=== PATIENT | female | born 1970 | race Caucasian/White ===

== ENCOUNTER 2016-10-15 14:48 | Inpatient (IN) | payer OTHER ==
--- NOTE | 2016-10-15 17:33 | GHP ---
[f rep st] HISTORY AND PHYSICAL HISTORY AND PHYSICAL AND POSTADMISSION PHYSICIAN EVALUATION AND REHABILITATION TREATMENT PLAN: DATE OF ADMISSION: 10/15/2016 DATE OF EVALUATION: 10/15/2016 TIME OF EVALUATION: 1505 REFERRING FACILITY: [facility]. Referring Physician: Madeleine Lala MD CONSULTING PHYSICIANS: There were consultations with neurology, Dr. Whitman and Dr. Paul; and nephrology, Dr. Sanderson and Dr. Ramos. IMPAIRMENT GROUP: 1.9. ETIOLOGIC DIAGNOSIS: Other stroke. REHABILITATION DIAGNOSIS: Debility status post cerebrovascular accident. DATE OF ONSET: 10/06/2016 HISTORY OF PRESENT ILLNESS: The patient was admitted to [facility] on 10/06/2016 with vomiting and fever. She also was having a lot of diarrhea. She was noted to be lethargic. Evaluation was positive for influenza A, as well as Clostridium difficile colitis. An MRI of the brain was obtained due to persistent altered mental status, and it showed a small lacunar infarct. There was concern that this did not account for her encephalopathy and was it thought that oseltamivir which had been started for the influenza might be contributing, so it was discontinued after 3 days. A repeat brain MRI was obtained 2 days later after consultation with Neurology, and it showed an acute infarct of the left cerebral hemisphere and of the left middle cerebellar peduncle. The prior right frontal lobe acute lacunar infarct was also seen. She had further evaluation seeking the etiology of the infarct. There was no source of thrombus located with a transthoracic echo, as well as a transesophageal echocardiogram. She also had head and neck MRI. She had gradual improvement in her level of function, her diarrhea resolved, and she had improved alertness, so she was ready for transfer to inpatient rehabilitation. OTHER STUDIES AND LABS IN THE HOSPITAL: On the day of discharge, she has anemia with a hemoglobin of 9.2, a hematocrit of 30.7. Her MCV is low at 78.9. She had received IV iron supplementation during her hospitalization. Coagulation studies revealed a normal PT and PTT. She is not hypercoagulable regarding protein C, protein S, and antithrombin III testing. Factor V Leiden is still pending. Serum chemistry showed renal function at baseline with a creatinine of 2.0 and an estimated GFR of 27 on the day of discharge. She has a slightly low CO2 of 20. Her AST and ALT are slightly elevated at 50 and 73. A lipid panel was drawn. She had a high triglyceride at 327, total cholesterol was 186, LDL was 84, HDL was 37, and she was started on a statin for stroke prophylaxis. Urinalysis showed protein, ketones, and blood, but was negative for infection. Anticardiolipin antibodies were normal, ruling out lupus anticoagulant. Imaging studies were as above. Echocardiogram revealed normal cardiac function with left ventricular ejection fraction of 63, mild concentric LVH, mild to moderate aortic insufficiency without stenosis, and trivial tricuspid regurgitation. PRECAUTIONS: She is a fall risk. She has isolation for droplets due to influenza and for contact with Clostridium difficile. ACTIVE COMORBIDITIES: She has Clostridium difficile which is a tier 2 comorbidity. Otherwise, there are no tier 1, tier 2, or tier 3 comorbidities. PAST MEDICAL HISTORY: 1. Non-Hodgkin lymphoma. 2. Renal failure due to neurogenic bladder and vesicoureteral reflux. 3. Hypertension. 4. Recurrent pyelonephritis of [place] kidneys. 5. DVT of the right upper extremity in 2010. 6. Chronic abdominal pain. 7. Degenerative joint disease. 8. Anxiety and depression. 9. Hypothyroidism. 10. Preexcitation syndrome. 11. Gastroesophageal reflux disorder. 12. History of urinary retention with self catheterization in the past. PAST SURGICAL HISTORY: She has had a renal transplant in 2007 with [place] nephrectomies. She has had a T11-S1 spinal fusion in April 2013. She has had a cardiac ablation for the preexcitation syndrome. She has also had a right upper extremity dialysis fistula placed. MEDICATIONS BEFORE ADMISSION: 1. Imipramine 20 mg p.o. b.i.d. 2. Calcitriol 0.25 mg p.o. every Monday, Monday, and Monday. 3. Prednisone 10 mg p.o. daily. 4. Verapamil ER 240 mg p.o. daily. 5. Promethazine 25 mg p.o. q.6 p.r.n. 6. Potassium chloride 10 mg p.o. t.i.d. 7. Oxycodone 20 mg p.o. q.6 hours p.r.n. 8. Pantoprazole 40 mg p.o. daily. 9. Morphine SR 30 mg p.o. t.i.d. 10. Mirtazapine 15 mg p.o. q.h.s. 11. Levothyroxine 75 mcg p.o. daily. 12. Furosemide 10 mg p.o. daily. 13. Docusate 100 mg p.o. daily. 14. Cyproheptadine 4 mg p.o. p.r.n. headache. 15. Cyclobenzaprine 10 mg p.o. b.i.d. 16. Tacrolimus 4 mg p.o. daily. 17. Mycophenolate 180 mg p.o. t.i.d. ADMISSION MEDICATIONS: 1. Acetaminophen 650 mg p.o. q.4 hours p.r.n. 2. Aspirin 325 mg p.o. daily. 3. Calcitriol 0.25 mcg p.o. every Monday, Monday, and Monday. 4. Cyclobenzaprine 10 mg p.o. b.i.d. p.r.n. spasms. 5. Cyproheptadine 4 mg p.o. b.i.d. p.r.n. headache. 6. Heparin 5000 units subcutaneous q.8. 7. Levothyroxine 75 mcg p.o. daily. 8. Mirtazapine 15 mg p.o. q.h.s. 9. Tacrolimus 4 mg p.o. daily. 10. Imipramine 20 mg p.o. b.i.d. 11. Mycophenolate 180 mg p.o. t.i.d. 12. Oxycodone 5-10 mg p.o. q.4 hours p.r.n. 13. Pantoprazole 40 mg p.o. daily. 14. Pravastatin 20 mg p.o. daily. 15. Prednisone 10 mg p.o. daily. 16. Vancomycin 125 mg p.o. q.i.d. 17. Verapamil extended-release 240 mg p.o. daily. ALLERGIES: Amoxicillin, erythromycin, metoclopramide, nonsteroidal anti- inflammatory drugs, meperidine, meropenem, sulfa, ceftazidime, ciprofloxacin, levofloxacin, doxycycline, and gabapentin. FAMILY HISTORY: Noncontributory. PSYCHOSOCIAL HISTORY: She is . She lives with her . She is on disability. She has a 9-year-old daughter. She is a nonsmoker and nondrinker, and denies use of any other substances of abuse. 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 REVIEW OF SYSTEMS: She reports constipation x3 days. She is aware of a blurriness in the left visual field. She thinks her left arm is somewhat weaker than her right. She has a good appetite. She does not have significant back pain. She denies cough or dyspnea, but she was coughing when she first presented to the hospital. She denies nausea or vomiting, though she had vomiting when she first came to the hospital. She denies joint swelling or joint pain. She denies skin rash or skin breakdown. Otherwise, a 10-point review of systems is negative. PHYSICAL EXAM: VITAL SIGNS: Blood pressure is 110/74, heart rate is 105, respiratory rate is 14, oxygen saturation is 97% on room air, temperature is 36.5 degrees centigrade. Her weight is 71.2 kg for a body mass index of 25.2. GENERAL: This is a well-nourished, well-developed woman sitting in a chair. Cooperative and in no acute distress. HEENT: Extraocular movements are intact. Pupils are equal, round, and reactive to light and accommodation. Mucous membranes are moist. Dentition is in good condition. There are no oropharyngeal erythema or exudates, and no mucosal lesions noted. NECK: Supple. HEART: There is regular rate and rhythm with no murmurs, rubs, or gallops. LUNGS: Clear to auscultation bilaterally. ABDOMEN: Soft, nontender , nondistended, with normoactive bowel sounds, and no hepatosplenomegaly. EXTREMITIES: There is no cyanosis, clubbing, or edema. NEUROLOGIC: She is alert. Orientation was not tested. Cranial nerves 2-12 are grossly intact. She has weakness 4+/5 in the left upper extremity triceps, and her hand controller repairer and tester and biceps are slightly weaker on the left than on the right. She has reduced sensation on the left upper and lower extremities compared to the right. There is a left visual field cut. There is no tremor. There is no rigidity. CURRENT LEVEL OF FUNCTION PER THE PRE-ADMISSION SCREEN: Regarding diet, feeding , and swallowing, she was on a regular diet with thin liquids. For grooming, she required setup and contact guard with voice cuing. Dressing lower body required minimal assistance. Toileting required contact guard for clothing management and contact guard for transfer. She was continent of bladder and bowel. Bed mobility required minimal assistance with voice cuing. Transfers were accomplished with minimal assistance and voice cuing. She used a front- wheeled walker. For balance, she required contact guard. Endurance was fair. She was able to ambulate 80 feet with a front-wheeled walker and minimal assistance with voice cuing. She was noted to be slow to respond and to have a moderate to severe cognitive deficit. IMPRESSION: Divya Alex is a 46-year-old woman who presented to [facility] on 10/06/2016 with nausea, vomiting, and altered mental status. Evaluation in the hospital was positive for influenza A , as well as Clostridium difficile diarrhea. She was treated with oral vancomycin and oseltamivir. She had altered mental status. An MRI showed a right frontal lacunar infarct, which was thought to be an incidental finding. Oseltamivir was discontinued after 3 days out of concern that it was causing altered mental status. However, she did not recover normal mentation. A repeat MRI showed an extensive left cerebral infarction as well as a left cerebellar infarction. She was begun on aspirin as well as pravastatin. She has had improvement in function, and is now ready for inpatient rehabilitation. Her medical status is complicated by chronic pain, both abdominal and back. Scheduled opiates were discontinued during her stay and she is taking Tylenol as well as needed oxycodone. Back pain does not appear to be limiting her function. She is not complaining of abdominal pain at present, and she was able to sleep well. She additionally has a history of renal failure and renal transplantation. Renal function is at baseline per the consulting job hand. She is appropriate for inpatient rehabilitation where she will benefit from physical and occupational therapy to optimize her mobility and function regarding activities of daily living. Additionally, she will have therapy with Speech and Language Pathology regarding her cognition. She will need close nursing care regarding fall risk, isolation precautions, nutrition, and skin issues, and she will require close medical management by the physician for risk for changes in neurologic function, blood pressure management, renal function, and anemia. Her goal is to return home to her family with supportive services. For a safe discharge, she will need to accomplish independence with eating, bed mobility, and grooming. It is expected she will have modified independence for transfers and ambulation. She may continue to require assistance for dressing, bathing, shopping, meal preparation, and household management. She will receive therapy with Physical Therapy, Occupational Therapy, and Speech and Language Pathology for 60 minutes per day for each discipline, on 5- 7 days per week. Her expected duration of stay is 14-21 days. It is anticipated that upon discharge, she will continue to benefit from home health services, including speech and language pathology, occupational therapy, and physical therapy. ASSESSMENT AND PLAN: 1. Debility status post cerebrovascular accident. Physical and Occupational Therapy to optimize mobility and activities of daily living. 2. Possible cognitive impairment as well as expressive aphasia. She will be assessed and treated per Speech and Language Pathology. 3. Cerebrovascular accident of unclear etiology. There are hypercoagulable tests still pending, specifically factor V Leiden. Otherwise, she was found not to be hypercoagulable. She has been begun on aspirin as well as pravastatin and these will be continued. She will be monitored for any change in her neurologic condition, and she will have continued blood pressure control. 4. Clostridium difficile colitis. She will continue treatment with oral vancomycin, and she will be isolated with Clostridium difficile precautions. 5. Acute influenza A with 3 days of treatment with oseltamivir. She is on isolation for droplet precautions, and it is to be ascertained how long she needs to remain on droplet precautions. 6. Status post renal transplant. She will continue immunosuppressive medications. Creatinine is at baseline at 2.1. 7. Hypertension. Continue verapamil and monitor her blood pressure, with medications to be titrated or added depending on her blood pressure. 8. Chronic pain syndrome with history of extensive spinal fusion. She seems to be sleeping well and adequately functioning on p.r.n. oxycodone, as well as p.r.n. acetaminophen. She will not be restarted on the higher dose opiates that she was on previously. 9. Iron deficiency anemia. She has received IV iron in the hospital. She will have monitoring of her blood counts and iron level. /[id number]/MODL MTDD
[2016-10-15] MEDS ORDERED: BISACODYL 10 MG SUPP PR PRN (20:20)
[2016-10-15] MEDS: IMIPRAMINE HCL 20 MG PO SCH (21:27)
[2016-10-15] MEDS: POTASSIUM CL 10 MEQ TAB PO SCH (21:30)
[2016-10-15] MEDS: VANCOMYCIN 125 MG/2.5 ML UDL PO SCH (21:30)
[2016-10-15] MEDS: CYCLOBENZAPRINE 10 MG TAB PO SCH (21:30)
[2016-10-15] MEDS: HEPARIN 5,000 UNIT/0.5 ML SYR SC SCH (21:30)
[2016-10-15] MEDS ORDERED: TACROLIMUS 1 MG CAP PO ONE (21:30)
[2016-10-15] MEDS: MIRTAZAPINE 15 MG TAB PO SCH (21:30)
[2016-10-15] MEDS: oxyCODONE IR 5 MG TAB PO PRN (21:57)
[2016-10-15] MEDS: MYCOPHENOLATE SODIUM 180 MG TAB PO SCH (22:04)
[2016-10-16] MEDS: VANCOMYCIN 125 MG/2.5 ML UDL PO SCH ×4 (05:41→20:34)
[2016-10-16] MEDS: LEVOTHYROXINE 75 MCG TAB PO SCH (05:41)
[2016-10-16] MEDS: HEPARIN 5,000 UNIT/0.5 ML SYR SC SCH ×3 (05:41→20:31)
[2016-10-16] MEDS: oxyCODONE IR 5 MG TAB PO PRN (05:41)
[2016-10-16] MEDS: ASPIRIN EC 325 MG TAB PO SCH (08:20)
[2016-10-16] MEDS: CYCLOBENZAPRINE 10 MG TAB PO SCH ×2 (08:21→20:32)
[2016-10-16] MEDS: DOCUSATE SODIUM 100 MG CAP PO SCH (08:22)
[2016-10-16] MEDS: PANTOPRAZOLE SODIUM 40 MG TAB PO SCH (08:24)
[2016-10-16] MEDS: POTASSIUM CL 10 MEQ TAB PO SCH ×3 (08:24→20:32)
[2016-10-16] MEDS: FUROSEMIDE 20 MG TAB PO SCH (08:25)
[2016-10-16] MEDS: PRAVASTATIN SODIUM 20 MG TAB PO SCH (08:27)
[2016-10-16] MEDS: predniSONE 10 MG TAB PO SCH (08:27)
[2016-10-16] MEDS: VERAPAMIL ER 240 MG TAB PO SCH (08:28)
[2016-10-16] MEDS: MYCOPHENOLATE SODIUM 180 MG TAB PO SCH ×3 (08:31→20:33)
[2016-10-16] MEDS: IMIPRAMINE HCL 20 MG PO SCH ×2 (08:34→20:33)
[2016-10-16] MEDS: ASTAGRAF PO SCH (08:35)
--- NOTE | 2016-10-16 11:34 | SOAPPROG ---
SOAP Progress Note Assessment/Plan: Assessment: 46 yo female with multiple medical problems, admitted for debility, sepsis, CVA * Debility: Cont multi disp rehab eval and treat * CVA: uncertatin etiology. Cont multi disp therapy, cont ASA, Statins * Aphasia: Cont Speech/Language eval and treatment * Cognitive status: Cont evaluation and treatment * C. diff: Cont PO vanco * Influenza A: S/P treatment. Now with mild, non-productive cough. Cont supportive care * Renal Transplant, CKD with baseline Cre 1.2.: Stable, cont meds, f/u with renal medicine * HTN: On meds. 133/93 this am. Overall improving since acute care. * Chronic pain: Well managed on current regime. Plan: Cont Dr Gomez rehab treatment plan. 10/16/16 11:34 Subjective: Slept well resting comfortably No F/C/CP/SOB/N/V/D/C Objective: Vital Signs Temp Pulse Resp BP Pulse Ox 37.0 C 72 16 133/93 H 95 10/16/16 06:27 10/16/16 06:27 10/16/16 06:27 10/16/16 08:28 10/16/16 06:27 10/15/16 10/16/16 10/17/16 05:59 05:59 05:59 Intake Total 640 500 Output Total 300 Balance 340 500 Physical Exam - Physical Exam General Appearance: alert, no apparent distress Neck: supple Respiratory: lungs clear Cardiac/Chest: regular rate, rhythm Abdomen: soft Skin: normal color, warm/dry Extremities: No pedal edema, No calf tenderness Neuro/Psych: alert, oriented x 3, aphasia, cognition abnormalities, speech abnormalities, other (no acute changes), No normal mood/affect (flat) ICD10 Worksheet Patient Problems: Problems Problem Status Diagnosed C. difficile diarrhea Acute 10/08/16 Nausea Acute Renal failure (ARF), acute on chronic Acute Syncope due to orthostatic hypotension Acute Tachycardia Acute History of kidney transplant Chronic Anticoagulant therapy Active Chronic pain syndrome Active Hypokalemia Active Hypothyroidism Active Renal impairment Active biliary gastric reflux Active Dehydration Acute Diarrhea Acute Nausea & vomiting Acute
[2016-10-16] MEDS: MIRTAZAPINE 15 MG TAB PO SCH (20:32)
[2016-10-17] MEDS: oxyCODONE IR 5 MG TAB PO PRN ×4 (00:27→20:10)
[2016-10-17] MEDS: HEPARIN 5,000 UNIT/0.5 ML SYR SC SCH ×3 (05:54→20:10)
[2016-10-17] MEDS: VANCOMYCIN 125 MG/2.5 ML UDL PO SCH ×4 (05:54→20:09)
[2016-10-17] MEDS: LEVOTHYROXINE 75 MCG TAB PO SCH (05:58)
[2016-10-17] MEDS: ASTAGRAF PO SCH (08:18)
[2016-10-17] MEDS: ASPIRIN EC 325 MG TAB PO SCH (08:18)
[2016-10-17] MEDS: CYCLOBENZAPRINE 10 MG TAB PO SCH ×2 (08:19→20:10)
[2016-10-17] MEDS: DOCUSATE SODIUM 100 MG CAP PO SCH (08:20)
[2016-10-17] MEDS: FUROSEMIDE 20 MG TAB PO SCH (08:21)
[2016-10-17] MEDS: IMIPRAMINE HCL 20 MG PO SCH ×2 (08:22→20:14)
[2016-10-17] MEDS: PANTOPRAZOLE SODIUM 40 MG TAB PO SCH (08:23)
[2016-10-17] MEDS: MYCOPHENOLATE SODIUM 180 MG TAB PO SCH ×3 (08:23→20:29)
[2016-10-17] MEDS: PRAVASTATIN SODIUM 20 MG TAB PO SCH (08:24)
[2016-10-17] MEDS: POTASSIUM CL 10 MEQ TAB PO SCH ×3 (08:24→20:17)
[2016-10-17] MEDS: predniSONE 10 MG TAB PO SCH (08:25)
[2016-10-17] MEDS: VERAPAMIL ER 240 MG TAB PO SCH (08:25)
--- NOTE | 2016-10-17 10:56 | SOAPPROG ---
SOAP Progress Note Assessment/Plan: Assessment: 46 yo female with multiple medical problems, admitted for debility, sepsis, CVA * Debility: Cont multi disp rehab eval and treat * CVA: uncertain etiology. Cont multi disp therapy, cont ASA, Statins * Aphasia: Cont Speech/Language eval and treatment * Cognitive status: Cont evaluation and treatment * C. diff: Cont PO vanco * Influenza A: S/P treatment. Now with mild, non-productive cough. Cont supportive care * Renal Transplant, CKD with baseline Cre 1.2.: Stable, cont meds, f/u with renal medicine * HTN: On meds. 118/68 this am. Overall improving since acute care. * Chronic pain: Well managed on current regime. Plan: Cont Dr Gomez rehab treatment plan. 10/17/16 10:54 Subjective: sleep variable Mood flat/depressed Denies CP/SOB/N/V/D/C Objective: Vital Signs Temp Pulse Resp BP Pulse Ox 37.1 C 79 16 118/68 96 10/17/16 06:16 10/17/16 06:16 10/17/16 06:16 10/17/16 08:25 10/17/16 06:16 10/16/16 10/17/16 10/18/16 05:59 05:59 05:59 Intake Total 640 1850 354 Output Total 300 1900 Balance 340 -50 354 Physical Exam - Physical Exam General Appearance: alert, no apparent distress Neck: supple Respiratory: lungs clear Cardiac/Chest: regular rate, rhythm Skin: normal color, warm/dry Extremities: No pedal edema, No calf tenderness Neuro/Psych: alert, oriented x 3, other (no acute changes) ICD10 Worksheet Patient Problems: Problems Problem Status Diagnosed C. difficile diarrhea Acute 10/08/16 Nausea Acute Renal failure (ARF), acute on chronic Acute Syncope due to orthostatic hypotension Acute Tachycardia Acute History of kidney transplant Chronic Anticoagulant therapy Active Chronic pain syndrome Active Hypokalemia Active Hypothyroidism Active Renal impairment Active biliary gastric reflux Active Dehydration Acute Diarrhea Acute Nausea & vomiting Acute
[2016-10-17] MEDS: CALCITRIOL 0.25 MCG CAP PO SCH (20:10)
[2016-10-17] MEDS: SENNOSIDES 1 TAB PO PRN (20:10)
[2016-10-17] MEDS: MIRTAZAPINE 15 MG TAB PO SCH (20:10)
[2016-10-18] MEDS: HEPARIN 5,000 UNIT/0.5 ML SYR SC SCH ×3 (05:26→20:06)
[2016-10-18] MEDS: LEVOTHYROXINE 75 MCG TAB PO SCH (05:26)
[2016-10-18] MEDS: VANCOMYCIN 125 MG/2.5 ML UDL PO SCH ×4 (05:26→20:07)
[2016-10-18] MEDS: oxyCODONE IR 5 MG TAB PO PRN ×4 (05:33→23:28)
[2016-10-18] MEDS: ASPIRIN EC 325 MG TAB PO SCH (07:57)
[2016-10-18] MEDS: ASTAGRAF PO SCH (07:58)
[2016-10-18] MEDS: VERAPAMIL ER 240 MG TAB PO SCH (08:00)
[2016-10-18] MEDS: DOCUSATE SODIUM 100 MG CAP PO SCH (08:00)
[2016-10-18] MEDS: predniSONE 10 MG TAB PO SCH ×2 (08:00→08:01)
[2016-10-18] MEDS: CYCLOBENZAPRINE 10 MG TAB PO SCH ×2 (08:00→20:07)
[2016-10-18] MEDS: PANTOPRAZOLE SODIUM 40 MG TAB PO SCH (08:02)
[2016-10-18] MEDS: MYCOPHENOLATE SODIUM 180 MG TAB PO SCH ×3 (08:02→20:07)
[2016-10-18] MEDS: SENNOSIDES 1 TAB PO PRN ×2 (08:02→20:07)
[2016-10-18] MEDS: PRAVASTATIN SODIUM 20 MG TAB PO SCH (08:02)
[2016-10-18] MEDS: POTASSIUM CL 10 MEQ TAB PO SCH ×3 (08:02→20:07)
[2016-10-18] MEDS: FUROSEMIDE 20 MG TAB PO SCH (08:03)
[2016-10-18] MEDS: IMIPRAMINE HCL 20 MG PO SCH ×2 (08:04→20:09)
--- NOTE | 2016-10-18 12:16 | SOAPPROG ---
SOAP Progress Note Assessment/Plan: Assessment: 46 yo female with multiple medical problems, admitted for debility, sepsis, L cerebellar CVA * Debility status post cerebrovascular accident. Initial FIM 73. 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 Climbed 6 stairs. Reduced initiation but supervision to SBA for ADLs. Continue Physical and Occupational Therapy to optimize mobility and activities of daily living. * Possible cognitive impairment as well as expressive aphasia. She will be assessed and treated per Speech and Language Pathology. * Cerebrovascular accident of unclear etiology. Await result of factor V Leiden testing. Otherwise, not hypercoagulable. Continue ASA, pravastatin. * ROBLES: cyproheptadine as ordered form the acute hospital; monitor for resolution. * Foul smelling urine per nursing and OT: check UA. * Clostridium difficile colitis. Continue oral vancomycin, and she will be isolated with Clostridium difficile precautions. * Acute influenza A with 3 days of treatment with oseltamivir. She is on isolation for droplet precautions, and it is to be ascertained how long she needs to remain on droplet precautions. * Status post renal transplant. Continue immunosuppressive medications. Creatinine is at baseline at 2.1. * Hypertension. Continue verapamil and monitor her blood pressure. * Chronic pain syndrome with history of extensive spinal fusion. She seems to be sleeping well and adequately functioning on p.r.n. oxycodone, as well as p.r.n. acetaminophen. She will not be restarted on the higher dose opiates that she was on previously. * Iron deficiency anemia. She has received IV iron in the hospital. She will have monitoring of her blood counts and iron level. Attended staffing, 15 min. D/W case mgmt, nursing, PT, OT, JOB PRINTER. Difficult home situation with providing little information; unclear level of assistance available and level of function needed for safe discharge. Discharge goal of 11/01/16. 10/18/16 15:41 Subjective: C/O migraine ROBLES since yesterday morning, R periorbital radiating to jaw, pounding. No nausea. Also with back pain but not severe. Otherwise doing well. Appetite reduced but no n/v/c/d, no f/c, no cough/ dyspnea. Objective: Vital Signs Temp Pulse Resp BP Pulse Ox 36.3 C 75 14 121/86 H 94 10/18/16 05:52 10/18/16 08:00 10/18/16 08:00 10/18/16 08:00 10/18/16 08:00 10/17/16 10/18/16 10/19/16 05:59 05:59 05:59 Intake Total 1850 1344 360 Output Total 1900 1300 525 Balance -50 44 -165 - Time Spent With Patient Time Spent With Patient: Greater than 35 minutes floor time today, including more than 50% of time in coordination of care during staffing meeting, and counseling patient. Physical Exam - Physical Exam General Appearance: WD/WN, alert, no apparent distress Respiratory: normal breath sounds, No crackles, No rhonchi, No wheezing Cardiac/Chest: regular rate, rhythm, No edema Skin: normal color, warm/dry Neuro/Psych: alert, normal mood/affect, motor weakness (LUE ataxia) ICD10 Worksheet Patient Problems: Problems Problem Status Diagnosed C. difficile diarrhea Acute 10/08/16 Nausea Acute Renal failure (ARF), acute on chronic Acute Syncope due to orthostatic hypotension Acute Tachycardia Acute History of kidney transplant Chronic Anticoagulant therapy Active Chronic pain syndrome Active Hypokalemia Active Hypothyroidism Active Renal impairment Active biliary gastric reflux Active Dehydration Acute Diarrhea Acute Nausea & vomiting Acute
[2016-10-18] MEDS: CYPROHEPTADINE HCL 4 MG TAB PO PRN ×3 (12:56→23:28)
[2016-10-18 16:14] LABS: COLOR YELLOW; LEUKOCYTE ESTERASE,URINE NEGATIVE (NEGATIVE); NITRITE,URINE NEGATIVE (NEGATIVE)
[2016-10-18 16:17] LABS: MUCUS TRACE /lpf (NONE-1+)
[2016-10-18] MEDS: MIRTAZAPINE 15 MG TAB PO SCH (20:07)
[2016-10-19] MEDS: VANCOMYCIN 125 MG/2.5 ML UDL PO SCH ×4 (04:55→21:46)
[2016-10-19] MEDS: HEPARIN 5,000 UNIT/0.5 ML SYR SC SCH ×3 (04:55→21:45)
[2016-10-19] MEDS: LEVOTHYROXINE 75 MCG TAB PO SCH (04:55)
[2016-10-19] MEDS: CYCLOBENZAPRINE 10 MG TAB PO SCH ×2 (08:42→21:46)
[2016-10-19] MEDS: ASTAGRAF PO SCH (08:42)
[2016-10-19] MEDS: ASPIRIN EC 325 MG TAB PO SCH (08:42)
[2016-10-19] MEDS: IMIPRAMINE HCL 20 MG PO SCH ×2 (08:43→21:47)
[2016-10-19] MEDS: DOCUSATE SODIUM 100 MG CAP PO SCH (08:43)
[2016-10-19] MEDS: FUROSEMIDE 20 MG TAB PO SCH (08:43)
[2016-10-19] MEDS: MYCOPHENOLATE SODIUM 180 MG TAB PO SCH ×3 (08:43→21:46)
[2016-10-19] MEDS: PANTOPRAZOLE SODIUM 40 MG TAB PO SCH (08:43)
[2016-10-19] MEDS: SENNOSIDES 1 TAB PO PRN (08:44)
[2016-10-19] MEDS: VERAPAMIL ER 240 MG TAB PO SCH (08:44)
[2016-10-19] MEDS: POTASSIUM CL 10 MEQ TAB PO SCH ×3 (08:44→21:47)
[2016-10-19] MEDS: PRAVASTATIN SODIUM 20 MG TAB PO SCH (08:44)
--- NOTE | 2016-10-19 11:35 | SOAPPROG ---
SOAP Progress Note Assessment/Plan: Assessment: 46 yo female with multiple medical problems, admitted for debility, sepsis, L cerebellar CVA * Debility status post cerebrovascular accident. Initial FIM 73. 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 Climbed 6 stairs. Reduced initiation but supervision to SBA for ADLs. Continue Physical and Occupational Therapy to optimize mobility and activities of daily living. * Possible cognitive impairment as well as expressive aphasia. She will be assessed and treated per Speech and Language Pathology. * Cerebrovascular accident of unclear etiology. Await result of factor V Leiden testing. Otherwise, not hypercoagulable. Continue ASA, pravastatin. D/W Dr. Cuadra, Neurology: advises any further evaluation should be referred to [facility]. Reports heparin is for DVT prophylaxis; will continue until Factor V Leiden results are available (D/W lab on 10/19/16: expect result by endo of week, 10/21/16). * Depression? Poor sleep despite mirtazapine. D/W who asked about benzodiazepines, and about bupropion. He agreed to psychiatry consult. * ROBLES: cyproheptadine as ordered form the acute hospital; monitor for resolution. * Foul smelling urine per nursing and OT: UA 10/18/16 with 1+ protein, 2+ epithelial cells, o/w wnl. * Clostridium difficile colitis. Continue oral vancomycin, and isolation with Clostridium difficile precautions. * Acute influenza A with 3 days of treatment with oseltamivir. She is on isolation for droplet precautions, and it is to be ascertained how long she needs to remain on droplet precautions. * Status post renal transplant. Continue immunosuppressive medications. Creatinine is at baseline at 2.1. * Hypertension. Continue verapamil and monitor her blood pressure. * Chronic pain syndrome with history of extensive spinal fusion. She seems to be sleeping well and adequately functioning on p.r.n. oxycodone, as well as p.r.n. acetaminophen. She will not be restarted on the higher dose opiates that she was on previously. * Iron deficiency anemia. She has received IV iron in the hospital. She will have monitoring of her blood counts and iron level. Phone conversation with Jovany Hughes 10/19/16, regarding sleep and depression as above. He reports he will be able to provide considerable help, and that his mother will be available as well. Patient may need to be able to ambulate on uneven surfaces to get into house. Conversation with Neurologist Dr. Cuadra. Advises any further evaluation should be done at [facility]. Discharge goal of 11/01/16. 10/19/16 12:41 Subjective: Reports poor sleep and feels tired. Appetite OK, variable. Last BM 2 days ago. Back pain not severe, not interfering with sleep or therapies. Left arm/ hand still weaker; reports that L leg has recovered completely. Objective: Vital Signs Temp Pulse Resp BP Pulse Ox 36.4 C 70 16 129/85 H 96 10/19/16 05:25 10/19/16 05:25 10/19/16 05:25 10/19/16 08:44 10/19/16 05:25 10/18/16 10/19/16 10/20/16 05:59 05:59 05:59 Intake Total 1344 1590 Output Total 1300 1975 Balance 44 -385 - Time Spent With Patient Time Spent With Patient: Greater than 35 minutes floor time today, including more than 50% of time in coordination of care in conversation with , ed case manager, neurologist Dr. Cuadra, and psychiatrist Dr. Batista. Physical Exam - Physical Exam General Appearance: WD/WN, alert, no apparent distress Respiratory: No respiratory distress, No accessory muscle use Cardiac/Chest: No edema Abdomen: normal bowel sounds, non-tender, soft, No distended Neuro/Psych: alert, oriented x 3, motor weakness (L handgrip, biceps, triceps 4/ 5.), No normal mood/affect (Flat affect) ICD10 Worksheet Patient Problems: Problems Problem Status Diagnosed C. difficile diarrhea Acute 10/08/16 Nausea Acute Renal failure (ARF), acute on chronic Acute Syncope due to orthostatic hypotension Acute Tachycardia Acute History of kidney transplant Chronic Anticoagulant therapy Active Chronic pain syndrome Active Hypokalemia Active Hypothyroidism Active Renal impairment Active biliary gastric reflux Active Dehydration Acute Diarrhea Acute Nausea & vomiting Acute
[2016-10-19] MEDS: oxyCODONE IR 5 MG TAB PO PRN ×2 (12:23→21:46)
--- NOTE | 2016-10-19 18:11 | SOAPPROG ---
SOAP Progress Note Assessment/Plan: Assessment: Stopped by to check in on Barbara. Her speech is improving, but she has ongoing expressive aphasia. Her eye contact initially was poor, but improved during the course of our conversation. Her cognition appeared ok during our visit. She is on her appropriate IS meds. BP and volume status look ok. Her Cr was at her baseline during her hospitalization at [facility] (low 2's) She is continuing therapy. Hope we see ongoing improvement. Given her unusual neuro presentation, I am not sure of the indications for ongoing anticoagulation. Per the charts, additional eval is to occur at [place]? Will check labs. Offered Barbara encouragement. Plan: 10/19/16 18:06 Subjective: Affect brightened during course of visit. Objective: Vital Signs Temp Pulse Resp BP Pulse Ox 36.4 C 70 16 129/85 H 96 10/19/16 05:25 10/19/16 05:25 10/19/16 05:25 10/19/16 08:44 10/19/16 05:25 10/18/16 10/19/16 10/20/16 05:59 05:59 05:59 Intake Total 1344 1590 480 Output Total 1300 1975 Balance 44 -385 480 Physical Exam - Physical Exam General Appearance: no apparent distress Respiratory: lungs clear Cardiac/Chest: regular rate, rhythm Extremities: normal inspection ICD10 Worksheet Patient Problems: Problems Problem Status Diagnosed C. difficile diarrhea Acute 10/08/16 Nausea Acute Renal failure (ARF), acute on chronic Acute Syncope due to orthostatic hypotension Acute Tachycardia Acute History of kidney transplant Chronic Anticoagulant therapy Active Chronic pain syndrome Active Hypokalemia Active Hypothyroidism Active Renal impairment Active biliary gastric reflux Active Dehydration Acute Diarrhea Acute Nausea & vomiting Acute
[2016-10-19] MEDS: MIRTAZAPINE 15 MG TAB PO SCH (21:46)
[2016-10-19] MEDS: CALCITRIOL 0.25 MCG CAP PO SCH (21:48)
[2016-10-20] MEDS: LEVOTHYROXINE 75 MCG TAB PO SCH (06:02)
[2016-10-20] MEDS: HEPARIN 5,000 UNIT/0.5 ML SYR SC SCH (06:02)
[2016-10-20] MEDS: VANCOMYCIN 125 MG/2.5 ML UDL PO SCH ×4 (06:02→21:03)
[2016-10-20] MEDS: oxyCODONE IR 5 MG TAB PO PRN ×4 (06:02→23:48)
[2016-10-20] MEDS: CYCLOBENZAPRINE 10 MG TAB PO SCH ×2 (08:32→19:55)
[2016-10-20] MEDS: PRAVASTATIN SODIUM 20 MG TAB PO SCH (08:32)
[2016-10-20] MEDS: MYCOPHENOLATE SODIUM 180 MG TAB PO SCH ×3 (08:32→21:05)
[2016-10-20] MEDS: ASPIRIN EC 325 MG TAB PO SCH (08:32)
[2016-10-20] MEDS: DOCUSATE SODIUM 100 MG CAP PO SCH (08:32)
[2016-10-20] MEDS: POTASSIUM CL 10 MEQ TAB PO SCH ×2 (08:32→21:05)
[2016-10-20] MEDS: VERAPAMIL ER 240 MG TAB PO SCH (08:32)
[2016-10-20] MEDS: predniSONE 10 MG TAB PO SCH (08:33)
[2016-10-20] MEDS: ASTAGRAF PO SCH (08:33)
[2016-10-20] MEDS: FUROSEMIDE 20 MG TAB PO SCH (08:33)
[2016-10-20] MEDS: PANTOPRAZOLE SODIUM 40 MG TAB PO SCH (08:33)
[2016-10-20] MEDS: IMIPRAMINE HCL 20 MG PO SCH ×2 (08:33→21:06)
[2016-10-20 09:17] LABS: ABSOLUTE IMMATURE GRANULOCYTES 0.09 10^3/uL (0.00-0.10); ADD DIFF? NO; ADD MORPH? NO; ADD SCAN? NO; ATYPICAL LYMPHOCYTE FLAG 20 (0-99); FRAGMENT RBC FLAG 20 (0-99); HEMATOCRIT 31.8 % (38.0-47.0); HEMOGLOBIN 9.6 g/dL (12.6-16.3); LEFT SHIFT FLG 10 (0-99); LIPEMIA HEMOLYSIS FLAG 80 (0-99); MEAN CELL HEMOGLOBIN 24.2 pg (27.9-34.1); MEAN CELL HEMOGLOBIN CONCENTR. 30.2 g/dL (32.4-36.7); MEAN CELL VOLUME 80.3 fL (81.5-99.8); MEAN PLATELET VOLUME 11.3 fL (8.7-11.7); PLATELET CLUMPS FLAG 10 (0-99); PLATELET COUNT 366 10^3/uL (150-400); RED BLOOD CELL COUNT 3.96 10^6/uL (4.18-5.33)
[2016-10-20 09:49] LABS: ALBUMIN 3.9 g/dL (3.5-5.0); ANION GAP 15 mEq/L (8-16); CALCIUM 9.4 mg/dL (8.5-10.4); CARBON DIOXIDE 25 mEq/l (22-31); CHLORIDE 103 mEq/L (97-110); CREATININE 2.5 mg/dL (0.6-1.0); GLOMERULAR FILTRATION RATE 21; GLUCOSE 80 mg/dL (70-100); SODIUM 143 mEq/L (134-144)
[2016-10-20 13:50] LABS: % SATURATION 16 % (20-55); TOTAL IRON BINDING CAPACITY 301 ug/dL (260-490)
--- NOTE | 2016-10-20 14:51 | SOAPPROG ---
SOAP Progress Note Assessment/Plan: Assessment: 46 yo female with multiple medical problems, admitted for debility, sepsis, L cerebellar CVA * Debility status post cerebrovascular accident. Initial FIM 73. 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 Climbed 6 stairs. Reduced initiation but supervision to SBA for ADLs. Continue Physical and Occupational Therapy to optimize mobility and activities of daily living. * Possible cognitive impairment as well as expressive aphasia. Continue Speech and Language Pathology. * Cerebrovascular accident of unclear etiology. Not hypercoagulable. Continue ASA, pravastatin. D/W Dr. Cuadra, Neurology: advises any further evaluation should be referred to [facility]. Reports heparin is for DVT prophylaxis; d/c 10/20/16 as Factor V Leiden results are negative. * Status post renal transplant & CKD. Continue immunosuppressive medications. Creatinine increased from baseline of 2.1 to 2.5 on 10/20/16. D/W nephrology Dr. Sanderson: likely dehydration. Advises NS 500 cc, and d/c furosemide. Will also reduce KCl from 10 mg TID to BID. Recheck BMP in AM. Encourage PO hydration. * Depression? Poor sleep despite mirtazapine. D/W who asked about benzodiazepines, and about bupropion. He agreed to psychiatry consult. Start melatonin 10/20/16. Await recommendations of psychiatry. * ROBLES: cyproheptadine as ordered form the acute hospital; monitor for resolution. * Foul smelling urine per nursing and OT: UA 10/18/16 with 1+ protein, 2+ epithelial cells, o/w wnl. * Clostridium difficile colitis. Continue oral vancomycin, and isolation with Clostridium difficile precautions. * Acute influenza A with 3 days of treatment with oseltamivir. She is on isolation for droplet precautions, and it is to be ascertained how long she needs to remain on droplet precautions. * Hypertension. Continue verapamil and monitor her blood pressure. * Chronic pain syndrome with history of extensive spinal fusion. She seems to be sleeping well and adequately functioning on p.r.n. oxycodone, as well as p.r.n. acetaminophen. She will not be restarted on the higher dose opiates that she was on previously. * Iron deficiency anemia. She has received IV iron in the hospital. Continues fe-deficient on labs 10/20/16. Add PO iron X 1 mo. Phone conversation with Jovany Hughes 10/19/16, regarding sleep and depression as above. He reports he will be able to provide considerable help, and that his mother will be available as well. Patient may need to be able to ambulate on uneven surfaces to get into house. Conversation with Neurologist Dr. Cuadra 10/19/16. Advises any further evaluation should be done at [facility]. Discharge goal of 11/01/16. 10/20/16 14:55 Subjective: c/o continued poor sleep and HAs. Thinks she may have reduced fluid intake, Back pain at baseline. No f/c, cough, dyspnea, n/v/c/d. Objective: Vital Signs Temp Pulse Resp BP Pulse Ox 36.3 C 94 18 121/83 H 96 10/20/16 07:45 10/20/16 07:45 10/20/16 07:45 10/20/16 08:32 10/20/16 07:45 Laboratory Results 10/20/16 08:15 10/20/16 08:15 10/19/16 10/20/16 10/21/16 05:59 05:59 05:59 Intake Total 1590 1600 810 Output Total 1975 1150 250 Balance -385 450 560 Physical Exam - Physical Exam General Appearance: WD/WN, alert, no apparent distress Respiratory: normal breath sounds, No crackles, No rhonchi, No wheezing Cardiac/Chest: regular rate, rhythm, No edema Skin: normal color, warm/dry Neuro/Psych: alert, normal mood/affect, oriented x 3, other (Amulating with cane R hand; assist on L arm per PT. Ambulates with FWW, SBA per PT, short steps, slow, step-to and step-through pattern.) ICD10 Worksheet Patient Problems: Problems Problem Status Diagnosed C. difficile diarrhea Acute 10/08/16 Nausea Acute Renal failure (ARF), acute on chronic Acute Syncope due to orthostatic hypotension Acute Tachycardia Acute History of kidney transplant Chronic Anticoagulant therapy Active Chronic pain syndrome Active Hypokalemia Active Hypothyroidism Active Renal impairment Active biliary gastric reflux Active Dehydration Acute Diarrhea Acute Nausea & vomiting Acute
[2016-10-20] MEDS ORDERED: NS 500 ML IV SCH (15:00)
[2016-10-20] MEDS: PROMETHAZINE HCL 25 MG TAB PO PRN ×2 (17:14→23:48)
[2016-10-20] MEDS: MELATONIN 3 MG TAB PO SCH (21:05)
[2016-10-20] MEDS: MIRTAZAPINE 15 MG TAB PO SCH (21:05)
[2016-10-21] MEDS: LEVOTHYROXINE 75 MCG TAB PO SCH (06:16)
[2016-10-21] MEDS: VANCOMYCIN 125 MG/2.5 ML UDL PO SCH ×4 (06:16→20:22)
[2016-10-21] MEDS: oxyCODONE IR 5 MG TAB PO PRN ×3 (06:23→20:21)
[2016-10-21 08:34] LABS: ANION GAP 20 mEq/L (8-16); CALCIUM 9.4 mg/dL (8.5-10.4); CARBON DIOXIDE 23 mEq/l (22-31); CHLORIDE 104 mEq/L (97-110); CREATININE 2.7 mg/dL (0.6-1.0); GLOMERULAR FILTRATION RATE 19; GLUCOSE 84 mg/dL (70-100); SODIUM 147 mEq/L (134-144)
[2016-10-21] MEDS: CYCLOBENZAPRINE 10 MG TAB PO SCH (08:52)
[2016-10-21] MEDS: ASPIRIN EC 325 MG TAB PO SCH (08:52)
[2016-10-21] MEDS: PANTOPRAZOLE SODIUM 40 MG TAB PO SCH (08:52)
[2016-10-21] MEDS: predniSONE 10 MG TAB PO SCH (08:52)
[2016-10-21] MEDS: POTASSIUM CL 10 MEQ TAB PO SCH ×2 (08:52→20:21)
[2016-10-21] MEDS: PRAVASTATIN SODIUM 20 MG TAB PO SCH (08:52)
[2016-10-21] MEDS: DOCUSATE SODIUM 100 MG CAP PO SCH (08:52)
[2016-10-21] MEDS: PROMETHAZINE HCL 25 MG TAB PO PRN (08:52)
[2016-10-21] MEDS: VERAPAMIL ER 240 MG TAB PO SCH (08:52)
[2016-10-21] MEDS: MYCOPHENOLATE SODIUM 180 MG TAB PO SCH ×3 (08:52→20:26)
[2016-10-21] MEDS: IMIPRAMINE HCL 20 MG PO SCH (08:54)
[2016-10-21] MEDS: ASTAGRAF PO SCH (08:54)
--- NOTE | 2016-10-21 09:42 | SOAPPROG ---
SOAP Progress Note Assessment/Plan: Assessment: 46 yo female with multiple medical problems, admitted for debility, sepsis, L cerebellar CVA * Debility status post cerebrovascular accident. Initial FIM 73. 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 Climbed 6 stairs. Use of L hand seems improved today 10/21/16. Reduced initiation but supervision to SBA for ADLs. Continue Physical and Occupational Therapy to optimize mobility and activities of daily living. * Possible cognitive impairment as well as expressive aphasia. Continue Speech and Language Pathology. * Cerebrovascular accident of unclear etiology. Not hypercoagulable. Continue ASA, pravastatin. D/W Dr. Cuadra, Neurology: advises any further evaluation should be referred to [facility]. Reports heparin is for DVT prophylaxis; d/c 10/20/16 as Factor V Leiden results are negative. * Status post renal transplant & CKD. Continue immunosuppressive medications. Creatinine increased from baseline of 2.1 to 2.5 on 10/20/16; to 2.7 on 10/21/16. Unable to establish IV yesterday. D/W nephrology Dr. Sanderson 10/20/16: likely dehydration. However, appears to be hydrating PO. NS 500 cc not given due to difficult IV access. D/c'd furosemide. Also reduced KCl from 10 mg TID to BID. 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 * Urinary retention: blader scan > 800cc; voided 300; voided again later but residual 250cc. May contribute to declining renal function. Meds that impair bladder emptying: imipramine, cyclobenzaprine, cyproheptadine, promethazine, oxycodone. Will stop imipramine, cyclobenzaprine, promethazine. Bladderscan Q 6 hr and cath for residuall > 300 cc. * Depression? Poor sleep despite mirtazapine. D/W who asked about benzodiazepines, and about bupropion. He agreed to psychiatry consult. Started melatonin 10/20/16. Await recommendations of psychiatry. * ROBLES: cyproheptadine as ordered form the acute hospital; monitor for resolution. * Foul smelling urine per nursing and OT: UA 10/18/16 with 1+ protein, 2+ epithelial cells, o/w wnl. * Clostridium difficile colitis. Continue oral vancomycin, and isolation with Clostridium difficile precautions. * Acute influenza A with 3 days of treatment with oseltamivir. She is on isolation for droplet precautions, and it is to be ascertained how long she needs to remain on droplet precautions. * Hypertension. Continue verapamil and monitor her blood pressure. * Chronic pain syndrome with history of extensive spinal fusion. She seems to be sleeping well and adequately functioning on p.r.n. oxycodone, as well as p.r.n. acetaminophen. She will not be restarted on the higher dose opiates that she was on previously. * Iron deficiency anemia. She has received IV iron in the hospital. Continues fe-deficient on labs 10/20/16. Add PO iron X 1 mo. Phone conversation with Jovany Hughes 10/19/16, regarding sleep and depression as above. He reports he will be able to provide considerable help, and that his mother will be available as well. Patient may need to be able to ambulate on uneven surfaces to get into house. Conversation with Neurologist Dr. Cuadra 10/19/16. Advises any further evaluation should be done at [facility]. Discharge goal of 11/01/16. 10/21/16 12:37 Subjective: C/O ROBLES. Slept better last night but still not a full night. Not aware of urinary retention or dysuria; thinks she's voiding well. Good appetite, no n/v/ c/d. No f/c. Objective: Vital Signs Temp Pulse Resp BP Pulse Ox 36.2 C 101 H 16 122/88 H 97 10/21/16 08:00 10/21/16 08:00 10/21/16 08:00 10/21/16 08:52 10/21/16 08:00 Laboratory Results 10/20/16 08:15 10/21/16 07:15 10/20/16 10/21/16 10/22/16 05:59 05:59 05:59 Intake Total 1600 1550 Output Total 1150 850 Balance 450 700 - Time Spent With Patient Time Spent With Patient: Greater than 35 minutes floor time today, including more than 50% of time incoordination of care including discussion with nephrology Dr. Sandersno and his clinical product manager, and discussion of plan with nursing. Physical Exam - Physical Exam General Appearance: WD/WN, alert, no apparent distress Respiratory: normal breath sounds, No crackles, No rhonchi, No wheezing Cardiac/Chest: regular rate, rhythm, No edema Skin: normal color, warm/dry Neuro/Psych: alert, normal mood/affect, oriented x 3, other (Using L hand for eating and operating TV remote; some ataxia noted.) ICD10 Worksheet Patient Problems: Problems Problem Status Diagnosed C. difficile diarrhea Acute 10/08/16 Nausea Acute Renal failure (ARF), acute on chronic Acute Syncope due to orthostatic hypotension Acute Tachycardia Acute History of kidney transplant Chronic Anticoagulant therapy Active Chronic pain syndrome Active Hypokalemia Active Hypothyroidism Active Renal impairment Active biliary gastric reflux Active Dehydration Acute Diarrhea Acute Nausea & vomiting Acute
[2016-10-21] MEDS: MIRTAZAPINE 15 MG TAB PO SCH (20:21)
[2016-10-21] MEDS: ONDANSETRON DISINTEGRATING 4 MG TAB PO PRN (20:21)
[2016-10-21] MEDS: MELATONIN 3 MG TAB PO SCH (20:22)
[2016-10-21] MEDS: CALCITRIOL 0.25 MCG CAP PO SCH (20:30)
[2016-10-22] MEDS: oxyCODONE IR 5 MG TAB PO PRN ×6 (00:15→23:13)
[2016-10-22] MEDS: LEVOTHYROXINE 75 MCG TAB PO SCH (05:11)
[2016-10-22] MEDS: VANCOMYCIN 125 MG/2.5 ML UDL PO SCH ×4 (05:11→20:27)
[2016-10-22] MEDS: ONDANSETRON DISINTEGRATING 4 MG TAB PO PRN ×2 (05:52→23:13)
[2016-10-22] MEDS: ASPIRIN EC 325 MG TAB PO SCH (08:52)
[2016-10-22] MEDS: ASTAGRAF PO SCH (08:53)
[2016-10-22] MEDS: PANTOPRAZOLE SODIUM 40 MG TAB PO SCH (08:55)
[2016-10-22] MEDS: MYCOPHENOLATE SODIUM 180 MG TAB PO SCH ×3 (08:55→20:27)
[2016-10-22] MEDS: POTASSIUM CL 10 MEQ TAB PO SCH ×2 (08:55→20:28)
[2016-10-22] MEDS: predniSONE 10 MG TAB PO SCH (08:55)
[2016-10-22] MEDS: PRAVASTATIN SODIUM 20 MG TAB PO SCH (08:55)
[2016-10-22] MEDS: VERAPAMIL ER 240 MG TAB PO SCH (08:56)
[2016-10-22] MEDS: DOCUSATE SODIUM 100 MG CAP PO SCH (08:58)
[2016-10-22 09:15] LABS: ANION GAP 13 mEq/L (8-16); CALCIUM 9.3 mg/dL (8.5-10.4); CARBON DIOXIDE 25 mEq/l (22-31); CHLORIDE 104 mEq/L (97-110); CREATININE 2.8 mg/dL (0.6-1.0); GLOMERULAR FILTRATION RATE 18; GLUCOSE 79 mg/dL (70-100); POTASSIUM 4.9 mEq/L (3.5-5.2); SODIUM 142 mEq/L (134-144)
--- NOTE | 2016-10-22 15:16 | SOAPPROG ---
SOAP Progress Note Assessment/Plan: 46 yo female with multiple medical problems, admitted for debility, sepsis, L cerebellar CVA * Debility status post cerebrovascular accident. Initial FIM 73. 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 Climbed 6 stairs. Use of L hand seems improved today 10/21/16. Reduced initiation but supervision to SBA for ADLs. Continue Physical and Occupational Therapy to optimize mobility and activities of daily living. * Possible cognitive impairment as well as expressive aphasia. Continue Speech and Language Pathology. * Cerebrovascular accident of unclear etiology. Not hypercoagulable. Continue ASA, pravastatin. D/W Dr. Cuadra, Neurology: advises any further evaluation should be referred to [facility]. Reports heparin is for DVT prophylaxis; d/c 10/20/16 as Factor V Leiden results are negative. * Status post renal transplant & CKD. Continue immunosuppressive medications. Creatinine increased from baseline of 2.1 to 2.5 on 10/20/16; to 2.7 on 10/21/16. Unable to establish IV yesterday. D/W nephrology Dr. Sanderson 10/20/16: likely dehydration. However, appears to be hydrating PO. NS 500 cc not given due to difficult IV access. D/c'd furosemide. Also reduced KCl from 10 mg TID to BID. 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 Cr settling at 2.8 today, will CTM, encouraging oral hydration * Urinary retention: blader scan > 800cc; voided 300; voided again later but residual 250cc. May contribute to declining renal function. Meds that impair bladder emptying: imipramine, cyclobenzaprine, cyproheptadine, promethazine, oxycodone. Will stop imipramine, cyclobenzaprine, promethazine. Bladderscan Q 6 hr and cath for residuall > 300 cc. Still only voiding down to 200's but has not required IC * Depression? Poor sleep despite mirtazapine. D/W who asked about benzodiazepines, and about bupropion. He agreed to psychiatry consult. Started melatonin 10/20/16. Await recommendations of psychiatry. * ROBLES: cyproheptadine as ordered form the acute hospital; monitor for resolution. * Foul smelling urine per nursing and OT: UA 10/18/16 with 1+ protein, 2+ epithelial cells, o/w wnl. * Clostridium difficile colitis. Continue oral vancomycin, and isolation with Clostridium difficile precautions. * Acute influenza A with 3 days of treatment with oseltamivir. She is on isolation for droplet precautions, and it is to be ascertained how long she needs to remain on droplet precautions. * Hypertension. Continue verapamil and monitor her blood pressure. * Chronic pain syndrome with history of extensive spinal fusion. She seems to be sleeping well and adequately functioning on p.r.n. oxycodone, as well as p.r.n. acetaminophen. She will not be restarted on the higher dose opiates that she was on previously. * Iron deficiency anemia. She has received IV iron in the hospital. Continues fe-deficient on labs 10/20/16. Add PO iron X 1 mo. Phone conversation with Jovany Hughes 10/19/16, regarding sleep and depression as above. He reports he will be able to provide considerable help, and that his mother will be available as well. Patient may need to be able to ambulate on uneven surfaces to get into house. Conversation with Neurologist Dr. Cuadra 10/19/16. Advises any further evaluation should be done at [facility]. Discharge goal of 11/01/16. Subjective: No acute events. No complaints today. Denies ROBLES, vision changes, dysuria. Objective: Vital Signs Temp Pulse Resp BP Pulse Ox 36.8 C 79 18 126/87 H 94 10/22/16 05:14 10/22/16 05:14 10/22/16 05:14 10/22/16 08:56 10/22/16 05:14 Laboratory Results 10/20/16 08:15 10/22/16 05:45 10/21/16 10/22/16 10/23/16 05:59 05:59 05:59 Intake Total 1550 1640 1500 Output Total 850 3000 400 Balance 700 -1360 1100 - Pending Discharge Pending Discharge Within 24 Hours: No Pending Discharge Within 48 Hours: No Physical Exam - Physical Exam General Appearance: alert, no apparent distress Neck: supple Respiratory: lungs clear, normal breath sounds Cardiac/Chest: regular rate, rhythm Abdomen: non-tender, soft Skin: normal color Extremities: No pedal edema Neuro/Psych: alert, normal mood/affect ICD10 Worksheet Patient Problems: Problems Problem Status Diagnosed C. difficile diarrhea Acute 10/08/16 Nausea Acute Renal failure (ARF), acute on chronic Acute Syncope due to orthostatic hypotension Acute Tachycardia Acute History of kidney transplant Chronic Anticoagulant therapy Active Chronic pain syndrome Active Hypokalemia Active Hypothyroidism Active Renal impairment Active biliary gastric reflux Active Dehydration Acute Diarrhea Acute Nausea & vomiting Acute
[2016-10-22] MEDS: MIRTAZAPINE 15 MG TAB PO SCH (20:27)
[2016-10-22] MEDS: MELATONIN 3 MG TAB PO SCH (20:27)
[2016-10-23] MEDS: oxyCODONE IR 5 MG TAB PO PRN ×4 (05:24→21:25)
[2016-10-23] MEDS: LEVOTHYROXINE 75 MCG TAB PO SCH (05:24)
[2016-10-23] MEDS: VANCOMYCIN 125 MG/2.5 ML UDL PO SCH ×4 (05:24→21:17)
[2016-10-23] MEDS: ASTAGRAF PO SCH (08:12)
[2016-10-23] MEDS: ASPIRIN EC 325 MG TAB PO SCH (08:12)
[2016-10-23] MEDS: POTASSIUM CL 10 MEQ TAB PO SCH (08:14)
[2016-10-23] MEDS: PANTOPRAZOLE SODIUM 40 MG TAB PO SCH (08:14)
[2016-10-23] MEDS: MYCOPHENOLATE SODIUM 180 MG TAB PO SCH ×3 (08:14→21:17)
[2016-10-23] MEDS: VERAPAMIL ER 240 MG TAB PO SCH (08:15)
[2016-10-23] MEDS: predniSONE 10 MG TAB PO SCH (08:15)
[2016-10-23] MEDS: PRAVASTATIN SODIUM 20 MG TAB PO SCH (08:15)
[2016-10-23] MEDS: DOCUSATE SODIUM 100 MG CAP PO SCH (08:25)
[2016-10-23 11:01] LABS: ANION GAP 16 mEq/L (8-16); CARBON DIOXIDE 21 mEq/l (22-31); CHLORIDE 105 mEq/L (97-110); CREATININE 2.7 mg/dL (0.6-1.0); GLOMERULAR FILTRATION RATE 19; GLUCOSE 56 mg/dL (70-100); POTASSIUM 5.2 mEq/L (3.5-5.2); SODIUM 142 mEq/L (134-144)
--- NOTE | 2016-10-23 12:14 | SOAPPROG ---
SOAP Progress Note Assessment/Plan: 46 yo female with multiple medical problems, admitted for debility, sepsis, L cerebellar CVA * Debility status post cerebrovascular accident. Initial FIM 73. Ambulated 300 ' SHROUDM[place] with a stiff gait. Climbed 6 stairs. Use of L hand seems improved today 10/21/16. Reduced initiation but supervision to SBA for ADLs. Continue Physical and Occupational Therapy to optimize mobility and activities of daily living. * Possible cognitive impairment as well as expressive aphasia. Continue Speech and Language Pathology. * Cerebrovascular accident of unclear etiology. Not hypercoagulable. Continue ASA, pravastatin. D/W Dr. Cuadra, Neurology: advises any further evaluation should be referred to [facility]. Reports heparin is for DVT prophylaxis; d/c 10/20/16 as Factor V Leiden results are negative. * Status post renal transplant & CKD. Continue immunosuppressive medications. Creatinine increased from baseline of 2.1 to 2.5 on 10/20/16; to 2.7 on 10/21/16. Unable to establish IV yesterday. D/W nephrology Dr. Sanderson 10/20/16: likely dehydration. However, appears to be hydrating PO. NS 500 cc not given due to difficult IV access. D/c'd furosemide. Also reduced KCl from 10 mg TID to BID to Daily (10/23). 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 Cr peaked now stable with 2.7 today, will CTM, encouraging oral hydration * Urinary retention: blader scan > 800cc; voided 300; voided again later but residual 250cc. May contribute to declining renal function. Meds that impair bladder emptying: imipramine, cyclobenzaprine, cyproheptadine, promethazine, oxycodone. Will stop imipramine, cyclobenzaprine, promethazine. Bladderscan Q 6 hr and cath for residuall > 300 cc. Still only voiding down to 200's but has not required IC past 48hrs * Depression? Poor sleep despite mirtazapine. D/W who asked about benzodiazepines, and about bupropion. He agreed to psychiatry consult. Started melatonin 10/20/16. Await recommendations of psychiatry. * ROBLES: cyproheptadine as ordered form the acute hospital; monitor for resolution. * Foul smelling urine per nursing and OT: UA 10/18/16 with 1+ protein, 2+ epithelial cells, o/w wnl. * Clostridium difficile colitis. Continue oral vancomycin, and isolation with Clostridium difficile precautions. * Acute influenza A with 3 days of treatment with oseltamivir. She is on isolation for droplet precautions, and it is to be ascertained how long she needs to remain on droplet precautions. * Hypertension. Continue verapamil and monitor her blood pressure. * Chronic pain syndrome with history of extensive spinal fusion. She seems to be sleeping well and adequately functioning on p.r.n. oxycodone, as well as p.r.n. acetaminophen. She will not be restarted on the higher dose opiates that she was on previously. * Iron deficiency anemia. She has received IV iron in the hospital. Continues fe-deficient on labs 10/20/16. Add PO iron X 1 mo. Phone conversation with Jovany Hughes 10/19/16, regarding sleep and depression as above. He reports he will be able to provide considerable help, and that his mother will be available as well. Patient may need to be able to ambulate on uneven surfaces to get into house. Conversation with Neurologist Dr. Cuadra 10/19/16. Advises any further evaluation should be done at [facility]. Discharge goal of 11/01/16. Subjective: seen in therapy. No acute events. No IC past day. No complaints, denies pain or lightheadedness. Objective: Vital Signs Temp Pulse Resp BP Pulse Ox 36.6 C 75 16 149/94 H 94 10/23/16 05:22 10/23/16 05:22 10/23/16 05:22 10/23/16 08:15 10/23/16 05:22 Laboratory Results 10/20/16 08:15 10/23/16 06:30 10/22/16 10/23/16 10/24/16 05:59 05:59 05:59 Intake Total 1640 2450 Output Total 3000 2200 300 Balance -1360 250 -300 - Pending Discharge Pending Discharge Within 24 Hours: No Pending Discharge Within 48 Hours: No Physical Exam - Physical Exam General Appearance: alert Neck: supple Respiratory: lungs clear, normal breath sounds Cardiac/Chest: regular rate, rhythm Abdomen: normal bowel sounds Skin: warm/dry Neuro/Psych: alert, depressed affect, other (Flat affect) ICD10 Worksheet Patient Problems: Problems Problem Status Diagnosed C. difficile diarrhea Acute 10/08/16 Nausea Acute Renal failure (ARF), acute on chronic Acute Syncope due to orthostatic hypotension Acute Tachycardia Acute History of kidney transplant Chronic Anticoagulant therapy Active Chronic pain syndrome Active Hypokalemia Active Hypothyroidism Active Renal impairment Active biliary gastric reflux Active Dehydration Acute Diarrhea Acute Nausea & vomiting Acute
[2016-10-23] MEDS: MIRTAZAPINE 15 MG TAB PO SCH (21:17)
[2016-10-23] MEDS: MELATONIN 3 MG TAB PO SCH (21:17)
[2016-10-24] MEDS: oxyCODONE IR 5 MG TAB PO PRN ×5 (00:51→19:39)
[2016-10-24] MEDS: LEVOTHYROXINE 75 MCG TAB PO SCH (06:22)
[2016-10-24] MEDS: VANCOMYCIN 125 MG/2.5 ML UDL PO SCH ×4 (06:22→22:28)
[2016-10-24] MEDS: ASTAGRAF PO SCH (09:09)
[2016-10-24] MEDS: ASPIRIN EC 325 MG TAB PO SCH (09:09)
[2016-10-24] MEDS: MYCOPHENOLATE SODIUM 180 MG TAB PO SCH ×3 (09:10→22:28)
[2016-10-24] MEDS: PANTOPRAZOLE SODIUM 40 MG TAB PO SCH (09:10)
[2016-10-24] MEDS: DOCUSATE SODIUM 100 MG CAP PO SCH (09:10)
[2016-10-24] MEDS: predniSONE 10 MG TAB PO SCH (09:11)
[2016-10-24] MEDS: VERAPAMIL ER 240 MG TAB PO SCH (09:11)
[2016-10-24] MEDS: POTASSIUM CL 10 MEQ TAB PO SCH (09:11)
[2016-10-24] MEDS: PRAVASTATIN SODIUM 20 MG TAB PO SCH (09:11)
--- NOTE | 2016-10-24 09:56 | SOAPPROG ---
SOAP Progress Note Assessment/Plan: Assessment: 46 yo female with multiple medical problems, admitted for debility, sepsis, L cerebellar CVA * Debility status post cerebrovascular accident. Initial FIM 73 on 10/19/16; gain to 83 as of 10/24/16. Ambulated 300' CGA, no device, cueing for awareness of L side. Climbed 9 stairs, one rail, SBA. Set-up/SBA for ADLs. Reduced initiation. Trial of I in room during the day soon. Continue Physical and Occupational Therapy to optimize mobility and activities of daily living. * Possible cognitive impairment as well as expressive aphasia. Improving. No longer dropping pronouns. Continues flat affect. Continue Speech and Language Pathology. * Cerebrovascular accident of unclear etiology. Not hypercoagulable. Continue ASA, pravastatin. D/W Dr. Cuadra, Neurology: advises any further evaluation should be referred to [facility]. Reports heparin is for DVT prophylaxis; d/c 10/20/16 as Factor V Leiden results are negative. Related to migraine? * Status post renal transplant & CKD. Continue immunosuppressive medications. Creatinine increased from baseline of 2.1 to 2.5 on 10/20/16; to 2.7 on 10/21/16. D/W nephrology Dr. Sanderson 10/20/16: likely dehydration. Unable to establish IV for hydration 10/20/16. However, subsequently appears to be hydrating PO. D/c' d furosemide. Also reduced KCl from 10 mg TID to QD. 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 * Urinary retention, likely contributing to decreased renal funciton: blader scan > 800cc; voided 300; voided again later but residual 250cc. Meds that impair bladder emptying: imipramine, cyclobenzaprine, cyproheptadine, promethazine, oxycodone. Stopped imipramine, cyclobenzaprine, promethazine on . Bladder scan Q 6 hr and cath for residual > 300 cc. Nurse has been using double voiding strategy: if PVR > 300, she voids again; has avoided catheterization. * Depression? Poor sleep despite mirtazapine. D/W who asked about benzodiazepines, and about bupropion. He agreed to psychiatry consult. Started melatonin 10/20/16. Await recommendations of psychiatry. * ROBLES: cyproheptadine as ordered form the acute hospital; monitor for resolution. Encourage minimal use due to urinary retention, Unclear optimal treatment or prevention. Consider riboflavin. * Foul smelling urine per nursing and OT: UA 10/18/16 with 1+ protein, 2+ epithelial cells, o/w wnl. * Clostridium difficile colitis. Continue oral vancomycin, and isolation with Clostridium difficile precautions. * Acute influenza A with 3 days of treatment with oseltamivir. She is on isolation for droplet precautions, and it is to be ascertained how long she needs to remain on droplet precautions. * Hypertension. Continue verapamil and monitor her blood pressure. * Chronic pain syndrome with history of extensive spinal fusion. She seems to be sleeping well and adequately functioning on p.r.n. oxycodone, as well as p.r.n. acetaminophen. She will not be restarted on the higher dose opiates that she was on previously. * Iron deficiency anemia. She has received IV iron in the hospital. Continues fe-deficient on labs 10/20/16. Add PO iron X 1 mo. Phone conversation with Jovany Hughes 10/19/16, regarding sleep and depression as above. He reports he will be able to provide considerable help, and that his mother will be available as well. Patient may need to be able to ambulate on uneven surfaces to get into house. Conversation with Neurologist Dr. Cuadra 10/19/16. Advises any further evaluation should be done at [facility]. Attended staffing, 15 min. D/W case mgmt, nursing, PT, OT, [employer]IST, turn supervisor. Trial of independence in room soon. Some concern re psychosocial situation and whether there will be sufficient supervision at home relative to her low initiation to e.g. prevent urinary retention. Continue discharge goal of . 10/24/16 10:44 Subjective: Feeling better. Slept well. No ROBLES for a few days. Ambulating better but still reports LOB. No f/c, cough/dyspnea, n/v/c/d. Objective: Vital Signs Temp Pulse Resp BP Pulse Ox 36.8 C 73 16 124/89 H 94 10/24/16 06:38 10/24/16 06:38 10/24/16 06:38 10/24/16 09:11 10/24/16 06:38 Laboratory Results 10/20/16 08:15 10/23/16 10/24/16 10/25/16 05:59 05:59 05:59 Intake Total 2450 1590 500 Output Total 2200 2750 700 Balance 250 -1160 -200 - Time Spent With Patient Time Spent With Patient: Greater than 35 minutes floor time today, including more than 50% of time in coordination of care during staffing, and counseling patient. Physical Exam - Physical Exam General Appearance: WD/WN, alert, no apparent distress Respiratory: normal breath sounds, No crackles, No rhonchi, No wheezing Cardiac/Chest: regular rate, rhythm, No edema Skin: normal color, warm/dry Neuro/Psych: alert, oriented x 3, other (Flat affect) ICD10 Worksheet Patient Problems: Problems Problem Status Diagnosed C. difficile diarrhea Acute 10/08/16 Nausea Acute Renal failure (ARF), acute on chronic Acute Syncope due to orthostatic hypotension Acute Tachycardia Acute History of kidney transplant Chronic Anticoagulant therapy Active Chronic pain syndrome Active Hypokalemia Active Hypothyroidism Active Renal impairment Active biliary gastric reflux Active Dehydration Acute Diarrhea Acute Nausea & vomiting Acute
[2016-10-24 10:01] LABS: ANION GAP 13 mEq/L (8-16); CALCIUM 8.9 mg/dL (8.5-10.4); CARBON DIOXIDE 25 mEq/l (22-31); CHLORIDE 105 mEq/L (97-110); CREATININE 2.6 mg/dL (0.6-1.0); GLOMERULAR FILTRATION RATE 20; GLUCOSE 75 mg/dL (70-100); POTASSIUM 4.2 mEq/L (3.5-5.2); SODIUM 143 mEq/L (134-144)
--- NOTE | 2016-10-24 15:17 | PDOREHIP ---
Admission [facility] - Admission - 3 Day Assessment Period Admission Date/Day 1: 10/15/16 Day 2: 10/16/16 Day 3: 10/17/16 - Active Diagnoses Comorbidities and Co-existing Conditions at Admission: 53369. None of the Above - Skin Conditions Unhealed Pressure Ulcer (1 or more/Stage 1 or >)-Admission: 0. No (Late entry)
[2016-10-24] MEDS: MIRTAZAPINE 15 MG TAB PO SCH (22:28)
[2016-10-24] MEDS: MELATONIN 3 MG TAB PO SCH (22:28)
[2016-10-24] MEDS: CALCITRIOL 0.25 MCG CAP PO SCH (22:33)
[2016-10-25] MEDS: LEVOTHYROXINE 75 MCG TAB PO SCH (05:27)
[2016-10-25] MEDS: VANCOMYCIN 125 MG/2.5 ML UDL PO SCH ×4 (05:27→20:08)
[2016-10-25] MEDS: oxyCODONE IR 5 MG TAB PO PRN ×4 (05:35→20:08)
[2016-10-25] MEDS: ASPIRIN EC 325 MG TAB PO SCH (08:41)
[2016-10-25] MEDS: PRAVASTATIN SODIUM 20 MG TAB PO SCH (08:41)
[2016-10-25] MEDS: predniSONE 10 MG TAB PO SCH (08:42)
[2016-10-25] MEDS: VERAPAMIL ER 240 MG TAB PO SCH (08:42)
[2016-10-25] MEDS: PANTOPRAZOLE SODIUM 40 MG TAB PO SCH (08:42)
[2016-10-25] MEDS: MYCOPHENOLATE SODIUM 180 MG TAB PO SCH ×3 (08:42→21:01)
[2016-10-25] MEDS: DOCUSATE SODIUM 100 MG CAP PO SCH (08:42)
[2016-10-25] MEDS: ASTAGRAF PO SCH (08:45)
[2016-10-25 08:51] LABS: ANION GAP 17 mEq/L (8-16); CALCIUM 9.5 mg/dL (8.5-10.4); CARBON DIOXIDE 25 mEq/l (22-31); CHLORIDE 103 mEq/L (97-110); CREATININE 2.6 mg/dL (0.6-1.0); GLOMERULAR FILTRATION RATE 20; GLUCOSE 62 mg/dL (70-100); POTASSIUM 4.3 mEq/L (3.5-5.2); SODIUM 145 mEq/L (134-144)
[2016-10-25] MEDS: POTASSIUM CL 10 MEQ TAB PO SCH (10:08)
--- NOTE | 2016-10-25 15:19 | SOAPPROG ---
SOAP Progress Note Assessment/Plan: Assessment: 46 yo female with multiple medical problems, admitted for debility, sepsis, L cerebellar CVA * Debility status post cerebrovascular accident. Initial FIM 73 on 10/19/16; gain to 83 as of 10/24/16. Ambulated 300' CGA, no device, cueing for awareness of L side. Climbed 9 stairs, one rail, SBA. Set-up/SBA for ADLs. Reduced initiation. Trial of I in room during the day soon. Continue Physical and Occupational Therapy to optimize mobility and activities of daily living. * Possible cognitive impairment as well as expressive aphasia. Improving. No longer dropping pronouns. Continues flat affect. Continue Speech and Language Pathology. * Cerebrovascular accident of unclear etiology. Not hypercoagulable. Continue ASA, pravastatin. D/W Dr. Cuadra, Neurology: advises any further evaluation should be referred to [facility]. Reports heparin is for DVT prophylaxis; d/c'd 10/20/16 as Factor V Leiden results are negative. Related to migraine? * Status post renal transplant & CKD. Continue immunosuppressive medications. Creatinine increased from baseline of 2.1 to 2.5 on 10/20/16; to 2.7 on 10/21/16; now stable X 2 days at 2.6 on 11/25/16. D/W nephrology Dr. Sanderson 10/20/16: likely dehydration. Unable to establish IV for hydration 10/20/16. However, subsequently appears to be hydrating PO. D/c'd furosemide. Also reduced KCl from 10 mg TID to QD. 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 Further studies underway per Nephrology. * Urinary retention, likely contributing to decreased renal function: blader scan > 800cc; voided 300; voided again later but residual 250cc. Meds that impair bladder emptying: imipramine, cyclobenzaprine, cyproheptadine, promethazine, oxycodone. Stopped imipramine, cyclobenzaprine, promethazine on . Bladder scan Q 6 hr and cath for residual > 300 cc. Nurse has been using double voiding strategy: if PVR > 300, she voids again; has avoided catheterization. * No depression per Psychiatry; await full consult note. Poor sleep despite mirtazapine. D/W who asked about benzodiazepines, and about bupropion. He agreed to psychiatry consult. Started melatonin 10/20/16. * ROBLES: cyproheptadine as ordered form the acute hospital; monitor for resolution. Encourage minimal use due to urinary retention, Unclear optimal treatment or prevention. Consider riboflavin. * Foul smelling urine per nursing and OT: UA 10/18/16 with 1+ protein, 2+ epithelial cells, o/w wnl. * Clostridium difficile colitis. Continue oral vancomycin, and isolation with Clostridium difficile precautions. * Acute influenza A with 3 days of treatment with oseltamivir. She is on isolation for droplet precautions, and it is to be ascertained how long she needs to remain on droplet precautions. * Hypertension. Continue verapamil and monitor her blood pressure. * Chronic pain syndrome with history of extensive spinal fusion. She seems to be sleeping well and adequately functioning on p.r.n. oxycodone, as well as p.r.n. acetaminophen. She will not be restarted on the higher dose opiates that she was on previously. Nursing to offer oxycodone 30 min before PT or OT. * Iron deficiency anemia. She has received IV iron in the hospital. Continues fe-deficient on labs 10/20/16. Add PO iron X 1 mo. Phone conversation with Jovany Hughes 10/19/16, regarding sleep and depression as above. He reports he will be able to provide considerable help, and that his mother will be available as well. Patient may need to be able to ambulate on uneven surfaces to get into house. Conversation with Neurologist Dr. Cuadra 10/19/16. Advises any further evaluation should be done at [facility]. Trial of independence in room soon. Some concern re psychosocial situation and whether there will be sufficient supervision at home relative to her low initiation to e.g. prevent urinary retention. Continue discharge goal of . 10/24/16 10:44 10/25/16 15:16 Subjective: C/O back and leg pain since near fall in PT yesterday while negotiating curb step. Thinks L hand is back to normal. O/w no complaints. Denies f/c, cough/ dyspnea, n/v/c/d. Objective: Vital Signs Temp Pulse Resp BP Pulse Ox 36.8 C 74 6 L 132/86 H 96 10/25/16 05:36 10/25/16 05:36 10/25/16 05:36 10/25/16 08:42 10/25/16 05:36 Laboratory Results 10/20/16 08:15 10/25/16 06:40 10/24/16 10/25/16 10/26/16 05:59 05:59 05:59 Intake Total 1590 1600 Output Total 2750 2650 Balance -1160 -1050 Physical Exam - Physical Exam General Appearance: WD/WN, alert, no apparent distress Respiratory: No respiratory distress, No accessory muscle use Skin: normal color, warm/dry Neuro/Psych: alert, normal mood/affect, oriented x 3 ICD10 Worksheet Patient Problems: Problems Problem Status Diagnosed C. difficile diarrhea Acute 10/08/16 Nausea Acute Renal failure (ARF), acute on chronic Acute Syncope due to orthostatic hypotension Acute Tachycardia Acute History of kidney transplant Chronic Anticoagulant therapy Active Chronic pain syndrome Active Hypokalemia Active Hypothyroidism Active Renal impairment Active biliary gastric reflux Active Dehydration Acute Diarrhea Acute Nausea & vomiting Acute
[2016-10-25] MEDS: MIRTAZAPINE 15 MG TAB PO SCH (20:08)
[2016-10-25] MEDS: MELATONIN 3 MG TAB PO SCH (20:08)
[2016-10-26] MEDS: LEVOTHYROXINE 75 MCG TAB PO SCH (06:25)
[2016-10-26] MEDS: VANCOMYCIN 125 MG/2.5 ML UDL PO SCH ×4 (06:25→19:39)
[2016-10-26] MEDS: oxyCODONE IR 5 MG TAB PO PRN ×6 (06:49→23:08)
[2016-10-26] MEDS: ASPIRIN EC 325 MG TAB PO SCH (09:15)
[2016-10-26] MEDS: ASTAGRAF PO SCH (09:16)
[2016-10-26] MEDS: DOCUSATE SODIUM 100 MG CAP PO SCH (09:17)
[2016-10-26] MEDS: predniSONE 10 MG TAB PO SCH (09:18)
[2016-10-26] MEDS: PANTOPRAZOLE SODIUM 40 MG TAB PO SCH (09:18)
[2016-10-26] MEDS: PRAVASTATIN SODIUM 20 MG TAB PO SCH (09:18)
[2016-10-26] MEDS: POTASSIUM CL 10 MEQ TAB PO SCH (09:18)
[2016-10-26] MEDS: MYCOPHENOLATE SODIUM 180 MG TAB PO SCH ×3 (09:18→20:44)
[2016-10-26] MEDS: VERAPAMIL ER 240 MG TAB PO SCH (09:19)
--- NOTE | 2016-10-26 11:26 | SOAPPROG ---
SOAP Progress Note Assessment/Plan: Assessment: 46 yo female with multiple medical problems, admitted for debility, sepsis, L cerebellar CVA * Debility status post cerebrovascular accident. Initial FIM 73 on 10/19/16; gain to 83 as of 10/24/16. Ambulated 300' CGA, no device, cueing for awareness of L side. Climbed 9 stairs, one rail, SBA. Set-up/SBA for ADLs. Reduced initiation. I in room during the day. Continue Physical and Occupational Therapy to optimize mobility and activities of daily living. * Possible cognitive impairment as well as expressive aphasia. Improving. No longer dropping pronouns. Continues flat affect but improving. Continue Speech and Language Pathology. * Cerebrovascular accident of unclear etiology. Not hypercoagulable. Continue ASA, pravastatin. D/W Dr. Cuadra, Neurology: advises any further evaluation should be referred to [facility]. Reports heparin is for DVT prophylaxis; d/c'd 10/20/16 as Factor V Leiden results are negative. Related to migraine? * Status post renal transplant & CKD. Continue immunosuppressive medications. Creatinine increased from baseline of 2.1 to 2.5 on 10/20/16; to 2.7 on 10/21/16; now stable X 2 days at 2.6 on 11/25/16. D/W nephrology Dr. Sanderson 10/20/16: likely dehydration. Unable to establish IV for hydration 10/20/16. However, subsequently appears to be hydrating PO. D/c'd furosemide. Also reduced KCl from 10 mg TID to QD. 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 Further studies underway per Nephrology. * Urinary retention, likely contributing to decreased renal function: blader scan > 800cc; voided 300; voided again later but residual 250cc. Meds that impair bladder emptying: imipramine, cyclobenzaprine, cyproheptadine, promethazine, oxycodone. Stopped imipramine, cyclobenzaprine, promethazine on . Bladder scan Q 6 hr and cath for residual > 300 cc. Nurse has been using double voiding strategy: if PVR > 300, she voids again; has avoided catheterization. * No depression per Psychiatry; await full consult note. Poor sleep despite mirtazapine. D/W who asked about benzodiazepines, and about bupropion. He agreed to psychiatry consult. Started melatonin 10/20/16. * ROBLES: cyproheptadine as ordered form the acute hospital; monitor for resolution. Encourage minimal use due to urinary retention, Unclear optimal treatment or prevention. Consider riboflavin. * Foul smelling urine per nursing and OT: UA 10/18/16 with 1+ protein, 2+ epithelial cells, o/w wnl. * Clostridium difficile colitis. Continue oral vancomycin, and isolation with Clostridium difficile precautions. * Acute influenza A with 3 days of treatment with oseltamivir. She is on isolation for droplet precautions, and it is to be ascertained how long she needs to remain on droplet precautions. * Hypertension. Continue verapamil and monitor her blood pressure. * Chronic pain syndrome with history of extensive spinal fusion. She seems to be sleeping well and adequately functioning on p.r.n. oxycodone, as well as p.r.n. acetaminophen. She will not be restarted on the higher dose opiates that she was on previously. Nursing to offer oxycodone 30 min before PT or OT. * Iron deficiency anemia. She has received IV iron in the hospital. Continues fe-deficient on labs 10/20/16. Add PO iron X 1 mo. Phone conversation with Jovany Hughes 10/19/16, regarding sleep and depression as above. He reports he will be able to provide considerable help, and that his mother will be available as well. Patient may need to be able to ambulate on uneven surfaces to get into house. Conversation with Neurologist Dr. Cuadra 10/19/16. Advises any further evaluation should be done at [facility]. Some concern re psychosocial situation and whether there will be sufficient supervision at home relative to her low initiation to e.g. prevent urinary retention. Continue discharge goal of 11/01/16. 10/26/16 11:29 Subjective: No complaints. Slept well. Adequate pain control for PT at present. No f/c, cough, dyspnea, n/v/c/d. Notes LOB if eyes are closed. Objective: Vital Signs Temp Pulse Resp BP Pulse Ox 36.8 C 74 14 132/81 H 94 10/26/16 07:46 10/26/16 07:46 10/26/16 07:46 10/26/16 09:19 10/26/16 07:46 Laboratory Results 10/20/16 08:15 10/25/16 06:40 10/25/16 10/26/16 10/27/16 05:59 05:59 05:59 Intake Total 1600 1500 250 Output Total 2650 2725 250 Balance -1050 -1225 0 Physical Exam - Physical Exam General Appearance: WD/WN, alert, no apparent distress Respiratory: normal breath sounds, No crackles, No rhonchi, No wheezing Cardiac/Chest: regular rate, rhythm, No edema Skin: normal color, warm/dry Neuro/Psych: alert, normal mood/affect, oriented x 3, abnormal gait (Mildly wide base, no assistive device) ICD10 Worksheet Patient Problems: Problems Problem Status Diagnosed C. difficile diarrhea Acute 10/08/16 Nausea Acute Renal failure (ARF), acute on chronic Acute Syncope due to orthostatic hypotension Acute Tachycardia Acute History of kidney transplant Chronic Anticoagulant therapy Active Chronic pain syndrome Active Hypokalemia Active Hypothyroidism Active Renal impairment Active biliary gastric reflux Active Dehydration Acute Diarrhea Acute Nausea & vomiting Acute
[2016-10-26] MEDS: CALCITRIOL 0.25 MCG CAP PO SCH (20:44)
[2016-10-26] MEDS: MIRTAZAPINE 15 MG TAB PO SCH (20:44)
[2016-10-26] MEDS: MELATONIN 3 MG TAB PO SCH (20:44)
[2016-10-27] MEDS: VANCOMYCIN 125 MG/2.5 ML UDL PO SCH ×4 (05:43→21:55)
[2016-10-27] MEDS: LEVOTHYROXINE 75 MCG TAB PO SCH (05:43)
[2016-10-27] MEDS: oxyCODONE IR 5 MG TAB PO PRN ×5 (05:43→21:56)
[2016-10-27] MEDS: PRAVASTATIN SODIUM 20 MG TAB PO SCH (08:19)
[2016-10-27] MEDS: DOCUSATE SODIUM 100 MG CAP PO SCH (08:19)
[2016-10-27] MEDS: POTASSIUM CL 10 MEQ TAB PO SCH (08:19)
[2016-10-27] MEDS: PANTOPRAZOLE SODIUM 40 MG TAB PO SCH (08:19)
[2016-10-27] MEDS: ASPIRIN EC 325 MG TAB PO SCH (08:19)
[2016-10-27] MEDS: MYCOPHENOLATE SODIUM 180 MG TAB PO SCH ×3 (08:19→21:55)
[2016-10-27] MEDS: predniSONE 10 MG TAB PO SCH (08:19)
[2016-10-27] MEDS: VERAPAMIL ER 240 MG TAB PO SCH (08:20)
[2016-10-27] MEDS: ASTAGRAF PO SCH (08:22)
--- NOTE | 2016-10-27 15:26 | SOAPPROG ---
SOAP Progress Note Assessment/Plan: Assessment: 46 yo female with multiple medical problems, admitted for debility, sepsis, L cerebellar CVA * Debility status post cerebrovascular accident. Initial FIM 73 on 10/19/16; gain to 83 as of 10/24/16. Ambulated 300' CGA, no device, cueing for awareness of L side. Climbed 9 stairs, one rail, SBA. Set-up/SBA for ADLs. Reduced initiation. I in room during the day. Continue Physical and Occupational Therapy to optimize mobility and activities of daily living. * Possible cognitive impairment as well as expressive aphasia. Improving. No longer dropping pronouns. Continues flat affect but improving. Continue Speech and Language Pathology. * Cerebrovascular accident of unclear etiology. Not hypercoagulable. Continue ASA, pravastatin. D/W Dr. Cuadra, Neurology: advises any further evaluation should be referred to [facility]. Reports heparin is for DVT prophylaxis; d/c'd 10/20/16 as Factor V Leiden results are negative. Related to migraine? * Status post renal transplant & CKD. Continue immunosuppressive medications. Creatinine increased from baseline of 2.1 to 2.5 on 10/20/16; to 2.7 on 10/21/16; now stable X 2 days at 2.6 on 11/25/16. D/W nephrology Dr. Sanderson 10/20/16: likely dehydration. Unable to establish IV for hydration 10/20/16. However, subsequently appears to be hydrating PO. D/c'd furosemide. Also reduced KCl from 10 mg TID to QD. 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 Further studies underway per Nephrology. * Urinary retention, likely contributing to decreased renal function: blader scan > 800cc; voided 300; voided again later but residual 250cc. Meds that impair bladder emptying: imipramine, cyclobenzaprine, cyproheptadine, promethazine, oxycodone. Stopped imipramine, cyclobenzaprine, promethazine on . Bladder scan Q 6 hr and cath for residual > 300 cc. Nurse has been using double voiding strategy: if PVR > 300, she voids again; has avoided catheterization. * No depression per Psychiatry; await full consult note. Poor sleep despite mirtazapine. D/W who asked about benzodiazepines, and about bupropion. He agreed to psychiatry consult. Started melatonin 10/20/16. * ROBLES: cyproheptadine as ordered form the acute hospital; monitor for resolution. Encourage minimal use due to urinary retention, Unclear optimal treatment or prevention. Consider riboflavin. * Foul smelling urine per nursing and OT: UA 10/18/16 with 1+ protein, 2+ epithelial cells, o/w wnl. * Clostridium difficile colitis. Continue oral vancomycin, and isolation with Clostridium difficile precautions. * Acute influenza A with 3 days of treatment with oseltamivir. She is on isolation for droplet precautions, and it is to be ascertained how long she needs to remain on droplet precautions. * Hypertension. Continue verapamil and monitor her blood pressure. * Chronic pain syndrome with history of extensive spinal fusion. She seems to be sleeping well and adequately functioning on p.r.n. oxycodone, as well as p.r.n. acetaminophen. She will not be restarted on the higher dose opiates that she was on previously. Nursing to offer oxycodone 30 min before PT or OT. * Iron deficiency anemia. She has received IV iron in the hospital. Continues fe-deficient on labs 10/20/16. Add PO iron X 1 mo. Phone conversation with Jovany Hughes 10/19/16, regarding sleep and depression as above. He reports he will be able to provide considerable help, and that his mother will be available as well. Patient may need to be able to ambulate on uneven surfaces to get into house. Conversation with Neurologist Dr. Cuadra 10/19/16. Advises any further evaluation should be done at [facility]. Some concern re psychosocial situation and whether there will be sufficient supervision at home relative to her low initiation to e.g. prevent urinary retention. Continue discharge goal of 11/01/16. 10/27/16 15:24 Subjective: No complaints. Slept well. No f/c, cough/dyspnea, n/v/c/d, dysuria. Back pain better controlled with increased oxycodone and she feels she's sleeping better. Objective: Vital Signs Temp Pulse Resp BP Pulse Ox 36.9 C 75 19 136/90 H 95 10/27/16 05:40 10/27/16 05:40 10/27/16 05:40 10/27/16 05:40 10/27/16 05:40 Laboratory Results 10/20/16 08:15 10/25/16 06:40 10/26/16 10/27/16 10/28/16 05:59 05:59 05:59 Intake Total 1500 2130 400 Output Total 2725 4175 1000 [facility] [place] -1225 -2045 -600 Physical Exam - Physical Exam General Appearance: WD/WN, alert, no apparent distress Respiratory: No respiratory distress, No accessory muscle use Skin: normal color, warm/dry Neuro/Psych: alert, normal mood/affect, oriented x 3, abnormal gait (mildly wide stance. Ambulating with PT SBA.) ICD10 Worksheet Patient Problems: Problems Problem Status Diagnosed C. difficile diarrhea Acute 10/08/16 Nausea Acute Renal failure (ARF), acute on chronic Acute Syncope due to orthostatic hypotension Acute Tachycardia Acute History of kidney transplant Chronic Anticoagulant therapy Active Chronic pain syndrome Active Hypokalemia Active Hypothyroidism Active Renal impairment Active biliary gastric reflux Active Dehydration Acute Diarrhea Acute Nausea & vomiting Acute
[2016-10-27] MEDS: SENNOSIDES 1 TAB PO PRN (21:55)
[2016-10-27] MEDS: MIRTAZAPINE 15 MG TAB PO SCH (21:57)
[2016-10-27] MEDS: MELATONIN 3 MG TAB PO SCH (21:57)
[2016-10-28] MEDS: VANCOMYCIN 125 MG/2.5 ML UDL PO SCH ×4 (06:18→21:02)
[2016-10-28] MEDS: LEVOTHYROXINE 75 MCG TAB PO SCH (06:18)
[2016-10-28] MEDS: oxyCODONE IR 5 MG TAB PO PRN ×3 (06:18→15:40)
[2016-10-28] MEDS: ASTAGRAF PO SCH (09:03)
[2016-10-28] MEDS: ASPIRIN EC 325 MG TAB PO SCH (09:03)
[2016-10-28] MEDS: DOCUSATE SODIUM 100 MG CAP PO SCH (09:05)
[2016-10-28] MEDS: POTASSIUM CL 10 MEQ TAB PO SCH (09:06)
[2016-10-28] MEDS: PANTOPRAZOLE SODIUM 40 MG TAB PO SCH (09:06)
[2016-10-28] MEDS: PRAVASTATIN SODIUM 20 MG TAB PO SCH (09:06)
[2016-10-28] MEDS: predniSONE 10 MG TAB PO SCH (09:06)
[2016-10-28] MEDS: MYCOPHENOLATE SODIUM 180 MG TAB PO SCH ×3 (09:07→21:07)
[2016-10-28] MEDS: VERAPAMIL ER 240 MG TAB PO SCH (09:07)
--- NOTE | 2016-10-28 11:49 | SOAPPROG ---
SOAP Progress Note Assessment/Plan: Assessment: 46 yo female with multiple medical problems, admitted for debility, sepsis, L cerebellar CVA * Debility status post cerebrovascular accident. Initial FIM 73 on 10/19/16; gain to 83 as of 10/24/16; to 102 on 10/28/16. I in room for mobility and ADLs Did laundry task with good attention to detail. Kitchen task, ambulation on uneven surfaces, planned. Climbed 9 stairs, one rail, SBA. Continue Physical and Occupational Therapy to optimize mobility and activities of daily living. * Possible cognitive impairment as well as expressive aphasia. Improving. Continue Speech and Language Pathology. * Cerebrovascular accident of unclear etiology. Not hypercoagulable. Continue ASA, pravastatin. D/W Dr. Cuadra, Neurology: advises any further evaluation should be referred to [facility]. Reports heparin is for DVT prophylaxis; d/c'd 10/20/16 as Factor V Leiden results are negative. Related to migraine plus dehydration from influenza and C. difficile? * Status post renal transplant & CKD. Continue immunosuppressive medications. Creatinine increased from baseline of 2.1 to 2.5 on 10/20/16; to 2.7 on 10/21/16; now stable X 2 days at 2.6 on 11/25/16. D/W nephrology Dr. Sanderson 10/20/16: likely dehydration. Unable to establish IV for hydration 10/20/16. However, subsequently appears to be hydrating PO. D/c'd furosemide. Also reduced KCl from 10 mg TID to QD. 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 Further studies underway per Nephrology. * Urinary retention, likely contributing to decreased renal function: blader scan > 800cc; voided 300; voided again later but residual 250cc. Meds that impair bladder emptying: imipramine, cyclobenzaprine, cyproheptadine, promethazine, oxycodone. Stopped imipramine, cyclobenzaprine, promethazine on . Bladder scan Q 6 hr and cath for residual > 300 cc. Nurse has been using double voiding strategy: if PVR > 300, she voids again; has avoided catheterization. * Chronic pain syndrome with history of extensive spinal fusion. Improved with increased oxycodone; using 40 - 50 mg QD. Will initiate morphine SR 15 mg BID ; if she needs less PRN oxycodone dosing, will simplify medication timing. * No depression per Psychiatry; await full consult note. Poor sleep despite mirtazapine. D/W who asked about benzodiazepines, and about bupropion. He agreed to psychiatry consult. Started melatonin 10/20/16. * ROBLES: cyproheptadine as ordered form the acute hospital; monitor for resolution. Encourage minimal use due to urinary retention, Unclear optimal treatment or prevention. Consider riboflavin. Consider prednisone burst if chronic daily ROBLES/analgesic rebound cycle returns. Can be addressed by [facility] as well. * Foul smelling urine per nursing and OT: UA 10/18/16 with 1+ protein, 2+ epithelial cells, o/w wnl. * Clostridium difficile colitis. Continue oral vancomycin, and isolation with Clostridium difficile precautions. * Acute influenza A with 3 days of treatment with oseltamivir. She is on isolation for droplet precautions, and it is to be ascertained how long she needs to remain on droplet precautions. * Hypertension. Continue verapamil and monitor her blood pressure. * Iron deficiency anemia. She has received IV iron in the hospital. Continues fe-deficient on labs 10/20/16. Add PO iron X 1 mo. Phone conversation with Jovany Hughes 10/19/16, regarding sleep and depression as above. He reports he will be able to provide considerable help, and that his mother will be available as well. Patient may need to be able to ambulate on uneven surfaces to get into house. Conversation with Neurologist Dr. Cuadra 10/19/16. Advises any further evaluation should be done at [facility]. Attended staffing, 15 min. D/W case mgmt, nursing, PT, OT, LOT WORKER, negative turner. Attended family conference, 30 min. was scheduled but cancelled. Detailed discussion with patient re functional status and needs at home. Plan for discharge 11/01/16. Outpatient PT, OT, and counseling re emotional challenges s/p CVA and with child at home. 10/28/16 11:40 Subjective: No complaints. Sleeping well. Pain adequately controlled. No f/c, cough/ dyspnea. Objective: Vital Signs Temp Pulse Resp BP Pulse Ox 36.5 C 79 16 141/90 H 97 10/28/16 07:17 10/28/16 07:17 10/28/16 07:17 10/28/16 09:07 10/28/16 07:17 Laboratory Results 10/20/16 08:15 10/28/16 06:30 10/27/16 10/28/16 10/29/16 05:59 05:59 05:59 Intake Total 2130 400 350 Output Total 4175 2800 1450 Balance -4516 -3538 -1100 - Time Spent With Patient Time Spent With Patient: Greater than 35 minutes floor tiime today, including more than 50% of time in coordination of care and counseling during staffing and family meetings. Physical Exam - Physical Exam General Appearance: WD/WN, alert, no apparent distress Respiratory: No respiratory distress, No accessory muscle use Skin: normal color, warm/dry Neuro/Psych: alert, normal mood/affect, oriented x 3, abnormal gait (mildly wide 'based), No motor weakness ICD10 Worksheet Patient Problems: Problems Problem Status Diagnosed C. difficile diarrhea Acute 10/08/16 Nausea Acute Renal failure (ARF), acute on chronic Acute Syncope due to orthostatic hypotension Acute Tachycardia Acute History of kidney transplant Chronic Anticoagulant therapy Active Chronic pain syndrome Active Hypokalemia Active Hypothyroidism Active Renal impairment Active biliary gastric reflux Active Dehydration Acute Diarrhea Acute Nausea & vomiting Acute
[2016-10-28] MEDS ORDERED: FLU VACC QS 2016-17(3-64YR)/PF 0.5 ML SYR (FLUARIX QUAD) IM ONE (11:50)
[2016-10-28 12:57] LABS: ANION GAP 14 mEq/L (8-16); CALCIUM 9.1 mg/dL (8.5-10.4); CARBON DIOXIDE 25 mEq/l (22-31); CHLORIDE 104 mEq/L (97-110); CREATININE 2.3 mg/dL (0.6-1.0); GLOMERULAR FILTRATION RATE 23; GLUCOSE 113 mg/dL (70-100); SODIUM 143 mEq/L (134-144)
--- NOTE | 2016-10-28 16:19 | BCON ---
[[facility]] BEHAVIORAL HEALTH CONSULTATION PSYCHIATRIC CONSULTATION DATE OF CONSULTATION: 10/23/2016 REQUESTING PHYSICIAN: Dr. Black Ruffin CONSULTATION QUESTION: Evaluate for possible depression, and medication recommendations for insomnia. CHIEF COMPLAINT: Patient's understanding of consult request was "my told Dr. Ruffin to call Psychiatry because I'm not sleeping...I have had trouble sleeping since in the hospital." HISTORY OF PRESENT ILLNESS: The patient is a 46-year-old female, x17 years with multiple medical problems who was admitted to acute inpatient rehabilitation on 10/14/2017 after hospitalized medically on 2016 at [facility] with influenza A, sepsis, and C difficile, also with acute encephalopathy and noted with acute right frontal periventricular white matter lacunar infarct and left cerebellar infarct. Patient volunteered that this was her 41st hospitalization since her move to [place] five years ago. She reports a history of being diagnosed with depression in 2000 during her radiation treatment for non-Hodgkins lymphoma, when she felt she needed additional support and someone to talk to. She was fairly newly and her was gone a lot for work during this time. However, she denied having any regular psychiatric treatment until after her kidney transplant in 2007 when she was started on Prozac which she took for 2.5 years to help "even me out." She did not see a therapist, but states her psychiatrist effectively served as a therapist to her during this time. Otherwise, she reports several medication trials including Cymbalta for pain with no benefit, and Zoloft which flattened her out too much. The Prozac had been discontinued because of drug interactions. More recently, she reports being on imipramine for anxiety, started approximately 1 year ago. She denies this was for depression. Also, mirtazapine was started perhaps 6 months ago for insomnia. She was not aware that this was also an antidepressant. She was aware of recent decrease and discontinuation of imipramine due to urinary retention, however, did not feel that she had had any adverse effects from this, and no anxiety. She consistently reported not feeling depressed most every day, more days than not, except perhaps rating self a 2 out of 10 presently and occasionally having a "pity constitution party" for herself, with brief tearfulness, when she thinks about having missed Oumar at home, or recognizing some physical limitations following her stroke. She consistently reports not feeling depressed nor feeling she needed a medication for depression. Regarding her sleep, she reports her sleep has been more problematic since on the inpatient rehabilitation unit, But also chronically an issue. After starting Mirtazapine this helped on most nights, sleeping perhaps 40% better since she started this medication several months ago. In the past, amitriptyline 25 mg was prescribed but discontinued due to drug interactions. She had never taken Trazodone for sleep. She recalls an Ambien dosage of 40-50 mg p.o. q.h.s. for insomnia during her garza with cancer, which she recognizes was an "outrageous dose," but at the time necessary because she was "afraid to sleep." Thinks she sleeps approximately 4-6 hours per night, and denies any daytime naps at home but does occasionally take naps while in the hospital. Regarding other factors that could affect sleep, she denied any symptoms suggestive of obstructive sleep apnea. She also denied any drug or alcohol use. She does report being a "light sleeper" and did have more difficulty sleeping when her daughter was young, as her daughter also often crawled into parents' bed in the middle of the night, which affected her sleep quality, however, she rarely does so now. Patient admits she "used to drink caffeine as much as possible," Including soda or taking caffeine pills approximately 2 pills per day (stating 1 pill was equivalent to 2 cups of coffee). Now she avoids caffeine at home. She has resumed drinking caffeinated soda with her lunch in the hospital, however. She reports most of the time feeling with rested with her 4-6 hours per night, "I've learned to live with it." She has taken daytime naps after sedating medications, but does not feel she is on any sedating medications at this time. Again, she consistently expressed feeling certain that she would sleep better once she returns home in her own environment and bed. Conversation about her history of antidepressants and sleep medication led patient to volunteer her history of lorazepam use as well as narcotics for chronic pain, adding that "thanks to a new [place] statute" she is unable to get as many pain pills per month as she used to, being limited to 120 instead of close to 200 as she was taking in the past. Wonders how she will deal with this. However, she does report her pain is currently well-controlled approximately 99% with her current regimen. PAST PSYCHIATRIC HISTORY: Patient denied any previous psychiatric hospitalizations. Per her report, she only consistently engaged in outpatient therapy with her psychiatrist who managed her medications, this was for at least 2.5 years following her renal transplant in 2007. Since in [place] she has not seen anyone in mental health, and does not feel interested in doing so or that this is necessary. She felt content with her primary care physician prescribing psychotropics if and when it was felt necessary. PRIOR PSYCHIATRIC MEDICATIONS: Include "many different medications." Apparently brief trials, several either ineffective or with intolerable side effects or drug interactions. She recalls Zoloft being ineffective and especially flattening her out too much at higher dose. She took Prozac for 2-1/ 2 years in 2007. Primary care physician gave trial of Cymbalta for pain and mood, but patient felt this was ineffective. As noted in HPI, imipramine was initiated approximately 1 year ago for "anxiety" and Remeron was prescribed at low dose for sleep. Patient denied that either of these were for depression. She denied any history of therapy or psychiatric treatment when young, but eluded to problems within her family growing up, and wanting to get "as far as possible" from her family when she went to college. Patient also took Elavil 25 mg in the past for sleep, but this also was discontinued due to side effects/ drug interactions. SAFETY HISTORY: Patient denied any history of previous suicides attempts or suicidal ideation, and denied any history of harm to others or thoughts of harm to others. FAMILY PSYCHIATRIC HISTORY: Patient reports mother may have an undiagnosed mood disorder, but is addicted to pain medication. Cousins use drugs. SUBSTANCE USE HISTORY: Patient denies any current or recent substance use issues. Drinks alcohol perhaps 1-2 times a year. She admits "I partied in college," drinking too much alcohol and ended up on academic suspension. She denied any illicit drug use, however. Denies any marijuana use. Denied any legal history such as DUI related to alcohol use in the past. As noted above, admits to use of caffeine pills but no more than 2 daily in the past. PAST MEDICAL HISTORY: Notable for non-Hodgkin lymphoma status post CHOP and radiation in 2000, end-stage renal disease secondary to neurogenic bladder and vesicoureteral reflux status post living related donor transplant (sister) in 2007, hypertension, DVT right upper extremity 2010, DJD and chronic back pain, recent CVA (acute lacunar infarct right frontal periventricular white matter, left cerebellar) noted on MRI, status post recent influenza A infection, sepsis , C difficile. Is currently on contact precautions. SOCIAL HISTORY: Patient reports growing up in [place], with her parents and siblings; she has 2 older siblings and 1 younger sister, the latter with whom she more close. All of her family lives in [place] except 1 brother in [place]. Parents are still living in their 70s, both on SSDI, mother with chronic back pain, father status post CO at age 53. She does not feel close to her parents, intentionally "moving as far away as possible" from them while maintaining in- state tuition when she went to college. Admits she has not told her parents of her recent CVA, nor has she informed other family members- "they don't know about it in [place]." When asked why this was so, she stated that her father would worry too much about her and probably worsen his medical problems. Her mother, however, "would probably say she had a bigger stroke" (becoming briefly tearful in stating this). "I think they forget about me." Adding that, "they don't like my ," but claimed not knowing why. 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 She is currently on disability. At age 30 she her current , whom she knew for 5 years prior to marriage. He was "always gone for work" during their early years. Alluded to 's family situation growing up being "pretty bad ", and so he isolates from them. She has 1 daughter, age 9. Patient and family moved from [place] to [place] approximately 5 years ago in July 2011 to help care for her 's grandmother who had dementia and 2 years ago. [place] "we prefer it that way." She does report overall generally being isolative, admitting she has no other social contacts outside of her immediate family, "we keep our distance." LEGAL HISTORY: Patient denies any current or past legal history. PSYCHIATRIC REVIEW OF SYSTEMS: Patient rated mood as a "2" on scale of 1 to 10 (10 being very depressed), but denied feeling depressed most of the day, more days than not. She admits to occasional brief tearful episodes when she feels frustrated with her physical limitations. She denied anhedonia, states concentration was decreased some since her stroke but otherwise described it being "fine," energy was normal, being a "quiet" person at baseline. Appetite was overall increased she felt. Sleep was decreased as noted. She denied any suicidal ideations. She denied hopelessness or helplessness or worthlessness. She does report some low self-esteem. Sometimes feels guilty that she missed Oumar and New Year's with her family, stating soon her daughter will not believe in Sumaya anymore. Describes her thoughts as "slowed down a little" but she does not feel she has problems with memory. She denied any feelings of anxiety presently, but feels the "stress" she put on herself prior to hospitalization may have contributed to her having a stroke because her blood pressure was trending up "a lot," adding "it was bound to happen." She feels now she was "worrying for no reason," and frustrated with herself because "I felt like my mother." Her worries were around her daughter's school grades which were quite good but not perfect. She found herself wanting her daughter to strive for perfection, which caused her stress, but now feels she should not have been thinking this way. She denied any history of theresa or hypomania symptoms except perhaps being able to go without sleep for 48 hours when working or in school. She denied any history of psychotic symptoms. She denied any posttraumatic disorder symptoms. MENTAL STATUS EXAM: Patient was casually dressed in her hospital bed. She was calm, with normal psychomotor activity. She was neat in her appearance, hair kempt. Eye contact was decreased throughout most of interview. She generally looked down or away, but eye contact improved as interview progressed and patient seemed more comfortable. Her speech was low normal volume and rate, with decreased prosody. Mood was "a little depressed", "2"/10 at time of interview, attributing this to a "self-pity" moment. Affect was blunted, restricted in range. She was very briefly tearful when talking about her mother and feeling that her family sometimes forgets about her. Thought process was generally linear, reality based, goal directed in responses, and information she provided was consistent. Her speech was notable for being fluent and spontaneous, with no evidence of dropping pronouns as had been reported earlier in her hospital course. She did require some re-direction when she began speaking in much more detail about her history of pain medications and current [place] state limitations, as well as when talking about her [place] traditions with her daughter, which she was sorry to have missed this year. She denied any auditory or visual hallucinations. She denied suicidal or homicidal ideation. There was no loosening of associations, flight of ideas, thought blocking or any evidence of psychosis or delusions. Insight was good. Judgement appeared intact. Cognition was conversationally intact, she was alert and oriented x4. IMPRESSION: Patient is a 46-year-old, , college educated, former nurse, mother of 1 currently on disability with multiple medical problems, status post cerebrovascular accident and encephalopathy who seems to be very gradually improving in all regards during her inpatient acute rehabilitation stay ( physically and cognitively). Consult was requested for insomnia recommendations and evaluation of possible depression, given her flattened affect. Despite apparent numerous stressors, patient denied symptoms suggesting a Major Depressive disorder or need for antidepressant medication. Regarding insomnia, she indicates this has been a chronic problem she has just learned to live with, but was willing to accept "non-narcotic" suggestions to improve sleep. DIAGNOSES: 1. Adjustment disorder with depressed mood. 2. Depressive disorder unspecified, by history. 3. Anxiety disorder unspecified, by history, 4. Rule out unspecified neurocognitive disorder. Rule out unspecified personality disorder. RECOMMENDATIONS: 1. For insomnia, patient did feel mirtazapine 15 mg was helpful by approximately 40% prior to her hospitalization. She does consistently report feeling she would sleep better when she returns home. However, she was open to other alternatives. Melatonin seems reasonable as started. Would avoid anticholinergics due to side effects complicating kidney and cognitive function. Patient does not recall ever having tried trazodone, so if this is without negative effects with her current medication regimen, could start trial of low-dose trazodone even at 12.5 mg q.h.s. p.r.n. However, other alternative is to try lower dose of mirtazapine at 7.5 mg, as lower dosages tend to be more sleep promoting than increased dose. Admits she has resumed caffeine use while in hospital, which may contribute also to insomnia (could clearance altered with her kidney function?) Otherwise, would also avoid any daytime naps and nighttime interruptions. 2. Presently there is no indication for an antidepressant medication, as she is not clearly endorsing symptoms and also does not wish to be on an antidepressant. Affect is blunted, but this does not necessarily correlate with depression and could be related to effects of recent encephalopathy and location of stroke. 3. Additionally, patient is at risk for opiate use disorder given her family history. A couple of times during interview she digressed into a discussion about her pain medications and concerns about limitations, even when the conversation was not about this. 4. If patient is willing, she would likely benefit from consistent outpatient therapy for support, and also for non-medication strategies to deal with anxiety , insomnia, and periods of low mood, and her reported occasional low self- esteem issues.There seem also to be some unresolved issues with family, notably her mother, which seem to still affect her. However, it is possible that she may be reluctant to engage with outpatient mental health treatment, given her self-report of preferring to remain generally isolative, and possibly having difficulty forming close and trusting relationships. Therapy could still help. Or some type of socialization, or support group, if interested. Thank you for this consult. If you have any further questions, please do not hesitate to contact me. I will also be happy to follow up with this patient another time during her hospital stay if needed. /[id number]/MODL MTDD
--- NOTE | 2016-10-28 18:09 | SOAPPROG ---
SOAP Progress Note Assessment/Plan: Assessment/Plan: MEETA on CKD III: baseline Cr is 2.0, Cr was up to 2.8 and now is down to 2.3, likely just due to fluid losses with diarrhea. Pt now with improved fluid intake and less diarrhea. We will continue to monitor. h/o renal transplant: continue IS regimen. Subjective: Saw pt today at inpatient rehab. She is feeling ok, notes that her bladder scan read >300 today and she had to urinate quite a bit. Otherwise, she is drinking lots of fluids, not feeling as dry as before, diarrhea improved. Objective: Vital Signs Temp Pulse Resp BP Pulse Ox 36.5 C 79 16 141/90 H 97 10/28/16 07:17 10/28/16 07:17 10/28/16 07:17 10/28/16 09:07 10/28/16 07:17 Laboratory Results 10/20/16 08:15 10/28/16 11:40 10/27/16 10/28/16 10/29/16 05:59 05:59 05:59 Intake Total 2130 400 1070 Output Total 4175 2800 1999 Balance -2046 -2400 -930 General: alert and oriented, no acute distress OP: clear, MMM CV: RRR Resp: nonlabored respirations Abd: Soft, NT Ext: no edema Neuro: no asterixis Psych: cooperative, blunted affect ICD10 Worksheet Patient Problems: Problems Problem Status Diagnosed C. difficile diarrhea Acute 10/08/16 Nausea Acute Renal failure (ARF), acute on chronic Acute Syncope due to orthostatic hypotension Acute Tachycardia Acute History of kidney transplant Chronic Anticoagulant therapy Active Chronic pain syndrome Active Hypokalemia Active Hypothyroidism Active Renal impairment Active biliary gastric reflux Active Dehydration Acute Diarrhea Acute Nausea & vomiting Acute
[2016-10-28] MEDS: MELATONIN 3 MG TAB PO SCH (21:03)
[2016-10-28] MEDS: CALCITRIOL 0.25 MCG CAP PO SCH (21:04)
[2016-10-28] MEDS: MIRTAZAPINE 15 MG TAB PO SCH (21:05)
[2016-10-28] MEDS: morphINE SR 15 MG TAB PO SCH (21:06)
[2016-10-29] MEDS: VANCOMYCIN 125 MG/2.5 ML UDL PO SCH ×4 (06:20→21:18)
[2016-10-29] MEDS: LEVOTHYROXINE 75 MCG TAB PO SCH (06:21)
[2016-10-29] MEDS: oxyCODONE IR 5 MG TAB PO PRN ×3 (06:28→19:13)
[2016-10-29] MEDS: predniSONE 10 MG TAB PO SCH (08:20)
[2016-10-29] MEDS: PRAVASTATIN SODIUM 20 MG TAB PO SCH (08:20)
[2016-10-29] MEDS: VERAPAMIL ER 240 MG TAB PO SCH (08:20)
[2016-10-29] MEDS: ASPIRIN EC 325 MG TAB PO SCH (08:20)
[2016-10-29] MEDS: DOCUSATE SODIUM 100 MG CAP PO SCH (08:20)
[2016-10-29] MEDS: POTASSIUM CL 10 MEQ TAB PO SCH (08:20)
[2016-10-29] MEDS: PANTOPRAZOLE SODIUM 40 MG TAB PO SCH (08:20)
[2016-10-29] MEDS: morphINE SR 15 MG TAB PO SCH ×2 (08:20→21:19)
[2016-10-29] MEDS: MYCOPHENOLATE SODIUM 180 MG TAB PO SCH ×3 (08:20→21:18)
[2016-10-29] MEDS: ASTAGRAF PO SCH (08:24)
--- NOTE | 2016-10-29 11:27 | SOAPPROG ---
SOAP Progress Note Assessment/Plan: Assessment: 46 yo female with multiple medical problems, admitted for debility, sepsis, CVA * Debility: Cont multi disp rehab eval and treat. Making progress, FIM 102 on 10/28/16. Anticipated for D/C home 11/01. * Cerebellar CVA: uncertain etiology. Cont multi disp therapy, cont ASA, Statins * Cognitive impairment: Improving. Continue Speech and Language Pathology. * Aphasia: Cont Speech/Language eval and treatment * C. diff: Cont PO vanco * Influenza A: S/P treatment. Now with mild, non-productive cough. Cont supportive care * HTN: On meds. 118/68 this am. Overall improving since acute care. * Status post renal transplant & CKD. Continue immunosuppressive medications. Creatinine increased from baseline of 2.1 to 2.5 on 10/20/16; to 2.7 on 10/21/16; now stable X 2 days at 2.6 on 11/25/16. D/W nephrology Dr. Sanderson 10/20/16: likely dehydration. Unable to establish IV for hydration 10/20/16. However, subsequently appears to be hydrating PO. D/c'd furosemide. Also reduced KCl from 10 mg TID to QD. 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 Further studies underway per Nephrology. * Urinary retention, likely contributing to decreased renal function: blader scan > 800cc; voided 300; voided again later but residual 250cc. Meds that impair bladder emptying: imipramine, cyclobenzaprine, cyproheptadine, promethazine, oxycodone. Stopped imipramine, cyclobenzaprine, promethazine on . Bladder scan Q 6 hr and cath for residual > 300 cc. Nurse has been using double voiding strategy: if PVR > 300, she voids again; has avoided catheterization. * Chronic pain syndrome with history of extensive spinal fusion. Improved with increased oxycodone; using 40 - 50 mg QD. Will initiate morphine SR 15 mg BID ; if she needs less PRN oxycodone dosing, will simplify medication timing. * Depression/Insomnia: See Psych consult. Poor sleep despite mirtazapine. Started melatonin 10/20/16. To Consider lower dose mirtazipine, or low dose trazadone as options. * ROBLES: cyproheptadine as ordered form the acute hospital; monitor for resolution. Encourage minimal use due to urinary retention, Unclear optimal treatment or prevention. Consider riboflavin. Consider prednisone burst if chronic daily ROBLES/analgesic rebound cycle returns. Can be addressed by [facility] as well. * Clostridium difficile colitis. Continue oral vancomycin, and isolation with Clostridium difficile precautions. * Acute influenza A with 3 days of treatment with oseltamivir. Cont isolation for droplet precautions. * Hypertension. Continue verapamil and monitor her blood pressure. * Iron deficiency anemia. She has received IV iron in the hospital. Continues fe-deficient on labs 10/20/16. Add PO iron X 1 mo. Plan: Cont Dr Gomez rehab treatment plan. 10/29/16 11:21 Subjective: Slowed processing, psychomotor slowing, extremely flat affect which is pt's baseline in the hospital No new problems or C/O's No F/C/CP/SOB/N/V/D/C Objective: Vital Signs Temp Pulse Resp BP Pulse Ox 37.1 C 69 16 141/88 H 93 10/29/16 07:07 10/29/16 07:07 10/29/16 07:07 10/29/16 07:07 10/29/16 07:07 Laboratory Results 10/20/16 08:15 10/28/16 11:40 10/28/16 10/29/16 10/30/16 05:59 05:59 05:59 Intake Total 400 2050 880 Output Total 2800 3800 900 Balance -2400 -1750 -20 Physical Exam - Physical Exam General Appearance: alert, no apparent distress Neck: supple Respiratory: lungs clear Cardiac/Chest: regular rate, rhythm Skin: normal color, warm/dry Extremities: No pedal edema, No calf tenderness Neuro/Psych: alert, oriented x 3, other (no acute changes), No normal mood/ affect (flat) ICD10 Worksheet Patient Problems: Problems Problem Status Diagnosed C. difficile diarrhea Acute 10/08/16 Nausea Acute Renal failure (ARF), acute on chronic Acute Syncope due to orthostatic hypotension Acute Tachycardia Acute History of kidney transplant Chronic Anticoagulant therapy Active Chronic pain syndrome Active Hypokalemia Active Hypothyroidism Active Renal impairment Active biliary gastric reflux Active Dehydration Acute Diarrhea Acute Nausea & vomiting Acute
[2016-10-29] MEDS: MIRTAZAPINE 15 MG TAB PO SCH (21:19)
[2016-10-29] MEDS: MELATONIN 3 MG TAB PO SCH (21:19)
[2016-10-30] MEDS: oxyCODONE IR 5 MG TAB PO PRN ×4 (00:39→19:00)
[2016-10-30] MEDS: VANCOMYCIN 125 MG/2.5 ML UDL PO SCH ×4 (05:57→20:40)
[2016-10-30] MEDS: LEVOTHYROXINE 75 MCG TAB PO SCH (05:57)
[2016-10-30] MEDS: ASPIRIN EC 325 MG TAB PO SCH (08:45)
[2016-10-30] MEDS: predniSONE 10 MG TAB PO SCH (08:45)
[2016-10-30] MEDS: VERAPAMIL ER 240 MG TAB PO SCH (08:45)
[2016-10-30] MEDS: PANTOPRAZOLE SODIUM 40 MG TAB PO SCH (08:45)
[2016-10-30] MEDS: POTASSIUM CL 10 MEQ TAB PO SCH (08:46)
[2016-10-30] MEDS: PRAVASTATIN SODIUM 20 MG TAB PO SCH (08:46)
[2016-10-30] MEDS: morphINE SR 15 MG TAB PO SCH ×2 (08:47→20:40)
[2016-10-30] MEDS: DOCUSATE SODIUM 100 MG CAP PO SCH (08:47)
[2016-10-30] MEDS: MYCOPHENOLATE SODIUM 180 MG TAB PO SCH ×3 (08:47→20:40)
[2016-10-30] MEDS: ASTAGRAF PO SCH (08:49)
--- NOTE | 2016-10-30 16:47 | SOAPPROG ---
SOAP Progress Note Assessment/Plan: Assessment: 46 yo female with multiple medical problems, admitted for debility, sepsis, CVA * Debility: Improving. FIM 102 on 10/28/16. Cont multi disp rehab eval and treat. Anticipated for D/C home 11/01. * Cerebellar CVA: uncertain etiology. Cont multi disp therapy, cont ASA, Statins * Cognitive impairment: Improving. Continue Speech and Language Pathology. * Aphasia: Cont Speech/Language eval and treatment * C. diff: Cont PO vanco * Influenza A: S/P treatment. Now with mild, non-productive cough. Cont supportive care * HTN: On meds. 118/68 this am. Overall improving since acute care. * Status post renal transplant & CKD. Continue immunosuppressive medications. Creatinine increased from baseline of 2.1 to 2.5 on 10/20/16; to 2.7 on 10/21/16; now stable X 2 days at 2.6 on 11/25/16. D/W nephrology Dr. Sanderson 10/20/16: likely dehydration. Unable to establish IV for hydration 10/20/16. However, subsequently appears to be hydrating PO. D/c'd furosemide. Also reduced KCl from 10 mg TID to QD. 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 Further studies underway per Nephrology. * Urinary retention, likely contributing to decreased renal function: PVR's < 300cc. No SX/SX of UTI. Cont Bladder scan Q 6 hr and cath for residual > 300 cc. Nurse has been using double voiding strategy: if PVR > 300, she voids again ; has avoided catheterization. * Chronic pain syndrome with history of extensive spinal fusion. Improved with increased oxycodone; using 40 - 50 mg QD. Will initiate morphine SR 15 mg BID ; if she needs less PRN oxycodone dosing, will simplify medication timing. * Depression/Insomnia: See Psych consult. Poor sleep despite mirtazapine. Started melatonin 10/20/16. To Consider lower dose mirtazipine, or low dose trazadone as options. * ROBLES: cyproheptadine as ordered form the acute hospital; monitor for resolution. Encourage minimal use due to urinary retention, Unclear optimal treatment or prevention. Consider riboflavin. Consider prednisone burst if chronic daily ROBLES/analgesic rebound cycle returns. Can be addressed by [facility] as well. * Clostridium difficile colitis. Continue oral vancomycin, and isolation with Clostridium difficile precautions. * Acute influenza A with 3 days of treatment with oseltamivir. Cont isolation for droplet precautions. * Hypertension. Continue verapamil and monitor her blood pressure. * Iron deficiency anemia. She has received IV iron in the hospital. Continues fe-deficient on labs 10/20/16. Add PO iron X 1 mo. Plan: Cont Dr Ruffin's rehab treatment plan. 10/30/16 16:44 Subjective: comfortable No F/C/CP/SOB/N/V/D/C Objective: Vital Signs Temp Pulse Resp BP Pulse Ox 36.8 C 84 18 131/83 H 92 10/30/16 08:00 10/30/16 08:00 10/30/16 08:00 10/30/16 08:00 10/30/16 08:00 Laboratory Results 10/20/16 08:15 10/28/16 11:40 10/29/16 10/30/16 10/31/16 05:59 05:59 05:59 Intake Total 2050 3060 Output Total 3800 3325 1000 Balance -1750 -265 -1000 Physical Exam - Physical Exam General Appearance: alert, no apparent distress Neck: supple Respiratory: lungs clear Cardiac/Chest: regular rate, rhythm Skin: normal color, warm/dry Extremities: pedal edema (1+), No calf tenderness Neuro/Psych: alert, oriented x 3, No normal mood/affect (flat, aprosodic) ICD10 Worksheet Patient Problems: Problems Problem Status Diagnosed C. difficile diarrhea Acute 10/08/16 Nausea Acute Renal failure (ARF), acute on chronic Acute Syncope due to orthostatic hypotension Acute Tachycardia Acute History of kidney transplant Chronic Anticoagulant therapy Active Chronic pain syndrome Active Hypokalemia Active Hypothyroidism Active Renal impairment Active biliary gastric reflux Active Dehydration Acute Diarrhea Acute Nausea & vomiting Acute
[2016-10-30 19:29] VITALS: O2SAT 96
[2016-10-30] MEDS: MELATONIN 3 MG TAB PO SCH (20:40)
[2016-10-30] MEDS: MIRTAZAPINE 15 MG TAB PO SCH (20:40)
[2016-10-31] MEDS: oxyCODONE IR 5 MG TAB PO PRN ×5 (00:23→22:06)
[2016-10-31] MEDS: VANCOMYCIN 125 MG/2.5 ML UDL PO SCH ×4 (06:10→20:00)
[2016-10-31] MEDS: LEVOTHYROXINE 75 MCG TAB PO SCH (06:10)
[2016-10-31] MEDS: ASPIRIN EC 325 MG TAB PO SCH (08:33)
[2016-10-31] MEDS: ASTAGRAF PO SCH (08:34)
[2016-10-31] MEDS: DOCUSATE SODIUM 100 MG CAP PO SCH (08:35)
[2016-10-31] MEDS: MYCOPHENOLATE SODIUM 180 MG TAB PO SCH ×3 (08:35→20:59)
[2016-10-31] MEDS: morphINE SR 15 MG TAB PO SCH ×2 (08:35→20:00)
[2016-10-31] MEDS: POTASSIUM CL 10 MEQ TAB PO SCH (08:37)
[2016-10-31] MEDS: VERAPAMIL ER 240 MG TAB PO SCH (08:37)
[2016-10-31] MEDS: predniSONE 10 MG TAB PO SCH (08:37)
[2016-10-31] MEDS: PRAVASTATIN SODIUM 20 MG TAB PO SCH (08:37)
[2016-10-31] MEDS: PANTOPRAZOLE SODIUM 40 MG TAB PO SCH (08:37)
[2016-10-31 09:26] LABS: ANION GAP 12 mEq/L (8-16); CALCIUM 8.8 mg/dL (8.5-10.4); CARBON DIOXIDE 28 mEq/l (22-31); CHLORIDE 102 mEq/L (97-110); CREATININE 2.4 mg/dL (0.6-1.0); GLOMERULAR FILTRATION RATE 22; GLUCOSE 86 mg/dL (70-100); POTASSIUM 4.3 mEq/L (3.5-5.2); SODIUM 142 mEq/L (134-144)
--- NOTE | 2016-10-31 11:36 | SOAPPROG ---
SOAP Progress Note Assessment/Plan: Assessment/ Plan: 46 yo female with multiple medical problems, admitted for debility, sepsis, CVA. Notably, hx of renal transplant, chronic back pain. * Debility: Improving overall. FIM 102 on 10/28/16. Cont multi disp rehab eval and treat. Anticipated for D/C home 11/01. * Cerebellar CVA: Cryptogenic. Cont multi disp therapy, cont ASA, Statins. * Cognitive impairment: Improving. Continue Speech and Language Pathology. * Aphasia: Cont Speech/Language eval and treatment * C. diff: Cont PO vanco, no change * Influenza A: S/P treatment. Now with mild, non-productive cough. Cont supportive care * HTN: On meds. 118/68 this am. Overall improving since acute care. * Status post renal transplant & CKD. Continue immunosuppressive medications. Creatinine increased from baseline of 2.1 to 2.5 on 10/20/16; to 2.7 on 10/21/16; most recent is 10/31/[address] Sandersno 10/20/16: likely dehydration. Unable to establish IV for hydration 10/20/16. However, subsequently appears to be hydrating PO. D/c'd furosemide. Also reduced KCl from 10 mg TID to QD. 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 Further studies underway per Nephrology. Plan reviewed with no changes on 10/31/2016. * Urinary retention, likely contributing to decreased renal function: PVR's < 300cc. No SX/SX of UTI. Cont Bladder scan Q 6 hr and cath for residual > 300 cc. Nurse has been using double voiding strategy: if PVR > 300, she voids again ; has avoided catheterization. Discussed with nursing on 11/01 and will dc PVR bladder scans and encourage behavior modification. * Chronic pain syndrome with history of extensive spinal fusion. Improved with increased oxycodone; using 40 - 50 mg QD. Morphine SR 15 mg BID initiated ; if she needs less PRN oxycodone dosing, will simplify medication timing. She notes that chronic pain is still a limiting factor 10/31. * Depression/Insomnia: See Psych consult. Poor sleep despite mirtazapine. Started melatonin 10/20/16. To Consider lower dose mirtazipine, or low dose trazadone as options. Sleep ok on 10/31, no changes. * ROBLES: cyproheptadine as ordered form the acute hospital; monitor for resolution. Encourage minimal use due to urinary retention, Unclear optimal treatment or prevention. Consider riboflavin. Consider prednisone burst if chronic daily ROBLES/analgesic rebound cycle returns. Can be addressed by [facility] as well. * Clostridium difficile colitis. Continue oral vancomycin, and isolation with Clostridium difficile precautions. * Acute influenza A with 3 days of treatment with oseltamivir. Cont isolation for droplet precautions. * Hypertension. Continue verapamil and monitor her blood pressure. * Iron deficiency anemia. She has received IV iron in the hospital. Continues fe-deficient on labs 10/20/16. Add PO iron X 1 mo. Note: Complex patient, all medical issues are new to this provider. 10/31/16 11:26 Subjective: ID/CC: 46 yo F in [facility] with debility following stroke, complicated by history of renal transplant and chronic pain. Today concerned with discharge plan and chronic pain. Subjective: No acute events overnight. Pt reports that she sleeps fair and that therapies are going well. She denies any questions but states her will be in later today (pending ) and he will have more questions. [place] outside of [place]. She endorses ongoing chronic pain, unchanged in character or severity, but notes that her current pain regimen is not as strong as her home doses. No new neurological symptoms, no new weakness, numbness, or cog changes. Nursing notes that she always needs to double void to empty fully, but that resolves any issues. Requesting DC of blader scans. Objective: Vital Signs Temp Pulse Resp BP Pulse Ox 36.7 C 81 18 147/96 H 96 10/31/16 08:00 10/31/16 08:00 10/31/16 08:00 10/31/16 08:37 10/31/16 08:00 Laboratory Results 10/20/16 08:15 10/31/16 06:00 10/30/16 10/31/16 11/01/16 05:59 05:59 05:59 Intake Total 3060 500 Output Total 0607 2550 Balance -265 -2550 500 - Time Spent With Patient Time Spent With Patient: 10 min - Pending Discharge Pending Discharge Within 24 Hours: Yes Pending Discharge Within 48 Hours: Yes Pending Discharge Date: 11/01/16 Pending Discharge Time: 11:00 Physical Exam - Physical Exam General Appearance: alert, no apparent distress, other (poor eye contact) EENT: No scleral icterus (R), No scleral icterus (L), No photophobia Respiratory: lungs clear, normal breath sounds, No respiratory distress, No accessory muscle use, No rales, No rhonchi, No wheezing Cardiac/Chest: normal peripheral pulses, regular rate, rhythm, No bradycardia, No tachycardia Abdomen: normal bowel sounds, non-tender, No distended, No guarding Skin: other (pale) Extremities: No swelling Neuro/Psych: alert, other (Poor eye contact, apathetic), No motor weakness ( upper limbs) ICD10 Worksheet Patient Problems: Problems Problem Status Diagnosed C. difficile diarrhea Acute 10/08/16 Nausea Acute Renal failure (ARF), acute on chronic Acute Syncope due to orthostatic hypotension Acute Tachycardia Acute History of kidney transplant Chronic Anticoagulant therapy Active Chronic pain syndrome Active Hypokalemia Active Hypothyroidism Active Renal impairment Active biliary gastric reflux Active Dehydration Acute Diarrhea Acute Nausea & vomiting Acute
[2016-10-31] MEDS: CALCITRIOL 0.25 MCG CAP PO SCH (20:00)
[2016-10-31] MEDS: MELATONIN 3 MG TAB PO SCH (20:00)
[2016-10-31] MEDS: MIRTAZAPINE 15 MG TAB PO SCH (20:00)
[2016-11-01] MEDS: LEVOTHYROXINE 75 MCG TAB PO SCH (05:50)
[2016-11-01] MEDS: oxyCODONE IR 5 MG TAB PO PRN ×3 (05:51→15:15)
[2016-11-01] MEDS: VANCOMYCIN 125 MG/2.5 ML UDL PO SCH ×2 (05:51→12:01)
[2016-11-01] MEDS: ASPIRIN EC 325 MG TAB PO SCH (07:41)
[2016-11-01] MEDS: DOCUSATE SODIUM 100 MG CAP PO SCH (07:41)
[2016-11-01] MEDS: morphINE SR 15 MG TAB PO SCH (07:41)
[2016-11-01] MEDS: ASTAGRAF PO SCH (07:41)
[2016-11-01] MEDS: MYCOPHENOLATE SODIUM 180 MG TAB PO SCH ×2 (07:42→15:15)
[2016-11-01] MEDS: POTASSIUM CL 10 MEQ TAB PO SCH (07:43)
[2016-11-01] MEDS: PANTOPRAZOLE SODIUM 40 MG TAB PO SCH (07:43)
[2016-11-01] MEDS: predniSONE 10 MG TAB PO SCH (07:44)
[2016-11-01] MEDS: PRAVASTATIN SODIUM 20 MG TAB PO SCH (07:44)
[2016-11-01] MEDS: VERAPAMIL ER 240 MG TAB PO SCH (07:44)
[2016-11-01 10:49] VITALS: BP 110/68; PULSE 72; RESP 16; TEMP 98.1
== END 2016-11-01 17:15 | disposition home or self-care (01) | DRG 57 ==
LOC: BREH 18:30
PROVIDERS: ADMIT Internal Medicine; ATTEND Internal Medicine
DX: I69.318 Other symptoms and signs involving cognitive functions following cerebral infarction (principal); I69.398 Other sequelae of cerebral infarction; R53.81 Other malaise; J10.1 Influenza due to other identified influenza virus with other respiratory manifestations; A04.7 Enterocolitis due to Clostridium difficile; D50.9 Iron deficiency anemia, unspecified; Z98.1 Arthrodesis status; G89.4 Chronic pain syndrome; K21.9 Gastro-esophageal reflux disease without esophagitis; E03.9 Hypothyroidism, unspecified; T86.12 Kidney transplant failure; Z90.5 Acquired absence of kidney; I10 Essential (primary) hypertension; F43.23 Adjustment disorder with mixed anxiety and depressed mood
CPT/HCPCS: 80197-90; 92507-GN; 92522-GN; 92526; 92610; 97110-GO; 97110-GP; 97112-GO; 97112-GP; 97116-GP; 97163-GP; 97167-GO; 97530-GO; 97530-GP; 97532-GO; 97535-GO; 99366-GO

== ENCOUNTER 2017-01-10 10:25 | Inpatient (IN) | payer OTHER ==
--- NOTE | 2017-01-10 10:46 | EDPHY ---
H & P Stated Complaint: ROBLES LLQ, LUQ pain, N&V-for 1 1/2 days HPI/ROS: CHIEF COMPLAINT: Vomiting, headache. HISTORY OF PRESENT ILLNESS: The patient is a 46-year-old immunosuppressed female , with history of kidney transplant presenting with acute vomiting for the past 36 hours. She was unable to take her transplant medications today because she can't keep down any food or liquids. The patient has left sided abdominal pain , constant and cramping. She states she feels febrile, but has not taken her temperature. She denies diarrhea or urinary complaints. The patient's daughter and mother in-law currently have cold-like symptoms. The patient additionally complains of a "splitting headache". In September 2016 the patient was found to have a cerebellar and cerebral infarct without a clear source. She has since had left sided weakness that is worse when she is fatigued. She also has intermittent migraine headaches and also regular headaches that do not seem migranous. Her headache today feels similar to previous migraines. She reports pain to the bifrontal region. She does not usually have associated emesis with migraines. The patient takes a a daily Aspirin. REVIEW OF SYSTEMS: A ten point review of systems was performed and is negative with the exception of the items mentioned in the HPI. Source: Patient - Personal History LMP (Females 10-55): 15-21 Days Ago Current Tetanus/Diphtheria Vaccine: Yes Current Tetanus Diphtheria and Acellular Pertussis (TDAP): Yes Tetanus Vaccine Date: 2012 - Medical/Surgical History Hx Asthma: No Hx Chronic Respiratory Disease: No Hx Diabetes: Yes Hx Cardiac Disease: No Hx Renal Disease: Yes Hx Cirrhosis: No Hx Alcoholism: No Hx HIV/AIDS: No Hx Splenectomy or Spleen Trauma: No Other PMH: 1. Left Kidney transplant 07/08/08. 2. Gestational diabetes. 3. Chronic back pain. 4. T10-S1 back fusion. 5. Abdominal sx. 6. Anxiety. 7. Right arm AV fistula, nonfunctioning. 8. GERD. 9. Hypertension. 10. Non hodgkin lymphoma. 11. Clostridium difficile September 2016. 12. Left cerebellar infarct. 13. Left cerebral peduncle - Social History Smoking Status: Never smoked Additional Social History: . Lives with daughter, , and parrots. Mother in law at bedside. - Physical Exam Exam: General Appearance: Alert. Vital signs reviewed. Temperature 38.1. Blood pressure 149/100. Heart rate 123. Eyes: Pupils equal and round, no conjunctival injection, no discharge. Anicteric. ENT, Mouth: Mucous membranes are dry, no oropharyngeal erythema or edema. Neck: No lymphadenopathy, supple. Respiratory: Lungs are clear to auscultation; no wheezes, rales, or rhonchi. Cardiovascular: Regular rate and rhythm; no murmur, rub, or gallop. Gastrointestinal: Abdomen is soft, LUQ and LLQ tenderness, no guarding. Bowel sounds are present. Skin: Warm and dry, no rashes on exposed skin, normal color. Back: Nontender to palpation over the thoracolumbar spine. Left CVA tenderness. Extremities: No lower extremity edema, no calf tenderness or swelling.Right arm AV fistula, no thrill Neurological: Alert and oriented. Speech is fluent. Moving all four extremities easily and equally. Cranial nerves II through XII are examined and are intact (visual acuity not tested). Strength is 5- over 5 bilaterally with testing of all major motor groups. Sensation is intact to light touch over all 4 extremities. Psychiatric: Normal affect. Constitutional: Initial Vital Signs Temperature (C) 38.1 C 01/10/17 10:28 Heart Rate 123 H 01/10/17 10:28 Respiratory Rate 18 01/10/17 10:28 Blood Pressure 149/100 H 01/10/17 10:28 O2 Sat (%) 94 01/10/17 10:28 O2 Delivery Mode Room Air Allergies/Adverse Reactions: ampicillin [Ampicillin] Allergy (Severe, Verified 01/10/17 10:33) Anaphylaxis erythromycin lactobionate [From Erythrocin] Allergy (Severe, Verified 01/10/17 10:33) Anaphylaxis metoclopramide HCl [From Reglan] Allergy (Severe, Verified 01/10/17 10:33) "went crazy" NSAIDS (Non-Steroidal Anti-Inflamma [Nsaids] Allergy (Severe, Verified 01/10/17 10:33) Kidney transplant meperidine HCl [From Demerol] Allergy (Intermediate, Verified 01/10/17 10:33) Hypotension meropenem [Meropenem] Allergy (Intermediate, Verified 01/10/17 10:33) Hypersensitivity in legs Sulfa (Sulfonamide Antibiotics) Allergy (Intermediate, Verified 01/10/17 10:33) Hives ceftazidime (anhydrous) [ceftazidime] Allergy (Mild, Verified 01/10/17 10:33) Rash ciprofloxacin [From Cipro] Allergy (Mild, Verified 01/10/17 10:33) Rash levofloxacin [From Levaquin] Allergy (Mild, Verified 01/10/17 10:33) Rash doxycycline Allergy (Verified 01/10/17 10:33) gabapentin [From Neurontin] Allergy (Verified 01/10/17 10:33) Other-Enter Comments Home Medications: Medication Instructions Recorded Pantoprazole Sodium 40 mg PO DAILY #30 tablet. 04/16/15 Docusate Sodium [Colace 100 MG (*)] 100 mg PO DAILY 03/15/16 Aspirin EC [Aspirin EC 325 mg (*)] 325 mg PO DAILY #0 tab 10/15/16 Calcitriol [Calcitriol (*)] 0.25 mcg PO MOWEFR #20 cap 10/28/16 Levothyroxine [Synthroid 75 mcg 75 mcg PO DAILY06 #30 tab 10/28/16 (*)] Mycophenolate Sodium [Myfortic] 180 mg PO TID #90 tab 10/28/16 Potassium Cl [Klor-Con 10 meq (RX)] 10 meq PO DAILY #0 tab 10/28/16 Pravastatin Sodium [Pravachol] 20 mg PO DAILY #30 tab 10/28/16 Sennosides [Senokot] 1 - 2 tab PO BID PRN #0 tab 10/28/16 Verapamil ER [Calan SR/ER 240MG 240 mg PO DAILY #30 tab 10/28/16 (*)] oxyCODONE IR [Oxycodone Ir (*)] 5 - 10 mg PO Q3 PRN #90 tab 10/28/16 predniSONE 10 mg PO DAILY #30 tab 10/28/16 Mirtazapine 7.5 mg PO HS #15 tablet 11/01/16 Astagraf 3 mg PO DAILY 01/10/17 Cyproheptadine HCl [Periactin 4 MG 4 mg PO QID PRN 01/10/17 (*)] morphINE SR [MS Contin/Oramorph SR 30 mg PO TID 01/10/17 30 mg (*)] Medical Decision Making - Diagnostics Imaging: Study: X-ray of the chest was obtained. Results: No pneumonia. Images were interpreted by the radiologist, Dr. Ramirez. I viewed the images myself on the PACS system. Study: CT of the abdomen/pelvis. Indication: Abdominal pain, vomiting. Results : Increased hydroureter and new hydronephrosis of the renal transplant raise the possibility of a distal ureteral stricture. 2. Severe constipation. The study was read by the radiologist, Dr. Ramirez. I viewed the images myself on the PACS system. Procedures: Procedure: Central line placement. Indication: poor vascular access. Risks, benefits, alternatives discussed with the patient including but not limited to bleeding, infection, vascular injury, and collapsed lung and consent obtained. A timeout was observed. Full maximal sterile barrier technique was used including cap, gown, sterile gloves, large sheet, hand washing and chlorhexidine prep. I used the ultrasound to guide the central line placement. Dr. Narayan anesthetized with 1% lidocaine. A 7 Croatian triple lumen was placed in the right internal jugular vein using standard Seldinger technique. There were no complications. Blood return low pressure, dark blood. Patient tolerated procedure well. The procedure was performed by Dr. Narayan and myself. CXR results: Appropriate line placement, and no pneumothorax. X-ray was interpreted by myself. ED Course/Re-evaluation: The patient is a 46-year-old female with history of kidney transplant, on chronic immunosuppression who presents with vomiting and abdominal pain. The patient has been vomiting for the past 36 hours. She was unable to take her medications today because of the vomiting. Patient is febrile here. Plan for labs and CT abdomen/pelvis. The patient has a recent history of left cerebellar infarction and cerebral peduncle of unknown source that occurred in September 2016. She has since had intermittent headaches. Today she has a bifrontal headache that feels similar to previous migraine headaches. Due to fever and headache, meningitis is a possibility. She does not have meningeal signs on exam. She is alert and fully oriented, known cephalopathy. She has had a lumbar fusion with rods in place. Should she require a spinal tap it will need to be done with fluoroscopic guidance. At this point in time I think other sources of infection or more likely. The patient had a positive clostridium difficile serology 10/08/16 and was treated with Vancomycin. She does not have diarrhea currently. Patient is febrile and hypertensive. UA is positive for leukocyte esterase, red blood cells, and white blood cells. Urine culture is pending. I am concerned about urinary tract infection/ transplant pyelonephritis in this setting. She has an elevated serum WBC. She has anemia, long-standing. Lactic acid is 1.3. Patient has a creatinine of 3, this is elevated compared to baseline of 2. Chest x-ray and CT imaging is pending. She has allergies to a variety of antibiotics as well as NSAIDs. Previous records show patient is able to tolerate cephalosporins possibly (although an allergy to some cephalosporins is listed), aztreonam, and vancomycin. 12:15 p.m.: I spoke to Dr. Arevalo, who will admit the patient. Chest x-ray is negative for pneumonia. 12:45 p.m.: The patient received [address] imaging is pending. She has received 500 mL IV fluids. Her current vascular access will not be adequate for fluid resuscitation, pain medications and antibiotics. She has required PICC line placement in the past. Unable to obtain a PICC line in a timely fashion. Plan for patient to have central line placed. CT report was called to me. It shows constipation and and edematous transplanted kidney with mild hydronephrosis of the ureter. Her bladder appears full on my viewing. 1:05 p.m.: I spoke to Dr. Conti, Nephrology. He tells me the patient often has urinary retention and has been catheterized for this in the past. Her hydronephrosis may be secondary to this. A Davis catheter is being placed. After placement of the Davis catheter there was immediate return of over 300 mL of urine with continued flow. 1:45 p.m.: Patient is being prepared for central line placement. Central line placement performed by Dr. Narayan and myself. Administration of full IV fluid bolus has been delayed by poor flow through her 2 peripheral IVs while she was undergoing studies and out of the department. Full IV bolus is being administered now that central line is placed. Antibiotic administration has been delayed by the fact that she is allergic to multiple antibiotics. She reports anaphylaxis in the past with antibiotic administration. Pharmacy and Infectious Disease have both been consulted concerning the appropriate antibiotics to administer. Antibiotics were ordered by the admitting physician after the after mentioned consultations were performed. Repeat lactate is low. At no point has she been hypotensive. It was recognized early in her care that she met criteria for severe sepsis with elevated heart rate, fever, and elevated serum white blood cells. She has elevated creatinine, chronic. Initial source of her infection was thought to be either urinary tract or intra-abdominal. Her initial lactate was normal and remained normal when repeated. At no time did she evidence septic shock. I do not think that she is experiencing rejection of her transplanted kidney. She has missed only 1 dose of her anti-rejection medications. Differential Diagnosis: Fever in adults including but not limited to pneumonia, urinary tract infection/ pyelonephritis, intra-abdominal infection such as appendicitis, viral syndrome, and influenza. - Data Points Laboratory Results: Laboratory Results 01/10/17 11:35 01/10/17 11:35 01/10/17 01/10/17 01/10/17 11:40 11:35 11:35 WBC RBC Hgb Hct MCV MCH MCHC RDW Plt Count MPV Neut % (Auto) Lymph % (Auto) [place] % (Auto) Eos % (Auto) Baso % (Auto) Nucleat RBC Rel Count Absolute Neuts (auto) Absolute Lymphs (auto) Absolute Monos (auto) Absolute Eos (auto) Absolute Basos (auto) Absolute Nucleated RBC Immature Gran % Immature Gran # PT 14.2 SEC SEC (12.0-15.0) INR 1.11 (0.83-1.16) APTT 33.3 SEC SEC (23.0-38.0) VBG Lactic Acid Sodium 139 mEq/L mEq/L (134-144) Potassium 3.4 mEq/L L mEq/L (3.5-5.2) Chloride 101 mEq/L mEq/L (97-110) Carbon Dioxide 24 mEq/l mEq/l (22-31) Anion Gap 14 mEq/L mEq/L (8-16) BUN 27 mg/dL H mg/dL (7-23) Creatinine 3.0 mg/dL H mg/dL (0.6-1.0) Estimated GFR 17 Glucose 83 mg/dL mg/dL (70-100) Calcium 9.0 mg/dL mg/dL (8.5-10.4) Total Bilirubin 0.6 mg/dL mg/dL (0.1-1.4) Urine Color YELLOW Urine Appearance CLEAR Urine pH 5.0 (5.0-7.5) Ur Specific [place] 1.008 (1.002-1.030) Urine Protein 1+ H (NEGATIVE) Urine Ketones NEGATIVE (NEGATIVE) Urine Blood 1+ H (NEGATIVE) Urine Nitrate NEGATIVE (NEGATIVE) Urine Bilirubin NEGATIVE (NEGATIVE) Urine Urobilinogen NEGATIVE EU EU (0.2-1.0) Ur Leukocyte Esterase 1+ H (NEGATIVE) Urine RBC 5-10 /hpf H /hpf (0-3) Urine WBC 25-50 /hpf H /hpf (0-3) Ur Epithelial Cells TRACE /lpf /lpf (NONE-1+) Ur Culture Indicated? INDICATED H (NI) Urine Glucose NEGATIVE (NEGATIVE) 01/10/17 01/10/17 11:35 11:35 WBC 16.59 10^3/uL H 10^3/uL (3.80-9.50) RBC 3.59 10^6/uL L 10^6/uL (4.18-5.33) Hgb 9.3 g/dL L g/dL (12.6-16.3) Hct 29.5 % L % (38.0-47.0) MCV 82.2 fL fL (81.5-99.8) MCH 25.9 pg L pg (27.9-34.1) MCHC 31.5 g/dL L g/dL (32.4-36.7) RDW 16.7 % H % (11.5-15.2) Plt Count 219 10^3/uL 10^3/uL (150-400) MPV 10.5 fL fL (8.7-11.7) Neut % (Auto) 76.7 % H % (39.3-74.2) Lymph % (Auto) 12.5 % L % (15.0-45.0) [place] % (Auto) 9.3 % % (4.5-13.0) Eos % (Auto) 0.7 % % (0.6-7.6) Baso % (Auto) 0.2 % L % (0.3-1.7) Nucleat RBC Rel Count 0.0 % % (0.0-0.2) Absolute Neuts (auto) 12.72 10^3/uL H 10^3/uL (1.70-6.50) Absolute Lymphs (auto) 2.07 10^3/uL 10^3/uL (1.00-3.00) Absolute Monos (auto) 1.55 10^3/uL H 10^3/uL (0.30-0.80) Absolute Eos (auto) 0.11 10^3/uL 10^3/uL (0.03-0.40) Absolute Basos (auto) 0.04 10^3/uL 10^3/uL (0.02-0.10) Absolute Nucleated RBC 0.00 10^3/uL 10^3/uL (0-0.01) Immature Gran % 0.6 % % (0.0-1.1) Immature Gran # 0.10 10^3/uL 10^3/uL (0.00-0.10) PT INR APTT VBG Lactic Acid 1.3 mmol/L mmol/L (0.7-2.1) Sodium Potassium Chloride Carbon Dioxide Anion Gap BUN Creatinine Estimated GFR Glucose Calcium Total Bilirubin Urine Color Urine Appearance Urine pH Ur Specific [place] Urine Protein Urine Ketones Urine Blood Urine Nitrate Urine Bilirubin Urine Urobilinogen Ur Leukocyte Esterase Urine RBC Urine WBC Ur Epithelial Cells Ur Culture Indicated? Urine Glucose Medications Given: Discontinued Medications Acetaminophen (Tylenol Rectal) 325 mg MI Q6HRS PRN PRN Reason: Pain, Mild/Fever,Can't Take PO Stop: 07/09/17 12:43 Last Admin: 01/10/17 12:46 Dose: 325 mg Acetaminophen (Tylenol Rectal) 650 mg MI Q4HRS PRN PRN Reason: Pain, Mild/Fever,Can't Take PO Stop: 07/09/17 12:43 Last Admin: 01/10/17 12:47 Dose: 650 mg Sodium Chloride (Ns) 1,000 mls @ 0 mls/hr IV ONCE ONE PRN Reason: Wide Open Stop: 01/10/17 11:44 Last Admin: 01/10/17 12:40 Dose: Not Given Sodium Chloride (Ns *For Sepsis Order Set Only*) 2,109 ml 30 ml/kg (2109 ml) IV EDNOW ONE Stop: 01/10/17 12:21 Last Admin: 01/10/17 12:29 Dose: 2,109 ml Departure - Departure Disposition: [facility] Inpatient Acute Clinical Impression: Pyelonephritis Sepsis Qualifiers: Sepsis type: sepsis due to unspecified organism Qualified Code(s): A41.9 - Sepsis, unspecified organism Abdominal pain Qualifiers: Abdominal location: unspecified location Qualified Code(s): R10.9 - Unspecified abdominal pain Condition: Fair Report Scribed for: Shaunna Strong Report Scribed by: Cari Reid Date of Report: 01/10/17 Time of Report: 11:01
[2017-01-10] MEDS: NS 1,000 ML IV ONE ×2 (11:44→12:40)
[2017-01-10 11:46] LABS: % IMMATURE GRANULYOCYTES 0.6 % (0.0-1.1); ADD DIFF? NO; ADD MORPH? NO; ADD SCAN? NO; ATYPICAL LYMPHOCYTE FLAG 0 (0-99); FRAGMENT RBC FLAG 20 (0-99); HEMATOCRIT 29.5 % (38.0-47.0); HEMOGLOBIN 9.3 g/dL (12.6-16.3); LEFT SHIFT FLG 10 (0-99); LIPEMIA HEMOLYSIS FLAG 80 (0-99); MEAN CELL HEMOGLOBIN 25.9 pg (27.9-34.1); MEAN CELL HEMOGLOBIN CONCENTR. 31.5 g/dL (32.4-36.7); MEAN CELL VOLUME 82.2 fL (81.5-99.8); MEAN PLATELET VOLUME 10.5 fL (8.7-11.7); PLATELET CLUMPS FLAG 0 (0-99); PLATELET COUNT 219 10^3/uL (150-400); RED BLOOD CELL COUNT 3.59 10^6/uL (4.18-5.33); RED CELL DISTRIBUTION WIDTH 16.7 % (11.5-15.2)
[2017-01-10 11:50] LABS: COLOR YELLOW; LEUKOCYTE ESTERASE,URINE 1+ (NEGATIVE); NITRITE,URINE NEGATIVE (NEGATIVE)
[2017-01-10 11:55] LABS: APTT 33.3 SEC (23.0-38.0); INR 1.11 (0.83-1.16); PROTIME(PATIENT) 14.2 SEC (12.0-15.0)
[2017-01-10 11:58] LABS: WBC,URINE 25-50 /hpf (0-3)
[2017-01-10 11:58] LABS: ANION GAP 14 mEq/L (8-16); BILIRUBIN,TOTAL 0.6 mg/dL (0.1-1.4); CARBON DIOXIDE 24 mEq/l (22-31); CHLORIDE 101 mEq/L (97-110); GLOMERULAR FILTRATION RATE 17; GLUCOSE 83 mg/dL (70-100); POTASSIUM 3.4 mEq/L (3.5-5.2); SODIUM 139 mEq/L (134-144)
[2017-01-10] MEDS ORDERED: ACETAMINOPHEN 325 MG TAB PO PRN (12:16)
[2017-01-10] MEDS ORDERED: ONDANSETRON DISINTEGRATING 4 MG TAB PO PRN (12:16)
[2017-01-10] MEDS ORDERED: NS 1,000 ML BAG *FOR SEPSIS ORDER SET ONLY IV ONE (12:20)
[2017-01-10 12:34] LABS: ALBUMIN 3.8 g/dL (3.5-5.0); BILIRUBIN,TOTAL 0.6 mg/dL (0.1-1.4); BILIRUBIN-CONJUGATED 0.6 mg/dL (0.0-0.5); TOTAL PROTEIN 6.9 g/dL (6.3-8.2)
[2017-01-10] MEDS ORDERED: ACETAMINOPHEN 650 MG SUPP PR ONE (12:41)
[2017-01-10] MEDS ORDERED: ACETAMINOPHEN 325 MG SUPP PR ONE (12:43)
[2017-01-10] MEDS ORDERED: ACETAMINOPHEN 650 MG SUPP PR PRN (12:44)
[2017-01-10] MEDS ORDERED: ACETAMINOPHEN 325 MG SUPP PR PRN (12:44)
--- NOTE | 2017-01-10 14:23 | GHP ---
[f rep st] HISTORY AND PHYSICAL DATE OF ADMISSION: 01/10/2017 CHIEF COMPLAINT: Abdominal pain. HISTORY OF PRESENT ILLNESS: This is a 46-year-old female with a history of renal transplantation an d hospitalization in September of 2016 where she was diagnosed with a cerebellar stroke of unknown et iology and acute influenza. The patient was discharged to rehabilitation at the [facility], an d was discharged from her rehab on 11/07/2016. The patient describes being in good health since her disposition from rehabilitation, learning to relieve function with her remnant neurologic deficits that she describes as predominantly left-sided weakness. The patient reports 48 hours prior to pres entation developing some left lower quadrant pain which became markedly more severe and associated w ith nausea and vomiting. She presents this morning as she has been unable to tolerate p.o. intake, is feeling quite weak, and still experiencing left lower quadrant and left flank pain. The patient endorses subjective fevers and chills in the outpatient setting. Says she has had sick contact from her 9-year-old daughter who had an upper respiratory infection that has since resolved. The patien t denies any diarrhea and reports she has chronic constipation from her pain medications. Denies an y blood in her stools. Denies any notable dysuria or hematuria. Denies any difficulty swallowing, changes in her vision headaches, rashes, or lower extremity edema. She has had no difficulty compli antly taking her chronic medications. PAST MEDICAL HISTORY: 1. Status post renal transplantation with chronic kidney disease. 2. Chronic urinary retention. 3. Chronic low back pain, on continuous narcotic dependency. 4. History of C difficile colitis during her previous hospital admission, treated with oral vancomy tee. 5. History of non-Hodgkin lymphoma. 6. Iron deficiency anemia. 7. Hypertension. 8. CKD with a baseline creatinine at 2.1. 9. Acute left cerebellar infarct without clear source with remnant left-sided weakness. 10. WPW, status post ablation. SOCIAL HISTORY: Negative for tobacco, very rare alcohol. No illicit drugs or marijuana. FAMILY HISTORY: Negative for kidney disease. Patient's mother has WPW ADVANCED DIRECTIVES: Patient is full cor, full tube. Her would be her medical decision danika er. REVIEW OF SYSTEMS: A 10-point review of systems is negative with the exception of that reported in the HPI. PHYSICAL EXAMINATION: VITAL SIGNS: Blood pressure is 152/100, heart rate is 123, respiratory rate 19, 94% on room air, 38.7. GENERAL: This is a middle-aged female in mild distress. HEENT: Notable for dry mucous membranes. Eye exam is negative for any icterus. CARDIAC: Patient is tachycardic with a systolic murmur. PULMONARY: Good respiratory effort. Clear to auscultation bilaterally. G ASTROINTESTINAL: The patient has diminished bowel sounds and is tender to palpation in the left low er quadrant, greater than the other 4; however, has tenderness throughout. Patient has marked tende rness on the left flank. There is mild voluntary guarding. No rebound. MUSCULOSKELETAL: Negative for any lower extremity edema. SKIN: Exam is negative for any rashes. NEUROLOGIC: The patient i s alert and oriented x3. PSYCHIATRIC: She is pleasant and cooperative on interview and examination . DATA: White count is 16.5, her discharge white count was 6. Hematocrit 29, hemoglobin 9 which are baseline, platelets at 219. Creatinine is 3.0, baseline is 2.1. Potassium is 3.4, BUN 27. Liver f unction tests are normal. Urinalysis shows 25-50 red blood cells, 5-10 white, 1+ blood, 1+ protein. Lactic acid is 1.3. Chest x-ray, which I personally reviewed and interpreted, shows no acute infiltrates or edema. CT of the abdomen, which I personally reviewed and interpreted, shows increased hydroureter and hydr onephrosis of the left renal transplant and severe constipation. There is perinephric edema of the transplanted kidney. ASSESSMENT AND PLAN: This is a 46-year-old renal transplant patient presenting with abdominal pain and fever. 1. Sepsis. The patient is febrile, tachycardic with leukocytosis. Source presumed to be urinary. We will place central access and aggressively fluid resuscitate and treat empirically with antibiot ics. Of note, the patient has many antibiotic allergies. We are working with Pharmacy right now to ascertain a safe option to broadly cover possible urinary pathogens. 2. Transplant pyelonephritis. The patient does have a history of urinary retention. I am placing a Davis catheter at this time and again will treat aggressively with broad-spectrum antibiotics that are safe in her allergy profile. Blood cultures and urine cultures have been sent. 3. Acute on chronic kidney disease in the setting of renal transplant. We have contacted Dr. Julienne damon. He will follow along. Will continue her transplant medications. Currently checking levels w here appropriate. Avoid nephrotoxins particularly in her antibiotic tracing, and again fluid resusc itate while placing a Davis catheter to relieve any obstructive component. 4. Tachycardia, I suspect this is related to sepsis. Will treat both her fever with aggressive flu id resuscitation. 5. Acute leukocytosis, presumably from pyelonephritis. Will treat as above and follow daily. 6. Status post acute left cerebellar infarction. The patient reports stable neurologic deficits. Will involve PT, OT once the patient is feeling better for ongoing therapy and assessments. 7. Hypertension. Can continue her home medications. The patient is at risk for developing septic shock. Will cautiously monitor her blood pressure. Will tolerate hypertension overnight, holding s tanding BP medications unless systolics are greater than 170. 8. Iron deficiency anemia. Can follow her counts and recheck iron studies. 9. Chronic musculoskeletal back pain. Will continue her home pain regimen without alteration. 10. Prophylaxis with heparin subcu in the setting of acute kidney injury. 11. Diet. As she tolerates. She is quite nauseated at this time. DISPOSITION: I expect greater than 2 midnights as patient is presenting with sepsis, requiring IV a ntibiotics, IV fluids, and close monitoring. I have discussed the case with the emergency room physician. Patient will be triaged to the medical -surgical floor with telemetry monitoring. /[id number]/MODL
[2017-01-10] MEDS: ONDANSETRON 4 MG/2 ML VIAL IVP PRN (14:31)
[2017-01-10] MEDS ORDERED: DEXAMETHASONE 4 MG/ML VIAL ONE (14:43)
[2017-01-10] MEDS ORDERED: HEPARIN 10,000 UNIT/10 ML MDV ONE (14:43)
[2017-01-10] MEDS: AZTREONAM 1 GM in D5W 50 ML IV SCH ×2 (14:54→22:13)
[2017-01-10] MEDS ORDERED: VANCOMYCIN HCL/NORMAL SALINE 250 ML IV SCH (15:00)
[2017-01-10] MEDS: HEPARIN 5,000 UNIT/0.5 ML SYR SC SCH ×2 (16:00→22:07)
[2017-01-10] MEDS: NS 1,000 ML IV SCH (16:05)
[2017-01-10] MEDS: DEXAMETHASONE 4 MG/ML VIAL IVP SCH (18:19)
[2017-01-10] MEDS: MYCOPHENOLATE SODIUM 180 MG TAB.DR PO SCH ×2 (18:24→21:58)
[2017-01-10] MEDS: POTASSIUM Cl (KCl) 100 ML IV SCH ×2 (19:48→20:58)
--- NOTE | 2017-01-10 20:03 | GCON ---
[f rep st] CONSULTATION INFECTIOUS DISEASE CONSULTATION DATE OF CONSULTATION: 01/10/2017 REFERRING PHYSICIAN: Anali Arevalo MD REASON FOR CONSULTATION: Sepsis and multiple antibiotic allergies. 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 She presented to the emergency room this morning complaining of left lower quadrant and left flank pain, subjective fevers and chills. No diarrhea. She has a history of chronic constipation. Sick contact from her 9-year-old who had an URI recently. The patient has received significant amount of pain medicines by the time of my exam, and is quite somnolent, but reports persistent significant pain in the left lower quadrant. She also describes some posterior headache but it is not a primary complaint at the time of my exam. In the emergency room , the patient got blood cultures, urine cultures, and was started on IV aztreonam and vancomycin due to past antibiotic allergies. PAST MEDICAL/SURGICAL HISTORY: 1. Renal transplant 07/08/2008 secondary to reflux from living donor. 2. She underwent a nephrectomy on the left in 2007 at the same time as her transplant, and on the right in 1994. 3. History of C difficile 10/08/2016, status post p.o. vancomycin. 4. Chronic low back pain with continuous narcotic dependency. 5. History of non-Hodgkin's lymphoma. 6. Iron deficiency anemia. 7. Hypertension. 8. Chronic kidney disease with baseline creatinine of 2.1. 9. Left cerebellar infarct without clear source with remnant left-sided weakness. 10. WPW status post ablation. 11. Migraines. 12. Neurogenic bladder with a remote history of self in and out catheterizations. 13. Anxiety. 14. Hypothyroidism. 15. Diskectomy and lumbar spine fusion. 16. Influenza 10/06/2016. SOCIAL HISTORY: Patient lives with in laws. She is . Minimal exercise. No driving. 1 child. 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 Notes no tobacco. The patient has had multiple parrots for almost 20 years. FAMILY HISTORY: Positive for cardiovascular disease and Crohn disease. Vaccination history: She refused influenza vaccination this year. Her last Tdap was 09/2011. ALLERGIES: Ampicillin anaphylaxis in adulthood. Cipro and levofloxacin rash. Doxycycline unclear reaction. Erythromycin anaphylaxis. Sulfa hives. MEDICATIONS: The patient was started on cefuroxime on 12/08/2016 recently 250 b.i.d.. Since hospitalization, aztreonam 1 g IV q.8, vancomycin 1 g x1. She is also on cyclobenzaprine, cyproheptadine for migraines, levothyroxine 75 mcg, lorazepam as needed, mirtazapine 50 mg at bedtime, MS Contin 30 mg q.8, Zofran as needed, oxycodone 20 mg by the oral route every 6 hours for breakthrough pain , Protonix 40 mg daily, pravastatin 20 mg daily, Verapamil 240 mg daily. She is on tacrolimus 4 mg daily, mycophenolate 100 mg 3 times daily and prednisone 10 mg daily. REVIEW OF SYSTEMS: A complete 10-point review of systems was performed and is negative except as mentioned in HPI. PHYSICAL EXAM: VITAL SIGNS: Blood pressure 134/82, heart rate 92, saturation 100% on 3 L. On arrival to the emergency room, the patient's blood pressure was 149/100, heart rate 123, temperature T-max is 37.8, T-current 37.1. GENERAL : This is a chronically ill-appearing woman, lying flat in bed who is quite sleepy, who falls asleep immediately when interaction is held. HEENT: She has dry mucous membranes. No oral thrush. Pupils are pinpoint but reactive. NECK : Supple. She has a right neck line, single-lumen access. CARDIOVASCULAR: Regular rate and rhythm with 2/6 systolic murmur. CHEST: Clear to auscultation bilaterally. ABDOMEN: Obese, fullness to palpation with tenderness in the left lower quadrant, with tenderness over the kidney transplant. She has a well-healed midline surgical scar. : Davis was in place with clear urine. EXTREMITIES: No clubbing, cyanosis, or edema. NEUROLOGIC: Deferred. SKIN: She had pallor. No rashes. LABORATORY DATA: White count is 16.5, hematocrit 29, platelets 219, 76% neutrophils, 12% lymphocytes. INR 1.1. Creatinine 3.0, last week was 2.8, AST 19, ALT 21. Tacrolimus level 01/03/2017 was 3.1. Urinalysis demonstrates 25- 50 WBCs and 5-10 RBCs. Last week it was clear. Blood cultures were collected upon admission as well as urine culture, those are pending at time of dictation. IMAGING: CT abdomen and pelvis showed hydroureter, possibly due to distal ureteral stricture and severe constipation. Chest x-ray was personally reviewed by me, showed no focal infiltrate. Obvious prior extensive hardware in her lumbar spine. ASSESSMENT AND PLAN: This is a 46-year-old woman with left kidney transplant remotely in 2007, who is maintained on chronic tacrolimus, mycophenolate and prednisone at fairly low dose, who presents to the emergency room with left lower quadrant pain. She was found to have hydroureter (possibly due to distal ureteral stricture versus urine retention due to neurogenic bladder), worsening renal function, fever and leukocytosis consistent with sepsis syndrome, suspect urinary source. She has multiple risk factors for developing pyelonephritis including history of urinary retention, renal transplant and past history of reflux. No diarrhea makes recurrent C difficile unlikely, which she would be at risk for as she received recent antibiotic therapy with cefuroxime. A pulmonary source seems unlikely as no respiratory symptoms and a clear chest x- ray. ASSESSMENT 1. SEPSIS LIKELY DUE TO URINARY SOURCE 2. ACUTE ON CHRONIC RENAL INSUFFICIENCY WITH UNDERLYING RENAL TRANSPLANT 3. MULTIPLE ANTIBIOTIC ALLERGIES TOLERATES MONOBACTAMS, CEPHALOSPORINS AND VANCOMYCIN RECOMMENDATIONS: 1. Reasonable to continue empiric therapy with renally dosed aztreonam and vancomycin for coverage of most likely bacteriologic etiologies including group Enterobacteriaceae as well as enterococcus. This will also cover for MRSA. 2. Likely could narrow antibiotics or adjust antibiotics to cephalosporin once additional microbiologic data is obtained as she has tolerated this previously. 3. Follow up blood and urine cultures. 4. Possible distal urethral stricture may need urology consult. Plan to repeat ultrasound of the transplanted kidney after Davis in place for a couple days. /[id number]/MODL MTDD
--- NOTE | 2017-01-10 21:04 | GCON ---
[f rep st] CONSULTATION NEPHROLOGY CONSULTATION DATE OF CONSULTATION: 01/10/2017 REASON FOR CONSULTATION: Probable transplant pyelonephritis. HISTORY OF PRESENT ILLNESS: The patient is well known to me. 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 She underwent a 6 antigen match living related donor transp lant, from her sister, in [place] in 2007. She has had a complicated past medical history, includi ng non-Hodgkin lymphoma treated in 2000. The patient and her family moved from [place] to [place] 3 years ago. Since that time, she has had multiple admissions and medical issues. She frequently ronquillo s admissions for intractable pain, nausea, vomiting and diarrhea. She has undergone major spinal mccrary rgery. She had an admission in September for a cerebral vascular accident. She has made significant improvement since that time, but does have residual left-sided weakness. In 2014, the patient ran out of her transplant medications and did have some acute rejection. 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 Giv en she has a 6 antigen match, we have tried to minimize her Prograf levels. The patient has known i kimberly with urinary retention. The patient was seen in our office approximately 1 week ago. Her creatinine was a bit above her bas millicent, and we did have some concerns relating to renal urinary retention. She otherwise looked good . The patient was doing okay until yesterday. At that time, she began developing a headache, nausea, vomiting, and abdominal cramping. She later developed more localized left lower quadrant pain and a lso developed fevers. She presented to the emergency room today, and objective data revealed a crea tinine of 3, an elevated white count, pyuria, and some evidence of worsening transplant hydronephros is. Her CT scan also showed severe constipation. The patient presently is receiving volume resuscitation. She is normotensive. She is receiving bebe e pain medications. She is on broad-spectrum antibiotics. As related to the above issues, we are a sked by Dr. Strong to assist the patient's renal diagnosis and management. PAST MEDICAL HISTORY: 1. End-stage renal disease secondary to neurogenic bladder and vesicoureteral reflux. 2. Six antigen match living related donor transplant from her sister in 2007 at [facility]. 3. Non-Hodgkin lymphoma status post CHOP and radiation in 2000. 4. Hypertension. 5. 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 6. History of transplant allograft pyelonephritis. 7. DVT of right upper extremity 2010. 8. Chronic abdominal pain and opioid dependence. 9. Degenerative joint disease, status post T11 through S1 fusion in April 2013. 10. Anxiety and depression. 11. Hypothyroidism. 12. Cerebrovascular accident with residual left-sided weakness. 13. Pre-excitation syndrome status post ablation by Dr. Mike. 14. GERD. 15. History of urinary retention and history of self-catheterizations, not presently performing. SURGICAL HISTORY: Includes issues as noted above, along with a right upper extremity dialysis fistu la. HOME MEDICATIONS: Prednisone 10 mg daily, oxycodone p.r.n., morphine 30 mg t.i.d., verapamil 240 mg daily, Senokot b.i.d., pravastatin 20 mg daily, potassium chloride 10 mEq daily, Protonix 40 mg peggy ly, Myfortic 180 mg t.i.d., mirtazapine 7.5 mg at bedtime, Synthroid 75 mcg daily, Ativan 1 mg daily , Colace daily, Periactin 4 mg q.i.d., calcitriol 0.25 mcg every Monday, Monday, and Monday, Ness claudia 3 mg daily, enteric-coated aspirin 325 mg daily. SOCIAL HISTORY: The patient is . She does have children. She does not smoke cigarettes or drink alcohol. REVIEW OF SYSTEMS: The patient has aforementioned fevers and chills. She is having a headache. Sh e denies visual disturbances. She is not having rhinitis or a sore throat. She denies cough, short ness of breath or chest pain. She has the aforementioned GI symptoms. She has the constipation. S he has not had dysuria. She denies lower extremity edema. She has residual left-sided weakness. S he denies skin rashes. There is no history of diabetes or thyroid disease. PHYSICAL EXAMINATION: GENERAL: At time of exam, the patient is appropriate and alert. VITAL SIGNS : Temperature 37.1, pulse 92, blood pressure 134/82. EYES: Sclerae are clear. Oropharynx clear. NECK: The patient has internal jugular central venous catheter in place. LUNGS: Clear to auscult ation. CARDIOVASCULAR: Tachycardic with a systolic murmur. ABDOMEN: Mild tenderness over the lef t lower quadrant. Otherwise soft and without guarding. : Davis catheter in place. RECTAL: Def erred. EXTREMITIES: No lower extremity edema. INTEGUMENT: Generally clear. NEURO: Difficult to assess at the moment. Per history, she has the left-sided weakness. Her mental status is normal. LABORATORY STUDIES: White count 16.6, hematocrit 29.5, platelets 219. Sodium 139, potassium 3.4, c hloride 101, bicarb 24, creatinine 3.0. Urinalysis notable for 25-50 white blood cells. IMPRESSION AND PLAN: 1. Probable transplant pyelonephritis. Per the patient's symptoms of left lower quadrant pain, pyu britton, her history of urinary retention, and her fevers, the patient appears to likely be having trans plant pyelonephritis. She is receiving broad-spectrum antibiotics for potential urinary pathogens. Specific cultures are pending at the present time. She is hemodynamically stable. Her lactate lev el is normal. 2. Acute kidney injury on chronic kidney disease and renal allograft. 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 She may have ongoing issues relating to her bladder and may need to reinitiate bladder catheterizations. We have a Davis catheter in place. We will r epeat an ultrasound later in her admission to assess her hydroureter. 3. Constipation. This will initially be addressed with conservative measures. This is likely rela naty to her narcotics. Thank you for allowing us to participate in the patient's care. We will continue to follow closely with you. /[id number]/MODL
[2017-01-10] MEDS: CYPROHEPTADINE HCL 4 MG TAB PO PRN (21:57)
[2017-01-10] MEDS: MIRTAZAPINE 15 MG TAB PO SCH (22:22)
[2017-01-11] MEDS: NS 1,000 ML IV SCH ×2 (04:02→16:39)
[2017-01-11 04:12] LABS: % IMMATURE GRANULYOCYTES 0.6 % (0.0-1.1); ADD DIFF? NO; ADD MORPH? NO; ADD SCAN? NO; ATYPICAL LYMPHOCYTE FLAG 0 (0-99); FRAGMENT RBC FLAG 20 (0-99); HEMATOCRIT 28.5 % (38.0-47.0); HEMOGLOBIN 8.8 g/dL (12.6-16.3); LEFT SHIFT FLG 0 (0-99); LIPEMIA HEMOLYSIS FLAG 80 (0-99); MEAN CELL HEMOGLOBIN CONCENTR. 30.9 g/dL (32.4-36.7); MEAN CELL VOLUME 84.1 fL (81.5-99.8); PLATELET CLUMPS FLAG 0 (0-99); PLATELET COUNT 214 10^3/uL (150-400); RED BLOOD CELL COUNT 3.39 10^6/uL (4.18-5.33); RED CELL DISTRIBUTION WIDTH 16.9 % (11.5-15.2)
[2017-01-11 04:33] LABS: ALBUMIN 3.1 g/dL (3.5-5.0); ANION GAP 13 mEq/L (8-16); CALCIUM 8.2 mg/dL (8.5-10.4); CARBON DIOXIDE 20 mEq/l (22-31); CHLORIDE 109 mEq/L (97-110); CREATININE 3.1 mg/dL (0.6-1.0); GLOMERULAR FILTRATION RATE 16; GLUCOSE 73 mg/dL (70-100); POTASSIUM 4.7 mEq/L (3.5-5.2); SODIUM 142 mEq/L (134-144)
[2017-01-11] MEDS: HEPARIN 5,000 UNIT/0.5 ML SYR SC SCH ×3 (05:35→22:23)
[2017-01-11] MEDS: SENNOSIDES 1 TAB PO PRN (05:35)
[2017-01-11] MEDS: LEVOTHYROXINE 75 MCG TAB PO SCH (05:35)
[2017-01-11] MEDS: CYPROHEPTADINE HCL 4 MG TAB PO PRN (05:42)
[2017-01-11] MEDS: AZTREONAM 1 GM in D5W 50 ML IV SCH ×2 (05:47→14:20)
--- NOTE | 2017-01-11 09:06 | HOSPPROG ---
Hospitalist Progress Note Assessment/Plan: DIAGNOSES: -SUSPECTED PYELONEPHRITIS OF RENAL TRANSPLANT WITH BACTEREMIA; ENTEROCOCCUS SO FAR GROWING IN CULTURES -ACUTE URINARY RETENTION WITH HISTORY OF CHRONIC RETENTION -LEFT LOWER QUADRANT ABDOMINAL PAIN SUSPECTED DUE TO THE ABOVE -ACUTE RENAL FAILURE THREAT TO HER RENAL GRAFT, -CHRONIC PAIN SYNDROME WITH CHRONIC DAILY PRESCRIBED NARCOTIC USE PLANS: -removed peripheral IVs at this time she has a central line -continue current antibiotics, follow cultures pending -Continue Davis catheter to decompress urinary system at this time; will review with Dr. 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: Sinus Exam: alert oriented, looks tired and uncomfortable skin warm dry color ok resps not labored lungs clear BSs heart regular abd soft nondistended but with some tenderness at the left mid and lower abdomen , no guarding or rebound, bowel sounds present limbs warm, no edema iv site ok; right IJ 3 lumen and 2 peripheral IVs reviewed Laboratory data: Creatinine unchanged 3.1 otherwise no significant change in labs Objective: Vital Signs Temp Pulse Resp BP Pulse Ox 36.3 C 73 18 117/72 96 01/11/17 08:00 01/11/17 08:00 01/11/17 08:00 01/11/17 08:00 01/11/17 08:00 Laboratory Results 01/11/17 04:00 01/11/17 04:00 01/10/17 01/11/17 01/12/17 06:59 06:59 06:59 Intake Total 2611 Output Total 2100 Balance 511 PT 14.2 SEC (12.0-15.0) 01/10/17 11:35 INR 1.11 (0.83-1.16) 01/10/17 11:35 ICD10 Worksheet Patient Problems: Problems Problem Status Onset Abdominal pain Acute Pyelonephritis Acute Sepsis Acute Anticoagulant therapy Active Chronic pain syndrome Active Hypokalemia Active Hypothyroidism Active Renal impairment Active biliary gastric reflux Active C. difficile diarrhea Acute 10/08/16 Dehydration Acute Diarrhea Acute Nausea Acute Nausea & vomiting Acute Renal failure (ARF), acute on chronic Acute Syncope due to orthostatic hypotension Acute Tachycardia Acute History of kidney transplant Chronic
[2017-01-11] MEDS: ONDANSETRON 4 MG/2 ML VIAL IVP PRN ×3 (09:27→22:20)
[2017-01-11] MEDS: ASPIRIN EC 325 MG TAB PO SCH (11:09)
[2017-01-11] MEDS: DEXAMETHASONE 4 MG/ML VIAL IVP SCH (11:13)
[2017-01-11] MEDS: ASTAGRAF 1 MG PO SCH ×2 (11:15→14:44)
[2017-01-11] MEDS: DOCUSATE SODIUM 100 MG CAP PO SCH ×2 (11:15→14:42)
[2017-01-11] MEDS: MYCOPHENOLATE SODIUM 180 MG TAB.DR PO SCH ×3 (11:16→22:24)
[2017-01-11] MEDS: morphINE SR 30 MG TAB PO SCH ×4 (11:16→22:24)
[2017-01-11] MEDS: PRAVASTATIN SODIUM 20 MG TAB PO SCH (11:16)
--- NOTE | 2017-01-11 13:34 | SOAPPROG ---
SOAP Progress Note Assessment/Plan: Assessment: 1. Transplant Pyelo On antibiotics, clinically looks better. 2. Neurogenic Bladder May be precursor of pyelo, hydro, and increased Cr. Davis drainage for now. Will need repeat imaging, and may need intermittant catheterization 3. Nausea Persists 4. Constipation Persists Plan: 01/11/17 13:28 Subjective: Doing better, but still uncomfortable Objective: Vital Signs Temp Pulse Resp BP Pulse Ox 36.8 C 78 18 122/72 H 99 01/11/17 11:49 01/11/17 11:49 01/11/17 11:49 01/11/17 11:49 01/11/17 11:49 Laboratory Results 01/11/17 04:00 01/11/17 04:00 01/10/17 01/11/17 01/12/17 05:59 05:59 05:59 Intake Total 2611 Output Total 2100 Balance 511 PT 14.2 SEC (12.0-15.0) 01/10/17 11:35 INR 1.11 (0.83-1.16) 01/10/17 11:35 Physical Exam - Physical Exam General Appearance: moderate distress Respiratory: lungs clear Cardiac/Chest: regular rate, rhythm Abdomen: other (LLQ tenderness, otherwise soft) Extremities: normal inspection Neuro/Psych: oriented x 3 ICD10 Worksheet Patient Problems: Problems Problem Status Onset Abdominal pain Acute Pyelonephritis Acute Sepsis Acute Anticoagulant therapy Active Chronic pain syndrome Active Hypokalemia Active Hypothyroidism Active Renal impairment Active biliary gastric reflux Active C. difficile diarrhea Acute 10/08/16 Dehydration Acute Diarrhea Acute Nausea Acute Nausea & vomiting Acute Renal failure (ARF), acute on chronic Acute Syncope due to orthostatic hypotension Acute Tachycardia Acute History of kidney transplant Chronic
[2017-01-11] MEDS: LORazepam 2 MG/ML INJ IVP PRN (14:10)
--- NOTE | 2017-01-11 14:13 | PCMIDPN ---
Assessment/Plan: #Sepsis secondary to pyelonephritis of transplanted kidney complicated by bacteremia with enterococcus. Persistent leukocytosis, AF since admit --Vanco R = 10. Redose vancomycin tonight --dc aztreonam --needs repeat imaging discuss whether can be CT vs US with hospitalist and renal. Concern for persistent hydro as she has ongoing pain over transplant and no change in Cr yet. #ARF on CRI: cr stable today # Chr immune suppression on Tac/mycophenolate and low dose pred Microbiology 01/10/17 11:35 Blood 1/2 Enterococcus Species 01/10/17 14:18 Urine,Cx Enterococcus Species Meds vancomycin #1 aztreonam #1 Subjective: still with significant pain LLQ over transplant still wit n/v, unable to take PO pain meds no diarrhea, decreased flatus Objective: Vital Signs Temp Pulse Resp BP Pulse Ox 36.8 C 78 18 122/72 H 99 01/11/17 11:49 01/11/17 11:49 01/11/17 11:49 01/11/17 11:49 01/11/17 11:49 Laboratory Results 01/11/17 04:00 01/11/17 04:00 01/10/17 01/11/17 01/12/17 05:59 05:59 05:59 Intake Total 2611 Output Total 2100 Balance 511 - Physical Exam General Appearance: alert, apparent distress (due to pain) EENT: pale conjunctiva, dry mucous membranes, No thrush Respiratory: lungs clear, No accessory muscle use Cardiac/Chest: regular rate, rhythm, systolic murmur Extremities: non-tender Abdomen: soft, other (significant discomfort to palpation LLQ) Pelvic Exam: flores Skin: pallor, No rash, No embolic lesions Neuro/Psych: alert, oriented x 3, depressed affect - Line/s other Lines: No drainage, No other (R TLC IJ) ICD10 Worksheet Patient Problems: Problems Problem Status Onset Abdominal pain Acute Pyelonephritis Acute Sepsis Acute Anticoagulant therapy Active Chronic pain syndrome Active Hypokalemia Active Hypothyroidism Active Renal impairment Active biliary gastric reflux Active C. difficile diarrhea Acute 10/08/16 Dehydration Acute Diarrhea Acute Nausea Acute Nausea & vomiting Acute Renal failure (ARF), acute on chronic Acute Syncope due to orthostatic hypotension Acute Tachycardia Acute History of kidney transplant Chronic
[2017-01-11] MEDS: CALCITRIOL 0.25 MCG CAP PO SCH (14:43)
[2017-01-11] MEDS ORDERED: VANCOMYCIN HCL/NORMAL SALINE 250 ML IV ONE (20:03)
[2017-01-11] MEDS: MIRTAZAPINE 15 MG TAB PO SCH (22:24)
[2017-01-12] MEDS: ONDANSETRON 4 MG/2 ML VIAL IVP PRN ×4 (04:35→17:16)
[2017-01-12] MEDS: HEPARIN 5,000 UNIT/0.5 ML SYR SC SCH ×3 (04:37→20:34)
[2017-01-12] MEDS: LEVOTHYROXINE 75 MCG TAB PO SCH (04:39)
[2017-01-12 05:29] LABS: % IMMATURE GRANULYOCYTES 0.4 % (0.0-1.1); ABSOLUTE IMMATURE GRANULOCYTES 0.04 10^3/uL (0.00-0.10); ADD DIFF? NO; ADD MORPH? NO; ADD SCAN? NO; ATYPICAL LYMPHOCYTE FLAG 20 (0-99); FRAGMENT RBC FLAG 20 (0-99); HEMATOCRIT 24.7 % (38.0-47.0); HEMOGLOBIN 7.5 g/dL (12.6-16.3); LEFT SHIFT FLG 0 (0-99); LIPEMIA HEMOLYSIS FLAG 80 (0-99); MEAN CELL HEMOGLOBIN 25.8 pg (27.9-34.1); MEAN CELL HEMOGLOBIN CONCENTR. 30.4 g/dL (32.4-36.7); MEAN CELL VOLUME 84.9 fL (81.5-99.8); PLATELET CLUMPS FLAG 10 (0-99); PLATELET COUNT 205 10^3/uL (150-400); RED BLOOD CELL COUNT 2.91 10^6/uL (4.18-5.33)
[2017-01-12 05:33] LABS: ANION GAP 10 mEq/L (8-16); CALCIUM 8.4 mg/dL (8.5-10.4); CARBON DIOXIDE 20 mEq/l (22-31); CHLORIDE 111 mEq/L (97-110); CREATININE 2.8 mg/dL (0.6-1.0); GLOMERULAR FILTRATION RATE 18; GLUCOSE 108 mg/dL (70-100); POTASSIUM 4.3 mEq/L (3.5-5.2); SODIUM 141 mEq/L (134-144)
[2017-01-12] MEDS: BISACODYL 10 MG SUPP PR PRN (06:26)
[2017-01-12] MEDS ORDERED: VANCOMYCIN HCL/NORMAL SALINE 250 ML IV SCH (08:00)
[2017-01-12] MEDS: LORazepam 2 MG/ML INJ IVP PRN ×2 (10:16→20:31)
[2017-01-12] MEDS: NS 1,000 ML IV SCH (13:27)
[2017-01-12] MEDS: MYCOPHENOLATE SODIUM 180 MG TAB.DR PO SCH ×3 (14:02→20:22)
[2017-01-12] MEDS: DOCUSATE SODIUM 100 MG CAP PO SCH (14:02)
[2017-01-12] MEDS: ASPIRIN EC 325 MG TAB PO SCH (14:02)
[2017-01-12] MEDS: morphINE SR 30 MG TAB PO SCH ×3 (14:02→20:21)
[2017-01-12] MEDS: ASTAGRAF 1 MG PO SCH (14:02)
[2017-01-12] MEDS: predniSONE 10 MG TAB PO SCH (14:03)
[2017-01-12] MEDS: PRAVASTATIN SODIUM 20 MG TAB PO SCH (14:03)
--- NOTE | 2017-01-12 14:49 | SOAPPROG ---
SOAP Progress Note Assessment/Plan: Assessment/Plan: MEETA on CKD 3: baseline Cr in 2s, came in with Cr f 3.1, now down to 2.8 s/p flores placement and getting treated for pyelonephritis. - No need for HD. - Will continue to monitor. - Agree with repeating US to reevaluate previously seen hydroureter and hydronephrosis. h/o renal transplant: continue home IS regimen. Subjective: No acute events overnight. Pt still having pain, notes she is not taking oral pain meds much as she is afraid they will make her vomit. Objective: Vital Signs Temp Pulse Resp BP Pulse Ox 36.7 C 75 18 139/80 H 95 01/12/17 07:56 01/12/17 07:56 01/12/17 07:56 01/12/17 07:56 01/12/17 07:56 Laboratory Results 01/12/17 04:50 01/12/17 04:50 01/11/17 01/12/17 01/13/17 05:59 05:59 05:59 Intake Total 2611 2685 Output Total 2100 1150 Balance 511 1535 PT 14.2 SEC (12.0-15.0) 01/10/17 11:35 INR 1.11 (0.83-1.16) 01/10/17 11:35 General: alert and oriented, no acute distress Eyes; EOMI, pERRL OP: CLear CV: RRR Resp: nonlabored respirations Abd; Soft, nondistended Ext: no edema BLE Neuro: CN II-XII grossly intact, no asterixis Graft: LLQ, mild TTP without guarding or rebound or rigidity ICD10 Worksheet Patient Problems: Problems Problem Status Onset Abdominal pain Acute Pyelonephritis Acute Sepsis Acute Anticoagulant therapy Active Chronic pain syndrome Active Hypokalemia Active Hypothyroidism Active Renal impairment Active biliary gastric reflux Active C. difficile diarrhea Acute 10/08/16 Dehydration Acute Diarrhea Acute Nausea Acute Nausea & vomiting Acute Renal failure (ARF), acute on chronic Acute Syncope due to orthostatic hypotension Acute Tachycardia Acute History of kidney transplant Chronic
--- NOTE | 2017-01-12 16:07 | PCMIDPN ---
Assessment/Plan: #Sepsis secondary to pyelonephritis of transplanted kidney complicated by bacteremia with enterococcus. Noted to have hydronephrosis of transplanted kidney at admit. WBC improved today 9.5<16, AF since admit, feeling a little beter --pending repeat vancomycin T to assess dosing, may need about 1gm/day. Asked RN to call me with result --repeat blood cx today --renal US to evaluate for persistent hydronephrosis, if persists may be due to ureteral stenosis --duration of antibiotics at least 2 weeks from negative blood cx, but continue to assess. # ARF on CRI: cr improved to 2.8 # Chr immune suppression on Tac/mycophenolate and low dose pred Microbiology 01/10/17 11:35 Blood 1/2 Enterococcus Species 01/10/17 14:18 Urine,Cx Enterococcus Species Meds vancomycin intermittent 1gm x 2, day #2 Subjective: Reports feeling better today, less abdominal pain. Also feels better because defecated today still no tolerating PO pain meds Objective: Vital Signs Temp Pulse Resp BP Pulse Ox 36.7 C 80 16 143/86 H 95 01/12/17 15:50 01/12/17 15:50 01/12/17 15:50 01/12/17 15:50 01/12/17 15:50 Laboratory Results 01/12/17 04:50 01/12/17 04:50 01/11/17 01/12/17 01/13/17 05:59 05:59 05:59 Intake Total 2611 2685 Output Total 2100 1150 Balance 511 1535 General Appearance: alert, less distress today EENT: pale conjunctiva, dry mucous membranes, No thrush Respiratory: lungs clear, No accessory muscle use Cardiac/Chest: regular rate, rhythm, systolic murmur Extremities: non-tender Abdomen: soft, discomfort to palpation LLQ, decreased bowel sound but better than yesterday Pelvic Exam: flores Skin: pallor, No rash, No embolic lesions Neuro/Psych: alert, oriented x 3, depressed affect but much more interactive today R TLC IJ: No drainage, No erythema ICD10 Worksheet Patient Problems: Problems Problem Status Onset Abdominal pain Acute Pyelonephritis Acute Sepsis Acute Anticoagulant therapy Active Chronic pain syndrome Active Hypokalemia Active Hypothyroidism Active Renal impairment Active biliary gastric reflux Active C. difficile diarrhea Acute 10/08/16 Dehydration Acute Diarrhea Acute Nausea Acute Nausea & vomiting Acute Renal failure (ARF), acute on chronic Acute Syncope due to orthostatic hypotension Acute Tachycardia Acute History of kidney transplant Chronic
--- NOTE | 2017-01-12 16:52 | HOSPPROG ---
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 At this point we should reassess her ureter to make sure there is no hydronephrosis which would indicate stent placement. She is somewhat improving but still having pain. My experience is that it can take 3-5 days for the pain to start really resolve sometimes and pyelonephritis but with a renal allograft and acute renal failure with need to be appropriately aggressive with our monitoring and care to protect her kidney PLANS: -continue current antibiotics, follow final culture results pending -Continue Davis catheter to decompress urinary system at this time -renal ultrasound to assess for any persistent hydronephrosis with her bladder decompressed -pain management -at this time continue her antirejection medications as long as she seems to be recovering infection phan SUBJECTIVE: Notices less headache today so feels slightly better that way Still has significant nausea without vomiting and significant left lower quadrant abdominal pain unchanged OBJECTIVE Vitals reviewed: Vitals stable without fever at this time Document Control Clerk, my review: Sinus Exam: alert oriented, looks tired and uncomfortable skin warm dry color ok resps not labored lungs clear BSs heart regular abd soft nondistended but with some tenderness at the left mid and lower abdomen , no guarding or rebound, bowel sounds present limbs warm, no edema iv site ok; right IJ 3 lumen Laboratory data: Creatinine improved at 2.8 White blood cell count better at 9000 Hemoglobin decreased to 7 in the absence of any bleeding Culture data: Blood cultures and urine cultures now are growing Enterococcus, not fully identified and sensitivities not available yet Objective: Vital Signs Temp Pulse Resp BP Pulse Ox 36.7 C 80 16 143/86 H 95 01/12/17 15:50 01/12/17 15:50 01/12/17 15:50 01/12/17 15:50 01/12/17 15:50 Laboratory Results 01/12/17 04:50 01/12/17 04:50 01/11/17 01/12/17 01/13/17 06:59 06:59 06:59 Intake Total 2611 2685 Output Total 2100 1150 1430 Balance 511 1535 -1430 PT 14.2 SEC (12.0-15.0) 01/10/17 11:35 INR 1.11 (0.83-1.16) 01/10/17 11:35 ICD10 Worksheet Patient Problems: Problems Problem Status Onset Abdominal pain Acute Pyelonephritis Acute Sepsis Acute Anticoagulant therapy Active Chronic pain syndrome Active Hypokalemia Active Hypothyroidism Active Renal impairment Active biliary gastric reflux Active C. difficile diarrhea Acute 10/08/16 Dehydration Acute Diarrhea Acute Nausea Acute Nausea & vomiting Acute Renal failure (ARF), acute on chronic Acute Syncope due to orthostatic hypotension Acute Tachycardia Acute History of kidney transplant Chronic
[2017-01-12] MEDS: MIRTAZAPINE 15 MG TAB PO SCH (20:21)
[2017-01-13] MEDS: HEPARIN 5,000 UNIT/0.5 ML SYR SC SCH ×3 (04:53→21:46)
[2017-01-13] MEDS: LEVOTHYROXINE 75 MCG TAB PO SCH (04:54)
[2017-01-13 05:22] LABS: % IMMATURE GRANULYOCYTES 0.2 % (0.0-1.1); ABSOLUTE IMMATURE GRANULOCYTES 0.02 10^3/uL (0.00-0.10); ADD DIFF? NO; ADD MORPH? NO; ADD SCAN? NO; ATYPICAL LYMPHOCYTE FLAG 20 (0-99); FRAGMENT RBC FLAG 20 (0-99); HEMATOCRIT 25.6 % (38.0-47.0); HEMOGLOBIN 7.8 g/dL (12.6-16.3); LEFT SHIFT FLG 0 (0-99); LIPEMIA HEMOLYSIS FLAG 80 (0-99); MEAN CELL HEMOGLOBIN 25.5 pg (27.9-34.1); MEAN CELL HEMOGLOBIN CONCENTR. 30.5 g/dL (32.4-36.7); MEAN CELL VOLUME 83.7 fL (81.5-99.8); MEAN PLATELET VOLUME 10.1 fL (8.7-11.7); PLATELET CLUMPS FLAG 0 (0-99); PLATELET COUNT 215 10^3/uL (150-400); RED BLOOD CELL COUNT 3.06 10^6/uL (4.18-5.33); RED CELL DISTRIBUTION WIDTH 16.3 % (11.5-15.2)
[2017-01-13 05:46] LABS: ALBUMIN 3.3 g/dL (3.5-5.0); ANION GAP 12 mEq/L (8-16); CALCIUM 8.7 mg/dL (8.5-10.4); CARBON DIOXIDE 22 mEq/l (22-31); CHLORIDE 110 mEq/L (97-110); CREATININE 2.4 mg/dL (0.6-1.0); GLOMERULAR FILTRATION RATE 22; GLUCOSE 79 mg/dL (70-100); POTASSIUM 3.7 mEq/L (3.5-5.2); SODIUM 144 mEq/L (134-144)
[2017-01-13] MEDS ORDERED: VANCOMYCIN HCL/NORMAL SALINE 250 ML IV ONE ×2 (08:00→18:00)
[2017-01-13] MEDS: ASTAGRAF 1 MG PO SCH (08:08)
[2017-01-13] MEDS: morphINE SR 30 MG TAB PO SCH ×3 (08:09→21:46)
[2017-01-13] MEDS: MYCOPHENOLATE SODIUM 180 MG TAB.DR PO SCH ×3 (08:09→21:45)
[2017-01-13] MEDS: DOCUSATE SODIUM 100 MG CAP PO SCH (08:09)
[2017-01-13] MEDS: ASPIRIN EC 325 MG TAB PO SCH (08:09)
[2017-01-13] MEDS: PRAVASTATIN SODIUM 20 MG TAB PO SCH (08:09)
[2017-01-13] MEDS: predniSONE 10 MG TAB PO SCH (08:10)
--- NOTE | 2017-01-13 09:57 | SOAPPROG ---
SOAP Progress Note Assessment/Plan: Assessment:Plan: ARF on CRF-better -creatinine down from 2.8 to 2.4 -transplant pyelo -history of urinary retention -renal ultrasound unremarkable -CPM with flores decompression -suspect changes noted on prior radiologic exams are physiologic changes related to transplant and do not represent anatomic obstruction -dilation of ureter and calyces occur over time due to the direct connection the transplant ureter has to the bladder ID-enterococcal urosepsis -on vanco -level 15.8 -dosing per ID Access-patient dislodged RIJ last pm -non-functional AVF in R arm CKD-baseline creatinine in low 2's most of the time 01/13/17 10:04 Subjective: complains of pain Objective: Vital Signs Temp Pulse Resp BP Pulse Ox 36.8 C 90 20 141/92 H 92 01/13/17 07:54 01/13/17 07:54 01/13/17 07:54 01/13/17 07:54 01/13/17 07:54 Microbiology 01/10/17 14:18 Urine Culture - Final Urine,Clean Catch Enterococcus Faecalis One [place] Type Laboratory Results 01/13/17 05:10 01/13/17 05:10 01/12/17 01/13/17 01/14/17 05:59 05:59 05:59 Intake Total 2685 1560 Output Total 1150 4330 Balance 1535 -2770 PT 14.2 SEC (12.0-15.0) 01/10/17 11:35 INR 1.11 (0.83-1.16) 01/10/17 11:35 Physical Exam - Physical Exam General Appearance: alert, mild distress EENT: normal ENT inspection Neck: normal inspection Respiratory: lungs clear, normal breath sounds, No respiratory distress Cardiac/Chest: regular rate, rhythm Abdomen: normal bowel sounds, other (LLQ renal allograft), No non-tender Extremities: No swelling ICD10 Worksheet Patient Problems: Problems Problem Status Onset Abdominal pain Acute Pyelonephritis Acute Sepsis Acute Anticoagulant therapy Active Chronic pain syndrome Active Hypokalemia Active Hypothyroidism Active Renal impairment Active biliary gastric reflux Active C. difficile diarrhea Acute 10/08/16 Dehydration Acute Diarrhea Acute Nausea Acute Nausea & vomiting Acute Renal failure (ARF), acute on chronic Acute Syncope due to orthostatic hypotension Acute Tachycardia Acute History of kidney transplant Chronic
[2017-01-13] MEDS ORDERED: ALTEPLASE 2 MG VIAL IVP PRN (11:19)
--- NOTE | 2017-01-13 11:51 | PCMIDPN ---
Assessment/Plan: Assessment/Plan: * Sepsis due to enterococcus faecalis bacteremia associated with transplant pyelonephritis: IV Access lost so will necessitate PICC line placement today. Plan continue vancomycin with dose according to levels and renal function over time. Repeat blood cultures are pending to assess for clearing of bacteremia. Renal ultrasound shows stable findings compared to 2016. 01/13/17 11:47 01/13/17 11:48 Subjective: Patient complains of left-sided upper abdominal and flank pain. Feels a little better than when admitted. Objective: Vital Signs Temp Pulse Resp BP Pulse Ox 36.8 C 90 19 159/98 H 90 L 01/13/17 07:54 01/13/17 07:54 01/13/17 11:45 01/13/17 11:45 01/13/17 11:45 Microbiology 01/10/17 14:18 Urine Culture - Final Urine,Clean Catch Enterococcus Faecalis One [place] Type Laboratory Results 01/13/17 05:10 01/13/17 05:10 01/12/17 01/13/17 01/14/17 05:59 05:59 05:59 Intake Total 2685 1560 Output Total 1150 4330 Balance 1535 -2770 Vancomycin # 3 Blood cultures 01/12/2017 pending Renal ultrasound mild caliectasis without interval change since 2016 - Physical Exam General Appearance: alert, no apparent distress EENT: No thrush, No conjunctival petechiae Respiratory: lungs clear, No respiratory distress Cardiac/Chest: regular rate, rhythm, systolic murmur (2/6 throughout) Extremities: No inflammation Abdomen: tender (Mild CVA tenderness and left upper quadrant tenderness), No distended Skin: No embolic lesions ICD10 Worksheet Patient Problems: Problems Problem Status Onset Abdominal pain Acute Pyelonephritis Acute Sepsis Acute Anticoagulant therapy Active Chronic pain syndrome Active Hypokalemia Active Hypothyroidism Active Renal impairment Active biliary gastric reflux Active C. difficile diarrhea Acute 10/08/16 Dehydration Acute Diarrhea Acute Nausea Acute Nausea & vomiting Acute Renal failure (ARF), acute on chronic Acute Syncope due to orthostatic hypotension Acute Tachycardia Acute History of kidney transplant Chronic
[2017-01-13] MEDS: CALCITRIOL 0.25 MCG CAP PO SCH (14:39)
[2017-01-13] MEDS: oxyCODONE IR 5 MG TAB PO PRN (19:37)
[2017-01-13] MEDS: ONDANSETRON 4 MG/2 ML VIAL IVP PRN (19:37)
[2017-01-13] MEDS: MIRTAZAPINE 15 MG TAB PO SCH (21:46)
[2017-01-14] MEDS: LEVOTHYROXINE 75 MCG TAB PO SCH (05:06)
[2017-01-14] MEDS: HEPARIN 5,000 UNIT/0.5 ML SYR SC SCH ×3 (05:06→22:20)
[2017-01-14 05:26] LABS: % IMMATURE GRANULYOCYTES 0.2 % (0.0-1.1); ABSOLUTE IMMATURE GRANULOCYTES 0.01 10^3/uL (0.00-0.10); ADD DIFF? NO; ADD MORPH? NO; ADD SCAN? NO; ATYPICAL LYMPHOCYTE FLAG 70 (0-99); FRAGMENT RBC FLAG 20 (0-99); HEMATOCRIT 24.8 % (38.0-47.0); HEMOGLOBIN 7.6 g/dL (12.6-16.3); LEFT SHIFT FLG 0 (0-99); LIPEMIA HEMOLYSIS FLAG 80 (0-99); MEAN CELL HEMOGLOBIN 25.8 pg (27.9-34.1); MEAN CELL HEMOGLOBIN CONCENTR. 30.6 g/dL (32.4-36.7); MEAN CELL VOLUME 84.1 fL (81.5-99.8); MEAN PLATELET VOLUME 10.6 fL (8.7-11.7); PLATELET CLUMPS FLAG 0 (0-99); PLATELET COUNT 220 10^3/uL (150-400); RED BLOOD CELL COUNT 2.95 10^6/uL (4.18-5.33); RED CELL DISTRIBUTION WIDTH 15.9 % (11.5-15.2)
[2017-01-14 05:45] LABS: ALBUMIN 3.3 g/dL (3.5-5.0); ANION GAP 12 mEq/L (8-16); CALCIUM 8.6 mg/dL (8.5-10.4); CARBON DIOXIDE 25 mEq/l (22-31); CHLORIDE 108 mEq/L (97-110); CREATININE 2.4 mg/dL (0.6-1.0); GLOMERULAR FILTRATION RATE 22; GLUCOSE 77 mg/dL (70-100); POTASSIUM 4.1 mEq/L (3.5-5.2); SODIUM 145 mEq/L (134-144)
[2017-01-14] MEDS: ONDANSETRON 4 MG/2 ML VIAL IVP PRN (09:44)
[2017-01-14] MEDS: PRAVASTATIN SODIUM 20 MG TAB PO SCH (09:46)
[2017-01-14] MEDS: ASPIRIN EC 325 MG TAB PO SCH (09:46)
[2017-01-14] MEDS: SENNOSIDES 1 TAB PO PRN (09:46)
[2017-01-14] MEDS: morphINE SR 30 MG TAB PO SCH ×3 (09:46→22:18)
[2017-01-14] MEDS: predniSONE 10 MG TAB PO SCH (09:46)
[2017-01-14] MEDS: MYCOPHENOLATE SODIUM 180 MG TAB.DR PO SCH ×3 (09:47→22:19)
[2017-01-14] MEDS: ASTAGRAF 1 MG PO SCH (09:47)
[2017-01-14] MEDS: DOCUSATE SODIUM 100 MG CAP PO SCH (09:47)
--- NOTE | 2017-01-14 11:28 | HOSPPROG ---
Hospitalist Progress Note Assessment/Plan: 46-year-old woman with a history of renal transplant and chronic narcotic dependency presented with left lower quadrant pain secondary to transplant pyelonephritis. # transplant pyelonephritis and sepsis due to enterococcus faecalis with associated bacteremia. Followed by ID. Continue IV vancomycin and dose according to levels and renal function. Repeat blood cultures to assess clearing of bacteremia. 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 Improved with hydration and Davis decompression. Renal ultrasound appear stable. * Discussed with Nephrology * Continue supportive care * Continue present management. # nausea vomiting secondary to pyelonephritis. Will attempt to advance diet today and treat symptomatically. # access. Patient lost IV access and a PICC line was placed yesterday. # chronic low back pain with continuous narcotic dependency followed closely by Dr. Giles # anemia: Patient with fairly significant mid anemia but relatively asymptomatic at this time. Will continue to monitor closely and transfuse as needed # recent cerebellar infarct with ataxia on the left. This has improved since her stroke in September. # hypertension # history non-Hodgkin's lymphoma # WPW. Status post ablation Subjective: Patient new to me, chart reviewed. Discussed with Nephrology. Patient quite depressed about being in the hospital again, she misses her daughter. Her abdominal pain is slightly better but it is still quite tender on exam. She is still nauseated but wants to try to advance her diet a little bit today Objective: Vital Signs Temp Pulse Resp BP Pulse Ox 36.8 C 67 12 138/85 H 91 L 01/14/17 08:00 01/14/17 08:00 01/14/17 08:00 01/14/17 08:00 01/14/17 08:00 Microbiology 01/10/17 14:18 Urine Culture - Final Urine,Clean Catch Enterococcus Faecalis One [place] Type Laboratory Results 01/14/17 05:15 01/14/17 05:15 01/13/17 01/14/17 01/15/17 05:59 05:59 05:59 Intake Total 1560 800 Output Total 4330 2275 Balance -2770 -1475 PT 14.2 SEC (12.0-15.0) 01/10/17 11:35 INR 1.11 (0.83-1.16) 01/10/17 11:35 - Physical Exam Constitutional: chronically ill appearing, uncomfortable Eyes: PERRL, anicteric sclera, EOMI Ears, Nose, Mouth, Throat: ears appear normal Cardiovascular: regular rate and rhythym, systolic murmur, No edema Respiratory: no respiratory distress, no rales or rhonchi, clear to auscultation Gastrointestinal: normoactive bowel sounds, tenderness (Left lower quadrant), guarding Genitourinary: no bladder fullness Skin: warm, normal color Musculoskeletal: no joint effusions, generalized weakness Neurologic: AAOx3, sensation intact bilaterally, No facial droop Psychiatric: interacting appropriately, depressed, flat affect ICD10 Worksheet Patient Problems: Problems Problem Status Onset Abdominal pain Acute Pyelonephritis Acute Sepsis Acute Anticoagulant therapy Active Chronic pain syndrome Active Hypokalemia Active Hypothyroidism Active Renal impairment Active biliary gastric reflux Active C. difficile diarrhea Acute 10/08/16 Dehydration Acute Diarrhea Acute Nausea Acute Nausea & vomiting Acute Renal failure (ARF), acute on chronic Acute Syncope due to orthostatic hypotension Acute Tachycardia Acute History of kidney transplant Chronic
--- NOTE | 2017-01-14 12:24 | SOAPPROG ---
SOAP Progress Note Assessment/Plan: Assessment:Plan: ARF on CRF-better -creatinine down from 2.8 to 2.4 -transplant pyelo -history of urinary retention -renal ultrasound unremarkable -CPM with flores decompression -suspect changes noted on prior radiologic exams are physiologic changes related to transplant and do not represent anatomic obstruction -dilation of ureter and calyces occur over time due to the direct connection the transplant ureter has to the bladder ID-enterococcal urosepsis -on vanco -level 15.8 -dosing per ID Access-patient dislodged RIJ last pm -non-functional AVF in R arm -now with pic line on right -preserve veins LUE in case patient ever needs to return to dialysis CKD-baseline creatinine in low 2's most of the time Anemia-transfuse if indicated 01/14/17 12:22 Subjective: up in chair, nauseated Objective: Vital Signs Temp Pulse Resp BP Pulse Ox 36.8 C 67 12 138/85 H 91 L 01/14/17 08:00 01/14/17 08:00 01/14/17 08:00 01/14/17 08:00 01/14/17 08:00 Microbiology 01/10/17 14:18 Urine Culture - Final Urine,Clean Catch Enterococcus Faecalis One [place] Type Laboratory Results 01/14/17 05:15 01/14/17 05:15 01/13/17 01/14/17 01/15/17 05:59 05:59 05:59 Intake Total 1560 800 Output Total 4330 2275 Balance -2770 -1475 PT 14.2 SEC (12.0-15.0) 01/10/17 11:35 INR 1.11 (0.83-1.16) 01/10/17 11:35 Physical Exam - Physical Exam General Appearance: alert, mild distress EENT: normal ENT inspection Neck: normal inspection Respiratory: lungs clear, normal breath sounds, No respiratory distress Cardiac/Chest: regular rate, rhythm, systolic murmur Abdomen: normal bowel sounds Extremities: No swelling ICD10 Worksheet Patient Problems: Problems Problem Status Onset Abdominal pain Acute Pyelonephritis Acute Sepsis Acute Anticoagulant therapy Active Chronic pain syndrome Active Hypokalemia Active Hypothyroidism Active Renal impairment Active biliary gastric reflux Active C. difficile diarrhea Acute 10/08/16 Dehydration Acute Diarrhea Acute Nausea Acute Nausea & vomiting Acute Renal failure (ARF), acute on chronic Acute Syncope due to orthostatic hypotension Acute Tachycardia Acute History of kidney transplant Chronic
[2017-01-14] MEDS: oxyCODONE IR 5 MG TAB PO PRN ×2 (12:35→19:16)
--- NOTE | 2017-01-14 17:17 | PCMIDPN ---
Assessment/Plan: Assessment/Plan: * Sepsis due to enterococcus faecalis bacteremia associated with transplant pyelonephritis: Blood cultures 01/12/2017 remain negative. Plan 2 weeks of vancomycin post negative blood cultures. Will reassess level in a.m. with repeat dosing according to drug level and renal function which has been improving. 01/14/17 17:15 Subjective: Overall feels better with decreasing nausea; some residual left upper abdominal pain. Objective: Vital Signs Temp Pulse Resp BP Pulse Ox 37.1 C 84 18 148/71 H 92 01/14/17 15:56 01/14/17 15:56 01/14/17 15:56 01/14/17 15:56 01/14/17 15:56 Laboratory Results 01/14/17 05:15 01/14/17 05:15 01/13/17 01/14/17 01/15/17 05:59 05:59 05:59 Intake Total 1560 800 Output Total 4330 2275 900 Balance -0131 -3336 -900 Vancomycin # 4 Blood cultures 01/12/2017 no growth - Physical Exam General Appearance: alert, no apparent distress EENT: No thrush, No conjunctival petechiae Respiratory: lungs clear, No respiratory distress Cardiac/Chest: regular rate, rhythm Abdomen: tender (Mild left upper quadrant), No distended - Line/s RUE PICC Lines: No drainage, No erythema ICD10 Worksheet Patient Problems: Problems Problem Status Onset Abdominal pain Acute Pyelonephritis Acute Sepsis Acute Anticoagulant therapy Active Chronic pain syndrome Active Hypokalemia Active Hypothyroidism Active Renal impairment Active biliary gastric reflux Active C. difficile diarrhea Acute 10/08/16 Dehydration Acute Diarrhea Acute Nausea Acute Nausea & vomiting Acute Renal failure (ARF), acute on chronic Acute Syncope due to orthostatic hypotension Acute Tachycardia Acute History of kidney transplant Chronic
[2017-01-14] MEDS: MIRTAZAPINE 15 MG TAB PO SCH (22:18)
[2017-01-15] MEDS: oxyCODONE IR 5 MG TAB PO PRN ×2 (04:26→21:20)
[2017-01-15] MEDS: LORazepam 1 MG TAB PO PRN (04:27)
[2017-01-15] MEDS: HEPARIN 5,000 UNIT/0.5 ML SYR SC SCH ×3 (06:20→20:05)
[2017-01-15] MEDS: LEVOTHYROXINE 75 MCG TAB PO SCH (06:20)
[2017-01-15 06:21] LABS: % IMMATURE GRANULYOCYTES 0.4 % (0.0-1.1); ABSOLUTE IMMATURE GRANULOCYTES 0.02 10^3/uL (0.00-0.10); ADD DIFF? NO; ADD MORPH? NO; ADD SCAN? NO; ATYPICAL LYMPHOCYTE FLAG 70 (0-99); FRAGMENT RBC FLAG 20 (0-99); HEMATOCRIT 24.4 % (38.0-47.0); HEMOGLOBIN 7.6 g/dL (12.6-16.3); LEFT SHIFT FLG 0 (0-99); LIPEMIA HEMOLYSIS FLAG 80 (0-99); MEAN CELL HEMOGLOBIN 26.1 pg (27.9-34.1); MEAN CELL HEMOGLOBIN CONCENTR. 31.1 g/dL (32.4-36.7); MEAN CELL VOLUME 83.8 fL (81.5-99.8); MEAN PLATELET VOLUME 10.9 fL (8.7-11.7); PLATELET CLUMPS FLAG 10 (0-99); PLATELET COUNT 250 10^3/uL (150-400); RED BLOOD CELL COUNT 2.91 10^6/uL (4.18-5.33); RED CELL DISTRIBUTION WIDTH 15.7 % (11.5-15.2)
[2017-01-15 06:40] LABS: ALBUMIN 3.3 g/dL (3.5-5.0); ANION GAP 10 mEq/L (8-16); CALCIUM 8.8 mg/dL (8.5-10.4); CARBON DIOXIDE 26 mEq/l (22-31); CHLORIDE 106 mEq/L (97-110); CREATININE 2.5 mg/dL (0.6-1.0); GLOMERULAR FILTRATION RATE 21; GLUCOSE 159 mg/dL (70-100); POTASSIUM 3.6 mEq/L (3.5-5.2); SODIUM 142 mEq/L (134-144)
[2017-01-15 06:45] LABS: VANCOMYCIN RANDOM LEVEL 12.5 mcg/mL (0.0-40.0)
[2017-01-15] MEDS: ASPIRIN EC 325 MG TAB PO SCH (09:04)
[2017-01-15] MEDS: MYCOPHENOLATE SODIUM 180 MG TAB.DR PO SCH ×3 (09:04→20:05)
[2017-01-15] MEDS: SENNOSIDES 1 TAB PO PRN (09:04)
[2017-01-15] MEDS: PRAVASTATIN SODIUM 20 MG TAB PO SCH (09:04)
[2017-01-15] MEDS: morphINE SR 30 MG TAB PO SCH ×3 (09:04→20:05)
[2017-01-15] MEDS: DOCUSATE SODIUM 100 MG CAP PO SCH (09:04)
[2017-01-15] MEDS: predniSONE 10 MG TAB PO SCH (09:04)
[2017-01-15] MEDS: ASTAGRAF 1 MG PO SCH (09:05)
[2017-01-15 09:08] LABS: % SATURATION 9 % (20-55); TOTAL IRON BINDING CAPACITY 254 ug/dL (260-490)
[2017-01-15] MEDS ORDERED: VANCOMYCIN HCL/NORMAL SALINE 250 ML IV ONE (09:12)
--- NOTE | 2017-01-15 10:35 | SOAPPROG ---
SOAP Progress Note Assessment/Plan: Assessment:Plan: ARF on CRF-better -creatinine at 2.5 -transplant pyelo -history of urinary retention -renal ultrasound unremarkable -CPM with flores decompression -suspect changes noted on prior radiologic exams are physiologic changes related to transplant and do not represent anatomic obstruction -dilation of ureter and calyces occur over time due to the direct connection the transplant ureter has to the bladder ID-enterococcal urosepsis -on vanco -dosing per ID Access-patient dislodged RIJ last pm -non-functional AVF in R arm -now with pic line on right -preserve veins LUE in case patient ever needs to return to dialysis CKD-baseline creatinine in low 2's most of the time Anemia-patient agreeable to transfusion and feels it would help with her recovery, especially since she lives [place] -discussed with Dr. Joe Bhat low -will give IV iron 01/15/17 10:33 Subjective: stable overnite, eating better Objective: Vital Signs Temp Pulse Resp BP Pulse Ox 36.8 C 69 18 133/90 H 93 01/15/17 08:00 01/15/17 08:00 01/15/17 08:00 01/15/17 08:00 01/15/17 08:00 Laboratory Results 01/15/17 06:15 01/15/17 06:15 01/14/17 01/15/17 01/16/17 05:59 05:59 05:59 Intake Total 800 400 Output Total 2275 1100 Balance -1475 -700 PT 14.2 SEC (12.0-15.0) 01/10/17 11:35 INR 1.11 (0.83-1.16) 01/10/17 11:35 Physical Exam - Physical Exam General Appearance: WD/WN, alert, no apparent distress EENT: normal ENT inspection Neck: normal inspection Respiratory: lungs clear, normal breath sounds, No respiratory distress Cardiac/Chest: regular rate, rhythm Abdomen: normal bowel sounds, soft, No non-tender Extremities: No swelling ICD10 Worksheet Patient Problems: Problems Problem Status Onset Diarrhea Acute Hypothyroidism Active Chronic pain syndrome Active Renal impairment Active Hypokalemia Active Anticoagulant therapy Active biliary gastric reflux Active Syncope due to orthostatic hypotension Acute Dehydration Acute Renal failure (ARF), acute on chronic Acute History of kidney transplant Chronic Tachycardia Acute Nausea Acute Nausea & vomiting Acute C. difficile diarrhea Acute 12/24/16 Sepsis Acute Pyelonephritis Acute Abdominal pain Acute
[2017-01-15] MEDS: SODIUM FERRIC GLUCONAT/SUCROSE 125 MG in NS 100 ML IV SCH (11:19)
--- NOTE | 2017-01-15 11:43 | PCMIDPN ---
Assessment/Plan: Assessment/Plan: * Sepsis due to enterococcus faecalis bacteremia associated with transplant pyelonephritis: Repeat blood culture show clearing of bacteremia. Anticipate 2 week course of therapy post negative cultures with stop date of 01/25/2017. Based on drug levels, suspect will require 1 g IV Q 48 hours if renal function stabilizes at current range. Re-dosed with vancomycin 1 g IV today. 01/15/17 11:41 01/15/17 11:42 Objective: Vital Signs Temp Pulse Resp BP Pulse Ox 36.8 C 69 18 133/90 H 93 01/15/17 08:00 01/15/17 08:00 01/15/17 08:00 01/15/17 08:00 01/15/17 08:00 Laboratory Results 01/15/17 06:15 01/15/17 06:15 01/14/17 01/15/17 01/16/17 05:59 05:59 05:59 Intake Total 800 400 Output Total 2275 1100 Balance -1475 -700 Vancomycin # 5 (dosed by levels, 1 g given 01/15/2017) Blood cultures 01/12/2017 no growth Random vancomycin level 12.5 - Physical Exam General Appearance: alert, no apparent distress EENT: No conjunctival petechiae Respiratory: lungs clear, No respiratory distress Cardiac/Chest: regular rate, rhythm, systolic murmur (2/6 left upper sternal border, left lower sternal border) Extremities: No inflammation Abdomen: tender (Mild left upper quadrant tenderness), No distended Back: CVA tenderness (Left-sided) ICD10 Worksheet Patient Problems: Problems Problem Status Onset Abdominal pain Acute Pyelonephritis Acute Sepsis Acute Anticoagulant therapy Active Chronic pain syndrome Active Hypokalemia Active Hypothyroidism Active Renal impairment Active biliary gastric reflux Active C. difficile diarrhea Acute 10/08/16 Dehydration Acute Diarrhea Acute Nausea Acute Nausea & vomiting Acute Renal failure (ARF), acute on chronic Acute Syncope due to orthostatic hypotension Acute Tachycardia Acute History of kidney transplant Chronic
--- NOTE | 2017-01-15 12:54 | HOSPPROG ---
Hospitalist Progress Note Assessment/Plan: 46-year-old woman with a history of renal transplant and chronic narcotic dependency presented with left lower quadrant pain secondary to transplant pyelonephritis. # transplant pyelonephritis and sepsis due to enterococcus faecalis with associated bacteremia. Followed by ID. Continue IV vancomycin and dose according to levels and renal function. Repeat blood cultures to assess clearing of bacteremia. 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 Improved with hydration and Davis decompression. Renal ultrasound appear stable. * Discussed with Nephrology * Continue supportive care * Continue present management. # nausea vomiting secondary to pyelonephritis. Will attempt to advance diet today and treat symptomatically. # access. Patient lost IV access and a PICC line was placed yesterday. # chronic low back pain with continuous narcotic dependency followed closely by Dr. Giles # anemia: Patient with fairly significant mid anemia but relatively asymptomatic at this time. Given patient's symptoms and return to altitude after discharge will transfuse 1 unit today repeat H&H in a.m. # recent cerebellar infarct with ataxia on the left. This has improved since her stroke in September. # hypertension # history non-Hodgkin's lymphoma # WPW. Status post ablation Subjective: Patient seems improved today much less down and more talkative today. Is having some issues at home and admits that her and her may be getting a divorce and not sure what will happen to the custody of her daughter. She does not feel like she has significant depression but is just down about all of her medical issues. Objective: Vital Signs Temp Pulse Resp BP Pulse Ox 36.8 C 69 18 133/90 H 93 01/15/17 08:00 01/15/17 08:00 01/15/17 08:00 01/15/17 08:00 01/15/17 08:00 Laboratory Results 01/15/17 06:15 01/15/17 06:15 01/14/17 01/15/17 01/16/17 05:59 05:59 05:59 Intake Total 800 400 Output Total 2275 1100 Balance -1475 -700 PT 14.2 SEC (12.0-15.0) 01/10/17 11:35 INR 1.11 (0.83-1.16) 01/10/17 11:35 - Physical Exam Constitutional: chronically ill appearing, uncomfortable Eyes: PERRL, EOMI Ears, Nose, Mouth, Throat: moist mucous membranes Cardiovascular: regular rate and rhythym Respiratory: no respiratory distress, no rales or rhonchi Gastrointestinal: normoactive bowel sounds, soft, non-tender abdomen Neurologic: AAOx3 Psychiatric: interacting appropriately, not anxious, not encephalopathic ICD10 Worksheet Patient Problems: Problems Problem Status Onset Abdominal pain Acute Pyelonephritis Acute Sepsis Acute Anticoagulant therapy Active Chronic pain syndrome Active Hypokalemia Active Hypothyroidism Active Renal impairment Active biliary gastric reflux Active C. difficile diarrhea Acute 10/08/16 Dehydration Acute Diarrhea Acute Nausea Acute Nausea & vomiting Acute Renal failure (ARF), acute on chronic Acute Syncope due to orthostatic hypotension Acute Tachycardia Acute History of kidney transplant Chronic
[2017-01-15] MEDS: MIRTAZAPINE 15 MG TAB PO SCH (20:05)
[2017-01-16] MEDS: LORazepam 1 MG TAB PO PRN (02:36)
[2017-01-16] MEDS: HEPARIN 5,000 UNIT/0.5 ML SYR SC SCH ×3 (06:05→19:36)
[2017-01-16] MEDS: oxyCODONE IR 5 MG TAB PO PRN ×3 (06:05→19:43)
[2017-01-16] MEDS: LEVOTHYROXINE 75 MCG TAB PO SCH (06:05)
[2017-01-16 06:13] LABS: % IMMATURE GRANULYOCYTES 0.8 % (0.0-1.1); ABSOLUTE IMMATURE GRANULOCYTES 0.07 10^3/uL (0.00-0.10); ADD DIFF? NO; ADD MORPH? NO; ADD SCAN? NO; ATYPICAL LYMPHOCYTE FLAG 60 (0-99); FRAGMENT RBC FLAG 20 (0-99); HEMATOCRIT 29.1 % (38.0-47.0); HEMOGLOBIN 9.3 g/dL (12.6-16.3); LEFT SHIFT FLG 0 (0-99); LIPEMIA HEMOLYSIS FLAG 80 (0-99); MEAN CELL HEMOGLOBIN 26.3 pg (27.9-34.1); MEAN CELL VOLUME 82.2 fL (81.5-99.8); MEAN PLATELET VOLUME 10.5 fL (8.7-11.7); PLATELET CLUMPS FLAG 0 (0-99); PLATELET COUNT 263 10^3/uL (150-400); RED BLOOD CELL COUNT 3.54 10^6/uL (4.18-5.33); RED CELL DISTRIBUTION WIDTH 15.6 % (11.5-15.2)
[2017-01-16 06:32] LABS: ALBUMIN 3.7 g/dL (3.5-5.0); ANION GAP 12 mEq/L (8-16); CALCIUM 9.3 mg/dL (8.5-10.4); CARBON DIOXIDE 27 mEq/l (22-31); CHLORIDE 107 mEq/L (97-110); CREATININE 2.2 mg/dL (0.6-1.0); GLOMERULAR FILTRATION RATE 24; GLUCOSE 115 mg/dL (70-100); POTASSIUM 4.1 mEq/L (3.5-5.2); SODIUM 146 mEq/L (134-144)
[2017-01-16] MEDS: ASPIRIN EC 325 MG TAB PO SCH (08:13)
[2017-01-16] MEDS: MYCOPHENOLATE SODIUM 180 MG TAB.DR PO SCH ×3 (08:13→19:37)
[2017-01-16] MEDS: DOCUSATE SODIUM 100 MG CAP PO SCH (08:13)
[2017-01-16] MEDS: PRAVASTATIN SODIUM 20 MG TAB PO SCH (08:13)
[2017-01-16] MEDS: morphINE SR 30 MG TAB PO SCH ×3 (08:13→19:37)
[2017-01-16] MEDS: SODIUM FERRIC GLUCONAT/SUCROSE 125 MG in NS 100 ML IV SCH (08:14)
[2017-01-16] MEDS: predniSONE 10 MG TAB PO SCH (08:14)
[2017-01-16] MEDS: ASTAGRAF 1 MG PO SCH (08:15)
[2017-01-16] MEDS: SENNOSIDES 1 TAB PO PRN (08:32)
--- NOTE | 2017-01-16 10:18 | SOAPPROG ---
SOAP Progress Note Assessment/Plan: Assessment/Plan: MEETA on CKD 3: baseline Cr in 2s, now back down to 2.2. - No need for HD. - Will continue to monitor. - Likely changes on first US related to transplant as opposed to obstruction, repeat US with no concerning findings for obstruction. - Pt getting treatment for pyelonephritis, appreciate ID input. h/o renal transplant: continue home IS regimen. Anemia: Hgb improved s/p transfusion, also got IV iron. Subjective: No acute events overnight. Pt working on having a BM, has not had one in four days. Otherwise, she feels well, planning on walking around more today. Objective: Vital Signs Temp Pulse Resp BP Pulse Ox 36.8 C 77 20 156/95 H 93 01/16/17 08:00 01/16/17 08:00 01/16/17 08:00 01/16/17 08:00 01/16/17 08:00 Microbiology 01/10/17 14:15 Blood Culture - Final Blood Laboratory Results 01/16/17 05:55 01/16/17 05:55 01/15/17 01/16/17 01/17/17 05:59 05:59 05:59 Intake Total 400 300 Output Total 1100 1250 1500 Balance -700 -950 -1500 PT 14.2 SEC (12.0-15.0) 01/10/17 11:35 INR 1.11 (0.83-1.16) 01/10/17 11:35 General: alert and oriented, no acute distress Eyes; EOMI, PERRL OP: Clear CV: RRR Resp: nonlabored respirations on NC Abd: Soft, NT Ext: no edema BLE Neuro: CN II-XII grossly intact, no asterixis Psych: cooperative, appropriate mood and affect ICD10 Worksheet Patient Problems: Problems Problem Status Onset Abdominal pain Acute Pyelonephritis Acute Sepsis Acute Anticoagulant therapy Active Chronic pain syndrome Active Hypokalemia Active Hypothyroidism Active Renal impairment Active biliary gastric reflux Active C. difficile diarrhea Acute 10/08/16 Dehydration Acute Diarrhea Acute Nausea Acute Nausea & vomiting Acute Renal failure (ARF), acute on chronic Acute Syncope due to orthostatic hypotension Acute Tachycardia Acute History of kidney transplant Chronic
--- NOTE | 2017-01-16 11:26 | HOSPPROG ---
Hospitalist Progress Note Assessment/Plan: 46-year-old woman with a history of renal transplant and chronic narcotic dependency presented with left lower quadrant pain secondary to transplant pyelonephritis. # transplant pyelonephritis and sepsis due to enterococcus faecalis with associated bacteremia. Followed by ID. Continue IV vancomycin and dose according to levels and renal function. Repeat blood cultures to assess clearing of bacteremia. 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 Improved with hydration and Davis decompression. Renal ultrasound appear stable. * Discussed with Nephrology * Continue supportive care * Continue present management. # nausea vomiting secondary to pyelonephritis. Will attempt to advance diet today and treat symptomatically. If eating well can likely go home possibly today # access. Patient lost IV access and a PICC line was placed yesterday. # chronic low back pain with continuous narcotic dependency followed closely by Dr. Giles # anemia: Patient with fairly significant mid anemia but relatively asymptomatic at this time. Given patient's symptoms and return to altitude after discharge will transfuse 1 unit today repeat H&H in a.m. # recent cerebellar infarct with ataxia on the left. This has improved since her stroke in September. # hypertension # history non-Hodgkin's lymphoma # WPW. Status post ablation # history of depression. She has had side effects to multiple medications in the past. She did have a formal psychiatry evaluation when she was at rehab in October and they felt that she did not need medications at that time. I do not feel she has significantly changed and do not recommend another psychiatry consult however we will have our psychiatry nurse come speak with her as she is having difficulties with her marriage and is afraid of divorce in the custody of her which daughter. Subjective: Flat affect no specific complaints today. Objective: Vital Signs Temp Pulse Resp BP Pulse Ox 36.8 C 77 20 156/95 H 93 01/16/17 08:00 01/16/17 08:00 01/16/17 08:00 01/16/17 08:00 01/16/17 08:00 Microbiology 01/10/17 14:15 Blood Culture - Final Blood Laboratory Results 01/16/17 05:55 01/16/17 05:55 04/12/0201/16/17 01/17/17 05:59 05:59 05:59 Intake Total 400 300 Output Total 1100 1250 1500 Balance -700 -950 -1500 PT 14.2 SEC (12.0-15.0) 01/10/17 11:35 INR 1.11 (0.83-1.16) 01/10/17 11:35 - Physical Exam Constitutional: chronically ill appearing, uncomfortable Eyes: PERRL Cardiovascular: regular rate and rhythym Respiratory: no respiratory distress Gastrointestinal: normoactive bowel sounds Psychiatric: interacting appropriately, flat affect ICD10 Worksheet Patient Problems: Problems Problem Status Onset Diarrhea Acute Hypothyroidism Active Chronic pain syndrome Active Renal impairment Active Hypokalemia Active Anticoagulant therapy Active biliary gastric reflux Active Syncope due to orthostatic hypotension Acute Dehydration Acute Renal failure (ARF), acute on chronic Acute History of kidney transplant Chronic Tachycardia Acute Nausea Acute Nausea & vomiting Acute C. difficile diarrhea Acute 10/08/16 Sepsis Acute Pyelonephritis Acute Abdominal pain Acute
[2017-01-16] MEDS: SENNOSIDES/DOCUSATE SODIUM TAB PO SCH ×2 (11:38→19:37)
[2017-01-16] MEDS: CALCITRIOL 0.25 MCG CAP PO SCH (13:16)
[2017-01-16] MEDS: POLYETHYLENE GLYCOL 3350 17 GM PKT PO PRN (13:16)
--- NOTE | 2017-01-16 18:04 | PCMIDPN ---
Assessment/Plan: Assessment: enterococcus fecalis bacteremia with likely pyelonephritis of her donor kidney. Covered with Vancomycin due to PCN allergy. Patient admits to being improved from admission but complains of anterior abdominal pain that is probably her donor kidney referred pain. Plan to continue the Vanco course (two weeks from clearance) and monitor the patient's clinical improvement. Plan: 1) Continue IV Vancomycin -- two week course from cleared cultures. (Thus far cultures are cleared) 2) Follow clinical signs of inflammation and infection. Probably home in 1-2 days. 01/16/17 23:34 Subjective: Patient in laying in her hospital bed -- complains of anterior abdominal discomfort - sometimes tearful. No new complaints. No fevers. Objective: Vancomycin #6 (last dose on 01/15) Vital Signs Temp Pulse Resp BP Pulse Ox 36.8 C 83 16 149/91 H 93 01/16/17 15:32 01/16/17 15:32 01/16/17 15:32 01/16/17 15:32 01/16/17 15:32 Microbiology 01/10/17 14:15 Blood Culture - Final Blood Laboratory Results 01/16/17 05:55 01/16/17 05:55 01/15/17 01/16/17 01/17/17 05:59 05:59 05:59 Intake Total 400 300 240 Output Total 1100 1250 5595 Balance -447 -489 -9596 - Physical Exam General Appearance: WD/WN, alert, no apparent distress, non-toxic Respiratory: lungs clear, normal breath sounds, No respiratory distress Cardiac/Chest: regular rate, rhythm, No tachycardia Extremities: non-tender, normal inspection Abdomen: soft, No non-tender Skin: normal color, warm/dry, No rash ICD10 Worksheet Patient Problems: Problems Problem Status Onset Abdominal pain Acute Pyelonephritis Acute Sepsis Acute Anticoagulant therapy Active Chronic pain syndrome Active Hypokalemia Active Hypothyroidism Active Renal impairment Active biliary gastric reflux Active C. difficile diarrhea Acute 10/08/16 Dehydration Acute Diarrhea Acute Nausea Acute Nausea & vomiting Acute Renal failure (ARF), acute on chronic Acute Syncope due to orthostatic hypotension Acute Tachycardia Acute History of kidney transplant Chronic
[2017-01-16] MEDS: MIRTAZAPINE 15 MG TAB PO SCH (19:37)
[2017-01-17] MEDS: oxyCODONE IR 5 MG TAB PO PRN ×3 (01:56→21:29)
[2017-01-17] MEDS: LEVOTHYROXINE 75 MCG TAB PO SCH (05:19)
[2017-01-17] MEDS: HEPARIN 5,000 UNIT/0.5 ML SYR SC SCH ×3 (05:19→21:26)
[2017-01-17 05:32] LABS: % IMMATURE GRANULYOCYTES 1.7 % (0.0-1.1); ABSOLUTE IMMATURE GRANULOCYTES 0.13 10^3/uL (0.00-0.10); ADD DIFF? NO; ADD MORPH? NO; ADD SCAN? NO; ATYPICAL LYMPHOCYTE FLAG 40 (0-99); FRAGMENT RBC FLAG 20 (0-99); HEMATOCRIT 30.3 % (38.0-47.0); HEMOGLOBIN 9.5 g/dL (12.6-16.3); LEFT SHIFT FLG 10 (0-99); LIPEMIA HEMOLYSIS FLAG 80 (0-99); MEAN CELL HEMOGLOBIN 26.6 pg (27.9-34.1); MEAN CELL HEMOGLOBIN CONCENTR. 31.4 g/dL (32.4-36.7); MEAN CELL VOLUME 84.9 fL (81.5-99.8); MEAN PLATELET VOLUME 10.8 fL (8.7-11.7); PLATELET CLUMPS FLAG 0 (0-99); PLATELET COUNT 283 10^3/uL (150-400); RED BLOOD CELL COUNT 3.57 10^6/uL (4.18-5.33); RED CELL DISTRIBUTION WIDTH 15.9 % (11.5-15.2)
[2017-01-17 05:50] LABS: ALBUMIN 3.6 g/dL (3.5-5.0); ANION GAP 14 mEq/L (8-16); CALCIUM 9.3 mg/dL (8.5-10.4); CARBON DIOXIDE 29 mEq/l (22-31); CHLORIDE 104 mEq/L (97-110); CREATININE 2.1 mg/dL (0.6-1.0); GLOMERULAR FILTRATION RATE 26; GLUCOSE 110 mg/dL (70-100); POTASSIUM 3.8 mEq/L (3.5-5.2); SODIUM 147 mEq/L (134-144)
[2017-01-17] MEDS: SENNOSIDES/DOCUSATE SODIUM TAB PO SCH ×2 (08:05→21:24)
[2017-01-17] MEDS: PRAVASTATIN SODIUM 20 MG TAB PO SCH (08:05)
[2017-01-17] MEDS: predniSONE 10 MG TAB PO SCH (08:05)
[2017-01-17] MEDS: DOCUSATE SODIUM 100 MG CAP PO SCH (08:05)
[2017-01-17] MEDS: morphINE SR 30 MG TAB PO SCH ×3 (08:05→21:24)
[2017-01-17] MEDS: ASPIRIN EC 325 MG TAB PO SCH (08:05)
[2017-01-17] MEDS: MYCOPHENOLATE SODIUM 180 MG TAB.DR PO SCH ×3 (08:05→21:25)
[2017-01-17] MEDS: POLYETHYLENE GLYCOL 3350 17 GM PKT PO PRN (08:07)
[2017-01-17] MEDS: SODIUM FERRIC GLUCONAT/SUCROSE 125 MG in NS 100 ML IV SCH (08:08)
[2017-01-17] MEDS: ASTAGRAF 1 MG PO SCH (08:08)
[2017-01-17] MEDS ORDERED: 1/2 NS 500 ML IV ONE (08:30)
[2017-01-17] MEDS ORDERED: VANCOMYCIN HCL/NORMAL SALINE 250 ML IV ONE (09:29)
--- NOTE | 2017-01-17 09:32 | PCMIDPN ---
Assessment/Plan: #Sepsis secondary to pyelonephritis of transplanted kidney complicated by low grade bacteremia with enterococcus. Blood cx cleared 01/12. Vanco R = 9 . Patient with known systolic murmur. With low-grade bacteremia due to known source will not workup for endocarditis further at this point. --plan vancomycin 1 gm q48 on 01/19, 01/21, 01/23, 01/25 --interagency completed # ARF on CRI: cr improved to 2.1 --primary team planning on removing Flores today # Chr immune suppression on Tac/mycophenolate and low dose pred Microbiology 01/10/17 11:35 Blood 1/2 Enterococcus Species 01/10/17 14:18 Urine,Cx Enterococcus Species Meds vancomycin intermittent 1gm case discussed with nursing and pharmacy Subjective: still with mild abdominal pain no diarrhea no rash Objective: Vital Signs Temp Pulse Resp BP Pulse Ox 36.8 C 73 16 160/95 H 95 01/17/17 08:00 01/17/17 08:00 01/17/17 08:00 01/17/17 08:00 01/17/17 08:00 Laboratory Results 01/17/17 05:15 01/17/17 05:15 01/16/17 01/17/17 01/18/17 05:59 05:59 05:59 Intake Total 300 1700 Output Total 1250 2825 Balance -950 -1125 - Physical Exam General Appearance: alert, non-toxic EENT: pale conjunctiva, No scleral icterus, No thrush Respiratory: lungs clear Cardiac/Chest: regular rate, rhythm, systolic murmur (2-3/6) Extremities: No pedal edema Abdomen: normal bowel sounds, non-tender, soft, No distended, No tender (over transplanted kidney LLQ) Pelvic Exam: flores Neuro/Psych: alert, depressed affect - Line/s RUE PICC Lines: No drainage, No erythema ICD10 Worksheet Patient Problems: Problems Problem Status Onset Abdominal pain Acute Pyelonephritis Acute Sepsis Acute Anticoagulant therapy Active Chronic pain syndrome Active Hypokalemia Active Hypothyroidism Active Renal impairment Active biliary gastric reflux Active C. difficile diarrhea Acute 10/08/16 Dehydration Acute Diarrhea Acute Nausea Acute Nausea & vomiting Acute Renal failure (ARF), acute on chronic Acute Syncope due to orthostatic hypotension Acute Tachycardia Acute History of kidney transplant Chronic
--- NOTE | 2017-01-17 10:22 | PDIAF ---
- Diagnosis Diagnosis: Enterococcal bacteremia and pyelonephritis Code Status: Full Code - Medication Management Discharge Medications: Medications to Continue on Transfer Pantoprazole Sodium 40 mg PO DAILY #30 tablet. 04/16/15 [Last Taken 01/09/17] Docusate Sodium [Colace 100 MG (*)] 100 mg PO DAILY 03/15/16 [Last Taken ] Aspirin EC [Aspirin EC 325 mg (*)] 325 mg PO DAILY #0 tab 10/15/16 [Last Taken 01/09/17] Calcitriol [Calcitriol (*)] 0.25 mcg PO MOWEFR #20 cap 10/28/16 [Last Taken ] Levothyroxine [Synthroid 75 mcg (*)] 75 mcg PO DAILY06 #30 tab 10/28/16 [Last Taken 01/09/17] Mycophenolate Sodium [Myfortic] 180 mg PO TID #90 tab 10/28/16 [Last Taken 01/09] Potassium Cl [Klor-Con 10 meq (RX)] 10 meq PO DAILY #0 tab 10/28/16 [Last Taken 01/09/17] Pravastatin Sodium [Pravachol] 20 mg PO DAILY #30 tab 10/28/16 [Last Taken 01/09] Sennosides [Senokot] 1 - 2 tab PO BID PRN #0 tab 10/28/16 [Last Taken Unknown] Verapamil ER [Calan SR/ER 240MG (*)] 240 mg PO DAILY #30 tab 10/28/16 [Last Taken 01/09/17] predniSONE 10 mg PO DAILY #30 tab 10/28/16 [Last Taken 01/09/17] Mirtazapine 7.5 mg PO HS #15 tablet 11/01/16 [Last Taken 01/09/17] Astagraf 3 mg PO DAILY 01/10/17 [Last Taken 01/09/17] Cyproheptadine HCl [Periactin 4 MG (*)] 4 mg PO QID PRN 01/10/17 [Last Taken ] LORazepam [Ativan (*)] 1 mg PO DAILY PRN 01/10/17 [Last Taken 01/09/17] morphINE SR [MS Contin/Oramorph SR 30 mg (*)] 30 mg PO TID 01/10/17 [Last Taken 01/09/17] oxyCODONE IR [Oxycodone Ir (*)] 20 - 40 mg PO Q6HRS PRN 01/10/17 [Last Taken ] Livestock Trucker Antibiotics: Vancomycin 1 g Q 48hrs on January 19, , and Half-Way Antibiotic Stop Date: 01/25/17 Discharge Medications: Refer to the Discharge Home Medication list for PRN reason. PICC Care - Routine: Yes - Orders Services needed: Home Care, Registered Nurse Home Care Face to Face: I certify that this patient was under my care and that I had the required [id number] encounter meeting the encounter requirements on the discharge day. My findings support the fact that the patient is homebound as defined in CMS Chapter 7 Medicare Benefits Manual 30.1.1, The condition of the patient is such that there exists a normal inability to leave home and consequently, leaving home would require a considerable and taxing effort. - Labs/Radiology BMP Date: 01/20/17 CBC Date: 01/24/17 CMP Date: 01/24/17 Vanco Trough Date and Time: 01/20/17 and 01/24/17, expect higher levels Call or Fax Lab and Imaging Results to: [id number] [email or web address] - Follow Up Care Current Providers and Referrals: Darius Giles MD [Primary Care Provider] - As per Instructions
[2017-01-17] MEDS: BISACODYL 10 MG SUPP PR PRN (10:39)
--- NOTE | 2017-01-17 11:18 | SOAPPROG ---
SOAP Progress Note Assessment/Plan: Assessment: 1. Transplant Pyelo On Vanco for enterococcus, ID following 2. Neurogenic Bladder Need to dc flores. She will need intermittant catheterization at home 3. Constipation Schedule lactulose 4. Allograft Cr back to baseline with flores drainage and treatment of pyelo Plan: 01/11/17 13:28 01/17/17 11:16 Subjective: Looks much better Objective: Vital Signs Temp Pulse Resp BP Pulse Ox 36.8 C 73 16 160/95 H 95 01/17/17 08:00 01/17/17 08:00 01/17/17 08:00 01/17/17 08:00 01/17/17 08:00 Laboratory Results 01/17/17 05:15 01/17/17 05:15 01/16/17 01/17/17 01/18/17 05:59 05:59 05:59 Intake Total 300 1700 Output Total 1250 2825 Balance -950 -1125 PT 14.2 SEC (12.0-15.0) 01/10/17 11:35 INR 1.11 (0.83-1.16) 01/10/17 11:35 Physical Exam - Physical Exam General Appearance: no apparent distress Respiratory: lungs clear Cardiac/Chest: regular rate, rhythm, systolic murmur Extremities: normal inspection Neuro/Psych: oriented x 3 ICD10 Worksheet Patient Problems: Problems Problem Status Onset Abdominal pain Acute Pyelonephritis Acute Sepsis Acute Anticoagulant therapy Active Chronic pain syndrome Active Hypokalemia Active Hypothyroidism Active Renal impairment Active biliary gastric reflux Active C. difficile diarrhea Acute 10/08/16 Dehydration Acute Diarrhea Acute Nausea Acute Nausea & vomiting Acute Renal failure (ARF), acute on chronic Acute Syncope due to orthostatic hypotension Acute Tachycardia Acute History of kidney transplant Chronic
--- NOTE | 2017-01-17 12:03 | HOSPPROG ---
Hospitalist Progress Note Assessment/Plan: 46-year-old woman with a history of renal transplant and chronic narcotic dependency presented with left lower quadrant pain secondary to transplant pyelonephritis. # transplant pyelonephritis and sepsis due to enterococcus faecalis with associated bacteremia. Followed by ID. Continue IV vancomycin and dose according to levels and renal function. 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 Improved with hydration and Flores decompression. Renal ultrasound appear stable. * Patient renal function at baseline * Will discontinue Flores, patient will likely need self cathing at home, she has done this before * Will check postvoid residuals here and have nurse review straight cathing with patient today and likely set up home care at discharge # abdominal pain with nausea and vomiting. Has improved but patient still not eating much today. Complains of ongoing lower abdominal pain which may be related to her transplant pyelo or possible constipation as she has not had a BM in several days * Gentle IV fluids today * Suppository and enema for BM today and monitor her symptoms # hypernatremia, patient describes poor p.o. intake due to nausea. Will give her some gentle IV fluids today and recheck her sodium in the morning # chronic low back pain with continuous narcotic dependency followed closely by Dr. Giles # anemia: Patient with fairly significant mid anemia but relatively asymptomatic at this time. Given patient's symptoms and return to altitude after discharge will transfuse 1 unit on 01/16 with good response # recent cerebellar infarct with ataxia on the left. This has improved since her stroke in September. # hypertension # history non-Hodgkin's lymphoma # WPW. Status post ablation # history of depression. She has had side effects to multiple medications in the past. She did have a formal psychiatry evaluation when she was at rehab in October and they felt that she did not need medications at that time. I do not feel she has significantly changed and do not recommend another psychiatry consult however we will have our psychiatry nurse come speak with her as she is having difficulties with her marriage and is afraid of divorce in the custody of her which daughter. Disposition: Patient will be going home with home care for IV antibiotics. She also has urinary retention which likely contributed to her transplant pyelonephritis. She will need to go home with intermittent straight catheterization and will check post voids today and teach the patient how to do that today as well if all goes well and she is eating better by tomorrow she can hopefully be discharged tomorrow. Id has filled out all of her home IV antibiotic form. Subjective: Patient quite anxious about going home without her Flores and having to straight cath. Has had more nausea today and poor p.o. intake so far this morning Objective: Vital Signs Temp Pulse Resp BP Pulse Ox 36.8 C 73 16 160/95 H 95 01/17/17 08:00 01/17/17 08:00 01/17/17 08:00 01/17/17 08:00 01/17/17 08:00 Laboratory Results 01/17/17 05:15 01/17/17 05:15 01/16/17 01/17/17 01/18/17 05:59 05:59 05:59 Intake Total 300 1700 Output Total 1250 2825 Balance -950 -1125 PT 14.2 SEC (12.0-15.0) 01/10/17 11:35 INR 1.11 (0.83-1.16) 01/10/17 11:35 - Physical Exam Constitutional: chronically ill appearing, uncomfortable Eyes: PERRL Ears, Nose, Mouth, Throat: moist mucous membranes Cardiovascular: regular rate and rhythym, no murmur, rub, or gallop Respiratory: no respiratory distress, no rales or rhonchi, clear to auscultation Gastrointestinal: normoactive bowel sounds, no palpable masses, tenderness ( Lower quadrant) Genitourinary: flores in urethra Skin: warm Musculoskeletal: generalized weakness Neurologic: AAOx3 Psychiatric: interacting appropriately, not anxious ICD10 Worksheet Patient Problems: Problems Problem Status Onset Diarrhea Acute Hypothyroidism Active Chronic pain syndrome Active Renal impairment Active Hypokalemia Active Anticoagulant therapy Active biliary gastric reflux Active Syncope due to orthostatic hypotension Acute Dehydration Acute Renal failure (ARF), acute on chronic Acute History of kidney transplant Chronic Tachycardia Acute Nausea Acute Nausea & vomiting Acute C. difficile diarrhea Acute 10/08/16 Sepsis Acute Pyelonephritis Acute Abdominal pain Acute
[2017-01-17] MEDS: LORazepam 1 MG TAB PO PRN (21:24)
[2017-01-17] MEDS: MIRTAZAPINE 15 MG TAB PO SCH (21:25)
[2017-01-18] MEDS: HEPARIN 5,000 UNIT/0.5 ML SYR SC SCH ×3 (05:07→20:05)
[2017-01-18] MEDS: oxyCODONE IR 5 MG TAB PO PRN ×3 (05:08→19:02)
[2017-01-18] MEDS: LEVOTHYROXINE 75 MCG TAB PO SCH (05:09)
[2017-01-18 06:14] LABS: ALBUMIN 3.5 g/dL (3.5-5.0); ANION GAP 14 mEq/L (8-16); CALCIUM 9.3 mg/dL (8.5-10.4); CARBON DIOXIDE 25 mEq/l (22-31); CHLORIDE 102 mEq/L (97-110); CREATININE 2.1 mg/dL (0.6-1.0); GLOMERULAR FILTRATION RATE 26; GLUCOSE 98 mg/dL (70-100); POTASSIUM 3.9 mEq/L (3.5-5.2); SODIUM 141 mEq/L (134-144)
[2017-01-18] MEDS: morphINE SR 30 MG TAB PO SCH ×3 (08:53→20:07)
[2017-01-18] MEDS: DOCUSATE SODIUM 100 MG CAP PO SCH (08:53)
[2017-01-18] MEDS: SENNOSIDES/DOCUSATE SODIUM TAB PO SCH ×2 (08:53→20:07)
[2017-01-18] MEDS: ASPIRIN EC 325 MG TAB PO SCH (08:54)
[2017-01-18] MEDS: ASTAGRAF 1 MG PO SCH (08:54)
[2017-01-18] MEDS: predniSONE 10 MG TAB PO SCH (08:54)
[2017-01-18] MEDS: PRAVASTATIN SODIUM 20 MG TAB PO SCH (08:54)
[2017-01-18] MEDS: MYCOPHENOLATE SODIUM 180 MG TAB.DR PO SCH ×3 (08:54→20:05)
[2017-01-18] MEDS: LACTULOSE 20 GM/30 ML UDCUP PO SCH (08:55)
[2017-01-18] MEDS: CALCITRIOL 0.25 MCG CAP PO SCH (13:34)
--- NOTE | 2017-01-18 15:21 | HOSPPROG ---
Hospitalist Progress Note Assessment/Plan: 46-year-old woman with a history of renal transplant and chronic narcotic dependency presented with left lower quadrant pain secondary to transplant pyelonephritis. # transplant pyelonephritis and sepsis due to enterococcus faecalis with associated bacteremia. Followed by ID. Continue IV vancomycin and dose according to levels and renal function. 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 Improved with hydration and Davis decompression. Renal ultrasound appear stable. * Patient renal function at baseline * Will discontinue Davis, patient will likely need self cathing at home, she has done this before * Will check postvoid residuals here and have nurse review straight cathing with patient today and likely set up home care at discharge # abdominal pain with nausea and vomiting. Complains of ongoing lower abdominal pain which may be related to her transplant pyelo or possible constipation as she has not had a BM in several days * Gentle IV fluids today * Suppository and enema for BM today and monitor her symptoms # hypernatremia, patient describes poor p.o. intake due to nausea. Will give her some gentle IV fluids today and recheck her sodium in the morning # chronic low back pain with continuous narcotic dependency followed closely by Dr. Giles # anemia: Patient with fairly significant mid anemia but relatively asymptomatic at this time. Given patient's symptoms and return to altitude after discharge will transfuse 1 unit on 01/16 with good response # recent cerebellar infarct with ataxia on the left. This has improved since her stroke in September. # hypertension # history non-Hodgkin's lymphoma # WPW. Status post ablation # history of depression. She has had side effects to multiple medications in the past. She did have a formal psychiatry evaluation when she was at rehab in October and they felt that she did not need medications at that time. I do not feel she has significantly changed and do not recommend another psychiatry consult however we will have our psychiatry nurse come speak with her as she is having difficulties with her marriage and is afraid of divorce in the custody of her which daughter. Disposition: -Cont Abx: -Pain Mgmt. Still c/o LLQ Pain. Will monitor overnight. -On discharge, go home with intermittent straight catheterization Subjective: Still with LLQ pain. Needing IV pain meds. Cr. is back to baseline Objective: Vital Signs Temp Pulse Resp BP Pulse Ox 36.9 C 91 18 129/75 H 93 01/18/17 11:27 01/18/17 11:27 01/18/17 11:27 01/18/17 11:27 01/18/17 11:27 Microbiology 01/12/17 15:00 Blood Culture - Final Blood 01/12/17 13:40 Blood Culture - Final Blood Laboratory Results 01/17/17 05:15 01/18/17 05:05 01/17/17 01/18/17 01/19/17 05:59 05:59 05:59 Intake Total 1700 450 Output Total 2825 1550 500 Balance -1125 -1100 -500 PT 14.2 SEC (12.0-15.0) 01/10/17 11:35 INR 1.11 (0.83-1.16) 01/10/17 11:35 - Physical Exam Constitutional: no apparent distress, appears nourished, not in pain Eyes: PERRL, anicteric sclera, EOMI Ears, Nose, Mouth, Throat: moist mucous membranes, hearing normal, ears appear normal, no oral mucosal ulcers Cardiovascular: regular rate and rhythym, no murmur, rub, or gallop Respiratory: no respiratory distress, no rales or rhonchi, clear to auscultation Gastrointestinal: normoactive bowel sounds, tenderness (LLQ) Skin: warm, normal color Neurologic: AAOx3 Psychiatric: interacting appropriately, not anxious ICD10 Worksheet Patient Problems: Problems Problem Status Onset Abdominal pain Acute Pyelonephritis Acute Sepsis Acute Anticoagulant therapy Active Chronic pain syndrome Active Hypokalemia Active Hypothyroidism Active Renal impairment Active biliary gastric reflux Active C. difficile diarrhea Acute 10/08/16 Dehydration Acute Diarrhea Acute Nausea Acute Nausea & vomiting Acute Renal failure (ARF), acute on chronic Acute Syncope due to orthostatic hypotension Acute Tachycardia Acute History of kidney transplant Chronic
[2017-01-18] MEDS: POLYETHYLENE GLYCOL 3350 17 GM PKT PO PRN (15:54)
[2017-01-18] MEDS: MIRTAZAPINE 15 MG TAB PO SCH (20:06)
--- NOTE | 2017-01-18 22:14 | SOAPPROG ---
SOAP Progress Note Assessment/Plan: Assessment: 1. MEETA. Obstructive. Resolved s/p flores. Flores out. To straight cath BID at home. Creat back to b/l at 2.1. 2. Kidney tranpslant. Continue home long acting tacrolimus, MMF plus prednisone. 3. Pyelonephritis. Enterococcus. Continue vanco through 01/25. 4. Constipation. Continue lactulose. Plan: 01/18/17 22:11 01/18/17 22:15 01/18/17 22:17 Subjective: Still has not moved her bowels. Does not want suppository right now. Objective: Vital Signs Temp Pulse Resp BP Pulse Ox 36.7 C 89 18 136/79 H 92 01/18/17 20:00 01/18/17 20:00 01/18/17 20:00 01/18/17 20:00 01/18/17 20:00 Microbiology 01/12/17 15:00 Blood Culture - Final Blood 01/12/17 13:40 Blood Culture - Final Blood Laboratory Results 01/17/17 05:15 01/18/17 05:05 01/17/17 01/18/17 01/19/17 05:59 05:59 05:59 Intake Total 1700 450 340 Output Total 2825 1550 1600 Balance -1125 -1100 -1260 PT 14.2 SEC (12.0-15.0) 01/10/17 11:35 INR 1.11 (0.83-1.16) 01/10/17 11:35 Comfortable, in bed RRR, II/ ROSINA CTAB Abdom soft, very mildly distended, nontender No LE edema ICD10 Worksheet Patient Problems: Problems Problem Status Onset Diarrhea Acute Hypothyroidism Active Chronic pain syndrome Active Renal impairment Active Hypokalemia Active Anticoagulant therapy Active biliary gastric reflux Active Syncope due to orthostatic hypotension Acute Dehydration Acute Renal failure (ARF), acute on chronic Acute History of kidney transplant Chronic Tachycardia Acute Nausea Acute Nausea & vomiting Acute C. difficile diarrhea Acute 10/08/16 Sepsis Acute Pyelonephritis Acute Abdominal pain Acute
[2017-01-19] MEDS: HEPARIN 5,000 UNIT/0.5 ML SYR SC SCH ×3 (04:20→21:33)
[2017-01-19] MEDS: LEVOTHYROXINE 75 MCG TAB PO SCH (04:20)
[2017-01-19] MEDS: oxyCODONE IR 5 MG TAB PO PRN ×3 (04:20→18:25)
[2017-01-19] MEDS: BISACODYL 10 MG SUPP PR PRN (04:25)
[2017-01-19 04:42] LABS: % IMMATURE GRANULYOCYTES 2.9 % (0.0-1.1); ABSOLUTE IMMATURE GRANULOCYTES 0.25 10^3/uL (0.00-0.10); ADD DIFF? NO; ADD MORPH? NO; ADD SCAN? NO; ATYPICAL LYMPHOCYTE FLAG 30 (0-99); FRAGMENT RBC FLAG 20 (0-99); HEMOGLOBIN 9.4 g/dL (12.6-16.3); LEFT SHIFT FLG 20 (0-99); LIPEMIA HEMOLYSIS FLAG 80 (0-99); MEAN CELL HEMOGLOBIN 26.5 pg (27.9-34.1); MEAN CELL HEMOGLOBIN CONCENTR. 31.3 g/dL (32.4-36.7); MEAN CELL VOLUME 84.5 fL (81.5-99.8); MEAN PLATELET VOLUME 10.9 fL (8.7-11.7); PLATELET CLUMPS FLAG 0 (0-99); PLATELET COUNT 301 10^3/uL (150-400); RED BLOOD CELL COUNT 3.55 10^6/uL (4.18-5.33); RED CELL DISTRIBUTION WIDTH 16.3 % (11.5-15.2)
[2017-01-19 05:07] LABS: ANION GAP 14 mEq/L (8-16); CALCIUM 9.8 mg/dL (8.5-10.4); CARBON DIOXIDE 27 mEq/l (22-31); CHLORIDE 102 mEq/L (97-110); CREATININE 2.2 mg/dL (0.6-1.0); GLOMERULAR FILTRATION RATE 24; GLUCOSE 105 mg/dL (70-100); POTASSIUM 4.1 mEq/L (3.5-5.2); SODIUM 143 mEq/L (134-144)
[2017-01-19] MEDS: VANCOMYCIN HCL/NORMAL SALINE 250 ML IV SCH (08:27)
[2017-01-19] MEDS: ASPIRIN EC 325 MG TAB PO SCH (08:31)
[2017-01-19] MEDS: PRAVASTATIN SODIUM 20 MG TAB PO SCH (08:32)
[2017-01-19] MEDS: SENNOSIDES/DOCUSATE SODIUM TAB PO SCH ×2 (08:32→21:33)
[2017-01-19] MEDS: LACTULOSE 20 GM/30 ML UDCUP PO SCH (08:32)
[2017-01-19] MEDS: predniSONE 10 MG TAB PO SCH (08:32)
[2017-01-19] MEDS: morphINE SR 30 MG TAB PO SCH ×3 (08:32→21:34)
[2017-01-19] MEDS: DOCUSATE SODIUM 100 MG CAP PO SCH (08:32)
[2017-01-19] MEDS: MYCOPHENOLATE SODIUM 180 MG TAB.DR PO SCH ×3 (08:33→21:37)
[2017-01-19] MEDS: ASTAGRAF 1 MG PO SCH (08:44)
--- NOTE | 2017-01-19 11:40 | SOAPPROG ---
SOAP Progress Note Assessment/Plan: Assessment: 1. Transplant Pyelo On Vanco for enterococcus. 2. Neurogenic Bladder Davis DC'd. Last PVR 375. She should go home on bid st cath with frequent voiding during the day. 3. Constipation Schedule lactulose 4. Allograft Cr back to baseline. MEETA was likely due to pyelo, but also due to urinary retention. Subjective: Doing better Objective: Vital Signs Temp Pulse Resp BP Pulse Ox 36.7 C 77 18 135/83 H 96 01/19/17 08:00 01/19/17 08:00 01/19/17 08:00 01/19/17 08:00 01/19/17 08:00 Laboratory Results 01/19/17 04:30 01/19/17 04:30 01/18/17 01/19/17 01/20/17 05:59 05:59 05:59 Intake Total 450 840 280 Output Total 1550 2250 600 Balance -1100 -1410 -320 PT 14.2 SEC (12.0-15.0) 01/10/17 11:35 INR 1.11 (0.83-1.16) 01/10/17 11:35 Physical Exam - Physical Exam General Appearance: no apparent distress Respiratory: lungs clear Cardiac/Chest: tachycardia, systolic murmur Abdomen: soft Extremities: normal inspection Neuro/Psych: oriented x 3, depressed affect ICD10 Worksheet Patient Problems: Problems Problem Status Onset Abdominal pain Acute Pyelonephritis Acute Sepsis Acute Anticoagulant therapy Active Chronic pain syndrome Active Hypokalemia Active Hypothyroidism Active Renal impairment Active biliary gastric reflux Active C. difficile diarrhea Acute 10/08/16 Dehydration Acute Diarrhea Acute Nausea Acute Nausea & vomiting Acute Renal failure (ARF), acute on chronic Acute Syncope due to orthostatic hypotension Acute Tachycardia Acute History of kidney transplant Chronic
--- NOTE | 2017-01-19 16:00 | HOSPPROG ---
Hospitalist Progress Note Assessment/Plan: # transplant pyelo d/t enterococcus # enterococcus bacteremia d/t UTI - vanc per ID # MEETA on CKD - close to baseline - meeta thought d/t urinary retention and pyelo # renal transplant - cont MMF, pred # LLQ pain - likely constipation on my read of AXR - mineral oil enema # urinary retention - may need to self cath; possibly d/t narcotics # chronic low back pain on continuous narcotics # recent CVA - asa/statin # WPW s/p ablation # anemia - s/p transfusion 1U PRBC 01/16 # depression - previous psych consult rec'd no meds # hx non-Hodgkin lymphoma # htn # dispo - possibly tomorrow if abd pain better after BM ## chart reviewed AXR personally reviewed Subjective: L sided abd pain Objective: Vital Signs Temp Pulse Resp BP Pulse Ox 36.7 C 77 18 135/83 H 96 01/19/17 08:00 01/19/17 08:00 01/19/17 08:00 01/19/17 08:00 01/19/17 08:00 Laboratory Results 01/19/17 04:30 01/19/17 04:30 01/18/17 01/19/17 01/20/17 05:59 05:59 05:59 Intake Total 450 840 280 Output Total 1550 2250 2450 Balance -1100 -1410 -2170 PT 14.2 SEC (12.0-15.0) 01/10/17 11:35 INR 1.11 (0.83-1.16) 01/10/17 11:35 - Physical Exam Constitutional: no apparent distress, appears nourished Cardiovascular: regular rate and rhythym, no murmur, rub, or gallop, systolic murmur Respiratory: no respiratory distress, no rales or rhonchi, clear to auscultation Gastrointestinal: normoactive bowel sounds, other (soft, L sided TTP, no guarding/rebound tenderness) ICD10 Worksheet Patient Problems: Problems Problem Status Onset Diarrhea Acute Hypothyroidism Active Chronic pain syndrome Active Renal impairment Active Hypokalemia Active Anticoagulant therapy Active biliary gastric reflux Active Syncope due to orthostatic hypotension Acute Dehydration Acute Renal failure (ARF), acute on chronic Acute History of kidney transplant Chronic Tachycardia Acute Nausea Acute Nausea & vomiting Acute C. difficile diarrhea Acute 10/08/16 Sepsis Acute Pyelonephritis Acute Abdominal pain Acute
[2017-01-19] MEDS: LORazepam 1 MG TAB PO PRN (21:34)
[2017-01-19] MEDS: MIRTAZAPINE 15 MG TAB PO SCH (21:34)
[2017-01-20] MEDS: oxyCODONE IR 5 MG TAB PO PRN ×3 (02:22→17:14)
[2017-01-20] MEDS: HEPARIN 5,000 UNIT/0.5 ML SYR SC SCH ×3 (05:55→21:35)
[2017-01-20] MEDS: LEVOTHYROXINE 75 MCG TAB PO SCH (05:55)
[2017-01-20 06:16] LABS: ALBUMIN 3.7 g/dL (3.5-5.0); ANION GAP 14 mEq/L (8-16); CALCIUM 9.5 mg/dL (8.5-10.4); CARBON DIOXIDE 26 mEq/l (22-31); CHLORIDE 103 mEq/L (97-110); CREATININE 2.1 mg/dL (0.6-1.0); GLOMERULAR FILTRATION RATE 26; GLUCOSE 125 mg/dL (70-100); POTASSIUM 3.8 mEq/L (3.5-5.2); SODIUM 143 mEq/L (134-144)
[2017-01-20] MEDS: LORazepam 1 MG TAB PO PRN (08:52)
[2017-01-20] MEDS: PRAVASTATIN SODIUM 20 MG TAB PO SCH (08:53)
[2017-01-20] MEDS: predniSONE 10 MG TAB PO SCH (08:53)
[2017-01-20] MEDS: morphINE SR 30 MG TAB PO SCH ×3 (08:53→21:34)
[2017-01-20] MEDS: SENNOSIDES/DOCUSATE SODIUM TAB PO SCH ×2 (08:53→21:34)
[2017-01-20] MEDS: MYCOPHENOLATE SODIUM 180 MG TAB.DR PO SCH ×3 (08:53→21:34)
[2017-01-20] MEDS: DOCUSATE SODIUM 100 MG CAP PO SCH (08:53)
[2017-01-20] MEDS: ASPIRIN EC 325 MG TAB PO SCH (08:53)
[2017-01-20] MEDS: ASTAGRAF 1 MG PO SCH (08:54)
[2017-01-20] MEDS: LACTULOSE 20 GM/30 ML UDCUP PO SCH (08:58)
[2017-01-20] MEDS: LACTULOSE 20 GM/30 ML UDCUP PO PRN ×2 (08:58→17:15)
[2017-01-20] MEDS: POLYETHYLENE GLYCOL 3350 17 GM PKT PO PRN (09:00)
[2017-01-20] MEDS: CALCITRIOL 0.25 MCG CAP PO SCH (14:38)
--- NOTE | 2017-01-20 14:49 | HOSPPROG ---
Hospitalist Progress Note Assessment/Plan: 46-year-old woman with a history of renal transplant and chronic narcotic dependency presented with left lower quadrant pain secondary to transplant pyelonephritis.Today is my first encounter with the patient/ chart reviewed # transplant pyelo and sepsis d/t enterococcus faecalis # sepsis POA: resolved # enterococcus bacteremia d/t UTI - vanc per ID # MEETA on CKD - close to baseline - meeta thought d/t urinary retention and pyelo # renal transplant - cont MMF, pred # LLQ pain - abd xray shows moderate stool in proximal descending colon # urinary retention/neurogenic bladder - may need to self cath; possibly d/t narcotics # chronic low back pain on continuous narcotics # recent CVA - asa/statin ataxia on the left # WPW s/p ablation # anemia - s/p transfusion 1U PRBC 01/16 # depression - previous psych consult rec'd no meds Kenisha Taylor to see patient is not suicidal having issues at home/ have asked CM to involve social work # hx non-Hodgkin lymphoma # htn # dispo - pending/ diff dc due to family issues, needing iv abx Subjective: Divya is tearful about her relationship with her / c/o ongoing nausea. Objective: Vital Signs Temp Pulse Resp BP Pulse Ox 36.7 C 82 16 126/83 H 95 01/20/17 07:11 01/20/17 07:11 01/20/17 07:11 01/20/17 07:11 01/20/17 07:11 Laboratory Results 01/19/17 04:30 01/20/17 05:50 01/19/17 01/20/17 01/21/17 05:59 05:59 05:59 Intake Total 840 1055 460 Output Total 2250 3250 900 Balance -1410 -2195 -440 PT 14.2 SEC (12.0-15.0) 01/10/17 11:35 INR 1.11 (0.83-1.16) 01/10/17 11:35 - Physical Exam Constitutional: chronically ill appearing Eyes: PERRL Ears, Nose, Mouth, Throat: hearing normal Respiratory: no respiratory distress Skin: warm, No normal color (pale) Musculoskeletal: full muscle strength Neurologic: AAOx3 Psychiatric: interacting appropriately, not anxious ICD10 Worksheet Patient Problems: Problems Problem Status Onset Abdominal pain Acute Pyelonephritis Acute Sepsis Acute Anticoagulant therapy Active Chronic pain syndrome Active Hypokalemia Active Hypothyroidism Active Renal impairment Active biliary gastric reflux Active C. difficile diarrhea Acute 10/08/16 Dehydration Acute Diarrhea Acute Nausea Acute Nausea & vomiting Acute Renal failure (ARF), acute on chronic Acute Syncope due to orthostatic hypotension Acute Tachycardia Acute History of kidney transplant Chronic
[2017-01-20] MEDS: MIRTAZAPINE 15 MG TAB PO SCH (21:34)
--- NOTE | 2017-01-20 23:48 | SOAPPROG ---
SOAP Progress Note Assessment/Plan: Assessment: 1. MEETA. Obstructive. Resolved s/p flores. Flores out. To self cath BID at home. Creat back to b/l at 2.1. 2. Kidney tranpslant. Continue home long acting tacrolimus, MMF plus prednisone. 3. Pyelonephritis. Enterococcus. Continue vanco through 01/25. 4. Constipation. Continue lactulose, enemas prn. Plan: 01/18/17 22:11 01/18/17 22:15 01/18/17 22:17 01/20/17 23:47 Subjective: Seen earlier today. C/o ongoing constipation despite mineral oil enema. No other complaints at this time. Objective: Vital Signs Temp Pulse Resp BP Pulse Ox 36.7 C 75 17 132/80 H 92 01/20/17 19:59 01/20/17 19:59 01/20/17 19:59 01/20/17 19:59 01/20/17 19:59 Laboratory Results 01/19/17 04:30 01/20/17 05:50 01/19/17 01/20/17 01/21/17 05:59 05:59 05:59 Intake Total 840 1055 760 Output Total 2250 3250 1400 Balance -1410 -2195 -640 PT 14.2 SEC (12.0-15.0) 01/10/17 11:35 INR 1.11 (0.83-1.16) 01/10/17 11:35 Comfortable, in bed RRR, no m/g/r CTAB Abdom soft, nontender, nondistended No edema ICD10 Worksheet Patient Problems: Problems Problem Status Onset Diarrhea Acute Hypothyroidism Active Chronic pain syndrome Active Renal impairment Active Hypokalemia Active Anticoagulant therapy Active biliary gastric reflux Active Syncope due to orthostatic hypotension Acute Dehydration Acute Renal failure (ARF), acute on chronic Acute History of kidney transplant Chronic Tachycardia Acute Nausea Acute Nausea & vomiting Acute C. difficile diarrhea Acute 10/08/16 Sepsis Acute Pyelonephritis Acute Abdominal pain Acute
[2017-01-21] MEDS: LEVOTHYROXINE 75 MCG TAB PO SCH (05:52)
[2017-01-21] MEDS: oxyCODONE IR 5 MG TAB PO PRN ×2 (05:55→12:46)
[2017-01-21] MEDS: HEPARIN 5,000 UNIT/0.5 ML SYR SC SCH ×3 (05:57→21:21)
[2017-01-21] MEDS: POLYETHYLENE GLYCOL 3350 17 GM PKT PO PRN (08:11)
[2017-01-21] MEDS: ASPIRIN EC 325 MG TAB PO SCH (08:14)
[2017-01-21] MEDS: morphINE SR 30 MG TAB PO SCH ×3 (08:15→21:20)
[2017-01-21] MEDS: predniSONE 10 MG TAB PO SCH (08:15)
[2017-01-21] MEDS: SENNOSIDES/DOCUSATE SODIUM TAB PO SCH ×2 (08:15→21:19)
[2017-01-21] MEDS: MYCOPHENOLATE SODIUM 180 MG TAB.DR PO SCH ×3 (08:15→21:20)
[2017-01-21] MEDS: PRAVASTATIN SODIUM 20 MG TAB PO SCH (08:15)
[2017-01-21] MEDS: DOCUSATE SODIUM 100 MG CAP PO SCH (08:15)
[2017-01-21] MEDS: VANCOMYCIN HCL/NORMAL SALINE 250 ML IV SCH (08:16)
[2017-01-21] MEDS: LACTULOSE 20 GM/30 ML UDCUP PO SCH (08:16)
[2017-01-21] MEDS: ASTAGRAF 1 MG PO SCH (08:17)
[2017-01-21] MEDS ORDERED: MAGNESIUM CITRATE 300 ML BOTTLE PO ONE (10:11)
--- NOTE | 2017-01-21 10:15 | HOSPPROG ---
Hospitalist Progress Note Assessment/Plan: 46 yo F w renal transplant here w transplant pyelo and enterococcal bacteremia transplant pyelo d/t enterococcus vanc per ID enterococcus bacteremia d/t UTI - vanc per ID EMETA on CKD - close at baseline - meeta thought d/t urinary retention and pyelo renal transplant - cont MMF, pred LLQ pain - likely constipation on my read of AXR - mineral oil enema urinary retention - may need to self cath; possibly d/t narcotics chronic low back pain on continuous narcotics recent CVA - asa/statin WPW s/p ablation anemia - s/p transfusion 1U PRBC 01/16 depression - previous psych consult rec'd no meds hx non-Hodgkin lymphoma htn dispo - home today after BM > 30 minutes Subjective: no bm Objective: Vital Signs Temp Pulse Resp BP Pulse Ox 36.8 C 82 17 126/84 H 95 01/20/17 20:00 01/20/17 20:00 01/20/17 20:00 01/20/17 20:00 01/20/17 20:00 Laboratory Results 01/19/17 04:30 01/20/17 05:50 01/20/17 01/21/17 01/22/17 05:59 05:59 05:59 Intake Total 1055 1540 550 Output Total 3250 1750 Balance -2195 -210 550 PT 14.2 SEC (12.0-15.0) 01/10/17 11:35 INR 1.11 (0.83-1.16) 01/10/17 11:35 - Physical Exam Constitutional: no apparent distress, appears nourished Eyes: PERRL, anicteric sclera Ears, Nose, Mouth, Throat: moist mucous membranes, hearing normal Cardiovascular: regular rate and rhythym, no murmur, rub, or gallop, systolic murmur Respiratory: no respiratory distress, no rales or rhonchi Gastrointestinal: normoactive bowel sounds, soft, non-tender abdomen, No guarding, No rebound Musculoskeletal: full muscle strength, no muscle tenderness Neurologic: AAOx3, sensation intact bilaterally Psychiatric: interacting appropriately, not anxious ICD10 Worksheet Patient Problems: Problems Problem Status Onset Abdominal pain Acute Pyelonephritis Acute Sepsis Acute Anticoagulant therapy Active Chronic pain syndrome Active Hypokalemia Active Hypothyroidism Active Renal impairment Active biliary gastric reflux Active C. difficile diarrhea Acute 10/08/16 Dehydration Acute Diarrhea Acute Nausea Acute Nausea & vomiting Acute Renal failure (ARF), acute on chronic Acute Syncope due to orthostatic hypotension Acute Tachycardia Acute History of kidney transplant Chronic
--- NOTE | 2017-01-21 18:12 | GDS ---
[f rep st] DISCHARGE SUMMARY DISCHARGE DIAGNOSES: 1. Transplant pyelonephritis. 2. Enterococcal bacteremia. 3. Enterococcal pyelonephritis. 4. Constipation. CONSULT: Nephrology and Infectious Disease. HOSPITAL COURSE: Please see admission history and physical by Dr. Anali Arevalo. The patient pr esented on the , left lower quadrant pain, left flank pain. She had a positive UA. Blood cultu res were positive. She was treated with vancomycin. The patient stayed in the hospital for kind of a long time because of left lower quadrant pain that was ultimately determined to be secondary to c onstipation. She does take chronic narcotics. She has a history of cerebrovascular accident. Her creatinine is at her baseline on the day of discharge. She was given Mag Citrate. She has been see n walking the [place], doing well, but still having some abdominal pain. She had a nontender exam, afe brile with no peritoneal signs. She is discharged home today. /[id number]/MODL
[2017-01-21] MEDS: MIRTAZAPINE 15 MG TAB PO SCH (21:20)
[2017-01-22] MEDS: LEVOTHYROXINE 75 MCG TAB PO SCH (04:47)
[2017-01-22] MEDS: HEPARIN 5,000 UNIT/0.5 ML SYR SC SCH ×3 (04:48→22:27)
[2017-01-22 05:14] LABS: ANION GAP 13 mEq/L (8-16); CALCIUM 9.2 mg/dL (8.5-10.4); CARBON DIOXIDE 25 mEq/l (22-31); CHLORIDE 103 mEq/L (97-110); CREATININE 2.2 mg/dL (0.6-1.0); GLOMERULAR FILTRATION RATE 24; GLUCOSE 91 mg/dL (70-100); POTASSIUM 4.4 mEq/L (3.5-5.2); SODIUM 141 mEq/L (134-144)
[2017-01-22] MEDS: oxyCODONE IR 5 MG TAB PO PRN (06:38)
[2017-01-22] MEDS: ASTAGRAF 1 MG PO SCH (10:25)
[2017-01-22] MEDS: ASPIRIN EC 325 MG TAB PO SCH (10:25)
[2017-01-22] MEDS: PRAVASTATIN SODIUM 20 MG TAB PO SCH (10:26)
[2017-01-22] MEDS: DOCUSATE SODIUM 100 MG CAP PO SCH (10:26)
[2017-01-22] MEDS: SENNOSIDES/DOCUSATE SODIUM TAB PO SCH ×2 (10:26→22:31)
[2017-01-22] MEDS: morphINE SR 30 MG TAB PO SCH ×3 (10:26→22:31)
[2017-01-22] MEDS: BISACODYL 10 MG SUPP PR PRN (10:26)
[2017-01-22] MEDS: predniSONE 10 MG TAB PO SCH (10:26)
[2017-01-22] MEDS: MYCOPHENOLATE SODIUM 180 MG TAB.DR PO SCH ×3 (10:26→22:29)
[2017-01-22] MEDS: LACTULOSE 20 GM/30 ML UDCUP PO SCH (10:27)
[2017-01-22] MEDS: POLYETHYLENE GLYCOL 3350 17 GM PKT PO PRN (10:27)
[2017-01-22] MEDS: LORazepam 1 MG TAB PO PRN (12:10)
--- NOTE | 2017-01-22 12:35 | SOAPPROG ---
SOAP Progress Note Assessment/Plan: Assessment: kidney transplant, creat stable at her baseline pyelo, on abx constipation that is recalcitrant to therapy Plan: continue therapies will continue to follow 01/22/17 12:32 Subjective: still no BM, frustrated about that no cp sob nausea or vomiting still some abd tenderness, probably due to constipation Objective: Vital Signs Temp Pulse Resp BP Pulse Ox 36.8 C 86 18 145/88 H 96 01/22/17 07:17 01/22/17 07:17 01/22/17 07:17 01/22/17 07:17 01/22/17 07:17 Laboratory Results 01/19/17 04:30 01/22/17 04:55 01/21/17 01/22/17 01/23/17 05:59 05:59 05:59 Intake Total 1540 950 163 Output Total 1750 1100 1325 Balance -210 -150 -1162 PT 14.2 SEC (12.0-15.0) 01/10/17 11:35 INR 1.11 (0.83-1.16) 01/10/17 11:35 Physical Exam - Physical Exam General Appearance: alert Respiratory: No rales, No rhonchi, No wheezing Cardiac/Chest: regular rate, rhythm, No edema, No friction rub Abdomen: normal bowel sounds (mild tenderness, transplant in LLQ, nt, no bruit) Skin: warm/dry Extremities: No swelling Neuro/Psych: alert, normal mood/affect, oriented x 3 ICD10 Worksheet Patient Problems: Problems Problem Status Onset Abdominal pain Acute Pyelonephritis Acute Sepsis Acute Anticoagulant therapy Active Chronic pain syndrome Active Hypokalemia Active Hypothyroidism Active Renal impairment Active biliary gastric reflux Active C. difficile diarrhea Acute 10/08/16 Dehydration Acute Diarrhea Acute Nausea Acute Nausea & vomiting Acute Renal failure (ARF), acute on chronic Acute Syncope due to orthostatic hypotension Acute Tachycardia Acute History of kidney transplant Chronic
[2017-01-22] MEDS ORDERED: MAGNESIUM CITRATE 300 ML BOTTLE PO ONE (15:48)
[2017-01-22] MEDS ORDERED: BISACODYL 10 MG SUPP PR ONE (15:48)
--- NOTE | 2017-01-22 15:48 | HOSPPROG ---
Hospitalist Progress Note Assessment/Plan: 46 yo F w renal transplant here w transplant pyelo and enterococcal bacteremia transplant pyelo d/t enterococcus vanc per ID enterococcus bacteremia d/t UTI - vanc per ID has plan for outpatient antibiotics MEETA on CKD - close at baseline - meeta thought d/t urinary retention and pyelo renal transplant - cont MMF, pred LLQ pain - likely constipation on my read of AXR - mineral oil enema urinary retention - may need to self cath; possibly d/t narcotics chronic low back pain on continuous narcotics recent CVA - asa/statin WPW s/p ablation anemia - s/p transfusion 1U PRBC 01/16 depression - previous psych consult rec'd no meds hx non-Hodgkin lymphoma htn dispo - home today > 30 minutes Subjective: putting up barriers to discharge that are vagye and social in nature Objective: Vital Signs Temp Pulse Resp BP Pulse Ox 36.8 C 86 18 145/88 H 96 01/22/17 07:17 01/22/17 07:17 01/22/17 07:17 01/22/17 07:17 01/22/17 07:17 Laboratory Results 01/19/17 04:30 01/22/17 04:55 01/21/17 01/22/17 01/23/17 05:59 05:59 05:59 Intake Total 1540 950 163 Output Total 1750 1100 1325 Balance -210 -150 -1162 PT 14.2 SEC (12.0-15.0) 01/10/17 11:35 INR 1.11 (0.83-1.16) 01/10/17 11:35 - Physical Exam Constitutional: no apparent distress, appears nourished Eyes: PERRL, anicteric sclera Ears, Nose, Mouth, Throat: moist mucous membranes, hearing normal Cardiovascular: regular rate and rhythym, no murmur, rub, or gallop Respiratory: no respiratory distress, no rales or rhonchi Gastrointestinal: normoactive bowel sounds, soft, non-tender abdomen Genitourinary: No flores in urethra Skin: warm, normal color Musculoskeletal: full muscle strength Neurologic: AAOx3 ICD10 Worksheet Patient Problems: Problems Problem Status Onset Abdominal pain Acute Pyelonephritis Acute Sepsis Acute Anticoagulant therapy Active Chronic pain syndrome Active Hypokalemia Active Hypothyroidism Active Renal impairment Active biliary gastric reflux Active C. difficile diarrhea Acute 10/08/16 Dehydration Acute Diarrhea Acute Nausea Acute Nausea & vomiting Acute Renal failure (ARF), acute on chronic Acute Syncope due to orthostatic hypotension Acute Tachycardia Acute History of kidney transplant Chronic
[2017-01-22 20:58] VITALS: RESP 17
[2017-01-22] MEDS: MIRTAZAPINE 15 MG TAB PO SCH (22:31)
[2017-01-23] MEDS: oxyCODONE IR 5 MG TAB PO PRN ×2 (00:58→10:34)
[2017-01-23 03:49] VITALS: O2SAT 94
[2017-01-23] MEDS: HEPARIN 5,000 UNIT/0.5 ML SYR SC SCH (06:31)
[2017-01-23] MEDS: LEVOTHYROXINE 75 MCG TAB PO SCH (06:31)
[2017-01-23 08:08] VITALS: BP 110/65; PULSE 92; TEMP 97.7
[2017-01-23] MEDS: VANCOMYCIN HCL/NORMAL SALINE 250 ML IV SCH (08:32)
[2017-01-23] MEDS: LACTULOSE 20 GM/30 ML UDCUP PO SCH (10:24)
[2017-01-23] MEDS: DOCUSATE SODIUM 100 MG CAP PO SCH (10:25)
[2017-01-23] MEDS ORDERED: MAGNESIUM CITRATE 300 ML BOTTLE PO ONE (10:25)
[2017-01-23] MEDS: MYCOPHENOLATE SODIUM 180 MG TAB.DR PO SCH (10:25)
[2017-01-23] MEDS: SENNOSIDES/DOCUSATE SODIUM TAB PO SCH (10:25)
[2017-01-23] MEDS: predniSONE 10 MG TAB PO SCH (10:25)
[2017-01-23] MEDS: PRAVASTATIN SODIUM 20 MG TAB PO SCH (10:25)
[2017-01-23] MEDS: ASPIRIN EC 325 MG TAB PO SCH (10:25)
[2017-01-23] MEDS: morphINE SR 30 MG TAB PO SCH (10:26)
[2017-01-23] MEDS: ASTAGRAF 1 MG PO SCH (10:26)
--- NOTE | 2017-01-23 10:26 | HOSPPROG ---
Hospitalist Progress Note Assessment/Plan: 46 yo F w renal transplant here w transplant pyelo and enterococcal bacteremia transplant pyelo d/t enterococcus vanc per ID enterococcus bacteremia d/t UTI - vanc per ID has plan for outpatient antibiotics MEETA on CKD - close at baseline - meeta thought d/t urinary retention and pyelo renal transplant - cont MMF, pred LLQ pain - likely constipation on my read of AXR - mineral oil enema urinary retention - may need to self cath; possibly d/t narcotics chronic low back pain on continuous narcotics recent CVA - asa/statin WPW s/p ablation anemia - s/p transfusion 1U PRBC 01/16 depression - previous psych consult rec'd no meds hx non-Hodgkin lymphoma htn dispo - home today > 30 minutes Subjective: amenable to dc today Objective: Vital Signs Temp Pulse Resp BP Pulse Ox 36.5 C 92 17 110/65 94 01/23/17 08:00 01/23/17 08:00 01/23/17 08:00 01/23/17 08:00 01/23/17 08:00 Laboratory Results 01/19/17 04:30 01/22/17 04:55 01/22/17 01/23/17 01/24/17 05:59 05:59 05:59 Intake Total 950 2758 240 Output Total 1100 1575 Balance -150 1183 240 PT 14.2 SEC (12.0-15.0) 01/10/17 11:35 INR 1.11 (0.83-1.16) 01/10/17 11:35 - Physical Exam Constitutional: no apparent distress, appears nourished Eyes: PERRL, anicteric sclera Ears, Nose, Mouth, Throat: moist mucous membranes, hearing normal Cardiovascular: regular rate and rhythym, no murmur, rub, or gallop Respiratory: no respiratory distress, no rales or rhonchi Gastrointestinal: normoactive bowel sounds, soft, non-tender abdomen Genitourinary: No flores in urethra Skin: warm, normal color Musculoskeletal: full muscle strength Neurologic: AAOx3 Psychiatric: interacting appropriately ICD10 Worksheet Patient Problems: Problems Problem Status Onset Abdominal pain Acute Pyelonephritis Acute Sepsis Acute Anticoagulant therapy Active Chronic pain syndrome Active Hypokalemia Active Hypothyroidism Active Renal impairment Active biliary gastric reflux Active C. difficile diarrhea Acute 10/08/16 Dehydration Acute Diarrhea Acute Nausea Acute Nausea & vomiting Acute Renal failure (ARF), acute on chronic Acute Syncope due to orthostatic hypotension Acute Tachycardia Acute History of kidney transplant Chronic
--- NOTE | 2017-01-23 10:31 | SOAPPROG ---
SOAP Progress Note Assessment/Plan: Assessment/Plan: MEETA on CKD 3: baseline Cr in 2s, now back down to 2.1-2.2. - No need for HD. - Will continue to monitor. - Likely changes on first US related to transplant as opposed to obstruction, repeat US with no concerning findings for obstruction. h/o renal transplant: continue home IS regimen. Anemia: Hgb improved s/p transfusion, also got IV iron. Subjective: No acute events overnight. Pt reports she wants to go home today. She still has not had a BM since Monday. Objective: Vital Signs Temp Pulse Resp BP Pulse Ox 36.5 C 92 17 110/65 94 01/23/17 08:00 01/23/17 08:00 01/23/17 08:00 01/23/17 08:00 01/23/17 08:00 Laboratory Results 01/19/17 04:30 01/22/17 04:55 01/22/17 01/23/17 01/24/17 05:59 05:59 05:59 Intake Total 950 2758 240 Output Total 1100 1575 Balance -150 1183 240 PT 14.2 SEC (12.0-15.0) 01/10/17 11:35 INR 1.11 (0.83-1.16) 01/10/17 11:35 General: alert and oriented, no acute distress Eyes; EOMI, PERRL OP: Clear CV: RRR Resp: nonlabored respirations on RA Abd: Soft, NT Ext: no edema Neuro: CN II-XII grossly intact Psych: cooperative, appropriate mood and affect ICD10 Worksheet Patient Problems: Problems Problem Status Onset Abdominal pain Acute Pyelonephritis Acute Sepsis Acute Anticoagulant therapy Active Chronic pain syndrome Active Hypokalemia Active Hypothyroidism Active Renal impairment Active biliary gastric reflux Active C. difficile diarrhea Acute 10/08/16 Dehydration Acute Diarrhea Acute Nausea Acute Nausea & vomiting Acute Renal failure (ARF), acute on chronic Acute Syncope due to orthostatic hypotension Acute Tachycardia Acute History of kidney transplant Chronic
--- NOTE | 2017-01-23 10:55 | GDS ---
[f rep st] DISCHARGE SUMMARY DISCHARGE DIAGNOSES: 1. Transplant pyelonephritis. 2. Sepsis with resolution of septic physiology. 3. Enterococcal bacteremia. 4. Enterococcal pyelonephritis. 5. Constipation. Please note, this is the third consecutive day that I have discharged the patient. She has been unw illing or unable to leave because of a chaotic home situation, but is amenable today. Please see previous discharge summary for details of the hospitalization. She is discharged home. She has 1 more day of outpatient IV antibiotics. Followed by ID and Nephrology while here. Leaving the hospital today. /[id number]/MODL
[2017-01-23] MEDS ORDERED: MAGNESIUM CITRATE 300 ML BOTTLE PO SCH (11:30)
[2017-01-23] MEDS: LORazepam 1 MG TAB PO PRN (15:02)
== END 2017-01-23 15:30 | disposition home or self-care (01) | DRG 698 ==
LOC: F2W 15:28
PROVIDERS: ADMIT Hospitalist; ATTEND Hospitalist
PROC: 02HV33Z Insertion of Infusion Device into Superior Vena Cava, Percutaneous Approach (ICD-10-PCS; principal; 2017-01-10)
PROC: 02HV33Z Insertion of Infusion Device into Superior Vena Cava, Percutaneous Approach (ICD-10-PCS; 2017-01-13)
PROC: 30233N1 Transfusion of Nonautologous Red Blood Cells into Peripheral Vein, Percutaneous Approach (ICD-10-PCS; 2017-01-15)
DX: T86.13 Kidney transplant infection (principal); A41.81 Sepsis due to Enterococcus; N10 Acute pyelonephritis; N17.9 Acute kidney failure, unspecified; I12.9 Hypertensive chronic kidney disease with stage 1 through stage 4 chronic kidney disease, or unspecified chronic kidney disease; N18.9 Chronic kidney disease, unspecified; K59.00 Constipation, unspecified; T40.605A Adverse effect of unspecified narcotics, initial encounter; N31.9 Neuromuscular dysfunction of bladder, unspecified; N39.0 Urinary tract infection, site not specified; G89.29 Other chronic pain; F11.20 Opioid dependence, uncomplicated; D50.9 Iron deficiency anemia, unspecified; E03.9 Hypothyroidism, unspecified; Z98.1 Arthrodesis status; Z79.82 Long term (current) use of aspirin; I69.952 Hemiplegia and hemiparesis following unspecified cerebrovascular disease affecting left dominant side; Z85.72 Personal history of non-Hodgkin lymphomas; Z92.3 Personal history of irradiation; Z94.0 Kidney transplant status; Z90.5 Acquired absence of kidney
CPT/HCPCS: 97110-GP; 97116-GP; 97161-GP; 97166-GO; 97530-GO; 97535-GO; C1751; G8978-GP-CI; G8978-GP-CJ; G8979-GP-CI; G8980-GP-CI; G8987-GO-CJ; G8988-GO-CI; J1100; J1644; J2060; J2405; J2916; J2997; J3370; P9016

== ENCOUNTER → 2017-04-11 | Outpatient (CLI) | payer OTHER | LOC: BMCIMAGING 13:33 | PROVIDERS: ATTEND Internal Medicine Nephrology | DX: Z48.22 Encounter for aftercare following kidney transplant (principal); Z94.0 Kidney transplant status ==

== ENCOUNTER 2017-05-09 13:35 | Day surgery (SDC) | payer OTHER ==
--- NOTE | 2017-05-09 08:51 | PDHPUP ---
History & Physical Update H&P update statement: This history and physical update is based on an assessment of the patient which was completed after admission or registration (within 24 hours), but prior to the surgery/procedure. H&P update: H&P reviewed & patient examined, no change in patient's condition since H&P completed
[~2017-05-09 13:35] MED LIST: ERTAPENEM 1 GM in NS 100 ML IV ONE; VANCOMYCIN 750 MG in D5W 150 ML IV ONE
[2017-05-09 15:13] LABS: ANION GAP 12 mEq/L (8-16); CALCIUM 9.7 mg/dL (8.5-10.4); CARBON DIOXIDE 27 mEq/l (22-31); CHLORIDE 105 mEq/L (97-110); GLOMERULAR FILTRATION RATE 12; GLUCOSE 73 mg/dL (70-100); POTASSIUM 4.7 mEq/L (3.5-5.2); SODIUM 144 mEq/L (134-144)
[2017-05-09] MEDS ORDERED: NS 1,000 ML IV ONE (15:25)
[2017-05-09] MEDS ORDERED: LIDOCAINE 1% 2 ML INJ ID PRN (15:25)
[2017-05-09] MEDS ORDERED: THROMBIN (BOVINE) 5,000 UNIT VIAL TP ONE (15:33)
[2017-05-09] MEDS ORDERED: BUPIVACAINE 0.5% 30 ML SDV ONE (15:33)
[2017-05-09] MEDS ORDERED: PROTAMINE SULFATE 50 MG/5 ML VIAL IVP ONE ×2 (15:33→19:06)
[2017-05-09] MEDS ORDERED: THROMBIN (BOVINE) 20,000 UNIT VIAL TP ONE (15:33)
[2017-05-09] MEDS ORDERED: PAPAVERINE HCL 60 MG/2 ML SDV ONE (15:34)
--- NOTE | 2017-05-09 16:42 | PDANEPAE ---
ANE History of Present Illness 47 yo F w ESRD here for AVF in anticipation of HD ANE Past Medical History - Cardiovascular History Hx Hypertension: No Hx Arrhythmias: No Hx Chest Pain: No Hx Coronary Artery / Peripheral Vascular Disease: No Hx CHF / Valvular Disease: No Hx Palpitations: No Cardiovascular History Comment: WPW. Cardiac ablation March 15, 2016 - Pulmonary History Hx COPD: No Hx Asthma/Reactive Airway Disease: No Hx Recent Upper Respiratory Infection: No Hx Oxygen in Use at Home: No Hx Sleep Apnea: No Sleep Apnea Screening Result - Last Documented: Negative - Neurologic History Hx Cerebrovascular Accident: Yes Hx Seizures: No Hx Dementia: No Neurologic History Comment: 09/2016 ?TIAs X2 EPISODES - Endocrine History Hx Diabetes: Yes Endocrine History Comment: HYPOTHYROID - Renal History Hx Renal Disorders: Yes Renal History Comment: KIDNEY TRANSPLANT 2007 - Liver History Hx Hepatic Disorders: No - Neurological & Psychiatric Hx Hx Neurological and Psychiatric Disorders: Yes Neurological / Psychiatric History Comment: ANXIETY - Cancer History Hx Cancer: Yes Cancer History Comment: Non Hodgkins tumor 2000 - Congenital Disorder History Hx Congenital Disorders: No - GI History Hx Gastrointestinal Disorders: Yes Gastrointestinal History Comment: GERD. C SECTION - Other Health History Other Health History: BLADDER SURGERY MULTIPLE. C Section. DVT 2010 - Chronic Pain History Chronic Pain: Yes (back) - Surgical History Prior Surgeries: CARDIAC ABLATION 02/2016 (WPW). BACK SURGERY X 3 LAST 2012. 1994 FIRST R NEPHRECTOMY/ OVARIAN CYST, 2007 L NEPHREC AND RENAL TRANSPLANT. MULTIPLE ABDOMINAL ANE Review of Systems - Exercise capacity Exercise capacity: >=4 METS METS (RN): 4 METS - Systems Neurological: Reports: other (h/o CVA (expressed as word salad)) ANE Patient History - Allergies Allergies/Adverse Reactions: erythromycin lactobionate [From Erythrocin] Allergy (Severe, Verified 01/10/17 10:33) Anaphylaxis metoclopramide HCl [From Reglan] Allergy (Severe, Verified 01/10/17 10:33) "went crazy" NSAIDS (Non-Steroidal Anti-Inflamma [Nsaids] Allergy (Severe, Verified 01/10/17 10:33) Kidney transplant meperidine HCl [From Demerol] Allergy (Intermediate, Verified 01/10/17 10:33) Hypotension meropenem [Meropenem] Allergy (Intermediate, Verified 01/10/17 10:33) Hypersensitivity in legs Sulfa (Sulfonamide Antibiotics) Allergy (Intermediate, Verified 01/10/17 10:33) Hives ceftazidime Allergy (Mild, Verified 01/10/17 10:33) Rash ciprofloxacin [From Cipro] Allergy (Mild, Verified 01/10/17 10:33) Rash levofloxacin [From Levaquin] Allergy (Mild, Verified 01/10/17 10:33) Rash doxycycline Allergy (Verified 01/10/17 10:33) gabapentin [From Neurontin] Allergy (Verified 01/10/17 10:33) Other-Enter Comments - Home Medications Home medications: home medication list seen and reviewed Home Medications: Docusate Sodium [Colace 100 MG (*)] 100 mg PO DAILY 03/15/16 [Last Taken ] Astagraf 3 mg PO DAILY 01/10/17 [Last Taken 05/09/17 10:00] Cyproheptadine HCl [Periactin 4 MG (*)] 4 mg PO QID PRN 01/10/17 [Last Taken 12/02] LORazepam [Ativan (*)] 1 mg PO DAILY PRN 01/10/17 [Last Taken 05/08/17 22:00] morphINE SR [MS Contin/Oramorph SR 30 mg (*)] 30 mg PO TID 01/10/17 [Last Taken 05/08/17 21:00] oxyCODONE IR [Oxycodone Ir (*)] 20 - 40 mg PO Q6HRS PRN 01/10/17 [Last Taken 21:00] Azathioprine Sodium 05/08/17 [Last Taken 05/08/17] - NPO status NPO Since - Liquids (Date): 05/09/17 NPO Since - Liquids (Time): 10:00 NPO Since - Solids (Date): 05/08/17 NPO Since - Solids (Time): 23:00 - Anes Hx Hx Anesthesia Complications (with details): low BP - Smoking Hx Smoking Status: Never smoked - Alcohol Use Alcohol Use: Rarely - Family Anes Hx Family Anes Hx: none Family Hx Anesthesia Complications: MOM=LOW BP ANE Labs/Vital Signs - Labs Result Diagrams: 05/09/17 14:22 - Vital Signs Blood Pressure: 125/72 Heart Rate: 80 Respiratory Rate: 16 O2 Sat (%): 95 Height: 170.18 cm Weight: 58.06 kg ANE Physical Exam - Airway Neck exam: FROM Mallampati Score: Class 2 Mouth exam: normal dental/mouth exam Mouth image: 1 - broken - Pulmonary Pulmonary: no respiratory distress, clear to auscultation - Cardiovascular Cardiovascular: regular rate and rhythym, no murmur, rub, or gallop - ASA Status ASA Status: III
[2017-05-09] MEDS ORDERED: MIDAZOLAM 2 MG/2 ML VIAL IVP ONE (16:43)
[2017-05-09] MEDS ORDERED: PROPOFOL 200 MG/20 ML VIAL ONE ×2 (16:53)
[2017-05-09] MEDS ORDERED: fentaNYL 100 MCG/2 ML INJ ONE ×2 (16:54→19:42)
[2017-05-09] MEDS ORDERED: LIDOCAINE 2% 100 MG/5 ML SYR ONE (16:57)
[2017-05-09] MEDS ORDERED: HYDROCODONE/APAP 5/325 TAB PO PRN (18:54)
[2017-05-09] MEDS ORDERED: ONDANSETRON DISINTEGRATING 4 MG TAB PO PRN (18:54)
--- NOTE | 2017-05-09 19:07 | POSTOPPROG ---
Post Op Note Date of Operation: 05/09/17 Surgeon: Kameron Dobson Photograph Tinter: Abi Troy Anesthesiologist: Regulo El Anesthesia: GET(General Endotracheal) Pre-op Diagnosis: CRF, failing kidney transplant, clotted avf Post-op Diagnosis: same Procedure: RUE AVF ligation and new brachiobasilic AVF creation Findings: great thrill, good radial pulse Inf/Abcess present in the surg proc area at time of surgery?: No EBL: 50-100 Complications: none Drains: Michel Wyman Specimen(s): clotted aneursymal fistula
[2017-05-09] MEDS ORDERED: ONDANSETRON 4 MG/2 ML VIAL IVP PRN (19:10)
[2017-05-09] MEDS ORDERED: OXYCODONE/APAP 5/325 TAB PO PRN (19:10)
[2017-05-09] MEDS ORDERED: ACETAMINOPHEN 500 MG TAB PO PRN (19:10)
[2017-05-09] MEDS ORDERED: NALOXONE HCL 0.4 MG/ML INJ IVP PRN (19:10)
[2017-05-09] MEDS ORDERED: HYDROmorphONE/DILAUDID 1 MG/ML SYR IVP PRN (19:10)
--- NOTE | 2017-05-09 19:37 | POSTANESTH ---
Post Anesthetic Evaluation Cardiovascular Status: Normal, Stable, Similar to Pre-Op Cond Respiratory Status: Normal, Stable, Similar to Pre-op Cond. Level of Consciousness/Mental Status: Can Participate in Eval, Mildly Sleepy, Arousable Pain Control: Adequate, Prn Tx Ordered Nausea/Vomiting Control: Adequate, Prn Tx Ordered Complications Possibly Related to Anesthesia: None Noted
[2017-05-09 19:39] VITALS: TEMP 96.8
[2017-05-09] MEDS: fentaNYL 100 MCG/2 ML INJ IVP PRN ×3 (19:43→19:57)
[2017-05-09] MEDS ORDERED: HYDROCODONE/APAP 5/325 TAB ONE (20:10)
[2017-05-09 20:16] VITALS: BP 124/77
[2017-05-09 20:18] VITALS: PULSE 87; RESP 18; O2SAT 97
--- NOTE | 2017-05-18 13:56 | GOP ---
[f rep st] OPERATIVE REPORT DATE OF OPERATION: 05/09/2017 SURGEON: Kameron Dobson MD TIMEKEEPING SUPERVISOR: Abi rToy, PAC. ANESTHESIOLOGIST: Dr. El. PREOPERATIVE DIAGNOSIS: Chronic renal failure and clotted arteriovenous fistula. POSTOPERATIVE DIAGNOSIS: Chronic renal failure and clotted arteriovenous fistula. PROCEDURE PERFORMED: Right upper extremity arteriovenous fistula ligation with thrombectomy and a b rachiobasilic arteriovenous fistula creation. FINDINGS: Patient was found to have a clotted brachiocephalic AV fistula. 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 She had an adequa te basilic vein and good flow through the brachiobasilic fistula. Ultrasound was used to evaluate the veins of the arm and we elected to proceed with a basilic vein t ransposition, a brachiobasilic AV fistula. DESCRIPTION OF PROCEDURE: Patient taken to the operating room, where she received satisfactory gene ral endotracheal anesthesia by Dr. El, placed in supine position with the left arm outstretched o n arm board, prepped and draped in usual sterile fashion. A curvilinear incision was made in the an tecubital space and following up along the medial aspect of the arm where the basilic vein had been mapped with the ultrasound. Basilic vein was dissected free from underneath the subcutaneous tissue and dissected back up the arm for many centimeters. Dissection extended over to the old fistula an d the thrombosed aneurysm. This was dissected free from surrounding subcutaneous tissue. It was di stally ligated with 2-0 Vicryl tie, although it was already occluded distally. The aneurysm was dis sected back to the anastomosis. The brachial artery was dissected free and controlled with vessel l oops above and below this aneurysm. The patient was systemically heparinized, and after adequate ci rculation time, the vessels were occluded and the aneurysm cut into close to the base of the anastom osis. It contained a fair amount of junk and debris from her occluded AV fistulas in the past. The vessels were flushed and backflow from the artery was very poor. Hari catheters were then passe d distally with return of some aneurysmal clot and junk which probably had been embolized secondary to manipulation of the aneurysm. This was removed, and some backflow was present. Also, the inflow was poor. Hari catheters were passed up through the previous anastomosis with return of debris and an excellent return of flow. The arteriotomy site was then closed with a running 3-0 Prolene mccrary ture and flow was re-established down the hand. Appeared to have good radial and ulnar pulses at th is point. Suture line was reinforced where necessary with 3-0 Vicryl interrupted sutures. Attention was then turned to the primary surgery, which was the AV fistula creation. The basilic ve in was dissected free from the antecubital space all the way up to high in the arm. It was mobilize d by dividing multiple branches. It was then positioned somewhat more superiorly and more anteriorl y. An an end-to-side anastomosis was then made to the brachial artery, creating an 8 mm anastomosis with a running 6-0 Prolene suture. Flow was first established through the AV fistula, then back do wn the hand but maintained good hand circulation as well as an excellent AV fistula flow. The wound s were irrigated and then closed with 3-0 Vicryl for the subcu, 4-0 Monocryl subcuticular stitch for the skin. Wounds were infiltrated with 0.5% Marcaine. Some topical thrombin was placed in the yeimy marylou site. Tolerated procedure well, taken to the recovery room in good condition. /[id number]/MODL
== END 2017-05-09 20:48 | disposition home or self-care (01) ==
LOC: FSGY 13:35
PROVIDERS: ATTEND Surgery
PROC: 03C70ZZ Extirpation of Matter from Right Brachial Artery, Open Approach (ICD-10-PCS; principal; 2017-05-09 15:30)
PROC: 03170ZD Bypass Right Brachial Artery to Upper Arm Vein, Open Approach (ICD-10-PCS; principal; 2017-05-09 15:30)
DX: T82.49XA Other complication of vascular dialysis catheter, initial encounter (principal); N18.9 Chronic kidney disease, unspecified
CPT/HCPCS: 36818; 36831; C1757; J1335; J1644; J2001; J2250; J2440; J2704; J2720; J3010; J3370

== ENCOUNTER 2017-05-25 18:37 | Inpatient (IN) | payer OTHER ==
--- NOTE | 2017-05-25 19:25 | EDPHY ---
H & P Time Seen by Provider: 05/25/17 19:15 HPI/ROS: CHIEF COMPLAINT: Dysuria, vomiting. HISTORY OF PRESENT ILLNESS: This patient is a 47 year old female with history of chronic kidney disease and renal transplant complaining of vomiting and dysuria onset two days ago. She has been unable to drink water or keep down her medications during this time. She has dysuria and decreased urine output. She endorses suprapubic abdominal pain. She had a fistula implanted in her right arm in late April, but is not yet on dialysis. Her forearm is sore and painful extending from fistula site. She endorses swelling, and states she has a history of blood clots in that arm. She was formerly taking aspirin for clot prevention, but discontinued this because she was getting frequent nosebleeds. She is not currently anticoagulated. She reports a 30lb weight loss since February. No fever, diarrhea, shortness of breath, chest pain, or other associated symptoms. REVIEW OF SYSTEMS: A 10 point review of systems was performed and is negative with the exception of the elements mentioned in the history of present illness. Past Medical/Surgical History: Chronic kidney disease. Renal transplantation. Chronic urinary retention. Chronic low back pain. C-difficile. Non-Hodgkin lymphoma. Iron defficiency anemia. Hypertension. Left cerebellar infarct. WPW status post ablation. Social History: Lives in [place]. . No tobacco or illicit drug use. Smoking Status: Never smoked Physical Exam: General Appearance: Alert, no distress Eyes: Pupils equal and round, no conjunctival pallor or injection ENT, Mouth: Mucous membranes moist Neck: Normal inspection Respiratory: Lungs are clear to auscultation Cardiovascular: 2/6 systolic murmur. Regular rate and rhythm Gastrointestinal: Suprapubic tenderness. Abdomen is soft. Neurological: A&O, nonfocal, normal gait Skin: Warm and dry, no rash Extremities: Right upper extremity fistula, steri strips in place. No drainage or erythema. Mild swelling and tenderness of entire right arm. Radial pulses 2+ . No pedal edema Psychiatric: Mood and affect normal Constitutional: Initial Vital Signs Temperature (C) 37.1 C 05/25/17 18:44 Heart Rate 88 05/25/17 18:44 Respiratory Rate 18 05/25/17 18:44 Blood Pressure 115/71 05/25/17 18:44 O2 Sat (%) 95 05/25/17 18:44 O2 Delivery Mode Room Air Allergies/Adverse Reactions: erythromycin lactobionate [From Erythrocin] Allergy (Severe, Verified 05/25/17 18:39) Anaphylaxis metoclopramide HCl [From Reglan] Allergy (Severe, Verified 05/25/17 18:39) "went crazy" NSAIDS (Non-Steroidal Anti-Inflamma [Nsaids] Allergy (Severe, Verified 05/25/17 18:39) Kidney transplant meperidine HCl [From Demerol] Allergy (Intermediate, Verified 05/25/17 18:39) Hypotension meropenem [Meropenem] Allergy (Intermediate, Verified 05/25/17 18:39) Hypersensitivity in legs Sulfa (Sulfonamide Antibiotics) Allergy (Intermediate, Verified 05/25/17 18:39) Hives ceftazidime Allergy (Mild, Verified 05/25/17 18:39) Rash ciprofloxacin [From Cipro] Allergy (Mild, Verified 05/25/17 18:39) Rash levofloxacin [From Levaquin] Allergy (Mild, Verified 05/25/17 18:39) Rash doxycycline Allergy (Verified 05/25/17 18:39) gabapentin [From Neurontin] Allergy (Verified 05/25/17 18:39) Other-Enter Comments Home Medications: Medication Instructions Recorded Astagraf 3 mg PO DAILY 01/10/17 Calcitriol [Calcitriol (*)] 0.25 mcg PO MOWEFR 05/25/17 Cyproheptadine HCl [Periactin 4 MG 4 mg PO QID PRN 05/25/17 (*)] Docusate Sodium [Colace 100 MG (*)] 100 mg PO DAILY PRN 05/25/17 Hydrocodone/Acetaminophen [[place] 1 - 2 tab PO Q6H PRN 05/25/17 5/325 (*)] LORazepam [Ativan (*)] 1 mg PO TID PRN 05/25/17 Levothyroxine [Synthroid 75 mcg 75 mcg PO SUMOTUWETHFR@06 05/25/17 (*)] Pantoprazole Sodium [Protonix 40mg 40 mg PO DAILY 05/25/17 (*)] Potassium Cl [Klor-Con] 10 meq PO DAILY 05/25/17 Pravastatin Sodium 20 mg PO DAILY 05/25/17 Sennosides [Senokot] 1 - 2 tab PO BID PRN 05/25/17 azaTHIOprine [Imuran 50 mg (*)] 100 mg PO HS 05/25/17 morphINE SR [MS Contin/Oramorph SR 30 mg PO TID 05/25/17 30 mg (*)] oxyCODONE HCL [OXYCODONE HCL] 20 - 40 mg PO Q6H PRN 05/25/17 predniSONE [Prednisone] 10 mg PO DAILY 05/25/17 Medical Decision Making - Diagnostics Imaging Results: RUE sono: superficial thrombophlebitis Imaging: Discussed imaging studies w/ call center analyst Radiologist ED Course/Re-evaluation: This complex pt presents with UTI sx and vomiting. Renal transplant failure with worsening renal fxn and recent AV fistula placement. She is non-toxic appearing and VS stable. Old medical records reviewed. Plan for labs including CBC, BMP, UA. Plan to administer 500mL IV NS, 4mg IV Zofran for symptom relief. Plan for right upper extremity US to assess for DVT. Prior urine cultures reviewed. Positive for enterococcus x1, o/w urine cultures negative. Given multiple allergies, renal failure and prior Enterococcus UTI, plan to administer Vancomycin. She does not meet SIRS criteria. Given UTI, vomiting and worsening renal function, I will admit her for IV antibiotics and further care. 21:[address] Morin, radiologist. Superficial thrombophlebitis in right upper arm. 21:30 consulted with hospitalist service. Dr. Banerjee accepts admission. Differential Diagnosis: Differential diagnosis includes though it is not limited to appendicitis, cholecystitis, diverticulitis, pyelonephritis, bowel perforation, small bowel obstruction. - Data Points Laboratory Results: Laboratory Results 05/25/17 20:00 05/25/17 20:00 Medications Given: Azathioprine (Imuran) 100 mg PO HS ROBE Stop: 11/22/17 20:59 Last Admin: 05/28/17 20:40 Dose: 100 mg Calcitriol (Calcitriol) 0.25 mcg PO MOWEFR ROBE Stop: 11/22/17 07:44 Last Admin: 05/28/17 07:56 Dose: 0.25 mcg Heparin Sodium (Porcine) (Heparin Sc Injection) 5,000 unit SC Q12H ROBE Stop: 11/22/17 08:59 Last Admin: 05/29/17 08:09 Dose: 5,000 unit Sodium Chloride (Ns) 1,000 mls @ 50 mls/hr IV CONT ROBE Stop: 11/21/17 23:44 Last Admin: 05/29/17 01:21 Dose: 1,000 mls Piperacillin/Tazobactam/Dextrose (Zosyn 2.25 Gm (Premix)) 50 mls @ 100 mls/hr IV Q8H ROBE PRN Reason: Protocol Stop: 06/25/17 15:59 Last Admin: 05/29/17 08:11 Dose: 50 mls Levothyroxine Sodium (Synthroid) 75 mcg PO SUMOTUWETHFR@06 ROBE Stop: 11/24/17 05:59 Last Admin: 05/29/17 04:49 Dose: 75 mcg Lorazepam (Ativan) 1 mg PO TID PRN PRN Reason: Anxiety Stop: 11/22/17 07:40 Last Admin: 05/28/17 04:25 Dose: 1 mg Miscellaneous Medication (Astagraf) 3 mg PO DAILY ROBE Stop: 11/22/17 08:59 Last Admin: 05/29/17 09:37 Dose: 3 mg Morphine Sulfate (Ms Contin/Oramorph) 15 mg PO BID [facility] Stop: 06/05/17 20:59 Last Admin: 05/29/17 08:10 Dose: 15 mg Ondansetron HCl (Zofran Odt) 4 mg PO Q4HRS PRN PRN Reason: Nausea/Vomiting, Use 1st Stop: 11/21/17 23:24 Last Admin: 05/29/17 08:10 Dose: 4 mg Oxycodone HCl (Oxycodone Ir) 20 - 30 mg PO Q6H PRN PRN Reason: Pain, Severe Last Admin: 05/29/17 04:49 Dose: 30 mg Pantoprazole Sodium (Protonix) 40 mg PO DAILY ROBE Stop: 11/22/17 08:59 Last Admin: 05/29/17 08:10 Dose: 40 mg Prednisone (Prednisone) 10 mg PO DAILY ROBE Stop: 11/22/17 08:59 Last Admin: 05/29/17 08:10 Dose: 10 mg Promethazine HCl (Phenergan) 6.25 - 12.5 mg IVP Q6HRS PRN PRN Reason: Nausea/Vomiting, Can't Take PO Stop: 11/21/17 23:53 Last Admin: 05/26/17 09:08 Dose: 12.5 mg Discontinued Medications Sodium Chloride (Ns) 500 mls @ 1,000 mls/hr IV EDNOW ONE PRN Reason: Protocol Stop: 05/25/17 20:13 Last Admin: 05/25/17 20:05 Dose: 500 mls Vancomycin/Sodium Chloride (Vancomycin 1 Gm (Premix)) 250 mls @ 250 mls/hr IV EDNOW ONE PRN Reason: Protocol Stop: 05/25/17 21:43 Last Admin: 05/25/17 20:59 Dose: 250 mls Piperacillin/Tazobactam/Dextrose (Zosyn 2.25 Gm (Premix)) 50 mls @ 100 mls/hr IV Q8H ROBE PRN Reason: Protocol Stop: 06/25/17 00:00 Last Admin: 05/26/17 09:02 Dose: 50 mls Daptomycin 500 mg/ Sodium (Chloride) 110 mls @ 220 mls/hr IV Q48H [facility] Stop: 06/25/17 10:44 Last Admin: 05/26/17 12:18 Dose: Not Given Daptomycin 360 mg/ Sodium (Chloride) 107.2 mls @ 214.4 mls/hr IV Q48H [facility] Stop: 06/25/17 11:14 Last Admin: 05/26/17 13:10 Dose: 107.2 mls Lorazepam (Ativan) 1 mg PO Q8H PRN PRN Reason: Sleep/Insomnia Stop: 11/22/17 06:32 Last Admin: 05/26/17 06:40 Dose: 1 mg Miscellaneous Medication (Astagraf) 0 mg PO DAILY [facility] Stop: 11/22/17 08:59 Last Admin: 05/26/17 14:46 Dose: Not Given Morphine Sulfate (Ms Contin/Oramorph Sr) 30 mg PO TID [facility] Stop: 06/05/17 08:59 Last Admin: 05/26/17 09:37 Dose: 30 mg Ondansetron HCl (Zofran) 4 mg IVP EDNOW ONE Stop: 05/25/17 19:44 Last Admin: 05/25/17 20:12 Dose: 4 mg Pravastatin Sodium (Pravachol) 20 mg PO DAILY [facility] Stop: 11/22/17 08:59 Last Admin: 05/26/17 09:37 Dose: 20 mg Promethazine HCl (Phenergan) 12.5 mg IVP EDNOW ONE Stop: 05/25/17 21:56 Last Admin: 05/25/17 22:01 Dose: 12.5 mg Departure - Departure Dis[facility]: [facility] Clinical Impression: Superficial thrombophlebitis Qualifiers: Superficial thrombophlebitis-Involved body area: upper extremity Laterality: right Qualified Code(s): I80.8 - Phlebitis and thrombophlebitis of other sites Nausea & vomiting Qualifiers: Vomiting type: unspecified Vomiting Intractability: non-intractable Qualified Code(s): R11.2 - Nausea with vomiting, unspecified Urinary tract infection Qualifiers: Urinary tract infection type: site unspecified Hematuria presence: without hematuria Qualified Code(s): N39.0 - Urinary tract infection, site not specified Condition: Fair Report Scribed for: Caroline Steven Report Scribed by: Cheyenne Brady Date of Report: 05/25/17 Time of Report: 19:24 Physician Review and Approval Statement: 05/25/17 19:24 Portions of this note were transcribed by a chief medical director. I personally performed a history, physical exam, medical decision making, and confirmed accuracy of information the transcribed note.
[2017-05-25 19:42] LABS: COLOR YELLOW; LEUKOCYTE ESTERASE,URINE 3+ (NEGATIVE); NITRITE,URINE NEGATIVE (NEGATIVE)
[2017-05-25] MEDS ORDERED: ONDANSETRON 4 MG/2 ML VIAL IVP ONE (19:43)
[2017-05-25] MEDS ORDERED: NS 500 ML IV ONE (19:44)
[2017-05-25 19:46] LABS: WBC,URINE 50-182 /hpf (0-3)
[2017-05-25 20:11] LABS: % IMMATURE GRANULYOCYTES 0.4 % (0.0-1.1); ABSOLUTE IMMATURE GRANULOCYTES 0.02 10^3/uL (0.00-0.10); ADD DIFF? NO; ADD MORPH? NO; ADD SCAN? NO; ATYPICAL LYMPHOCYTE FLAG 60 (0-99); FRAGMENT RBC FLAG 10 (0-99); HEMOGLOBIN 8.6 g/dL (12.6-16.3); LEFT SHIFT FLG 0 (0-99); LIPEMIA HEMOLYSIS FLAG 80 (0-99); MEAN CELL HEMOGLOBIN 30.9 pg (27.9-34.1); MEAN CELL HEMOGLOBIN CONCENTR. 31.9 g/dL (32.4-36.7); MEAN CELL VOLUME 97.1 fL (81.5-99.8); MEAN PLATELET VOLUME 10.2 fL (8.7-11.7); PLATELET CLUMPS FLAG 10 (0-99); PLATELET COUNT 272 10^3/uL (150-400); RED BLOOD CELL COUNT 2.78 10^6/uL (4.18-5.33); RED CELL DISTRIBUTION WIDTH 18.9 % (11.5-15.2)
[2017-05-25 20:26] LABS: ANION GAP 18 mEq/L (8-16); CALCIUM 9.9 mg/dL (8.5-10.4); CARBON DIOXIDE 26 mEq/l (22-31); CHLORIDE 98 mEq/L (97-110); CREATININE 6.6 mg/dL (0.6-1.0); GLOMERULAR FILTRATION RATE 7; GLUCOSE 76 mg/dL (70-100); POTASSIUM 3.8 mEq/L (3.5-5.2); SODIUM 142 mEq/L (134-144)
[2017-05-25] MEDS ORDERED: VANCOMYCIN HCL/NORMAL SALINE 250 ML IV ONE (20:44)
[2017-05-25] MEDS ORDERED: PROMETHAZINE HCL 25 MG/ML INJ IVP ONE (21:55)
[2017-05-25] MEDS ORDERED: ACETAMINOPHEN 325 MG TAB PO PRN (23:25)
[2017-05-25] MEDS ORDERED: ONDANSETRON 4 MG/2 ML VIAL IVP PRN (23:25)
[2017-05-25] MEDS ORDERED: oxyCODONE IR 5 MG TAB PO PRN (23:25)
[2017-05-25] MEDS ORDERED: NS W/ 20 KCl/L 1,000 ML IV SCH (23:45)
[2017-05-26 00:14] LABS: ALBUMIN 4.3 g/dL (3.5-5.0); BILIRUBIN,TOTAL 0.5 mg/dL (0.1-1.4); BILIRUBIN-CONJUGATED 0.4 mg/dL (0.0-0.5); BILIRUBIN-UNCONJUGATED 0.1 mg/dL (0.0-1.1); TOTAL PROTEIN 7.3 g/dL (6.3-8.2)
[2017-05-26] MEDS: NS 1,000 ML IV SCH ×3 (00:15→21:38)
[2017-05-26] MEDS: PIPERACILLIN/TAZO 2.25 GM/DEX 50 ML IV SCH ×3 (00:15→16:02)
--- NOTE | 2017-05-26 00:50 | GHP ---
[f rep st] HISTORY AND PHYSICAL DATE OF ADMISSION: 05/25/2017 CHIEF COMPLAINT: Dysuria and vomiting. HISTORY OF PRESENT ILLNESS: The patient is a 47-year-old female with a history of end-stage renal disease and renal transplant, as well as chronic urinary retention, chronic low back pain and recurrent urinary tract infections, who presents to the emergency department with dysuria and vomiting. She was admitted to the hospital in January 2017, at which time she had enterococcal bacteremia secondary to urinary source. She was treated with IV vancomycin. Her symptoms improved. However, since then, she has been treated 2 more times in the outpatient setting for UTIs. She states in March while she was visiting [place], [place], she was given an outpatient prescription for Augmentin for UTI. She believes the culture grew Klebsiella. Then in April, she received another outpatient prescription for an antibiotic, but she is not sure which one. She thinks she got better, however, over the past 2 days, she has developed dysuria, suprapubic pain, and nausea and vomiting. She denies fevers , chills, or rigors. She has no chest pain, shortness of breath. She recently had a fistula placed in her right arm in preparation for dialysis, which she has not yet started. She still makes urine. She states her urine output has been decreased slightly due to poor oral intake in the setting of nausea and vomiting. EMERGENCY DEPARTMENT COURSE: She was given 500 mL of normal saline along with Zofran, Phenergan, and 1 g of IV vancomycin. She is admitted to the hospital for further management. PAST MEDICAL AND SURGICAL HISTORY: 1. 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 2. Right upper extremity fistula placement May 09, 2017. 3. Chronic urinary retention secondary to neurogenic bladder. 4. Chronic low back pain with chronic continuous opioid dependence. 5. History of Clostridium difficile many years ago. 6. Hypertension. 7. History of left cerebellar CVA. 8. Skycx-Hrpwmckhv-Ykuxp syndrome status post ablation. 9. Non-Hodgkin lymphoma. 10. Chronic iron deficiency anemia. MEDICATIONS: Please see [facility] for complete updated outpatient medication list. ALLERGIES: Erythromycin, metoclopramide, anti-inflammatories, meperidine, meropenem, sulfa, ceftazidime, ciprofloxacin, levofloxacin, doxycycline, gabapentin. SOCIAL HISTORY: The patient lives independently. She is a nonsmoker. She reports rare alcohol use. She denies other illicit drugs. FAMILY HISTORY: Her mother had Viiar-Dlxaexevf-Abkom syndrome. Otherwise negative for kidney disease. REVIEW OF SYSTEMS: A 10-point review of systems was performed and is negative except as per HPI. OBJECTIVE: VITAL SIGNS: Temperature 36.9, blood pressure 116/75, heart rate 81 , respiratory rate 16. She is 95% on room air. GENERAL: The patient is awake , alert, oriented, in no acute distress. HEENT: Head is atraumatic, normocephalic. Pupils equal, round, and reactive to light. Extraocular muscles intact. Oropharynx is clear. Mucous membranes are dry. NECK: Supple. There is no JVD. HEART: Regular rate and rhythm with 2/6 systolic ejection murmur. LUNGS: Clear to auscultation bilaterally. ABDOMEN: Soft, nondistended. She has suprapubic tenderness to palpation. There is no CVA tenderness. She has normoactive bowel tones. EXTREMITIES: Without cyanosis, clubbing, or edema. Her right upper extremity graft site has very minimal erythema along the wound edge without purulence or drainage. NEUROLOGIC: Grossly nonfocal. LABORATORY DATA: CBC shows a white count of 5.1, hemoglobin 8.6, platelet count is 272. Basic metabolic panel shows normal electrolytes, BUN 58, creatinine 6.6, her CO2 is 26, anion gap 18, calcium is normal. LFTs procalcitonin and level are sent and pending. Blood cultures are also pending. Urinalysis shows 2+ protein, 1+ blood, 3+ leukocytes with 50-182 white cells. A culture is pending. A right upper extremity ultrasound is negative for DVT, shows superficial thrombophlebitis. ASSESSMENT AND PLAN: The patient is a 47-year-old female with a history of end- stage renal disease status post transplant with recurrent urinary tract infections, who is admitted to the hospital with a presumed urinary tract infection and vomiting. 1. Urinary tract infection in renal transplant patient with recurrent UTI's and recent transplant pyelonephritis. She does not meet SIRS criteria for sepsis, has a normal white count, and is afebrile. I reviewed her prior urine culture data and note that she had enterococcal UTI with bacteremia in December of 2016, which was sensitive to vancomycin. She received 1 g of vancomycin in the ED. I will defer further vancomycin dosing to ID, who will consult given her recurrent infections. Will add Zosyn for broader for now coverage given her frequent antibiotic use. As above, she has had 3 UTI's since December of this year. Will check a renal ultrasound. Procalcitonin is pending. Blood cultures are sent, UCx pending. Will follow up on her culture data and tailor antibiotics as indicated. 2. Nausea and vomiting. Suspect related to infection. Her symptoms are improved after receiving antiemetics in the emergency department. Will continue supportive care. She does appear volume depleted. Will continue IV fluids with p.r.n. Zofran and Phenergan. 3. End-stage renal disease status post renal transplant secondary to congenital reflux. Tacrolimus level is sent. Will continue her Imuran and Tacrolimus once med rec is completed. A fistula has recently been placed, as she plans to eventually start dialysis. Will request a Nephrology consult for tomorrow. She has no acute dialysis needs on admission. Will renally dose antibiotics and other medications. 4. Chronic urinary retention secondary to neurogenic bladder. At her hospital discharge in January, she was requiring home straight catheterizations. Renal ultrasound is pending as above. Will plan for p.r.n. bladder scans and straight catheterizations as needed. 5. History of Clostridium difficile. This is a distant infection. Will defer prophylactic vancomycin at this time and watch for diarrhea. 6. Iron-deficiency anemia. Her hemoglobin is stable. She likely has an element of anemia secondary to chronic kidney disease. Will defer indication for erythropoietin to the renal service. 7. Deep venous thrombosis prophylaxis. Patient is at least moderate risk. Will start renally dosed heparin tomorrow. 8. Code status. Patient is a full code. 9. Disposition. Patient admitted to inpatient status. Will likely require greater than 48 hours hospitalization for ongoing management of her urinary tract infection, nausea, vomiting, and associated volume depletion. /[id number]/MODL MTDD
[2017-05-26 00:57] LABS: PROCALCITONIN 0.26 ng/mL (0.02-0.10)
[2017-05-26] MEDS: oxyCODONE IR 5 MG TAB PO PRN ×2 (02:34→16:01)
[2017-05-26] MEDS: ONDANSETRON DISINTEGRATING 4 MG TAB PO PRN ×3 (02:34→20:09)
[2017-05-26] MEDS ORDERED: LORazepam 1 MG TAB PO PRN (06:33)
[2017-05-26] MEDS ORDERED: SENNOSIDES 1 TAB PO PRN (07:41)
[2017-05-26] MEDS ORDERED: DOCUSATE SODIUM 100 MG CAP PO PRN (07:41)
[2017-05-26] MEDS ORDERED: CYPROHEPTADINE HCL 4 MG TAB PO PRN (07:41)
--- NOTE | 2017-05-26 08:20 | HOSPPROG ---
Hospitalist Progress Note Assessment/Plan: Patient is a 47-year-old female with a history of end-stage renal disease as well as renal transplant presented to the emergency room with dysuria and vomiting. She has chronic low back pain and recurrent urinary tract infections. She was recently admitted in January in which she was treated for enterococcal bacteremia secondary to urinary source. She was treated with IV vancomycin at that time. In addition, she has been treated 2 more times in the outpatient setting for UTIs in March in the [facility] [place] in [place] [facility]. Today is my 1st encounter with the patient. Chart reviewed. Reviewed her care with Dr. Kym Houston who admitted her last evening. Also, reviewed her care with Dr Chin * urinary tract infection/recurrent urinary tract infections Infectious disease team to see today She was treated with vancomycin in the ER and Zosyn has been added Procalcitonin level is 0.26 which indicates local bacterial infection but low risk for severe sepsis Will follow up with renal ultrasound * in stage renal disease & renal transplant Creatinine is 6.6 without hyperkalemia/baseline creatinine in the past has been in the mid 2s She has a fistula that has been recently placed will ask nephrology to see her * nausea and vomiting needed Phenergan earlier for nausea * chronic urinary retention secondary to a neurogenic bladder At home she straight caths as needed * iron deficiency anemia/likely chronic anemia due to end-stage renal disease * history of Clostridium difficile Continue monitor / no c/o this today *chronic pain on chronic/continuous opioids due to sedation will decrease MS Contin to 15 mg bid/ usually on MS Contin 30 mg tid *plan : 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 Subjective: Divya is feeling poorly. Objective: Vital Signs Temp Pulse Resp BP Pulse Ox 36.8 C 74 20 102/61 90 L 05/26/17 07:49 05/26/17 07:49 05/26/17 07:49 05/26/17 07:49 05/26/17 07:49 05/25/17 05/26/17 05/27/17 05:59 05:59 05:59 Intake Total 1207 Output Total 1025 100 Balance 182 -100 - Physical Exam Constitutional: chronically ill appearing, uncomfortable Eyes: PERRL Ears, Nose, Mouth, Throat: hearing normal Cardiovascular: regular rate and rhythym Respiratory: no respiratory distress Skin: No warm (pale) Musculoskeletal: generalized weakness Neurologic: AAOx3, other (drowsy) Psychiatric: interacting appropriately ICD10 Worksheet Patient Problems: Problems Problem Status Onset Nausea & vomiting Acute Superficial thrombophlebitis Acute Urinary tract infection Acute Anticoagulant therapy Active Chronic pain syndrome Active Hypokalemia Active Hypothyroidism Active Renal impairment Active biliary gastric reflux Active Abdominal pain Acute C. difficile diarrhea Acute 10/08/16 Dehydration Acute Diarrhea Acute Nausea Acute Pyelonephritis Acute Renal failure (ARF), acute on chronic Acute Sepsis Acute Syncope due to orthostatic hypotension Acute Tachycardia Acute History of kidney transplant Chronic
[2017-05-26] MEDS ORDERED: PRAVASTATIN SODIUM 20 MG TAB PO SCH (09:00)
[2017-05-26] MEDS ORDERED: morphINE SR 30 MG TAB PO SCH ×2 (09:00→21:00)
[2017-05-26] MEDS ORDERED: ASTAGRAF PO SCH (09:00)
[2017-05-26] MEDS: CALCITRIOL 0.25 MCG CAP PO SCH (09:04)
[2017-05-26] MEDS: PROMETHAZINE HCL 25 MG/ML INJ IVP PRN (09:08)
[2017-05-26] MEDS: PANTOPRAZOLE SODIUM 40 MG TAB PO SCH (09:37)
[2017-05-26] MEDS: predniSONE 10 MG TAB PO SCH (09:37)
[2017-05-26] MEDS: HEPARIN 5,000 UNIT/0.5 ML SYR SC SCH ×2 (09:40→21:37)
[2017-05-26] MEDS ORDERED: DAPTOmycin 500 MG in NS 100 ML IV SCH (10:45)
--- NOTE | 2017-05-26 11:13 | PCMIDPN ---
Assessment/Plan: 1. Recurrent urinary tract infection /? Pyelonephritis in transplanted kidney: I spent over 45 minutes on the telephone trying to obtain lab results from the patient's purported hospitalizations at [facility] in [place], [place]. The main phone number there is [phone]. I was sent to a lab with a different phone number to get more results, . These results should be faxed to us, but the only lab results they had from urine cultures were from February 27 and March 16 which grew Klebsiella pneumoniae. They do not have any record of VRE. For now, will place the patient on contact isolation and start daptomycin, dose adjusted for renal insufficiency and impending hemodialysis. Will also continue Pipracil in/ tazobactam for history of Klebsiella pending urine and blood culture results. Present dose should be fine. Obtain creating kinase in the setting of daptomycin, and hold Pravachol for now. Blood cultures are pending. 2. status post right upper extremity AV fistula ligation with thrombectomy: No evidence of infection presently. Subjective: The patient is incredibly sedated from narcotics, and unable to give me a meaningful history. She reports being hospitalized at a facility in [place] or again in March. I googled [facility]'s there, and the only 1 I could find was [facility]. please see impression implant. Patient states that her symptoms of dysuria started abruptly 2 days ago. Objective: Zosyn 2.25 g IV q.8 hours day 1. afebrile Vital Signs Temp Pulse Resp BP Pulse Ox 36.8 C 74 20 102/61 90 L 05/26/17 07:49 05/26/17 07:49 05/26/17 07:49 05/26/17 07:49 05/26/17 07:49 05/25/17 05/26/17 05/27/17 05:59 05:59 05:59 Intake Total 457 Output Total 1025 100 Balance -568 -100 blood cultures and urine cultures pending previous microbiologic data here show vancomycin sensitive Enterococcus faecalis - Physical Exam General Appearance: other ( sedated, barely able to open her eyes) Respiratory: lungs clear Cardiac/Chest: systolic murmur Extremities: other ( right upper extremity with Avfistula, Steri-Strips in place. No obvious evidence of infection.) Abdomen: non-tender, soft Skin: No rash ICD10 Worksheet Patient Problems: Problems Problem Status Onset Nausea & vomiting Acute Superficial thrombophlebitis Acute Urinary tract infection Acute Anticoagulant therapy Active Chronic pain syndrome Active Hypokalemia Active Hypothyroidism Active Renal impairment Active biliary gastric reflux Active Abdominal pain Acute C. difficile diarrhea Acute 10/08/16 Dehydration Acute Diarrhea Acute Nausea Acute Pyelonephritis Acute Renal failure (ARF), acute on chronic Acute Sepsis Acute Syncope due to orthostatic hypotension Acute Tachycardia Acute History of kidney transplant Chronic
[2017-05-26] MEDS ORDERED: DAPTOmycin 360 MG in NS 100 ML IV SCH (11:15)
[2017-05-26 11:20] LABS: % IMMATURE GRANULYOCYTES 0.2 % (0.0-1.1); ABSOLUTE IMMATURE GRANULOCYTES 0.01 10^3/uL (0.00-0.10); ADD DIFF? NO; ADD MORPH? NO; ADD SCAN? NO; ATYPICAL LYMPHOCYTE FLAG 20 (0-99); FRAGMENT RBC FLAG 10 (0-99); HEMATOCRIT 31.3 % (38.0-47.0); HEMOGLOBIN 9.8 g/dL (12.6-16.3); LEFT SHIFT FLG 0 (0-99); LIPEMIA HEMOLYSIS FLAG 80 (0-99); MEAN CELL HEMOGLOBIN 31.1 pg (27.9-34.1); MEAN CELL HEMOGLOBIN CONCENTR. 31.3 g/dL (32.4-36.7); MEAN CELL VOLUME 99.4 fL (81.5-99.8); MEAN PLATELET VOLUME 10.3 fL (8.7-11.7); PLATELET CLUMPS FLAG 0 (0-99); PLATELET COUNT 239 10^3/uL (150-400); RED BLOOD CELL COUNT 3.15 10^6/uL (4.18-5.33); RED CELL DISTRIBUTION WIDTH 19.1 % (11.5-15.2)
[2017-05-26 11:42] LABS: ALBUMIN 4.1 g/dL (3.5-5.0); ANION GAP 16 mEq/L (8-16); CALCIUM 9.6 mg/dL (8.5-10.4); CARBON DIOXIDE 23 mEq/l (22-31); CHLORIDE 105 mEq/L (97-110); CREATININE 5.8 mg/dL (0.6-1.0); GLOMERULAR FILTRATION RATE 8; GLUCOSE 66 mg/dL (70-100); POTASSIUM 4.1 mEq/L (3.5-5.2); SODIUM 144 mEq/L (134-144)
--- NOTE | 2017-05-26 13:06 | GCON ---
[f rep st] CONSULTATION DATE OF CONSULTATION: 05/26/2017 NEPHROLOGY CONSULTATION ASSESSMENT: 1. Acute on chronic renal failure. 2. Nausea, vomiting. 3. Chronic pain. 4. Dysuria with probable urinary tract infection. 5. History of vancomycin-resistant enterococci. 6. Status post placement of right upper arm arteriovenous fistula by Dr. Dobson on 05/09/2017. RECOMMENDATIONS: 1. Continue current antibiotics. 2. Avoid nonsteroidals, IV contrast, and other potentially nephrotoxic agents. 3. Continue IV fluids. 4. Dose adjust antibiotics as needed for her current level of kidney function. 5. Avoid IVs, blood pressures, blood draws in the patient's right upper extremity due to the presence of an AV fistula. HISTORY: The patient is a 47-year-old female I have been asked to consult on by Kym Houston. She was admitted last night through the emergency room with dysuria and vomiting. She also had suprapubic pain. She has a history of recurrent urinary tract infections and urosepsis. Urinalysis showed pyuria. She was cultured and placed on broad-spectrum antibiotics. On admission, she was found to be in renal failure with a creatinine up to 6.6. Her last outpatient creatinine was 4. She has had progressive loss of her renal function due to recurrent tubular injury and allograft nephropathy. She had a renal biopsy done in April 2015 due to changes that she had been experiencing with her renal function. Her medical history is complicated. She has end-stage renal disease due to a neurogenic bladder with vesicoureteral reflux. She ultimately progressed to end- stage renal disease and underwent a living related renal transplant in 2007 from her sister. This was a 6 antigen match. She had her transplant surgery at the [facility] in [place], [place]. She has been managed since then by Dr. Sanderson. In spite of her well matched kidney, she continued to have complications, mostly in the form of recurrent urinary tract infections. With these episodes, she would have acute on chronic renal failure. With her progressive rise in creatinine this led to the renal biopsy in April 2015 as discussed, which revealed tubular injury and early allograft nephropathy. She was seen in consultation with the [facility] physicians. Recommendations were to try and keep her Prograf level at the lower levels of acceptable limits with target levels of 3- 4. In spite of this, she continued to progress. She recently traveled to [place] due to illness in her father. She states that she was in [place] for 3-1/2 months. During that time, she was hospitalized on 3 different occasions. She states with 1 of the hospitalizations, she was airlifted to [facility]. Per Dr. Sanderson's note, the patient had history of urosepsis and had VRE identified during 1 of those hospitalizations. When she was seen in followup on April 17, she had a creatinine of 4. The prior week, her creatinine had been up as high as 5.4. Creatinines over the previous year have ranged from 1.4 up to 5.4 prior to her admission creatinine yesterday of 6.6. Because of her progressive loss of kidney function and her underlying changes seen on her renal transplant, she had a right upper arm AV fistula placed by Dr. Dobson on May 09, 2017, in anticipation of the need for dialysis in the future. Due to her multiple abdominal surgeries, it was felt that peritoneal dialysis would not be a good option for this patient. The patient has history of non-Hodgkin's lymphoma with CHOP therapy in 2000. She has hypertension, chronic kidney disease as described, gastroesophageal reflux disease, hypothyroidism, degenerative joint disease, especially that in her back resulting in chronic pain. She has had a right upper extremity DVT in the past. She has also had Kwflk-Qlykoktrs-Pcgez syndrome and has been seen by Dr. Mike. She has had a CVA and has problems with aphasia. Her renal transplant was back in 2007. She had a left nephrectomy in 1994 and a right nephrectomy in 2007. She has also had back surgeries. MEDICATIONS: Have been Astagraf 3 mg daily, prednisone 10 mg daily, Senokot, pravastatin 20 mg daily, potassium 10 mEq daily, Pantoprazole 40 mg daily, morphine sustained release 30 mg 3 times daily, Lorazepam 1 mg 3 times daily, levothyroxine 75 mcg 6 days weekly taking it Monday through Monday, [place] 1-2 tablets every 6 hours as needed, docusate p.r.n., cyproheptadine 4 mg 4 times daily, azathioprine 100 mg at bedtime, calcitriol 0.25 mg Monday, Monday, Monday, and oxycodone 20 mg tablets taking 1-2 every 6 hours as needed. ALLERGIES: She has multiple allergies. They include erythromycin, metoclopramide, nonsteroidal agents, meperidine, meropenem, sulfa, ceftazidime, Cipro, levofloxacin, doxycycline, and gabapentin. SOCIAL HISTORY: Nonsmoker, rare alcohol use. No other drug use. Patient lives independently. FAMILY HISTORY: Remarkable for Vcvoz-Wxrmlztrs-Wiwww in her mother. REVIEW OF SYSTEMS: Limited as the patient is quite sedated and not able to provide a lot of history at the present time. Most of her history is obtained from outside records and the hospital chart. PHYSICAL EXAMINATION: VITAL SIGNS: Temp 36.8, pulse 74, respirations 20, blood pressure 102/61, satting 90% on room air. She weighs 61.2 kilos. In's and out's over the last 24 hours are 1207 in and 1025 out. GENERAL: Appearance pale. No apparent distress. Somnolent. HEENT: Atraumatic, normocephalic. NECK: Unremarkable. HEART: Regular with a 2/6 systolic murmur. LUNGS: Decreased at the bases. ABDOMEN: Soft, nontender, nondistended. No hepatosplenomegaly. Renal transplant present. EXTREMITIES: Without edema. Right upper arm AV fistula patent with good bruit and thrill. Steri-Strips intact. NEUROLOGIC: She is moving all extremities. Gross exam is nonfocal. LABS: Pyuria as described. Urine culture pending. Creatinine has come down from 6.6 to 5.8 overnight. Electrolytes unremarkable. ASSESSMENT/PLAN: Acute on chronic renal failure. This is in the setting of transplant pyelonephritis. She appears to be responding to the current therapies. I would continue antibiotics and her IV fluid at the present time. When she starts to have excessive volume status, we should stop her IV fluid. We should avoid IV contrast, nonsteroidals, DIANE inhibitors, angiotensin receptor blockers, and other potentially nephrotoxic agents. Records are being requested from the hospitals in [place] to get a better idea of the history of vancomycin-resistant enterococci and what sort of organisms were identified in her prior urine and blood cultures. My understanding is that she also had cultures positive for Klebsiella.. She has her right upper arm arteriovenous fistula. Care should be taken to avoid injury to that connection. Currently, it appears to be functioning well. /[id number]/MODL MTDD
[2017-05-26] MEDS: ASTAGRAF PO SCH (14:24)
[2017-05-26] MEDS: morphINE SR 15 MG TAB PO SCH (21:37)
[2017-05-26] MEDS: azaTHIOprine 50 MG TAB PO SCH (21:37)
[2017-05-27] MEDS: PIPERACILLIN/TAZO 2.25 GM/DEX 50 ML IV SCH ×3 (00:16→16:29)
[2017-05-27] MEDS: oxyCODONE IR 5 MG TAB PO PRN ×2 (02:47→14:15)
[2017-05-27] MEDS: morphINE SR 15 MG TAB PO SCH ×2 (09:39→20:27)
[2017-05-27] MEDS: HEPARIN 5,000 UNIT/0.5 ML SYR SC SCH ×3 (09:40→20:27)
[2017-05-27] MEDS: PANTOPRAZOLE SODIUM 40 MG TAB PO SCH (09:40)
[2017-05-27] MEDS: predniSONE 10 MG TAB PO SCH (09:41)
[2017-05-27] MEDS: ASTAGRAF PO SCH (09:49)
--- NOTE | 2017-05-27 10:30 | HOSPPROG ---
Hospitalist Progress Note Assessment/Plan: Patient is a 47-year-old female with a history of end-stage renal disease as well as renal transplant presented to the emergency room with dysuria and vomiting. She has chronic low back pain and recurrent urinary tract infections. She was recently admitted in January in which she was treated for enterococcal bacteremia secondary to urinary source. She was treated with IV vancomycin at that time. In addition, she has been treated 2 more times in the outpatient setting for UTIs in March in the [place] area. * urinary tract infection/klebsiella pneumoniae hx of recurrent UTI's appreciate ID and Nephrology Zosyn and Daptomycin Procalcitonin level is 0.26 which indicates local bacterial infection but low risk for severe sepsis *hx of VRE on precautions *s/p upper extremity AV fistula ligation with thrombectomy w Dr Dobson done prior to this admission * end stage renal disease & renal transplant recheck chemistry today * nausea and vomiting today with dry heaves trial of k pad * chronic urinary retention secondary to a neurogenic bladder At home she straight caths as needed * iron deficiency anemia/likely chronic anemia due to end-stage renal disease * history of Clostridium difficile Continue monitor / no c/o this today *chronic pain on chronic/continuous opioids due to sedation will decrease MS Contin to 15 mg bid/ usually on MS Contin 30 mg tid so far is tolerating lower dose and much more interactive today *plan : continue the above treatment/ encouraged Barbara to get outside with her family , check labs today and tomorrow Subjective: Barbara is not c/o pain, but is c/o nausea. Objective: Vital Signs Temp Pulse Resp BP Pulse Ox 36.8 C 67 16 97/55 L 91 L 05/27/17 07:47 05/27/17 07:47 05/27/17 07:47 05/27/17 07:47 05/27/17 07:47 Laboratory Results 05/26/17 11:13 05/26/17 11:13 05/26/17 05/27/17 05/28/17 05:59 05:59 05:59 Intake Total 457 2460 Output Total 1025 1100 Balance -568 1360 - Physical Exam Constitutional: not in pain, chronically ill appearing Eyes: PERRL Ears, Nose, Mouth, Throat: hearing normal Cardiovascular: regular rate and rhythym Respiratory: no respiratory distress Gastrointestinal: normoactive bowel sounds Skin: warm, No normal color (pale) Musculoskeletal: no muscle tenderness Neurologic: AAOx3 Psychiatric: interacting appropriately, flat affect ICD10 Worksheet Patient Problems: Problems Problem Status Onset Nausea & vomiting Acute Superficial thrombophlebitis Acute Urinary tract infection Acute VRE (vancomycin-resistant Enterococci) Acute ~03/01/17 Anticoagulant therapy Active Chronic pain syndrome Active Hypokalemia Active Hypothyroidism Active Renal impairment Active biliary gastric reflux Active Abdominal pain Acute C. difficile diarrhea Acute 10/08/16 Dehydration Acute Diarrhea Acute Nausea Acute Pyelonephritis Acute Renal failure (ARF), acute on chronic Acute Sepsis Acute Syncope due to orthostatic hypotension Acute Tachycardia Acute History of kidney transplant Chronic
[2017-05-27 12:02] LABS: ALBUMIN 3.3 g/dL (3.5-5.0); ANION GAP 14 mEq/L (8-16); CALCIUM 8.6 mg/dL (8.5-10.4); CARBON DIOXIDE 20 mEq/l (22-31); CHLORIDE 107 mEq/L (97-110); CREATININE 5.1 mg/dL (0.6-1.0); GLOMERULAR FILTRATION RATE 9; GLUCOSE 123 mg/dL (70-100); POTASSIUM 3.9 mEq/L (3.5-5.2); SODIUM 141 mEq/L (134-144)
--- NOTE | 2017-05-27 12:14 | PCMIDPN ---
Assessment/Plan: 47-year-old woman on immunosuppression s/p renal transplant # Klebsiella UTI/pyelonephritis with renal ultrasound showing mild pyelonephritis and mildly thickened bladder wall. No bladder retention. Patient with acute on chronic renal failure on admission. Patient reports creatinine of 6.6 is the highest she has ever heard (consistent with our labs). --DC daptomycin --continue Zosyn while hospitalized, plan to change to levofloxacin 750 mg every other day at time of discharge # acute on chronic renal failure on admission. Patient reports creatinine of 6.6 is the highest she has ever heard (consistent with our labs). --may need more supportive care until closer to baseline Cr around 4 # Antibiotic allergies: Reviewed fluoroquinolone allergy with patient and she describes mild rash in the past, years ago and is willing to try agent again. meds daptomycin IV Zosyn 2.25gm IV q8 Imuran 100mg daily pred 10 Subjective: Patient describes left lower quadrant pain and dysuria is improved. No diarrhea. She does describe some weight loss recently Objective: Vital Signs Temp Pulse Resp BP Pulse Ox 37.1 C 65 18 95/59 L 91 L 05/27/17 11:35 05/27/17 11:35 05/27/17 11:35 05/27/17 11:35 05/27/17 11:35 Laboratory Results 05/26/17 11:13 05/27/17 11:30 05/26/17 05/27/17 05/28/17 05:59 05:59 05:59 Intake Total 457 2460 Output Total 1025 1100 300 Balance -568 1360 -300 - Physical Exam General Appearance: alert, no apparent distress EENT: pale conjunctiva Respiratory: lungs clear, No accessory muscle use Cardiac/Chest: regular rate, rhythm, systolic murmur Extremities: No pedal edema Abdomen: non-tender, soft, other (Left lower quadrant discomfort to deep palpation) Skin: pallor, No rash Neuro/Psych: alert, oriented x 3, depressed affect ICD10 Worksheet Patient Problems: Problems Problem Status Onset Nausea & vomiting Acute Superficial thrombophlebitis Acute Urinary tract infection Acute VRE (vancomycin-resistant Enterococci) Acute ~03/01/17 Anticoagulant therapy Active Chronic pain syndrome Active Hypokalemia Active Hypothyroidism Active Renal impairment Active biliary gastric reflux Active Abdominal pain Acute C. difficile diarrhea Acute 10/08/16 Dehydration Acute Diarrhea Acute Nausea Acute Pyelonephritis Acute Renal failure (ARF), acute on chronic Acute Sepsis Acute Syncope due to orthostatic hypotension Acute Tachycardia Acute History of kidney transplant Chronic
--- NOTE | 2017-05-27 13:50 | SOAPPROG ---
SOAP Progress Note Assessment/Plan: Assessment: MEETA on [id number]. reports baseline Cr ~ 4 range Cr improving with IVF, down to 5.1 continue IVF for now u/s shows mild hydro - I have call into radiology to discuss further. If continues to improve clinically, I think we can repeat u/s on Monday. However , if more concerning signs of sepsis/decrease UOP/Cr stalls- will need more urgent eval to exclude pus under pressure. has AVF just placed 05/09- good thrill/bruit but too immature to use Transplant pyelonephritis- Klebsiella in urine Cx Appreciate ID input BP still a bit on low side, no fevers s/p renal transplant- continue pred 10mg po qday, Astagraf 3mg po daily, Imuran 100mg po daily would stress dose steroids if worsening hemodynamics Secondary hyperparathyroidism- on calcitriol, phos at goal 5.0 Taya Andrade MD [facility] [phone] pager 05/27/17 15:10 Subjective: Eating lunch when I came by. Reports feeling better but not back to baseline. BP still a bit on lower side. Abd pain better but not resolved. No fevers. Objective: Vital Signs Temp Pulse Resp BP Pulse Ox 37.1 C 65 18 95/59 L 91 L 05/27/17 11:35 05/27/17 11:35 05/27/17 11:35 05/27/17 11:35 05/27/17 11:35 Laboratory Results 05/26/17 11:13 05/27/17 11:30 05/26/17 05/27/17 05/28/17 05:59 05:59 05:59 Intake Total 457 2460 Output Total 1025 1100 300 Balance -568 1360 -300 Physical Exam - Physical Exam General Appearance: alert, no apparent distress EENT: other (mmm) Neck: supple Cardiac/Chest: regular rate, rhythm Skin: warm/dry Extremities: other (no edema, RUE AVF +thril/bruit, steristrips on) Neuro/Psych: alert, oriented x 3 ICD10 Worksheet Patient Problems: Problems Problem Status Onset Nausea & vomiting Acute Superficial thrombophlebitis Acute Urinary tract infection Acute VRE (vancomycin-resistant Enterococci) Acute ~03/01/17 Anticoagulant therapy Active Chronic pain syndrome Active Hypokalemia Active Hypothyroidism Active Renal impairment Active biliary gastric reflux Active Abdominal pain Acute C. difficile diarrhea Acute 10/08/16 Dehydration Acute Diarrhea Acute Nausea Acute Pyelonephritis Acute Renal failure (ARF), acute on chronic Acute Sepsis Acute Syncope due to orthostatic hypotension Acute Tachycardia Acute History of kidney transplant Chronic
[2017-05-27] MEDS: NS 1,000 ML IV SCH (18:17)
[2017-05-27] MEDS: azaTHIOprine 50 MG TAB PO SCH (20:27)
[2017-05-28] MEDS: PIPERACILLIN/TAZO 2.25 GM/DEX 50 ML IV SCH ×3 (00:28→15:09)
[2017-05-28] MEDS: NS 1,000 ML IV SCH ×2 (00:28→15:07)
[2017-05-28] MEDS: oxyCODONE IR 5 MG TAB PO PRN ×3 (02:48→17:31)
[2017-05-28] MEDS: LORazepam 1 MG TAB PO PRN (04:25)
[2017-05-28] MEDS: LEVOTHYROXINE 75 MCG TAB PO SCH (04:26)
[2017-05-28] MEDS: PANTOPRAZOLE SODIUM 40 MG TAB PO SCH (07:37)
[2017-05-28] MEDS: predniSONE 10 MG TAB PO SCH (07:37)
[2017-05-28] MEDS: HEPARIN 5,000 UNIT/0.5 ML SYR SC SCH ×2 (07:37→20:40)
[2017-05-28] MEDS: morphINE SR 15 MG TAB PO SCH ×2 (07:37→20:40)
[2017-05-28] MEDS: ASTAGRAF PO SCH (07:41)
[2017-05-28] MEDS: ONDANSETRON DISINTEGRATING 4 MG TAB PO PRN ×2 (07:56→17:31)
[2017-05-28] MEDS: CALCITRIOL 0.25 MCG CAP PO SCH (07:56)
--- NOTE | 2017-05-28 10:30 | PCMIDPN ---
Assessment/Plan: 47-year-old woman on immunosuppression s/p renal transplant # Klebsiella UTI/pyelonephritis with renal ultrasound showing mild pyelonephritis and mildly thickened bladder wall. No bladder retention currently. --continue Zosyn while hospitalized, plan to change to levofloxacin 750 mg every other day at time of discharge. Reluctant to change to PO med today because of nausea # acute on chronic renal failure on admission. RUE fistula without abnormality. Mild hydro on US --creatinine pending today because of difficulty with blood draws --repeat US to eval for resolution of hydro, in the past she has had some urinary retention continuing to hydro # Antibiotic allergies: multiple antibiotic allergies. Reviewed fluoroquinolone allergy with patient and she describes mild rash in the past, years ago and is willing to try agent again. meds Zosyn 2.25gm IV q8, #2 Imuran 100mg daily pred 10 Subjective: nausea and mild LLQ pain Objective: Vital Signs Temp Pulse Resp BP Pulse Ox 36.5 C 73 16 112/68 96 05/28/17 07:53 05/28/17 07:53 05/28/17 07:53 05/28/17 07:53 05/28/17 07:53 Laboratory Results 05/26/17 11:13 05/27/17 11:30 05/27/17 05/28/17 05/29/17 05:59 05:59 05:59 Intake Total 3505 3149 Output Total 1100 850 400 Balance 2405 2299 -400 - Physical Exam General Appearance: alert, no apparent distress EENT: pale conjunctiva Respiratory: No accessory muscle use Cardiac/Chest: regular rate, rhythm, systolic murmur Extremities: other (fisula R Upper arm with steri-strips, no erythema or tenderness), No pedal edema Abdomen: non-tender, soft, other (Discomfort) Skin: pallor, No rash Neuro/Psych: alert, oriented x 3, depressed affect - Time Spent With Patient Time Spent with Patient: greater than 25 minutes (coordination of care with hospitalist) Time Spent with Patient: Greater than 25 minutes spent on this patients care, greater than 50% of time spent counseling, educating, and coordinating care regarding the above mentioned plan. ICD10 Worksheet Patient Problems: Problems Problem Status Onset Nausea & vomiting Acute Superficial thrombophlebitis Acute Urinary tract infection Acute VRE (vancomycin-resistant Enterococci) Acute ~03/01/17 Anticoagulant therapy Active Chronic pain syndrome Active Hypokalemia Active Hypothyroidism Active Renal impairment Active biliary gastric reflux Active Abdominal pain Acute C. difficile diarrhea Acute 10/08/16 Dehydration Acute Diarrhea Acute Nausea Acute Pyelonephritis Acute Renal failure (ARF), acute on chronic Acute Sepsis Acute Syncope due to orthostatic hypotension Acute Tachycardia Acute History of kidney transplant Chronic
--- NOTE | 2017-05-28 10:56 | HOSPPROG ---
Hospitalist Progress Note Assessment/Plan: Patient is a 47-year-old female with a history of end-stage renal disease as well as renal transplant presented to the emergency room with dysuria and vomiting. She has chronic low back pain and recurrent urinary tract infections. She was recently admitted in January in which she was treated for enterococcal bacteremia secondary to urinary source. She was treated with IV vancomycin at that time. In addition, she has been treated 2 more times in the outpatient setting for UTIs in March in the [place] area. First encounter, chart reviewed. D/W Dr Henry and CM. * urinary tract infection/klebsiella pneumoniae hx of recurrent UTI's appreciate ID and Nephrology Zosyn only now, can change to PO levo when less nauseous *hx of VRE on precautions *s/p upper extremity AV fistula ligation with thrombectomy w Dr Dobson done prior to this admission * end stage renal disease & renal transplant recheck chemistry today blood draw issues, D/W ID. Will need to cont lab evaluation complicated due to recent fistula placement * nausea and vomiting nausea only today * chronic urinary retention secondary to a neurogenic bladder At home she straight caths as needed no retention currently * iron deficiency anemia/likely chronic anemia due to end-stage renal disease * history of Clostridium difficile Continue monitor / no c/o this today *chronic pain on chronic/continuous opioids MS Contin to 15 mg bid/ usually on MS Contin 30 mg tid so far is tolerating lower dose and much more interactive *plan : continue the above treatment/ encouraged Barbara to get outside with her family , check labs today and tomorrow Subjective: No specific issues. Some nausea. Tolerating liquids. Objective: Vital Signs Temp Pulse Resp BP Pulse Ox 36.5 C 73 16 112/68 96 05/28/17 07:53 05/28/17 07:53 05/28/17 07:53 05/28/17 07:53 05/28/17 07:53 Laboratory Results 05/26/17 11:13 05/27/17 11:30 05/27/17 05/28/17 05/29/17 05:59 05:59 05:59 Intake Total 3505 3149 Output Total 1100 850 400 Balance 2405 2299 -400 - Physical Exam Constitutional: appears nourished, not in pain, chronically ill appearing Eyes: PERRL, anicteric sclera, EOMI Ears, Nose, Mouth, Throat: moist mucous membranes, hearing normal, ears appear normal Cardiovascular: regular rate and rhythym, No JVD, No edema Respiratory: no respiratory distress, no rales or rhonchi, clear to auscultation Gastrointestinal: No tenderness, No ascites, No distension Skin: warm, normal color, No mottled Musculoskeletal: normal joint ROM, no joint effusions, generalized weakness Neurologic: AAOx3 Psychiatric: not anxious, not encephalopathic, thought process linear ICD10 Worksheet Patient Problems: Problems Problem Status Onset VRE (vancomycin-resistant Enterococci) Acute ~03/01/17 Diarrhea Acute Hypothyroidism Active Chronic pain syndrome Active Renal impairment Active Hypokalemia Active Anticoagulant therapy Active biliary gastric reflux Active Syncope due to orthostatic hypotension Acute Dehydration Acute Renal failure (ARF), acute on chronic Acute History of kidney transplant Chronic Tachycardia Acute Nausea Acute Nausea & vomiting Acute C. difficile diarrhea Acute 10/08/16 Sepsis Acute Pyelonephritis Acute Abdominal pain Acute Superficial thrombophlebitis Acute Urinary tract infection Acute
[2017-05-28 11:08] LABS: % IMMATURE GRANULYOCYTES 0.6 % (0.0-1.1); ABSOLUTE IMMATURE GRANULOCYTES 0.03 10^3/uL (0.00-0.10); ABSOLUTE NRBC COUNT 0.02 10^3/uL (0-0.01); ADD DIFF? NO; ADD MORPH? NO; ADD SCAN? NO; ATYPICAL LYMPHOCYTE FLAG 30 (0-99); FRAGMENT RBC FLAG 50 (0-99); HEMATOCRIT 26.3 % (38.0-47.0); HEMOGLOBIN 8.3 g/dL (12.6-16.3); LEFT SHIFT FLG 0 (0-99); LIPEMIA HEMOLYSIS FLAG 80 (0-99); MEAN CELL HEMOGLOBIN 31.6 pg (27.9-34.1); MEAN CELL HEMOGLOBIN CONCENTR. 31.6 g/dL (32.4-36.7); MEAN PLATELET VOLUME 10.6 fL (8.7-11.7); NRBC-AUTO% 0.4 % (0.0-0.2); PLATELET CLUMPS FLAG 10 (0-99); PLATELET COUNT 188 10^3/uL (150-400); RED BLOOD CELL COUNT 2.63 10^6/uL (4.18-5.33); RED CELL DISTRIBUTION WIDTH 19.3 % (11.5-15.2)
[2017-05-28 11:16] LABS: ALANINE AMINOTRANSFERASE 18 IU/L (9-52); ALBUMIN 3.4 g/dL (3.5-5.0); ALKALINE PHOSPHATASE 30 IU/L (38-126); ANION GAP 14 mEq/L (8-16); ASPARTATE AMINOTRANSFERASE 16 IU/L (14-46); BILIRUBIN,TOTAL 0.4 mg/dL (0.1-1.4); CALCIUM 8.4 mg/dL (8.5-10.4); CARBON DIOXIDE 19 mEq/l (22-31); CHLORIDE 109 mEq/L (97-110); CREATININE 4.8 mg/dL (0.6-1.0); GLOMERULAR FILTRATION RATE 10; GLUCOSE 194 mg/dL (70-100); MAGNESIUM 2.3 mg/dL (1.6-2.3); SODIUM 142 mEq/L (134-144); TOTAL PROTEIN 5.9 g/dL (6.3-8.2)
--- NOTE | 2017-05-28 15:42 | SOAPPROG ---
SOAP Progress Note Assessment/Plan: Assessment: MEETA on [id number]. reports baseline Cr ~ 4 range -Cr improving with IVF, down to 4.8 today -continue IVF for now as not taking much po -u/s shows mild hydro - attempted to discuss further with radiology but unable to reach anyone. Has history of needing to straight cath bid which hasn't been done since admission. Will place flores now and consider repeating u/s in next day or so. However, if she develops more concerning signs of sepsis/ decreased UOP/Cr stalls- will need more urgent eval to exclude pus under pressure/higher grade obstruction. -has AVF just placed 05/09- good thrill/bruit but too immature to use Transplant pyelonephritis- Klebsiella in urine Cx Appreciate ID input BP better today but still on softer side s/p renal transplant- continue pred 10mg po qday, Astagraf 3mg po daily, Imuran 100mg po daily would stress dose steroids if worsening hemodynamics Secondary hyperparathyroidism- on calcitriol, phos at goal 5.0 I discussed with RN Taya Andrade MD [facility] [phone] pager 05/28/17 16:29 Subjective: Still doesn't feel great but a bit better today. Not eating much. No fevers, no sob. Thinks she is having urine retention- tells me she normally straight caths bid at home and hasn't done this since admit. Objective: Vital Signs Temp Pulse Resp BP Pulse Ox 36.6 C 78 16 94/58 L 95 05/28/17 11:13 05/28/17 11:13 05/28/17 11:13 05/28/17 11:13 05/28/17 11:13 Laboratory Results 05/28/17 10:45 05/28/17 10:45 05/27/17 05/28/17 05/29/17 05:59 05:59 05:59 Intake Total 3505 3149 Output Total 1100 850 400 Balance 2405 2299 -400 Physical Exam - Physical Exam General Appearance: no apparent distress EENT: other (mmm) Neck: supple Respiratory: lungs clear Cardiac/Chest: regular rate, rhythm Abdomen: normal bowel sounds, non-tender, soft, other (mild suprapubic tenderness, no rebound/guarding) Extremities: other (no edema) Neuro/Psych: alert, oriented x 3 ICD10 Worksheet Patient Problems: Problems Problem Status Onset Nausea & vomiting Acute Superficial thrombophlebitis Acute Urinary tract infection Acute VRE (vancomycin-resistant Enterococci) Acute ~03/01/17 Anticoagulant therapy Active Chronic pain syndrome Active Hypokalemia Active Hypothyroidism Active Renal impairment Active biliary gastric reflux Active Abdominal pain Acute C. difficile diarrhea Acute 10/08/16 Dehydration Acute Diarrhea Acute Nausea Acute Pyelonephritis Acute Renal failure (ARF), acute on chronic Acute Sepsis Acute Syncope due to orthostatic hypotension Acute Tachycardia Acute History of kidney transplant Chronic
[2017-05-28] MEDS: azaTHIOprine 50 MG TAB PO SCH (20:40)
[2017-05-29] MEDS: NS 1,000 ML IV SCH (01:21)
[2017-05-29] MEDS: PIPERACILLIN/TAZO 2.25 GM/DEX 50 ML IV SCH ×3 (01:22→16:52)
[2017-05-29] MEDS: LEVOTHYROXINE 75 MCG TAB PO SCH (04:49)
[2017-05-29] MEDS: oxyCODONE IR 5 MG TAB PO PRN ×3 (04:49→20:11)
[2017-05-29 05:36] LABS: ANION GAP 10 mEq/L (8-16); CALCIUM 8.4 mg/dL (8.5-10.4); CARBON DIOXIDE 22 mEq/l (22-31); CHLORIDE 111 mEq/L (97-110); CREATININE 4.3 mg/dL (0.6-1.0); GLOMERULAR FILTRATION RATE 11; GLUCOSE 106 mg/dL (70-100); MAGNESIUM 2.4 mg/dL (1.6-2.3); POTASSIUM 3.9 mEq/L (3.5-5.2); SODIUM 143 mEq/L (134-144)
[2017-05-29] MEDS: HEPARIN 5,000 UNIT/0.5 ML SYR SC SCH ×2 (08:09→20:11)
[2017-05-29] MEDS: PANTOPRAZOLE SODIUM 40 MG TAB PO SCH (08:10)
[2017-05-29] MEDS: morphINE SR 15 MG TAB PO SCH ×2 (08:10→20:11)
[2017-05-29] MEDS: ONDANSETRON DISINTEGRATING 4 MG TAB PO PRN (08:10)
[2017-05-29] MEDS: predniSONE 10 MG TAB PO SCH (08:10)
--- NOTE | 2017-05-29 09:27 | SOAPPROG ---
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 Carl Hinds -prior history of VRE -on isolation 05/29/17 09:24 Subjective: nauseated Objective: Vital Signs Temp Pulse Resp BP Pulse Ox 36.9 C 76 16 105/66 94 05/29/17 07:53 05/29/17 07:53 05/29/17 07:53 05/29/17 07:53 05/29/17 07:53 Laboratory Results 05/28/17 10:45 05/29/17 05:00 05/28/17 05/29/17 05/30/17 05:59 05:59 05:59 Intake Total 3149 3365 Output Total 850 1350 Balance 2299 2014 Physical Exam - Physical Exam General Appearance: WD/WN, alert, mild distress EENT: normal ENT inspection Neck: normal inspection Respiratory: decreased breath sounds (at bases, worse on L than R) Cardiac/Chest: regular rate, rhythm, systolic murmur, No diastolic murmur Abdomen: normal bowel sounds, other (LLQ renal allograft, tender), No non-tender , No hepatomegaly, No splenomegaly Skin: normal color, warm/dry Extremities: No swelling Neuro/Psych: no motor/sensory deficits, depressed affect ICD10 Worksheet Patient Problems: Problems Problem Status Onset Nausea & vomiting Acute Superficial thrombophlebitis Acute Urinary tract infection Acute VRE (vancomycin-resistant Enterococci) Acute ~03/01/17 Anticoagulant therapy Active Chronic pain syndrome Active Hypokalemia Active Hypothyroidism Active Renal impairment Active biliary gastric reflux Active Abdominal pain Acute C. difficile diarrhea Acute 10/08/16 Dehydration Acute Diarrhea Acute Nausea Acute Pyelonephritis Acute Renal failure (ARF), acute on chronic Acute Sepsis Acute Syncope due to orthostatic hypotension Acute Tachycardia Acute History of kidney transplant Chronic
[2017-05-29] MEDS: ASTAGRAF PO SCH (09:37)
--- NOTE | 2017-05-29 12:31 | HOSPPROG ---
Hospitalist Progress Note Assessment/Plan: Patient is a 47-year-old female with a history of end-stage renal disease as well as renal transplant presented to the emergency room with dysuria and vomiting. She has chronic low back pain and recurrent urinary tract infections. She was recently admitted in January in which she was treated for enterococcal bacteremia secondary to urinary source. She was treated with IV vancomycin at that time. In addition, she has been treated 2 more times in the outpatient setting for UTIs in March in the [place] area. * urinary tract infection/klebsiella pneumoniae hx of recurrent UTI's appreciate ID and Nephrology Zosyn only now, can change to PO levo when less nauseous *hx of VRE on precautions *s/p upper extremity AV fistula ligation with thrombectomy w Dr Dobson done prior to this admission * end stage renal disease & renal transplant labs better, recheck in am * nausea and vomiting nausea only today * chronic urinary retention secondary to a neurogenic bladder At home she straight caths as needed flores in place consider repeat US * iron deficiency anemia/likely chronic anemia due to end-stage renal disease * history of Clostridium difficile Continue monitor / no c/o this today *chronic pain on chronic/continuous opioids MS Contin to 15 mg bid/ usually on MS Contin 30 mg tid so far is tolerating lower dose and much more interactive *plan : continue the above treatment/ check labs in am home when ok with nephrology Subjective: Feeling a bit better today. No new issues. Objective: Vital Signs Temp Pulse Resp BP Pulse Ox 36.9 C 76 16 105/66 94 05/29/17 07:53 05/29/17 07:53 05/29/17 07:53 05/29/17 07:53 05/29/17 07:53 Laboratory Results 05/28/17 10:45 05/29/17 05:00 05/28/17 05/29/17 05/30/17 05:59 05:59 05:59 Intake Total 3149 3365 Output Total 850 1350 Balance 2299 2014 - Physical Exam Constitutional: appears nourished, chronically ill appearing Eyes: PERRL, anicteric sclera Ears, Nose, Mouth, Throat: moist mucous membranes, hearing normal Cardiovascular: No JVD, No edema Respiratory: no respiratory distress, reduced air movement Gastrointestinal: No tenderness, No ascites Skin: warm, normal color Musculoskeletal: no joint effusions, generalized weakness Neurologic: AAOx3 Psychiatric: not anxious, not encephalopathic ICD10 Worksheet Patient Problems: Problems Problem Status Onset VRE (vancomycin-resistant Enterococci) Acute ~03/01/17 Diarrhea Acute Hypothyroidism Active Chronic pain syndrome Active Renal impairment Active Hypokalemia Active Anticoagulant therapy Active biliary gastric reflux Active Syncope due to orthostatic hypotension Acute Dehydration Acute Renal failure (ARF), acute on chronic Acute History of kidney transplant Chronic Tachycardia Acute Nausea Acute Nausea & vomiting Acute C. difficile diarrhea Acute 10/08/16 Sepsis Acute Pyelonephritis Acute Abdominal pain Acute Superficial thrombophlebitis Acute Urinary tract infection Acute
--- NOTE | 2017-05-29 13:57 | PCMIDPN ---
Assessment/Plan: Assessment: UTI/pyelonephritis in renal transplantation patient on immunosuppression secondary to Klebsiella. Patient is covered well on IV Zosyn currently. This is renally adjusted secondary to acute kidney injury on chronic renal insufficiency. The concept is to switch the patient over to oral Levaquin Q 48 hours upon discharge. Baseline creatinine 2.1-2.2. Current creatinine is 4.3 but improving. Plan: 1. Continue renally adjusted Zosyn. 2. Plan to switch over to oral fluoroquinolones Q 48 hours on discharge. 3. Follow clinical course. 05/29/17 17:51 Subjective: Patient is resting in her hospital bed. She notes no new complaints. Has a Davis catheter inserted secondary to tendency to have bladder outlet issues. No new fevers or chills. Objective: Zosyn #3 Vital Signs Temp Pulse Resp BP Pulse Ox 36.9 C 76 16 105/66 94 05/29/17 07:53 05/29/17 07:53 05/29/17 07:53 05/29/17 07:53 05/29/17 07:53 Laboratory Results 05/28/17 10:45 05/29/17 05:00 05/28/17 05/29/17 05/30/17 05:59 05:59 05:59 Intake Total 3149 3365 Output Total 850 1350 Balance 2299 2014 - Physical Exam General Appearance: WD/WN, alert, no apparent distress, non-toxic Respiratory: lungs clear, normal breath sounds, No respiratory distress Cardiac/Chest: regular rate, rhythm, No tachycardia Extremities: non-tender, normal inspection Skin: normal color, warm/dry, No rash Neuro/Psych: alert, normal mood/affect, oriented x 3 ICD10 Worksheet Patient Problems: Problems Problem Status Onset Nausea & vomiting Acute Superficial thrombophlebitis Acute Urinary tract infection Acute VRE (vancomycin-resistant Enterococci) Acute ~03/01/17 Anticoagulant therapy Active Chronic pain syndrome Active Hypokalemia Active Hypothyroidism Active Renal impairment Active biliary gastric reflux Active Abdominal pain Acute C. difficile diarrhea Acute 10/08/16 Dehydration Acute Diarrhea Acute Nausea Acute Pyelonephritis Acute Renal failure (ARF), acute on chronic Acute Sepsis Acute Syncope due to orthostatic hypotension Acute Tachycardia Acute History of kidney transplant Chronic
[2017-05-29] MEDS: azaTHIOprine 50 MG TAB PO SCH (20:10)
[2017-05-30] MEDS: PIPERACILLIN/TAZO 2.25 GM/DEX 50 ML IV SCH ×2 (01:23→14:12)
[2017-05-30] MEDS: NS 1,000 ML IV SCH (04:29)
[2017-05-30] MEDS: PROMETHAZINE HCL 25 MG/ML INJ IVP PRN (04:30)
[2017-05-30] MEDS: oxyCODONE IR 5 MG TAB PO PRN ×2 (04:30→14:55)
[2017-05-30] MEDS: LEVOTHYROXINE 75 MCG TAB PO SCH (04:31)
[2017-05-30] MEDS: predniSONE 10 MG TAB PO SCH (09:39)
[2017-05-30] MEDS: morphINE SR 15 MG TAB PO SCH ×2 (09:39→20:24)
[2017-05-30] MEDS: PANTOPRAZOLE SODIUM 40 MG TAB PO SCH (09:40)
[2017-05-30] MEDS: HEPARIN 5,000 UNIT/0.5 ML SYR SC SCH ×2 (09:49→20:24)
[2017-05-30] MEDS: ASTAGRAF PO SCH (09:54)
--- NOTE | 2017-05-30 10:09 | SOAPPROG ---
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 Carl Hinds -prior history of VRE -on isolation IV access-RN have brought up need for PICline as current IV has failed -would try to manage patient on PO meds -phenergan suppository for nausea if needed -has PO meds ordered -likely can switch to PO abx 05/30/17 10:06 Subjective: nausea, chronic Objective: Vital Signs Temp Pulse Resp BP Pulse Ox 36.8 C 75 16 121/69 H 91 L 05/30/17 07:43 05/30/17 07:43 05/30/17 07:43 05/30/17 07:43 05/30/17 07:43 Laboratory Results 05/28/17 10:45 05/29/17 05/30/17 05/31/17 05:59 05:59 05:59 Intake Total 3365 2633 Output Total 1350 1175 Balance 2014 1458 Physical Exam - Physical Exam General Appearance: alert, mild distress EENT: normal ENT inspection Neck: normal inspection Respiratory: decreased breath sounds, No respiratory distress Cardiac/Chest: regular rate, rhythm, systolic murmur Abdomen: normal bowel sounds, soft, other (pain over LLQ, ), No non-tender Skin: normal color, warm/dry Extremities: No swelling Neuro/Psych: no motor/sensory deficits, alert ICD10 Worksheet Patient Problems: Problems Problem Status Onset Nausea & vomiting Acute Superficial thrombophlebitis Acute Urinary tract infection Acute VRE (vancomycin-resistant Enterococci) Acute ~03/01/17 Anticoagulant therapy Active Chronic pain syndrome Active Hypokalemia Active Hypothyroidism Active Renal impairment Active biliary gastric reflux Active Abdominal pain Acute C. difficile diarrhea Acute 10/08/16 Dehydration Acute Diarrhea Acute Nausea Acute Pyelonephritis Acute Renal failure (ARF), acute on chronic Acute Sepsis Acute Syncope due to orthostatic hypotension Acute Tachycardia Acute History of kidney transplant Chronic
[2017-05-30 10:18] LABS: ALBUMIN 3.3 g/dL (3.5-5.0); ANION GAP 12 mEq/L (8-16); CALCIUM 8.7 mg/dL (8.5-10.4); CARBON DIOXIDE 21 mEq/l (22-31); CHLORIDE 111 mEq/L (97-110); GLOMERULAR FILTRATION RATE 12; GLUCOSE 80 mg/dL (70-100); MAGNESIUM 2.1 mg/dL (1.6-2.3); POTASSIUM 3.8 mEq/L (3.5-5.2); SODIUM 144 mEq/L (134-144)
--- NOTE | 2017-05-30 11:38 | HOSPPROG ---
Hospitalist Progress Note Assessment/Plan: Patient is a 47-year-old female with a history of end-stage renal disease as well as renal transplant presented to the emergency room with dysuria and vomiting. She has chronic low back pain and recurrent urinary tract infections. She was recently admitted in January in which she was treated for enterococcal bacteremia secondary to urinary source. She was treated with IV vancomycin at that time. In addition, she has been treated 2 more times in the outpatient setting for UTIs in March in the [place] area. * urinary tract infection/klebsiella pneumoniae hx of recurrent UTI's Zosyn trial of oral levaquin/no iv site *hx of VRE on precautions *s/p upper extremity AV fistula ligation with thrombectomy w Dr Dobson done prior to this admission * end stage renal disease & renal transplant creat baseline is likely now in the 4's * nausea and vomiting chronic nausea explained to her my concern of long QT interval w antiemetics/ she wasn't aware and is going to try and avoid * chronic urinary retention secondary to a neurogenic bladder At home she straight caths as needed Flores placed in * iron deficiency anemia/likely chronic anemia due to end-stage renal disease * history of Clostridium difficile Continue monitor / said she had 3 episodes of diarrhea today will check for c diff *chronic pain on chronic/continuous opioids due to sedation will decrease MS Contin to 15 mg bid/ usually on MS Contin 30 mg tid so far is tolerating lower dose/have encouraged her to try and stay with the lower dose *plan : trial of Levaquin, check for c diff Subjective: Barbara is having ongoing nausea and loose stools. Objective: Vital Signs Temp Pulse Resp BP Pulse Ox 36.8 C 75 16 121/69 H 91 L 05/30/17 07:43 05/30/17 07:43 05/30/17 07:43 05/30/17 07:43 05/30/17 07:43 Laboratory Results 05/28/17 10:45 05/30/17 09:35 05/29/17 05/30/17 05/31/17 05:59 05:59 05:59 Intake Total 3365 2633 Output Total 1350 1175 Balance 2014 1458 - Physical Exam Constitutional: chronically ill appearing Eyes: PERRL Ears, Nose, Mouth, Throat: hearing normal Cardiovascular: regular rate and rhythym, systolic murmur Respiratory: no respiratory distress Gastrointestinal: normoactive bowel sounds Genitourinary: flores in urethra Skin: warm, No normal color (pale) Musculoskeletal: no muscle tenderness Neurologic: AAOx3 Psychiatric: interacting appropriately ICD10 Worksheet Patient Problems: Problems Problem Status Onset Nausea & vomiting Acute Superficial thrombophlebitis Acute Urinary tract infection Acute VRE (vancomycin-resistant Enterococci) Acute ~03/01/17 Anticoagulant therapy Active Chronic pain syndrome Active Hypokalemia Active Hypothyroidism Active Renal impairment Active biliary gastric reflux Active Abdominal pain Acute C. difficile diarrhea Acute 10/08/16 Dehydration Acute Diarrhea Acute Nausea Acute Pyelonephritis Acute Renal failure (ARF), acute on chronic Acute Sepsis Acute Syncope due to orthostatic hypotension Acute Tachycardia Acute History of kidney transplant Chronic
[2017-05-30] MEDS: ONDANSETRON DISINTEGRATING 4 MG TAB PO PRN (12:03)
--- NOTE | 2017-05-30 12:22 | PCMIDPN ---
Assessment/Plan: Assessment/Plan: 1. Klebsiella pyelonephritis, hx renal tspl: - Currenlty on zosyn IV. - peripheral iv unable to get access. - change to oral levaquin renally dosed. interactions noted with prednisone, zofran, phenergan. d/w hospitalist team -need to observe how she is tolerating levaquin given previous hx of mild rash on therapy. -Blood cx ngtd Meds zosyn 2.25gm q8 Subjective: afebrile. c/o nausea ongoing. having loose stools. has some left lower quadrant pain. denies sob. Objective: Vital Signs Temp Pulse Resp BP Pulse Ox 36.8 C 75 16 121/69 H 91 L 05/30/17 07:43 05/30/17 07:43 05/30/17 07:43 05/30/17 07:43 05/30/17 07:43 Laboratory Results 05/28/17 10:45 05/30/17 09:35 05/29/17 05/30/17 05/31/17 05:59 05:59 05:59 Intake Total 3365 2633 318 Output Total 1350 1175 350 Balance 2014 1458 -32 - Physical Exam General Appearance: alert, no apparent distress Respiratory: lungs clear Cardiac/Chest: regular rate, rhythm Extremities: No swelling Abdomen: normal bowel sounds, non-tender, soft, No distended Skin: No erythema ICD10 Worksheet Patient Problems: Problems Problem Status Onset Nausea & vomiting Acute Superficial thrombophlebitis Acute Urinary tract infection Acute VRE (vancomycin-resistant Enterococci) Acute ~03/01/17 Anticoagulant therapy Active Chronic pain syndrome Active Hypokalemia Active Hypothyroidism Active Renal impairment Active biliary gastric reflux Active Abdominal pain Acute C. difficile diarrhea Acute 10/08/16 Dehydration Acute Diarrhea Acute Nausea Acute Pyelonephritis Acute Renal failure (ARF), acute on chronic Acute Sepsis Acute Syncope due to orthostatic hypotension Acute Tachycardia Acute History of kidney transplant Chronic
[2017-05-30 19:04] LABS: CLOSTRIDIUM DIFFICILE DNA POSITIVE (NEGATIVE)
[2017-05-30 19:05] LABS: PRINT OR CALL CRITICALS TECH CALL
[2017-05-30] MEDS: azaTHIOprine 50 MG TAB PO SCH (20:24)
[2017-05-31] MEDS: oxyCODONE IR 5 MG TAB PO PRN ×3 (00:12→17:09)
[2017-05-31] MEDS: VANCOMYCIN 125 MG/2.5 ML UDL PO SCH ×5 (00:32→21:04)
[2017-05-31] MEDS: LORazepam 1 MG TAB PO PRN (03:55)
[2017-05-31] MEDS: LEVOTHYROXINE 75 MCG TAB PO SCH (05:08)
[2017-05-31 05:42] LABS: ALBUMIN 3.4 g/dL (3.5-5.0); ANION GAP 13 mEq/L (8-16); CALCIUM 8.5 mg/dL (8.5-10.4); CARBON DIOXIDE 20 mEq/l (22-31); CHLORIDE 111 mEq/L (97-110); GLOMERULAR FILTRATION RATE 12; GLUCOSE 97 mg/dL (70-100); POTASSIUM 4.1 mEq/L (3.5-5.2); SODIUM 144 mEq/L (134-144)
[2017-05-31] MEDS: CALCITRIOL 0.25 MCG CAP PO SCH (08:07)
[2017-05-31] MEDS: HEPARIN 5,000 UNIT/0.5 ML SYR SC SCH ×2 (08:08→21:04)
[2017-05-31] MEDS: ASTAGRAF PO SCH (08:08)
[2017-05-31] MEDS: predniSONE 10 MG TAB PO SCH (08:08)
[2017-05-31] MEDS: PANTOPRAZOLE SODIUM 40 MG TAB PO SCH (08:08)
[2017-05-31] MEDS: morphINE SR 15 MG TAB PO SCH ×2 (08:08→21:03)
--- NOTE | 2017-05-31 10:23 | HOSPPROG ---
Hospitalist Progress Note Assessment/Plan: Patient is a 47-year-old female with a history of end-stage renal disease as well as renal transplant presented to the emergency room with dysuria and vomiting. She has chronic low back pain and recurrent urinary tract infections. She was recently admitted in January in which she was treated for enterococcal bacteremia secondary to urinary source. She was treated with IV vancomycin at that time. In addition, she has been treated 2 more times in the outpatient setting for UTIs in March in the [place] area. * urinary tract infection/klebsiella pneumoniae hx of recurrent UTI's tolerating Levaquin/ dosing will be QOD * positive Clostridium difficile Started on oral vancomycin if has less than 3 loose stools today, will dc later today *hx of VRE on precautions *s/p upper extremity AV fistula ligation with thrombectomy w Dr Dobson done prior to this admission * end stage renal disease & renal transplant creat baseline is likely now in the 4's * nausea and vomiting chronic nausea explained to her my concern of long QT interval w antiemetics/ she wasn't aware and is going to try and avoid * chronic urinary retention secondary to a neurogenic bladder At home she straight caths as needed Davis placed in * iron deficiency anemia/likely chronic anemia due to end-stage renal disease *severe protein malnutrition in the setting of acute illness, renal disease weight loss of 14 kg over the past 4 months on ensure and nepro *chronic pain on chronic/continuous opioids opioid use 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 Subjective: Barbara is tired but is agreeable to go home if she is having less diarrhea. Objective: Vital Signs Temp Pulse Resp BP Pulse Ox 36.9 C 76 16 114/75 93 05/31/17 07:41 05/31/17 07:41 05/31/17 07:41 05/31/17 07:41 05/31/17 07:41 Microbiology 05/26/17 00:01 Blood Culture - Final Blood 05/25/17 23:45 Blood Culture - Final Blood Laboratory Results 05/28/17 10:45 05/31/17 05:23 05/30/17 05/31/17 06/01/17 05:59 05:59 05:59 Intake Total 2633 1172 Output Total 1175 1350 Balance 1458 -178 - Physical Exam Constitutional: not in pain, chronically ill appearing Eyes: PERRL Ears, Nose, Mouth, Throat: hearing normal Respiratory: no respiratory distress Skin: warm Musculoskeletal: generalized weakness Neurologic: AAOx3 Psychiatric: interacting appropriately, flat affect ICD10 Worksheet Patient Problems: Problems Problem Status Onset Nausea & vomiting Acute Superficial thrombophlebitis Acute Urinary tract infection Acute VRE (vancomycin-resistant Enterococci) Acute ~03/01/17 Anticoagulant therapy Active Chronic pain syndrome Active Hypokalemia Active Hypothyroidism Active Renal impairment Active biliary gastric reflux Active Abdominal pain Acute C. difficile diarrhea Acute ~05/30/17 Dehydration Acute Diarrhea Acute Nausea Acute Pyelonephritis Acute Renal failure (ARF), acute on chronic Acute Sepsis Acute Syncope due to orthostatic hypotension Acute Tachycardia Acute History of kidney transplant Chronic
--- NOTE | 2017-05-31 11:38 | PCMIDPN ---
Assessment/Plan: Assessment/Plan: * Klebsiella pyelonephritis with underlying immunosuppression post renal transplantation: Transition to oral levofloxacin yesterday which she is tolerating well to date. Overall feels improved with some residual lower abdominal pain. Plan 14 days of antibiotic therapy in total (02/26). Adjust levofloxacin dosing in accordance with patient's renal function. * C difficile: Positive PCR test for C difficile with prior history of C difficile. Patient describes symptoms as being similar to prior C difficile. Continue oral vancomycin with anticipated duration of therapy for at least 7 days post completion of levofloxacin. 05/31/17 11:35 05/31/17 11:37 Subjective: Patient complains of diarrhea and lower abdominal pain. Feels like diarrhea is similar to when she has had C difficile in the past. Objective: Vital Signs Temp Pulse Resp BP Pulse Ox 36.9 C 76 16 114/75 93 05/31/17 07:41 05/31/17 07:41 05/31/17 07:41 05/31/17 07:41 05/31/17 07:41 Microbiology 05/26/17 00:01 Blood Culture - Final Blood 05/25/17 23:45 Blood Culture - Final Blood Laboratory Results 05/28/17 10:45 05/31/17 05:23 05/30/17 05/31/17 06/01/17 05:59 05:59 05:59 Intake Total 2633 1172 Output Total 1175 1350 Balance 1458 -178 Levofloxacin # 2, antibiotics # 5 Oral vancomycin # 1 Stool C difficile toxin positive - Physical Exam General Appearance: alert, no apparent distress EENT: No scleral icterus, No thrush Respiratory: lungs clear, No respiratory distress Cardiac/Chest: regular rate, rhythm Abdomen: tender (Left lower quadrant without peritoneal signs) Skin: No rash ICD10 Worksheet Patient Problems: Problems Problem Status Onset Nausea & vomiting Acute Superficial thrombophlebitis Acute Urinary tract infection Acute VRE (vancomycin-resistant Enterococci) Acute ~03/01/17 Anticoagulant therapy Active Chronic pain syndrome Active Hypokalemia Active Hypothyroidism Active Renal impairment Active biliary gastric reflux Active Abdominal pain Acute C. difficile diarrhea Acute ~05/30/17 Dehydration Acute Diarrhea Acute Nausea Acute Pyelonephritis Acute Renal failure (ARF), acute on chronic Acute Sepsis Acute Syncope due to orthostatic hypotension Acute Tachycardia Acute History of kidney transplant Chronic
--- NOTE | 2017-05-31 11:51 | SOAPPROG ---
SOAP Progress Note Assessment/Plan: Assessment: 1. arf/crf: back to b/l, which is advanced crf. Avf in place, looks good and likely usable next month if needed. 2. renal txplt: cont pred/aza/tacro 3. pyelo: now on po levaquin without adverse events thus far 4. c diff: on po vanco Plan: 05/31/17 11:48 Subjective: Started on po vanco for C diff. Had diarrhea overnight but none yet this am. Objective: Vital Signs Temp Pulse Resp BP Pulse Ox 36.9 C 76 16 114/75 93 05/31/17 07:41 05/31/17 07:41 05/31/17 07:41 05/31/17 07:41 05/31/17 07:41 Microbiology 05/26/17 00:01 Blood Culture - Final Blood 05/25/17 23:45 Blood Culture - Final Blood Laboratory Results 05/28/17 10:45 05/31/17 05:23 05/30/17 05/31/17 06/01/17 05:59 05:59 05:59 Intake Total 2633 1172 Output Total 1175 1350 Balance 1458 -178 Physical Exam - Physical Exam General Appearance: no apparent distress, other (chronically-ill appearing) Extremities: pedal edema (none) ICD10 Worksheet Patient Problems: Problems Problem Status Onset Nausea & vomiting Acute Superficial thrombophlebitis Acute Urinary tract infection Acute VRE (vancomycin-resistant Enterococci) Acute ~03/01/17 Anticoagulant therapy Active Chronic pain syndrome Active Hypokalemia Active Hypothyroidism Active Renal impairment Active biliary gastric reflux Active Abdominal pain Acute C. difficile diarrhea Acute ~05/30/17 Dehydration Acute Diarrhea Acute Nausea Acute Pyelonephritis Acute Renal failure (ARF), acute on chronic Acute Sepsis Acute Syncope due to orthostatic hypotension Acute Tachycardia Acute History of kidney transplant Chronic
[2017-05-31] MEDS: azaTHIOprine 50 MG TAB PO SCH (21:08)
[2017-06-01] MEDS: oxyCODONE IR 5 MG TAB PO PRN ×3 (00:04→16:01)
[2017-06-01] MEDS: LORazepam 1 MG TAB PO PRN (04:03)
[2017-06-01] MEDS: LEVOTHYROXINE 75 MCG TAB PO SCH (05:11)
[2017-06-01] MEDS: VANCOMYCIN 125 MG/2.5 ML UDL PO SCH ×3 (05:11→16:01)
[2017-06-01 05:23] LABS: ALBUMIN 3.3 g/dL (3.5-5.0); ANION GAP 11 mEq/L (8-16); CALCIUM 8.9 mg/dL (8.5-10.4); CARBON DIOXIDE 20 mEq/l (22-31); CHLORIDE 110 mEq/L (97-110); CREATININE 3.6 mg/dL (0.6-1.0); GLOMERULAR FILTRATION RATE 14; GLUCOSE 110 mg/dL (70-100); SODIUM 141 mEq/L (134-144)
[2017-06-01] MEDS: morphINE SR 15 MG TAB PO SCH (09:26)
[2017-06-01] MEDS: PANTOPRAZOLE SODIUM 40 MG TAB PO SCH (09:26)
[2017-06-01] MEDS: ASTAGRAF PO SCH (09:27)
[2017-06-01] MEDS: HEPARIN 5,000 UNIT/0.5 ML SYR SC SCH (09:30)
[2017-06-01] MEDS: predniSONE 10 MG TAB PO SCH (09:30)
--- NOTE | 2017-06-01 10:27 | SOAPPROG ---
SOAP Progress Note Assessment/Plan: Assessment/Plan: MEETA on CKD stage V: baseline Cr around 4, came in with Cr of 6.6 and now down to 3.6, back to baseline. - No need for HD at this time. - Pt has a fistula in place that is ready for use when needed. - Will f/u in nephrology clinic on 06/21/17 as scheduled. - Pt also seeing transplant team to be listed. h/o renal transplant: continue home IS regimen. Subjective: No acute events overnight. Pt denies having any diarrhea, feeling well overall , hoping to go home soon. Objective: Vital Signs Temp Pulse Resp BP Pulse Ox 36.9 C 74 16 109/68 95 06/01/17 08:00 06/01/17 08:00 06/01/17 08:00 06/01/17 08:00 06/01/17 08:00 Microbiology 05/26/17 00:01 Blood Culture - Final Blood 05/25/17 23:45 Blood Culture - Final Blood Laboratory Results 05/28/17 10:45 06/01/17 04:42 05/31/17 06/01/17 06/02/17 05:59 05:59 05:59 Intake Total 1172 Output Total 1350 1800 Balance -178 -1800 General: alert and oriented, no acute distress OP: Clear CV: RRR Resp: nonlabored respirations on RA Abd: Soft, NT/ND Ext: no edema Neuro: no asterixis Psych: cooperative Access: AVF with thrill and bruit appreciated ICD10 Worksheet Patient Problems: Problems Problem Status Onset Nausea & vomiting Acute Superficial thrombophlebitis Acute Urinary tract infection Acute VRE (vancomycin-resistant Enterococci) Acute ~03/01/17 Anticoagulant therapy Active Chronic pain syndrome Active Hypokalemia Active Hypothyroidism Active Renal impairment Active biliary gastric reflux Active Abdominal pain Acute C. difficile diarrhea Acute ~05/30/17 Dehydration Acute Diarrhea Acute Nausea Acute Pyelonephritis Acute Renal failure (ARF), acute on chronic Acute Sepsis Acute Syncope due to orthostatic hypotension Acute Tachycardia Acute History of kidney transplant Chronic
--- NOTE | 2017-06-01 15:38 | GDS ---
[f rep st] DISCHARGE SUMMARY DISCHARGE DIAGNOSES: 1. Klebsiella pneumoniae urinary tract infection. 2. Clostridium difficile. 3. History of vancomycin-resistant enterococci. 4. Renal disease, with history of renal transplant. 5. Nausea and vomiting. 6. Chronic urinary retention. 7. Iron-deficiency anemia. 8. Severe protein malnutrition. 9. Chronic pain, on continuous opiates. CONSULTATIONS: 1. Infectious Disease. 2. Nephrology. PHYSICAL EXAM: GENERAL: The patient is alert. VITAL SIGNS: Afebrile at 36.9, pulse is 74, respir atory rate 16, blood pressure is 109/68. She is saturating 95% on room air. I have seen and evaluated the patient on the day of discharge. HOSPITAL COURSE: The patient is a 47-year-old female, who presented to the emergency room with dysu britton and vomiting. She was evaluated and diagnosed with: 1. Klebsiella urinary tract infection. During this hospitalization, she was treated with IV antibi otic therapy and transitioned to Levaquin. She is tolerating this well, and will continue this in t outpatient setting. She has been provided a prescription for Levaquin 750 mg for a total of 14-d ay therapy. 2. Clostridium difficile. The patient has been initiated on vancomycin. A prescription has been p rovided at the time of disposition. She will continue this after her antibiotic therapy is complete . 3. History of VRE. This is stable. 4. End-stage renal disease. The patient did receive a consultation from Nephrology during this hos pitalization. She has had a new fistula placed in her right upper extremity that is immature, but s hould be available within the next month for use. She will continue with the transplant team at [facility]. Her creatinine at the time of disposition is 3.6, and is doing well. 5. Chronic urinary retention. The patient does have neurogenic bladder. She straight catheterizes at home, and will reinitiate this. 6. Iron-deficiency anemia. This is in the setting of chronic disease, and is stable. 7. Severe protein malnutrition. She will continue to increase her oral intake. 8. Chronic pain, on continuous opioids. Medications have been adjusted during this hospitalization , and she is tolerating. She has decreased her MS Contin from 30 mg t.i.d. to 15 mg twice daily, wi th no complaints of increasing pain. DISPOSITION: The patient will be discharged home independently. There are no pending studies. DISCHARGE MEDICATIONS: Please refer to EMR form. I have provided the patient a prescription for va ncomycin, as well as Levaquin. FOLLOWUP: Will be with her primary care physician, Dr. Darius Giles, as well as Nephrology and Transplant Team in [place]. TIME SPENT: I spent greater than 35 minutes in the care, coordination, and management of the patien t's discharge. /[id number]/MODL
[2017-06-01 16:00] VITALS: BP 121/77; PULSE 85; RESP 20; TEMP 99; O2SAT 96
== END 2017-06-01 18:00 | disposition home or self-care (01) | DRG 698 ==
LOC: F3E 22:10 → OBSVTOIN 23:25
PROVIDERS: ADMIT Family Medicine; ATTEND Hospitalist
DX: T86.13 Kidney transplant infection (principal); E43 Unspecified severe protein-calorie malnutrition; N12 Tubulo-interstitial nephritis, not specified as acute or chronic; F11.20 Opioid dependence, uncomplicated; Z94.0 Kidney transplant status; B96.1 Klebsiella pneumoniae [K. pneumoniae] as the cause of diseases classified elsewhere; B96.89 Other specified bacterial agents as the cause of diseases classified elsewhere; R33.8 Other retention of urine; D50.9 Iron deficiency anemia, unspecified; G89.29 Other chronic pain; I10 Essential (primary) hypertension; E03.9 Hypothyroidism, unspecified; N31.9 Neuromuscular dysfunction of bladder, unspecified; K21.9 Gastro-esophageal reflux disease without esophagitis; Z86.73 Personal history of transient ischemic attack (TIA), and cerebral infarction without residual deficits; Z87.440 Personal history of urinary (tract) infections; Z85.72 Personal history of non-Hodgkin lymphomas
CPT/HCPCS: 80197-90; J0878; J2405; J2543; J2550; J3370; J7500

== ENCOUNTER 2017-06-06 15:33 | Inpatient (IN) | payer OTHER ==
--- NOTE | 2017-06-06 16:35 | EDPHY ---
H & P Time Seen by Provider: 06/06/17 15:59 HPI/ROS: HPI Swelling of feet and legs. 47-year-old female with a complicated past medical history. Here by private vehicle. She was recently admitted to our hospital on May 25 and discharged on June 01. During that time she was treated for renal failure, pneumonia, urinary tract infection and Clostridium difficile toxicity. She is currently on Levaquin and vancomycin. She reports that since Monday she has noticed increased swelling in her feet and her lower legs. She initially went to her primary care physician's office, this is Dr. Darius Giles, she then left there and came here because she did not think they were doing enough. ROS: Constitutional: No fever, no chills. No weakness. Eyes: No discharge. No changes in vision. ENT: No sore throat. No nasal congestion or rhinorrhea. Respiratory: No cough. No shortness of breath. Cardiac: No chest pain, no palpitations. Gastrointestinal: No abdominal pain, no vomiting, no diarrhea. Genitourinary: No hematuria. No dysuria or increased frequency with urination. Musculoskeletal: No back pain. No neck pain. No myalgias or arthralgias. As above. Skin: No rashes. Neurological: No headache. No focal weakness or altered sensation. Past medical history: End-stage renal disease status post renal transplant secondary to congenital reflux, and right upper extremity fistula placed 2016, chronic urinary retention secondary to neurogenic bladder, chronic lower back pain and chronic opioid dependence, C diff toxicity, hypertension, history of cerebellar CVA, chronic iron deficiency anemia, WPW status post ablation, non -Hodgkin's lymphoma, Klebsiella urinary tract infection. Social history: She lives independently. Nonsmoker. Denies alcohol. As above. Physical Exam: General Appearance: Alert, no distress. This patient is responding to questions appropriately and in full sentences. This patient appears well- hydrated and well-nourished. Eyes: Pupils equal and round no pallor or injection. No lid edema, erythema or injection. Respiratory: There are no retractions, lungs are clear to auscultation with good air movement bilaterally. Cardiovascular: Regular rate and rhythm. No murmur appreciated. Gastrointestinal: Abdomen is soft and nontender, no masses, bowel sounds normal. Midline abdominal scar from previous surgery. No focal tenderness at McBurney's point. No Howard sign. Neurological: Motor sensory function is grossly intact. Cranial nerves are normal. Cerebellar function normal. Skin: Warm and dry, no rashes. Musculoskeletal: Neck is supple and nontender. Extremities are symmetrical with bilateral 1 to 2+ pitting edema involving the feet up through the ankles to the mid legs. No calf tenderness on palpation. No palpable cords. All joints range without pain or impingement. Psychiatric: No agitation. No depression. Database: EKG: EKG time is 4:55 p.m.; EKG shows a narrow complex normal sinus rhythm with a ventricular rate of 74. The TX, QRS, QT intervals are within normal limits. Borderline prolongation of the QT interval. There are no ST-T wave changes indicative of ischemic or injury pattern. No evidence of right heart strain. Interpreted by me. Imaging: Chest x-ray PA and lateral: Congestive heart failure fluid overload noted. No infiltrate. Postoperative changes of spinal instrumentation noted. No pneumothorax. Interpreted by me. Procedures: Emergency department course: Vital signs reviewed. Patient is afebrile. Mildly hypertensive. IV placed. Patient placed on a monitor. EKG and appropriate blood work and urine obtained. 5:35 p.m., laboratory work reviewed and discussed with patient. Diagnosis of heart failure discussed and plan for admission reviewed. Patient endorses. Hemoglobin 8.3 on May 28. Hemoglobin 8.3 today. Creatinine baseline today at 3.4. Creatinine 3.6 on June 01. 6:20 p.m., discussed case with hospitalist., Dr. Joann Cerda. Patient accepted for admission to telemetry under her care. 6:30 p.m., patient re-evaluated. Resting comfortably at this time. Results of diagnostic testing reviewed with her. Plan for admission discussed. Her vital signs have remained stable throughout her emergency department course. Room air pulse oximetry at this time is 92-93%. Her remaining emergency department course under my care has been uneventful. She was admitted to the hospitalist service in stable condition. Differential Diagnosis: The differential diagnosis on this patient includes but is not limited to anemia , hypoalbuminemia, nephrotic syndrome, congestive heart failure. This represents a partial list of diagnoses considered. These considerations are based on history, physical exam, past history, reassessment and diagnostic testing. Smoking Status: Never smoked Constitutional: Initial Vital Signs Temperature (C) 37.4 C 06/06/17 15:39 Heart Rate 90 06/06/17 15:39 Respiratory Rate 18 06/06/17 15:39 Blood Pressure 139/89 H 06/06/17 15:39 O2 Sat (%) 95 06/06/17 15:39 O2 Delivery Mode Room Air Allergies/Adverse Reactions: erythromycin lactobionate [From Erythrocin] Allergy (Severe, Verified 05/25/17 18:39) Anaphylaxis levofloxacin [From Levaquin] Allergy (Severe, Verified 05/30/17 15:02) Rash metoclopramide HCl [From Reglan] Allergy (Severe, Verified 05/25/17 18:39) "went crazy" NSAIDS (Non-Steroidal Anti-Inflamma [Nsaids] Allergy (Severe, Verified 05/25/17 18:39) Kidney transplant meperidine HCl [From Demerol] Allergy (Intermediate, Verified 05/25/17 18:39) Hypotension meropenem [Meropenem] Allergy (Intermediate, Verified 05/25/17 18:39) Hypersensitivity in legs Sulfa (Sulfonamide Antibiotics) Allergy (Intermediate, Verified 05/25/17 18:39) Hives ceftazidime Allergy (Mild, Verified 05/25/17 18:39) Rash ciprofloxacin [From Cipro] Allergy (Mild, Verified 05/25/17 18:39) Rash doxycycline Allergy (Verified 05/25/17 18:39) gabapentin [From Neurontin] Allergy (Verified 05/25/17 18:39) Other-Enter Comments Home Medications: Medication Instructions Recorded Astagraf 3 mg PO DAILY 01/10/17 Calcitriol [Calcitriol (*)] 0.25 mcg PO MOWEFR 05/25/17 Cyproheptadine HCl [Periactin 4 MG 4 mg PO QID PRN 05/25/17 (*)] Docusate Sodium [Colace 100 MG (*)] 100 mg PO DAILY PRN 05/25/17 LORazepam [Ativan (*)] 1 mg PO TID PRN 05/25/17 Levothyroxine [Synthroid 75 mcg 75 mcg PO SUMOTUWETHFR@06 05/25/17 (*)] Pantoprazole Sodium [Protonix 40mg 40 mg PO DAILY 05/25/17 (*)] Sennosides [Senokot] 1 - 2 tab PO BID PRN 05/25/17 azaTHIOprine [Imuran 50 mg (*)] 100 mg PO HS 05/25/17 morphINE SR [MS Contin/Oramorph SR 30 mg PO TID 05/25/17 30 mg (*)] oxyCODONE HCL [OXYCODONE HCL] 20 - 40 mg PO Q6H PRN 05/25/17 predniSONE [Prednisone] 10 mg PO DAILY 05/25/17 Acetaminophen [Tylenol 325mg (*)] 650 mg PO Q4HRS PRN #0 tab 06/01/17 Vancomycin [Vancocin Oral Liquid] 125 mg PO QID #60 tab 06/01/17 levOFLOXACIN [levAQUIN (*)] 500 mg PO Q2D@1000 #4 tab 06/01/17 Furosemide [Lasix 40 MG (*)] 40 mg PO DAILY 06/06/17 Ondansetron HCl [Zofran] 8 mg PO DAILY PRN 06/06/17 Sodium Bicarbonate [Na Bicarb] 1,300 mg PO BID 06/06/17 Medical Decision Making - Data Points Laboratory Results: Laboratory Results 06/06/17 16:25 06/07/17 03:40 Medications Given: Azathioprine (Imuran) 100 mg PO HS [facility] Stop: 12/04/17 20:59 Last Admin: 06/08/17 20:32 Dose: 100 mg Calcitriol (Calcitriol) 0.25 mcg PO MOWEFR [facility] Stop: 12/04/17 08:59 Last Admin: 06/07/17 08:46 Dose: 0.25 mcg Epoetin Vladimir (Procrit) 10,000 unit SC Q7D [facility] Stop: 12/04/17 07:59 Last Admin: 06/07/17 08:45 Dose: 10,000 unit Furosemide (Lasix Injection) 80 mg IVP BIDDIUR [facility] Stop: 12/04/17 14:59 Last Admin: 06/08/17 15:51 Dose: 80 mg Heparin Sodium (Porcine) (Heparin Sc Injection) 5,000 unit SC Q8 [facility] Stop: 12/03/17 21:59 Last Admin: 06/09/17 05:39 Dose: 5,000 unit Levothyroxine Sodium (Synthroid) 75 mcg PO SUMOTUWETHFR@06 [facility] Stop: 12/04/17 05:59 Last Admin: 06/09/17 05:38 Dose: 75 mcg Lorazepam (Ativan) 1 mg PO TID PRN PRN Reason: Anxiety Stop: 12/03/17 21:03 Last Admin: 06/09/17 00:05 Dose: 1 mg Miscellaneous Medication (Astagraf) 0 mg PO DAILY [facility] Stop: 12/04/17 08:59 Last Admin: 06/08/17 08:37 Dose: 1 mg Morphine Sulfate (Ms Contin/Oramorph Sr) 30 mg PO TID [facility] Stop: 06/16/17 21:59 Last Admin: 06/08/17 21:55 Dose: 30 mg Oxycodone HCl (Oxycodone Ir) 20 - 40 mg PO Q6 PRN PRN Reason: Pain, Severe Able to Take PO Stop: 06/16/17 21:05 Last Admin: 06/09/17 05:38 Dose: 40 mg Pantoprazole Sodium (Protonix) 40 mg PO DAILY [facility] Stop: 12/04/17 08:59 Last Admin: 06/08/17 08:37 Dose: 40 mg Prednisone (Prednisone) 10 mg PO DAILY [facility] Stop: 12/04/17 08:59 Last Admin: 06/08/17 08:37 Dose: 10 mg Sodium Bicarbonate (Na Bicarb) 1,300 mg PO BID [facility] Stop: 12/04/17 08:59 Last Admin: 06/08/17 20:31 Dose: 1,300 mg Vancomycin HCl (Vancocin Oral Liquid) 125 mg PO QID [facility] PRN Reason: Protocol Stop: 07/07/17 05:59 Last Admin: 06/09/17 05:38 Dose: 125 mg Discontinued Medications Furosemide (Lasix Injection) 80 mg IVP ONCE ONE Stop: 06/06/17 20:39 Last Admin: 06/06/17 21:24 Dose: 80 mg Levofloxacin (Levaquin) 500 mg PO Q2D@1000 [facility] PRN Reason: Protocol Stop: 07/07/17 09:59 Last Admin: 06/07/17 08:46 Dose: 500 mg Oxycodone HCl (Oxycodone Ir) 20 mg PO Q6 PRN PRN Reason: Pain, Severe Able to Take PO Stop: 06/16/17 21:05 Last Admin: 06/06/17 21:24 Dose: 20 mg Departure - Departure Disposition: [facility] Acute Clinical Impression: Swelling of both lower extremities, Congestive heart failure, Chronic renal failure, Anemia, Clostridium difficile infection
[2017-06-06 16:39] LABS: % IMMATURE GRANULYOCYTES 0.3 % (0.0-1.1); ABSOLUTE IMMATURE GRANULOCYTES 0.02 10^3/uL (0.00-0.10); ADD DIFF? NO; ADD MORPH? YES; ADD SCAN? NO; ATYPICAL LYMPHOCYTE FLAG 10 (0-99); FRAGMENT RBC FLAG 20 (0-99); HEMATOCRIT 25.8 % (38.0-47.0); HEMOGLOBIN 8.3 g/dL (12.6-16.3); LEFT SHIFT FLG 0 (0-99); LIPEMIA HEMOLYSIS FLAG 80 (0-99); MEAN CELL HEMOGLOBIN 32.2 pg (27.9-34.1); MEAN CELL HEMOGLOBIN CONCENTR. 32.2 g/dL (32.4-36.7); MEAN PLATELET VOLUME 10.5 fL (8.7-11.7); PLATELET CLUMPS FLAG 0 (0-99); PLATELET COUNT 230 10^3/uL (150-400); RED BLOOD CELL COUNT 2.58 10^6/uL (4.18-5.33)
[2017-06-06 16:44] LABS: COLOR PALE YELLOW; LEUKOCYTE ESTERASE,URINE NEGATIVE (NEGATIVE); NITRITE,URINE NEGATIVE (NEGATIVE)
[2017-06-06 16:47] LABS: BACTERIA TRACE /hpf (NONE SEEN)
[2017-06-06 16:49] LABS: APTT 31.3 SEC (23.0-38.0)
[2017-06-06 16:51] LABS: RED CELL DISTRIBUTION WIDTH 20.3 % (11.5-15.2)
--- NOTE | 2017-06-06 16:57 | CPEKG ---
Heart Rate: 74 RR Interval: 811 P-R Interval: 136 QRSD Interval: 104 QT Interval: 444 QTC Interval: 493 P Mcclelland: 51 QRS Mcclelland: -24 T Wave Mcclelland: 49 EKG Severity - BORDERLINE ECG - EKG Impression: SINUS RHYTHM EKG Impression: BORDERLINE LEFT AXIS DEVIATION EKG Impression: BORDERLINE PROLONGED QT INTERVAL Electronically Signed By: Cesar Garcia 06-Jun-2017 22:08:12
[2017-06-06 17:03] LABS: INR 1.24 (0.83-1.16); PROTIME(PATIENT) 15.6 SEC (12.0-15.0)
[2017-06-06 17:23] LABS: ALANINE AMINOTRANSFERASE 48 IU/L (9-52); ALBUMIN 4.2 g/dL (3.5-5.0); ALKALINE PHOSPHATASE 53 IU/L (38-126); ANION GAP 16 mEq/L (8-16); ASPARTATE AMINOTRANSFERASE 57 IU/L (14-46); BILIRUBIN,TOTAL 0.6 mg/dL (0.1-1.4); BILIRUBIN-CONJUGATED 0.4 mg/dL (0.0-0.5); BILIRUBIN-UNCONJUGATED 0.2 mg/dL (0.0-1.1); CALCIUM 9.4 mg/dL (8.5-10.4); CARBON DIOXIDE 18 mEq/l (22-31); CHLORIDE 106 mEq/L (97-110); CREATININE 3.4 mg/dL (0.6-1.0); GLOMERULAR FILTRATION RATE 15; GLUCOSE 132 mg/dL (70-100); POTASSIUM 4.6 mEq/L (3.5-5.2); SODIUM 140 mEq/L (134-144)
[2017-06-06 17:28] LABS: TROPONIN I < 0.012 ng/mL (0.000-0.034)
[2017-06-06 17:30] LABS: GIANT PLATELETS PRESENT; HYPOCHROMIA 1+; LARGE PLATELETS PRESENT; PLATELET ESTIMATE ADEQUATE (ADEQ); POLYCHROMASIA 1+
[2017-06-06 17:31] LABS: ELLIPTOCYTES 1+; KERATOCYTES 1+; SCHISTOCYTES 1+; TARGET CELLS 1+
[2017-06-06] MEDS ORDERED: ONDANSETRON DISINTEGRATING 4 MG TAB PO PRN (20:37)
[2017-06-06] MEDS ORDERED: ONDANSETRON 4 MG/2 ML VIAL IVP PRN (20:37)
[2017-06-06] MEDS ORDERED: ACETAMINOPHEN 325 MG TAB PO PRN ×2 (20:37→21:04)
[2017-06-06] MEDS ORDERED: FUROSEMIDE 100 MG/10 ML VIAL IVP ONE (20:38)
[2017-06-06] MEDS ORDERED: DOCUSATE SODIUM 100 MG CAP PO PRN (21:04)
[2017-06-06] MEDS ORDERED: CYPROHEPTADINE HCL 4 MG TAB PO PRN (21:04)
[2017-06-06] MEDS ORDERED: oxyCODONE IR 5 MG TAB PO PRN (21:06)
[2017-06-06] MEDS: morphINE SR 30 MG TAB PO SCH (21:24)
[2017-06-06] MEDS: HEPARIN 5,000 UNIT/0.5 ML SYR SC SCH (21:25)
--- NOTE | 2017-06-06 21:45 | GHP ---
[f rep st] HISTORY AND PHYSICAL DATE OF ADMISSION: 06/06/2017 CHIEF COMPLAINT: Lower extremity swelling, end-stage renal disease. HISTORY OF PRESENT ILLNESS: The patient is a 47-year-old female with a history of renal transplant, end-stage renal disease, and chronic urinary retention, who was recently admitted 05/25/2017, for dysuria and vomiting. At that time, she was diagnosed with a UTI and C difficile. The patient was discharged on Levaquin and p.o. vancomycin. Since being home, she has had some dry heaves. No fevers, chills, or sweats. Has had loose stool every couple of days. She presented to her PCP today with lower extremity swelling that has gotten worse since day after discharge. Denies chest pain, shortness of breath, PND, or pillow orthopnea. No abdominal distention. REVIEW OF SYSTEMS: I completed a 10-point review of systems, negative except as noted in HPI. PAST MEDICAL HISTORY: 1. Recent Klebsiella UTI. 2. Recent Clostridium difficile infection. 3. History of GERD. 4. History of renal transplant. 5. History of end-stage renal disease, AV fistula maturing. She is followed by Dr. Sanderson. 6. Chronic urinary retention. 7. Iron-deficiency anemia. 8. Severe protein malnutrition. Chronic pain on opiates. 9. Hypertension. 10. History of left CVA. 11. Igor-Parkinson syndrome status post ablation non-Hodgkin lymphoma. MEDICATIONS: See medication reconciliation. ALLERGIES: Erythromycin, Reglan, anti-inflammatories, meropenem, meperidine, sulfa, ceftazidime, Cipro, levofloxacin, doxycycline, gabapentin. SOCIAL HISTORY: Lives near [place] with her . She is a nonsmoker. Occasional alcohol. No other illicits. FAMILY HISTORY: Mother with WPW. PHYSICAL EXAMINATION: VITAL SIGNS: Temperature of 37, blood pressure 120/72, heart rate in the 70s, respirations 18, 94% on room air. GENERAL: A chronically ill-appearing female in no acute distress. HEENT: PERRLA, EOMI. Moist mucous membranes. CV: Systolic ejection murmur throughout. Regular. + 2 edema bilateral ankles to feet. LUNGS: Clear. No crackles or wheezing. ABDOMEN: Soft, nontender, nondistended. Positive bowel sounds. : No suprapubic or CVA tenderness. MUSCULOSKELETAL: 5/5 upper, lower extremity strength. NEUROLOGIC: 2-12 intact. PSYCHIATRIC: Alert and oriented x3. Very flat affect. LABS: WBC 6, hemoglobin 8.3, hematocrit 25, which is baseline, MCV 100, platelets 230. INR 1.2, PT 15.6. Sodium 140, potassium 4.6, chloride 106, carbon dioxide 18, BUN 55, creatinine 3.4, glucose 132. LFTs within normal. Troponin less than 0.012. TEST DATA: 1. Chest x-ray: Mild pulmonary edema. No overt effusion. 2. Recent echocardiogram showed moderate AI, EF of 65% in September 2016. 3. EKG personally reviewed by me. Normal sinus rhythm. ST flattening inferior leads. ASSESSMENT/PLAN: 1. Lower extremity edema: due to end-stage renal disease. She is followed by Dr. Sanderson. Patient denies any shortness of breath, not hypoxic. Will dose IV Lasix this evening and she will be able to transition to an oral dose tomorrow on discharge, improving. 2. Clostridium difficile infection. Continue vancomycin. 3. Klebsiella urinary tract infection. Continue Levaquin renally dosed. 4. Chronic pain. Continue oxycodone. 5. History of end-stage renal disease: AV fistula is maturing and has approximately 8 weeks. Again, will control blood pressure and diurese. 6. History of Mdvwe-Hlwzrdtbo-Rnbki status post ablation. 7. Iron-deficiency anemia. H and H stable, no active bleeding. 8. Diet: Renal. 9. Deep vein thrombosis prophylaxis. Subcutaneous heparin. DISPOSITION: The patient warrants observation on admission given lower extremity edema requiring IV diuresis. /[id number]/MODL MTDD
--- NOTE | 2017-06-06 22:05 | GCON ---
[f rep st] CONSULTATION NEPHROLOGY CONSULTATION DATE OF CONSULTATION: 06/06/2017 REASON FOR CONSULTATION: Renal transplant and chronic renal failure. HISTORY OF PRESENT ILLNESS: I have been asked to evaluate the patient regarding her renal transplan t and chronic renal failure. 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 She is status post living related renal transplant from her sister in 2007, this was perform ed in [place]. She moved to [place] in 2013 and has had a difficult time medically with multiple hospitalizations. 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 She has ongoing issue s with urinary retention and has had recurrent urinary tract infections and episodes of transplant p yelonephritis. She was just discharged from this institution 5 days ago after hospitalization with transplant pyelonephritis. She also had recurrent C difficile colitis and was started on oral vanco mycin. Her creatinine recently has been in the 4s, and she had an AV fistula placed in late April in anticipation of requiring dialysis in the not too distant future. She was discharged on the w ith a creatinine of 3.6. After returning home, she developed progressive edema and discomfort in he r feet. She returned to the emergency room today due to this issue and was subsequently admitted. Her creatinine is 3.4. She has not been on diuretics since her hospital discharge. She states that she has continued to have diarrhea, though it is slowing. She remains on oral vancomycin. She has had some nausea and vomiting that she attributes to her vancomycin. She denies any noncompliance w ith her transplant medications. Chest x-ray in the ER did demonstrate vascular congestion. PAST MEDICAL HISTORY: 1. End-stage renal disease, secondary to neurogenic bladder and reflux as outlined above. 2. History of 6 antigen match living related renal transplant from her sister, performed in 2007 at [facility]. 3. 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 4. Ongoing urinary retention, requiring home self catheterization. 5. Non-Hodgkin's lymphoma status post CHOP therapy and radiation in 2000. 6. Hypertension. 7. History of right upper extremity DVT. 8. Chronic pain with subsequent opioid dependence. 9. Chronic back pain. 10. Hypothyroidism. 11. History of stroke with residual left-sided weakness. 12. Gastroesophageal reflux. 13. Pre-excitation syndrome status post cardiac ablation by Dr. Mike. 14. Anxiety and depression. PAST SURGICAL HISTORY: 1. Spinal fusion T11 through S1. 2. Living related renal transplant. 3. Negative nephrectomies. 4. Right upper extremity AV fistula, May 09, 2017. ALLERGIES: Include erythromycin, levofloxacin, metoclopramide, anti-inflammatories, Demerol, merope nem, sulfa, ceftaz, doxycycline and gabapentin. SOCIAL HISTORY: She is a nonsmoker and drinks rarely. She lives independently, I believe with her . FAMILY HISTORY: Her mother had Rrtim-Gddycfgou-Fykxr syndrome. Her sister was a living kidney marychuy echols. REVIEW OF SYSTEMS: Positive for malaise, chronic pain, edema, nausea and ongoing loose stools. She denies any fevers since her last discharge. The remainder of a 10 organ system review is negative, aside from other positives in the HPI. PHYSICAL EXAM: GENERAL: She is chronically ill appearing, but in no acute distress. VITAL SIGNS: Blood pressure is 121/76, heart rate 80, oxygenation 96% on room air. HEENT: Sclerae anicteric. Oral mucosa is moist. NECK: Supple without JVD or lymphadenopathy. There are no carotid bruits. LUNGS: Actually clear to auscultation with perhaps slightly diminished breath sounds at the bases. BACK: No CVA tenderness. HEART: Regular rate and rhythm, 2/6 systolic murmur, no gallops or rubs . ABDOMEN: Soft, nontender. Bowel sounds are normoactive. I do not appreciate hepatosplenomegaly , masses or bruits. EXTREMITIES: 2+ edema is present in the lower extremities, extending to above the knees. I do not definitely appreciate pedal pulses but her feet are warm and appear well perfus ed. A right upper extremity AV fistula was patent, it appears well-developed with an excellent brui t and thrill. SKIN: No skin rashes. NEURO: She is awake, alert, and appropriate. There is no fa cial droop. : Davis catheter is absent. LABS: Sodium 140, potassium 4.6, chloride 106, CO2 18, BUN 55, creatinine 3.4, glucose 132, calcium 9.4, albumin 4.2, AST 57, ALT 48, brain natriuretic peptide 21,000, white blood cell count 6.5, hem oglobin 8.3, platelets 230. IMPRESSION/PLAN: 1. Renal transplant: Her creatinine is actually below her recent baseline, which in and of itself suggests significant volume overload. She should be diuresed for her volume overload, I do expect h er creatinine will increase with this. Any creatinine from 4-5 would be acceptable. Her arterioven ous fistula actually appears quite well developed for being less than 1-month-old, and I do suspect this should be usable by the end of June. Our goal presently is mainly to keep her stable for the next 4-5 weeks until she can initiate dialysis. She may require chronic outpatient diuretic the rapy to maintain her volume status. I did explain to her that in the future if she has recurrent is sues with lower extremity edema, she is encouraged to simply call our office as this likely can be h andled on an outpatient basis. For now, she should continue her typical prednisone, Imuran and Ness claudia dosing. I would not check a Prograf level. 2. Volume overload: She will receive a dose of IV Lasix this evening, and will likely require jose tional doses over the next day or so. Her creatinine should increase with this and this will need t o be tolerated. In fact, I suspect a creatinine between 4 and 5 would indicate much more appropriat e volume status. She should probably be discharged on oral Lasix. I discussed with her methods for managing this as an outpatient as noted above. 3. Chronic renal failure: She is approaching end-stage renal disease and has an AV fistula in plac e which looks quite good. Our goal will be to maintain reasonable stability for the next month or s o until this can be accessed as an outpatient. 4. Anemia: She will receive erythropoietin. Thank you for the consultation. We will follow with you. /[id number]/MODL
[2017-06-06] MEDS: oxyCODONE IR 5 MG TAB PO PRN (23:25)
[2017-06-07 05:14] LABS: ALBUMIN 3.8 g/dL (3.5-5.0); ANION GAP 17 mEq/L (8-16); CALCIUM 8.9 mg/dL (8.5-10.4); CARBON DIOXIDE 20 mEq/l (22-31); CHLORIDE 107 mEq/L (97-110); CREATININE 3.4 mg/dL (0.6-1.0); GLOMERULAR FILTRATION RATE 15; GLUCOSE 93 mg/dL (70-100); POTASSIUM 4.6 mEq/L (3.5-5.2); SODIUM 144 mEq/L (134-144)
[2017-06-07] MEDS: VANCOMYCIN 125 MG/2.5 ML UDL PO SCH ×4 (06:16→20:26)
[2017-06-07] MEDS: HEPARIN 5,000 UNIT/0.5 ML SYR SC SCH ×3 (06:16→20:24)
[2017-06-07] MEDS: LEVOTHYROXINE 75 MCG TAB PO SCH (06:16)
[2017-06-07] MEDS: oxyCODONE IR 5 MG TAB PO PRN ×3 (06:16→20:26)
[2017-06-07] MEDS ORDERED: EPOETIN ALFA 10,000 UNIT/ML VIAL SC SCH (08:00)
[2017-06-07] MEDS: morphINE SR 30 MG TAB PO SCH ×3 (08:46→20:27)
[2017-06-07] MEDS: PANTOPRAZOLE SODIUM 40 MG TAB PO SCH (08:46)
[2017-06-07] MEDS: SODIUM BICARBONATE 650 MG TAB PO SCH ×2 (08:46→20:24)
[2017-06-07] MEDS: CALCITRIOL 0.25 MCG CAP PO SCH (08:46)
[2017-06-07] MEDS: predniSONE 10 MG TAB PO SCH (08:46)
[2017-06-07] MEDS: TACROLIMUS PO SCH (08:47)
[2017-06-07] MEDS ORDERED: TACROLIMUS 3 MG PO SCH (09:00)
[2017-06-07] MEDS: LORazepam 1 MG TAB PO PRN ×2 (09:15→22:51)
--- NOTE | 2017-06-07 12:52 | SOAPPROG ---
SOAP Progress Note Assessment/Plan: Assessment: 1. edema: good response to iv lasix last night, will give bid for now. Should go out on po dose at d/c, exact dose to be determined. Creat stable but I expect this to increase with diuresis, which will need to be tolerated. 2. renal transplant: cont pred/astragraf/imuran. 3. crf: advanced but stable. Avf in place, will likely be usable late June. 4. anemia: s/p procrit 5. C diff: on po vanc Plan: 06/07/17 12:49 Subjective: Doesn't really feel any different. Feet still uncomfortable. Still with diarrhea. Objective: Vital Signs Temp Pulse Resp BP Pulse Ox 36.7 C 77 12 98/69 L 95 06/07/17 12:00 06/07/17 12:00 06/07/17 12:00 06/07/17 12:00 06/07/17 12:00 Laboratory Results 06/07/17 03:40 06/06/17 06/07/17 06/08/17 05:59 05:59 05:59 Intake Total 300 640 Output Total 1700 2000 Balance -1400 -1360 PT 15.6 SEC (12.0-15.0) H 06/06/17 16:25 INR 1.24 (0.83-1.16) H 06/06/17 16:25 Physical Exam - Physical Exam General Appearance: no apparent distress Respiratory: decreased breath sounds (at bases) Cardiac/Chest: regular rate, rhythm Extremities: pedal edema ICD10 Worksheet Patient Problems: Problems Problem Status Onset Anemia Acute Chronic renal failure Acute Clostridium difficile infection Acute Congestive heart failure Acute Swelling of both lower extremities Acute Anticoagulant therapy Active Chronic pain syndrome Active Hypokalemia Active Hypothyroidism Active Renal impairment Active biliary gastric reflux Active Abdominal pain Acute C. difficile diarrhea Acute ~05/30/17 Dehydration Acute Diarrhea Acute Nausea Acute Nausea & vomiting Acute Pyelonephritis Acute Renal failure (ARF), acute on chronic Acute Sepsis Acute Superficial thrombophlebitis Acute Syncope due to orthostatic hypotension Acute Tachycardia Acute Urinary tract infection Acute VRE (vancomycin-resistant Enterococci) Acute ~03/01/17 History of kidney transplant Chronic
[2017-06-07] MEDS ORDERED: SENNOSIDES 1 TAB PO PRN (14:04)
[2017-06-07] MEDS ORDERED: ONDANSETRON DISINTEGRATING 4 MG TAB PO PRN (14:17)
[2017-06-07] MEDS: FUROSEMIDE 100 MG/10 ML VIAL IVP SCH (14:58)
--- NOTE | 2017-06-07 18:16 | HOSPPROG ---
Hospitalist Progress Note Assessment/Plan: 47 yo F with ESRD presenting with increased LE edema # ESRD: presenting with acute decompensation and lower extremity edema, responding to lasix, has fistula currently maturing, appreciate renal eval # c diff: recent hospitalization for same, continue oral vanco # chronic pain with continuous narcotic use and dependency: continue op meds # anemia: 2/2 anemia of ckd/iron deficiency, monitoring # NHL: s/p CHOP # WPW: sp ablation # IP status, will need > 48 hours stay for eval/mgmt of above given multiple active medical issues requiring mgmt Patient new to my care. old records reviewed and summarized as above. Subjective: no significant overnight events, patient notes continued swelling in legs, not sob Objective: Vital Signs Temp Pulse Resp BP Pulse Ox 36.9 C 74 12 105/65 94 06/07/17 16:00 06/07/17 16:00 06/07/17 16:00 06/07/17 16:00 06/07/17 16:00 06/06/17 06/07/17 06/08/17 05:59 05:59 05:59 Intake Total 650 Output Total 1100 Balance -450 PT 15.6 SEC (12.0-15.0) H 06/06/17 16:25 INR 1.24 (0.83-1.16) H 06/06/17 16:25 awake alert nad anicteric op clear rrr cta b soft nt nd fistula with thrill in RUE 1+ ble edema warm dry well perfused oriented appropriate - Time Spent With Patient Time Spent with Patient: greater than 35 minutes Time Spent with Patient: Greater than 35 minutes spent on this patients care, greater than 50% of time spent counseling, educating, and coordinating care regarding the above mentioned plan. ICD10 Worksheet Patient Problems: Problems Problem Status Onset Swelling of both lower extremities Acute Congestive heart failure Acute Chronic renal failure Acute Anemia Acute Clostridium difficile infection Acute VRE (vancomycin-resistant Enterococci) Acute ~03/01/17 Diarrhea Acute Hypothyroidism Active Chronic pain syndrome Active Renal impairment Active Hypokalemia Active Anticoagulant therapy Active biliary gastric reflux Active Syncope due to orthostatic hypotension Acute Dehydration Acute Renal failure (ARF), acute on chronic Acute History of kidney transplant Chronic Tachycardia Acute Nausea Acute Nausea & vomiting Acute C. difficile diarrhea Acute ~05/30/17 Sepsis Acute Pyelonephritis Acute Abdominal pain Acute Superficial thrombophlebitis Acute Urinary tract infection Acute
[2017-06-07] MEDS: azaTHIOprine 50 MG TAB PO SCH (20:24)
[2017-06-08] MEDS: oxyCODONE IR 5 MG TAB PO PRN ×4 (03:11→21:59)
[2017-06-08 05:52] LABS: % IMMATURE GRANULYOCYTES 0.3 % (0.0-1.1); ABSOLUTE IMMATURE GRANULOCYTES 0.02 10^3/uL (0.00-0.10); ADD DIFF? NO; ADD MORPH? NO; ADD SCAN? NO; ATYPICAL LYMPHOCYTE FLAG 20 (0-99); FRAGMENT RBC FLAG 20 (0-99); HEMATOCRIT 25.4 % (38.0-47.0); HEMOGLOBIN 8.1 g/dL (12.6-16.3); LEFT SHIFT FLG 0 (0-99); LIPEMIA HEMOLYSIS FLAG 80 (0-99); MEAN CELL HEMOGLOBIN CONCENTR. 31.9 g/dL (32.4-36.7); MEAN CELL VOLUME 100.4 fL (81.5-99.8); MEAN PLATELET VOLUME 11.2 fL (8.7-11.7); PLATELET CLUMPS FLAG 0 (0-99); PLATELET COUNT 218 10^3/uL (150-400); RED BLOOD CELL COUNT 2.53 10^6/uL (4.18-5.33); RED CELL DISTRIBUTION WIDTH 19.9 % (11.5-15.2)
[2017-06-08 06:01] LABS: ANION GAP 18 mEq/L (8-16); CALCIUM 8.9 mg/dL (8.5-10.4); CARBON DIOXIDE 24 mEq/l (22-31); CHLORIDE 101 mEq/L (97-110); CREATININE 3.8 mg/dL (0.6-1.0); GLOMERULAR FILTRATION RATE 13; GLUCOSE 111 mg/dL (70-100); POTASSIUM 3.8 mEq/L (3.5-5.2); SODIUM 143 mEq/L (134-144)
[2017-06-08] MEDS: LEVOTHYROXINE 75 MCG TAB PO SCH (07:04)
[2017-06-08] MEDS: VANCOMYCIN 125 MG/2.5 ML UDL PO SCH ×4 (07:04→20:31)
[2017-06-08] MEDS: HEPARIN 5,000 UNIT/0.5 ML SYR SC SCH ×3 (07:04→21:57)
[2017-06-08] MEDS: FUROSEMIDE 100 MG/10 ML VIAL IVP SCH ×2 (08:37→15:51)
[2017-06-08] MEDS: SODIUM BICARBONATE 650 MG TAB PO SCH ×2 (08:37→20:31)
[2017-06-08] MEDS: TACROLIMUS PO SCH (08:37)
[2017-06-08] MEDS: morphINE SR 30 MG TAB PO SCH ×3 (08:37→21:55)
[2017-06-08] MEDS: predniSONE 10 MG TAB PO SCH (08:37)
[2017-06-08] MEDS: PANTOPRAZOLE SODIUM 40 MG TAB PO SCH (08:37)
--- NOTE | 2017-06-08 08:54 | SOAPPROG ---
SOAP Progress Note Assessment/Plan: Assessment: 1. Kidney transplant. Creat rising appropriately with diuresis. Continue astragraf, azathioprine, prednisone. 2. CKD V. AVF placed late April. Needs more time to mature. Creat may rise into 4s with diuresis. No acute need for dialysis. 3. Edema. Improving. Continue diuresis. Add SHIVANI hose. 3.8 L out yesterday. Decrease to 40mg IV BID. May need to continue some lasix at d/c. 4. Anemia. S/p procrit. Check Fe studies. Plan: 06/08/17 08:51 06/08/17 08:52 06/08/17 08:53 06/08/17 08:54 06/08/17 09:01 06/08/17 09:03 Subjective: C/o feet hurting a lot. Objective: Vital Signs Temp Pulse Resp BP Pulse Ox 36.8 C 72 16 116/71 91 L 06/08/17 08:00 06/08/17 08:00 06/08/17 08:00 06/08/17 08:00 06/08/17 08:00 Laboratory Results 06/08/17 03:59 06/08/17 03:59 06/07/17 06/08/17 06/09/17 05:59 05:59 05:59 Intake Total 1170 Output Total 1850 Balance -680 PT 15.6 SEC (12.0-15.0) H 06/06/17 16:25 INR 1.24 (0.83-1.16) H 06/06/17 16:25 Slightly upset, in bed, NAD RRR, no m/g/r CTAB Abdom soft, nontender 2+ LE pitting, tr sacral edema R UE AVF with great thrill/bruit ICD10 Worksheet Patient Problems: Problems Problem Status Onset Swelling of both lower extremities Acute Congestive heart failure Acute Chronic renal failure Acute Anemia Acute Clostridium difficile infection Acute VRE (vancomycin-resistant Enterococci) Acute ~03/01/17 Diarrhea Acute Hypothyroidism Active Chronic pain syndrome Active Renal impairment Active Hypokalemia Active Anticoagulant therapy Active biliary gastric reflux Active Syncope due to orthostatic hypotension Acute Dehydration Acute Renal failure (ARF), acute on chronic Acute History of kidney transplant Chronic Tachycardia Acute Nausea Acute Nausea & vomiting Acute C. difficile diarrhea Acute ~05/30/17 Sepsis Acute Pyelonephritis Acute Abdominal pain Acute Superficial thrombophlebitis Acute Urinary tract infection Acute
--- NOTE | 2017-06-08 17:20 | HOSPPROG ---
Hospitalist Progress Note Assessment/Plan: 47 yo F with ESRD presenting with increased LE edema # ESRD: presenting with acute decompensation and new lower extremity edema, responding well to lasix--nearly 4L net negative yesterday and decreased lasix from 80 to 40 IV bid, has fistula currently maturing, appreciate renal following # hx of renal transplant: continue astragraf, azathioprine, prednisone # c diff: recent hospitalization for same, continue oral vanco--she has been on since 05/31 and given recurrent disease warrants a more prolonged course and could dc at 14 days, 06/13. Currently without c/o diarrhea # chronic pain with continuous narcotic use and dependency: continue op meds # anemia: 2/2 anemia of ckd/iron deficiency, procrit initiated per renal and iron studies ordered # NHL: s/p CHOP # WPW: sp ablation # IP status, will need > 48 hours stay for eval/mgmt of above given multiple active medical issues requiring mgmt Subjective: no significant overnight events, has less lower extremity edema but still present, had very high UOP overnight Objective: Vital Signs Temp Pulse Resp BP Pulse Ox 36.4 C 70 16 110/66 94 06/08/17 15:59 06/08/17 15:59 06/08/17 15:59 06/08/17 15:59 06/08/17 15:59 Laboratory Results 06/08/17 03:59 06/08/17 03:59 06/07/17 06/08/17 06/09/17 05:59 05:59 05:59 Intake Total 1170 650 Output Total 1850 1950 Balance -680 -1300 PT 15.6 SEC (12.0-15.0) H 06/06/17 16:25 INR 1.24 (0.83-1.16) H 06/06/17 16:25 awake alert nad anicteric op clear rrr cta b soft nt nd fistula with thrill in RUE 1+ ble edema warm dry well perfused oriented appropriate ICD10 Worksheet Patient Problems: Problems Problem Status Onset Anemia Acute Chronic renal failure Acute Clostridium difficile infection Acute Congestive heart failure Acute Swelling of both lower extremities Acute Anticoagulant therapy Active Chronic pain syndrome Active Hypokalemia Active Hypothyroidism Active Renal impairment Active biliary gastric reflux Active Abdominal pain Acute C. difficile diarrhea Acute ~05/30/17 Dehydration Acute Diarrhea Acute Nausea Acute Nausea & vomiting Acute Pyelonephritis Acute Renal failure (ARF), acute on chronic Acute Sepsis Acute Superficial thrombophlebitis Acute Syncope due to orthostatic hypotension Acute Tachycardia Acute Urinary tract infection Acute VRE (vancomycin-resistant Enterococci) Acute ~03/01/17 History of kidney transplant Chronic
[2017-06-08] MEDS: azaTHIOprine 50 MG TAB PO SCH (20:32)
[2017-06-09] MEDS: LORazepam 1 MG TAB PO PRN (00:05)
[2017-06-09 05:16] LABS: % IMMATURE GRANULYOCYTES 0.3 % (0.0-1.1); ABSOLUTE IMMATURE GRANULOCYTES 0.02 10^3/uL (0.00-0.10); ADD DIFF? NO; ADD MORPH? NO; ADD SCAN? NO; ATYPICAL LYMPHOCYTE FLAG 20 (0-99); FRAGMENT RBC FLAG 20 (0-99); HEMATOCRIT 26.9 % (38.0-47.0); HEMOGLOBIN 8.7 g/dL (12.6-16.3); LEFT SHIFT FLG 0 (0-99); LIPEMIA HEMOLYSIS FLAG 80 (0-99); MEAN CELL HEMOGLOBIN 32.6 pg (27.9-34.1); MEAN CELL HEMOGLOBIN CONCENTR. 32.3 g/dL (32.4-36.7); MEAN CELL VOLUME 100.7 fL (81.5-99.8); MEAN PLATELET VOLUME 11.8 fL (8.7-11.7); PLATELET CLUMPS FLAG 0 (0-99); PLATELET COUNT 235 10^3/uL (150-400); RED BLOOD CELL COUNT 2.67 10^6/uL (4.18-5.33); RED CELL DISTRIBUTION WIDTH 19.4 % (11.5-15.2)
[2017-06-09 05:25] LABS: ALBUMIN 3.8 g/dL (3.5-5.0); ANION GAP 18 mEq/L (8-16); CALCIUM 9.3 mg/dL (8.5-10.4); CARBON DIOXIDE 26 mEq/l (22-31); CHLORIDE 95 mEq/L (97-110); CREATININE 3.9 mg/dL (0.6-1.0); GLOMERULAR FILTRATION RATE 12; GLUCOSE 160 mg/dL (70-100); POTASSIUM 3.8 mEq/L (3.5-5.2); SODIUM 139 mEq/L (134-144)
[2017-06-09 05:34] LABS: % SATURATION 15 % (20-55); TOTAL IRON BINDING CAPACITY 283 ug/dL (260-490)
[2017-06-09] MEDS: LEVOTHYROXINE 75 MCG TAB PO SCH (05:38)
[2017-06-09] MEDS: oxyCODONE IR 5 MG TAB PO PRN ×3 (05:38→18:04)
[2017-06-09] MEDS: VANCOMYCIN 125 MG/2.5 ML UDL PO SCH ×4 (05:38→21:07)
[2017-06-09] MEDS: HEPARIN 5,000 UNIT/0.5 ML SYR SC SCH ×3 (05:39→21:07)
[2017-06-09] MEDS ORDERED: FUROSEMIDE 40 MG/4 ML VIAL IVP SCH (09:00)
[2017-06-09] MEDS: morphINE SR 30 MG TAB PO SCH ×3 (09:34→21:07)
[2017-06-09] MEDS: SODIUM BICARBONATE 650 MG TAB PO SCH ×2 (09:34→21:07)
[2017-06-09] MEDS: predniSONE 10 MG TAB PO SCH (09:35)
[2017-06-09] MEDS: PANTOPRAZOLE SODIUM 40 MG TAB PO SCH (09:35)
[2017-06-09] MEDS: TACROLIMUS PO SCH (09:37)
--- NOTE | 2017-06-09 11:24 | SOAPPROG ---
SOAP Progress Note Assessment/Plan: Assessment: 1. edema: s/p sig diuresis with appropriate creat increase. Iv lasix decreased yesterday, will change to po today. Start at 40 po bid, if uo appears adequate with this should be able to d/c soon and f/u as outpt. Discussed importance of weighing self daily to monitor vol status. 2. renal transplant: cont pred/astragraf/imuran. 3. crf: advanced but stable. Avf in place, will likely be usable late June. More appropriate creat would probably be 4-5 to maintain volume status. She has f/u appt with Dr. Sanderson early next month. 4. anemia: s/p procrit 5. C diff: on po vanc Plan: 06/07/17 12:49 06/09/17 11:21 Subjective: Feet feeling better. Still with loose stools but slowly solidifying. Objective: Vital Signs Temp Pulse Resp BP Pulse Ox 36.6 C 72 16 110/71 92 06/09/17 08:00 06/09/17 08:00 06/09/17 08:00 06/09/17 08:00 06/09/17 08:00 Laboratory Results 06/09/17 03:32 06/09/17 03:32 06/08/17 06/09/17 06/10/17 05:59 05:59 05:59 Intake Total 1170 650 200 Output Total 1850 1950 Balance -680 -1300 200 PT 15.6 SEC (12.0-15.0) H 06/06/17 16:25 INR 1.24 (0.83-1.16) H 06/06/17 16:25 Physical Exam - Physical Exam General Appearance: no apparent distress, other (chronically-ill appearing) Extremities: pedal edema (none), other (+well developed RUE avf) ICD10 Worksheet Patient Problems: Problems Problem Status Onset Anemia Acute Chronic renal failure Acute Clostridium difficile infection Acute Congestive heart failure Acute Swelling of both lower extremities Acute Anticoagulant therapy Active Chronic pain syndrome Active Hypokalemia Active Hypothyroidism Active Renal impairment Active biliary gastric reflux Active Abdominal pain Acute C. difficile diarrhea Acute ~05/30/17 Dehydration Acute Diarrhea Acute Nausea Acute Nausea & vomiting Acute Pyelonephritis Acute Renal failure (ARF), acute on chronic Acute Sepsis Acute Superficial thrombophlebitis Acute Syncope due to orthostatic hypotension Acute Tachycardia Acute Urinary tract infection Acute VRE (vancomycin-resistant Enterococci) Acute ~03/01/17 History of kidney transplant Chronic
[2017-06-09] MEDS: CALCITRIOL 0.25 MCG CAP PO SCH (11:33)
[2017-06-09] MEDS: FUROSEMIDE 40 MG TAB PO SCH (15:05)
--- NOTE | 2017-06-09 15:54 | HOSPPROG ---
Hospitalist Progress Note Assessment/Plan: 47 yo female s/p renal transplant with partial failure, has left arm shunt immature, presents with edema, fluid overload. Patient new to me today. diuresis of 45cc last 36 hours with IV lasix. Much improved. Patient new to me today -ESRD: presenting with acute decompensation and new lower extremity edema, responding well to lasix--nearly 4L net negative yesterday and decreased lasix from 80 to 40 IV bid, has fistula currently maturing, appreciate renal following -hx of renal transplant: continue astragraf, azathioprine, prednisone -c diff: recent hospitalization for same, continue oral vanco--she has been on since 05/31 and given recurrent disease warrants a more prolonged course and could dc at 14 days, 06/13. Currently without c/o diarrhea -chronic pain with continuous narcotic use and dependency: continue op meds -anemia: 2/2 anemia of ckd/iron deficiency, procrit initiated per renal and iron studies ordered # NHL: s/p CHOP # WPW: sp ablation # IP status, will need > 48 hours stay for eval/mgmt of above given multiple active medical issues requiring mgmt Plan:Probable discharge tomorrow on PO lasix. Creatinine may rise to 4.0. No need for dialyais now. Nephro note appreciated Subjective: feeling improved. Objective: Vital Signs Temp Pulse Resp BP Pulse Ox 36.8 C 83 18 111/66 94 06/09/17 11:34 06/09/17 11:34 06/09/17 11:34 06/09/17 11:34 06/09/17 11:34 Laboratory Results 06/09/17 03:32 06/09/17 03:32 06/08/17 06/09/17 06/10/17 05:59 05:59 05:59 Intake Total 1170 650 200 Output Total 1850 1950 Balance -680 -1300 200 PT 15.6 SEC (12.0-15.0) H 06/06/17 16:25 INR 1.24 (0.83-1.16) H 06/06/17 16:25 - Time Spent With Patient Time Spent with Patient: greater than 35 minutes Time Spent with Patient: Greater than 35 minutes spent on this patients care, greater than 50% of time spent counseling, educating, and coordinating care regarding the above mentioned plan. - Pending Discharge Pending Discharge Within 24 Hours: Yes Pending Discharge Date: 06/10/17 Pending Discharge Time: 11:00 - Physical Exam Constitutional: no apparent distress, chronically ill appearing Eyes: PERRL Ears, Nose, Mouth, Throat: moist mucous membranes, hearing normal Cardiovascular: regular rate and rhythym, no murmur, rub, or gallop, systolic murmur, JVD (JVD normal) Respiratory: no respiratory distress, no rales or rhonchi, clear to auscultation Gastrointestinal: normoactive bowel sounds, soft, non-tender abdomen, no palpable masses Genitourinary: no bladder fullness Skin: warm Musculoskeletal: full muscle strength Neurologic: AAOx3, CN II-XII Intact Psychiatric: interacting appropriately ICD10 Worksheet Patient Problems: Problems Problem Status Onset Swelling of both lower extremities Acute Congestive heart failure Acute Chronic renal failure Acute Anemia Acute Clostridium difficile infection Acute VRE (vancomycin-resistant Enterococci) Acute ~03/01/17 Diarrhea Acute Hypothyroidism Active Chronic pain syndrome Active Renal impairment Active Hypokalemia Active Anticoagulant therapy Active biliary gastric reflux Active Syncope due to orthostatic hypotension Acute Dehydration Acute Renal failure (ARF), acute on chronic Acute History of kidney transplant Chronic Tachycardia Acute Nausea Acute Nausea & vomiting Acute C. difficile diarrhea Acute ~05/30/17 Sepsis Acute Pyelonephritis Acute Abdominal pain Acute Superficial thrombophlebitis Acute Urinary tract infection Acute
[2017-06-09] MEDS: azaTHIOprine 50 MG TAB PO SCH (21:07)
[2017-06-09] MEDS: SODIUM FERRIC GLUCONAT/SUCROSE 125 MG in NS 100 ML IV SCH (22:05)
[2017-06-10] MEDS: oxyCODONE IR 5 MG TAB PO PRN ×3 (00:25→14:14)
[2017-06-10 05:35] LABS: ANION GAP 17 mEq/L (8-16); CALCIUM 9.1 mg/dL (8.5-10.4); CARBON DIOXIDE 28 mEq/l (22-31); CHLORIDE 96 mEq/L (97-110); CREATININE 3.9 mg/dL (0.6-1.0); GLOMERULAR FILTRATION RATE 12; GLUCOSE 109 mg/dL (70-100); POTASSIUM 4.2 mEq/L (3.5-5.2); SODIUM 141 mEq/L (134-144)
[2017-06-10] MEDS: VANCOMYCIN 125 MG/2.5 ML UDL PO SCH ×2 (05:38→14:15)
[2017-06-10] MEDS: HEPARIN 5,000 UNIT/0.5 ML SYR SC SCH (05:38)
[2017-06-10 07:23] VITALS: BP 110/67; PULSE 71; RESP 10; TEMP 98.5; O2SAT 93
[2017-06-10] MEDS: SODIUM BICARBONATE 650 MG TAB PO SCH (07:31)
[2017-06-10] MEDS: SODIUM FERRIC GLUCONAT/SUCROSE 125 MG in NS 100 ML IV SCH (07:31)
[2017-06-10] MEDS: predniSONE 10 MG TAB PO SCH (07:31)
[2017-06-10] MEDS: PANTOPRAZOLE SODIUM 40 MG TAB PO SCH (07:32)
[2017-06-10] MEDS: FUROSEMIDE 40 MG TAB PO SCH (07:32)
[2017-06-10] MEDS: morphINE SR 30 MG TAB PO SCH (07:32)
[2017-06-10] MEDS: TACROLIMUS PO SCH (07:33)
--- NOTE | 2017-06-10 08:44 | SOAPPROG ---
SOAP Progress Note Assessment/Plan: Assessment:Plan: CKD-near ESRD -creatinine stable Anemia with iron deficiency-on IV iron -now without IV access -change to PO iron Edema-better with diuretics AV access-fistula with great flow -small area of wound dehiscence distally that will be able to heal by secondary intention Dispo-likely home today -has appointment with Dr. Sanderson on 06/21/17 -she will keep that appointment 06/10/17 08:41 Subjective: stable overnite Objective: Vital Signs Temp Pulse Resp BP Pulse Ox 36.9 C 71 10 L 110/67 93 06/10/17 07:22 06/10/17 07:22 06/10/17 07:22 06/10/17 07:22 06/10/17 07:22 Laboratory Results 06/09/17 03:32 06/10/17 03:42 06/09/17 06/10/17 06/11/17 05:59 05:59 05:59 Intake Total 650 2150 Output Total 1950 2425 Balance -1300 -275 PT 15.6 SEC (12.0-15.0) H 06/06/17 16:25 INR 1.24 (0.83-1.16) H 06/06/17 16:25 Physical Exam - Physical Exam General Appearance: WD/WN, alert, no apparent distress EENT: normal ENT inspection Neck: normal inspection Respiratory: lungs clear, normal breath sounds, No respiratory distress Cardiac/Chest: regular rate, rhythm, systolic murmur, No diastolic murmur Abdomen: normal bowel sounds, non-tender, soft, No hepatomegaly, No splenomegaly Skin: normal color, warm/dry Extremities: other (AVF patent), No swelling Neuro/Psych: no motor/sensory deficits ICD10 Worksheet Patient Problems: Problems Problem Status Onset Anemia Acute Chronic renal failure Acute Clostridium difficile infection Acute Congestive heart failure Acute Swelling of both lower extremities Acute Anticoagulant therapy Active Chronic pain syndrome Active Hypokalemia Active Hypothyroidism Active Renal impairment Active biliary gastric reflux Active Abdominal pain Acute C. difficile diarrhea Acute ~05/30/17 Dehydration Acute Diarrhea Acute Nausea Acute Nausea & vomiting Acute Pyelonephritis Acute Renal failure (ARF), acute on chronic Acute Sepsis Acute Superficial thrombophlebitis Acute Syncope due to orthostatic hypotension Acute Tachycardia Acute Urinary tract infection Acute VRE (vancomycin-resistant Enterococci) Acute ~03/01/17 History of kidney transplant Chronic
[2017-06-10] MEDS ORDERED: FERROUS SULFATE 325 MG TAB PO SCH (09:00)
--- NOTE | 2017-06-10 11:11 | GDS ---
[f rep st] DISCHARGE SUMMARY NEW AND ACUTE DIAGNOSES ON THIS ADMISSION: 1. Chronic kidney disease with a stable creatinine at approximately 4 at this time. 2. Peripheral edema secondary to chronic kidney disease and decompensation, now improved with diuretics. 3. Iron deficiency anemia. 4. Clostridium difficile infection, now on p.o. vancomycin. 5. Acute urinary tract infection. 6. Chronic opioid dependence CHRONIC DIAGNOSES: 1. Recurrent Klebsiella urinary tract infection. 2. Prior Clostridium difficile infection. 3. Gastroesophageal reflux disease. 4. History of a renal transplantation, from a sister, now with partial failure. 5. End-stage renal disease with a maturing right arm AV fistula. 6. Chronic urinary retention. 7. Protein caloric malnutrition. 8. Hypertension. 9. History of a left cerebrovascular accident. 10. Dzuvi-Unzrzuvnb-Nraml syndrome, status post ablation. 11. Non Hodgkin lymphoma. CONSULTATION: Nephrology. PROCEDURES: None. HOSPITAL COURSE: A 47-year-old female, who presented with significant peripheral edema, which had been developing since her last hospitalization. She was noted to be in significant fluid excess, and having chronic kidney failure, but responded nicely to IV Lasix, with diuresis of almost 4-5 L and weight loss, which was not detected. She felt much improved and her peripheral edema had resolved. She was seen by Nephrology, it is noted that her creatinine nikita with diuresis, but final creatinine was 3.9. She previously had been noted to have C difficile, and her vancomycin was restarted, as she was having loose stools to diarrhea. She did not appear toxic, had no leukocytosis, and no complaints of abdominal pain. She is noted to have iron deficiency anemia, and IV iron was ordered, yet we lost IV access, and she did not receive this. She will be discharged on p.o. iron. DISCHARGE MEDICATIONS: Her new medication will be levofloxacin 500 mg every other day, to be stopped on June 14, oxycodone 20 to 40 mg p.o. q.6 hours p.r.n. pain. Lasix 40 mg a day. New medication will be vancomycin 125 mg p.o. q.i.d., to be continued for 7 days after she stops the levofloxacin. Thus, she will stop the vancomycin on June 23. Sodium bicarbonate 1300 mg p.o. b.i.d., Senokot 1-2 tabs p.o. b.i.d., prednisone 10 mg daily, Protonix 40 mg daily, Zofran 8 mg p.o. daily p.r.n. nausea, morphine/MS Contin 30 mg p.o. t.i.d., lorazepam 1 mg p.o. t.i.d. p.r.n., Synthroid 75 mcg a day. Ferrous sulfate, a new medication, and will be 325 mg daily. Colace 100 mg daily. Periactin 4 mg q.i.d. p.r.n., calcitriol 0.25 mcg p.o. on Monday, Monday, Monday. Azathioprine 100 mg h.s., Astagraf and Tylenol for pain p.r.n. PLAN: The lady is discharged home and will be accompanied by her . No home health services are ordered. She has a followup visit with Dr. Sanderson, her barrow worker helper, on June 21. Her PCP is Dr. Pablito Giles, whom she will see on a p.r.n. basis. It is felt that the left arm fistula can be used for dialysis by the last week of June. Matters to address at followup: Assess the duration of the oral vancomycin dosing. It has been planned at this discharge to continue vancomycin orally for 7 days post stopping the Levaquin. She still has loose stools at discharge. TIME: This discharge required 55 minutes, greater than 50% to debt and budget counselor, coordinate her care and explain her followup and management with the patient. /[id number]/MODL MTDD
== END 2017-06-10 15:00 | disposition home or self-care (01) | DRG 683 ==
LOC: INTOOBSV 18:25 → F2W 20:18 → OBSVTOIN 06-07 14:04
PROVIDERS: ADMIT Internal Medicine; ATTEND Internal Medicine
DX: I12.9 Hypertensive chronic kidney disease with stage 1 through stage 4 chronic kidney disease, or unspecified chronic kidney disease (principal); N18.4 Chronic kidney disease, stage 4 (severe); D50.9 Iron deficiency anemia, unspecified; D63.1 Anemia in chronic kidney disease; A04.7 Enterocolitis due to Clostridium difficile; F11.20 Opioid dependence, uncomplicated; G89.29 Other chronic pain; C85.90 Non-Hodgkin lymphoma, unspecified, unspecified site; N39.0 Urinary tract infection, site not specified; N31.9 Neuromuscular dysfunction of bladder, unspecified; E03.9 Hypothyroidism, unspecified; I69.354 Hemiplegia and hemiparesis following cerebral infarction affecting left non-dominant side; K21.9 Gastro-esophageal reflux disease without esophagitis; Z86.718 Personal history of other venous thrombosis and embolism; Z98.1 Arthrodesis status; Z92.3 Personal history of irradiation; Z94.0 Kidney transplant status; Z87.01 Personal history of pneumonia (recurrent)
CPT/HCPCS: G0378; G0463-PO; J0885; J1940; J2916; J7500

== ENCOUNTER → 2017-07-28 | Outpatient (CLI) | payer OTHER | LOC: FIMAGING 11:52 | PROVIDERS: ATTEND Internal Medicine | DX: I67.9 Cerebrovascular disease, unspecified (principal) ==

== ENCOUNTER → 2017-07-30 | Outpatient (CLI) | payer OTHER | LOC: FIMAGING 11:58 | PROVIDERS: ATTEND Internal Medicine | DX: I67.9 Cerebrovascular disease, unspecified (principal); G93.89 Other specified disorders of brain ==

== ENCOUNTER → 2017-08-07 | Outpatient (CLI) | payer OTHER | LOC: FIMAGING 10:53 | PROVIDERS: ATTEND Internal Medicine | DX: I67.9 Cerebrovascular disease, unspecified (principal); G93.89 Other specified disorders of brain ==

== ENCOUNTER 2017-09-22 13:43 | Emergency (ER) | payer OTHER ==
[2017-09-22 13:49] VITALS: RESP 16; O2SAT 98
--- NOTE | 2017-09-22 15:28 | EDPHY ---
H & P Stated Complaint: UTI Sx Time Seen by Provider: 09/22/17 15:11 HPI/ROS: CHIEF COMPLAINT: Dysuria HISTORY OF PRESENT ILLNESS: Patient is a 47-year-old female with a history of renal transplant in 2007 with partial failure as well as chronic kidney disease , recurrent urinary tract infections with Klebsiella, history of C difficile, history of urinary retention and non-Hodgkin's lymphoma as well as the history of CVA. She comes to the emergency department complaining that she has had dark foul-smelling urine for the last 2 days. No fever. No flank pain. She has some mild pain in her left lower quadrant over her transplant but states that that is baseline. She is concerned for recurrent urinary tract infection. She is not currently on antibiotics. She does take Lasix every other day. REVIEW OF SYSTEMS: Constitutional: denies: chills, fever, recent illness, recent injury EENTM: denies: blurred vision, double vision, nose congestion Respiratory: denies: cough, shortness of breath Cardiac: denies: chest pain, irregular heart rate, lightheadedness, palpitations Gastrointestinal/Abdominal: denies: abdominal pain, diarrhea, nausea, vomiting, blood streaked stools Genitourinary: See HPI Musculoskeletal: denies: joint pain, muscle pain Skin: denies: lesions, rash, jaundice, bruising Neurological: denies: headache, numbness, paresthesia, tingling, dizziness, weakness Hematologic/Lymphatic: denies: blood clots, easy bleeding, easy bruising Immunologic/allergic: denies: HIV/AIDS, transplant EXAM: GENERAL: Thin, conversant HEAD: Atraumatic, normocephalic. EYES: Pupils equal round and reactive to light, extraocular movements intact, sclera anicteric, conjunctiva are normal. ENT: TMs normal, nares patent, oropharynx clear without exudates. Moist mucous membranes. NECK: Normal range of motion, supple without lymphadenopathy or JVD. LUNGS: Breath sounds clear to auscultation bilaterally and equal. No wheezes rales or rhonchi. HEART: Regular rate and rhythm without murmurs, rubs or gallops. ABDOMEN: Soft, nontender, normoactive bowel sounds. No guarding, no rebound. No masses appreciated. BACK: No CVA tenderness, no spinal tenderness, step-offs or deformities EXTREMITIES: Normal range of motion, no pitting or edema. No clubbing or cyanosis. NEUROLOGICAL: Cranial nerves II through XII grossly intact. Normal speech, normal gait. 5/5 strength, normal movement in all extremities, normal sensation PSYCH: Normal mood, normal affect. SKIN: Warm, dry, normal turgor, no visible rashes or lesions. Source: Patient Exam Limitations: No limitations - Personal History LMP (Females 10-55): Post Menopausal Current Tetanus Diphtheria and Acellular Pertussis (TDAP): Yes Tetanus Vaccine Date: 2012 - Medical/Surgical History Hx Asthma: No Hx Chronic Respiratory Disease: No Hx Diabetes: No Hx Cardiac Disease: No Hx Renal Disease: Yes Hx Cirrhosis: No Hx Alcoholism: No Hx HIV/AIDS: No Hx Splenectomy or Spleen Trauma: No Other PMH: 1. Left Kidney transplant 07/08/08. 2. Gestational diabetes. 3. Chronic back pain. 4. T10-S1 back fusion. 5. C-DIFF + 06/01. 6. Anxiety. 7. Right arm AV fistula, nonfunctioning. 8. GERD. 9. Hypertension. 10. Non hodgkin lymphoma. 11. Clostridium difficile September 2016. 12. Left cerebellar infarct. 13. Left cerebral peduncle - Family History Significant Family History: No pertinent family hx - Social History Smoking Status: Never smoked Alcohol Use: Sober Drug Use: None Constitutional: Initial Vital Signs Temperature (C) 37.1 C 09/22/17 13:47 Heart Rate 97 09/22/17 13:47 Respiratory Rate 16 09/22/17 13:47 Blood Pressure 117/76 09/22/17 13:47 O2 Sat (%) 98 09/22/17 13:47 O2 Delivery Mode Room Air Allergies/Adverse Reactions: erythromycin lactobionate [From Erythrocin] Allergy (Severe, Verified 05/25/17 18:39) Anaphylaxis metoclopramide HCl [From Reglan] Allergy (Severe, Verified 05/25/17 18:39) "went crazy" NSAIDS (Non-Steroidal Anti-Inflamma [Nsaids] Allergy (Severe, Verified 05/25/17 18:39) Kidney transplant meperidine HCl [From Demerol] Allergy (Intermediate, Verified 05/25/17 18:39) Hypotension meropenem [Meropenem] Allergy (Intermediate, Verified 05/25/17 18:39) Hypersensitivity in legs Sulfa (Sulfonamide Antibiotics) Allergy (Intermediate, Verified 05/25/17 18:39) Hives ceftazidime Allergy (Mild, Verified 05/25/17 18:39) Rash ciprofloxacin [From Cipro] Allergy (Mild, Verified 05/25/17 18:39) Rash doxycycline Allergy (Verified 05/25/17 18:39) gabapentin [From Neurontin] Allergy (Verified 05/25/17 18:39) Other-Enter Comments Home Medications: Medication Instructions Recorded Astagraf 3 mg PO DAILY 01/10/17 Calcitriol [Calcitriol (*)] 0.25 mcg PO MOWEFR 05/25/17 Cyproheptadine HCl [Periactin 4 MG 4 mg PO QID PRN 05/25/17 (*)] Docusate Sodium [Colace 100 MG (*)] 100 mg PO DAILY PRN 05/25/17 LORazepam [Ativan (*)] 1 mg PO TID PRN 05/25/17 Levothyroxine [Synthroid 75 mcg 75 mcg PO SUMOTUWETHFR@06 05/25/17 (*)] Pantoprazole Sodium [Protonix 40mg 40 mg PO DAILY 05/25/17 (*)] Sennosides [Senokot] 1 - 2 tab PO BID PRN 05/25/17 azaTHIOprine [Imuran 50 mg (*)] 100 mg PO HS 05/25/17 morphINE SR [MS Contin/Oramorph SR 30 mg PO TID 05/25/17 30 mg (*)] oxyCODONE HCL [OXYCODONE HCL] 20 - 40 mg PO Q6H PRN 05/25/17 predniSONE [Prednisone] 10 mg PO DAILY 05/25/17 Acetaminophen [Tylenol 325mg (*)] 650 mg PO Q4HRS PRN #0 tab 06/01/17 Vancomycin [Vancocin Oral Liquid] 125 mg PO QID #60 tab 06/01/17 levOFLOXACIN [levAQUIN (*)] 500 mg PO Q2D@1000 #4 tab 06/01/17 Furosemide [Lasix 40 MG (*)] 40 mg PO DAILY 06/06/17 Ondansetron HCl [Zofran] 8 mg PO DAILY PRN 06/06/17 Sodium Bicarbonate [Na Bicarb] 1,300 mg PO BID 06/06/17 Ferrous Sulfate [Ferrous Sulf 325 325 mg PO DAILY #30 tab 06/10/17 MG (*)] Cephalexin [Keflex] 500 mg PO Q6H #28 cap 09/22/17 Medical Decision Making ED Course/Re-evaluation: Patient's creatinine is better than baseline. Her anemia is at baseline. Her we are awaiting urinalysis results will call Dr. Nacho Sanderson her link wire fabric machine tender. 5:00 p.m. I discussed the case with Dr. Garay who is on-call for Dr. Sanderson. He is feeling with the patient and agrees with outpatient treatment on Keflex. The patient is currently finishing azithromycin for upper respiratory tract infection. I would like to give her a dose of IV Rocephin here possible but she states she has a very hard stick. We will try couple attempts. 5:45 p.m. we had trouble getting an IV but the pharmacy recommended that we give the Rocephin IM. This has been given. She will continue Keflex as previously planned. She declines further workup or testing and her is here to take her home. Differential Diagnosis: Partial list of the Differential diagnosis considered include but were not limited to; urinary tract infection, renal insufficiency, transplant rejection and although unlikely based on the history and physical exam, I also considered sepsis, obstruction, diverticulitis. I discussed these differential diagnoses and the plan with the patient as well as the usual and expected course. The patient understands that the diagnosis is provisional and that in medicine we are not always correct and that further workup is often warranted. Usual and customary warnings were given. All of the patient's questions were answered. The patient was instructed to return to the emergency department should the symptoms at all worsen or return, otherwise to followup with the physician as we discussed. - Data Points Microbiology Results: MICROBIOLOGY 09/22/17 Unknown Unspecified Urine Culture - Final Enterococcus Faecium Vre Medications Given: Discontinued Medications Ceftriaxone Sodium (Rocephin Im Syringe) 1,000 mg IM ONCE ONE Stop: 09/22/17 18:01 Last Admin: 09/22/17 18:17 Dose: 1,000 mg Ceftriaxone Sodium/Dextrose (Rocephin 1 Gm (Premix)) 50 mls @ 100 mls/hr IV EDNOW ONE PRN Reason: Protocol Stop: 09/22/17 17:29 Last Admin: 09/22/17 17:39 Dose: Not Given Departure - Departure Disposition: Home, Routine, Self-Care Clinical Impression: Urinary tract infection Qualifiers: Urinary tract infection type: acute cystitis Hematuria presence: with hematuria Qualified Code(s): N30.01 - Acute cystitis with hematuria Condition: Good Instructions: Urinary Tract Infection in Women (ED) Referrals: Darius Giles MD [Primary Care Provider] - As per Instructions Prescriptions: Cephalexin [Keflex] 500 mg PO Q6H #28 cap
[2017-09-22 16:34] LABS: COLOR YELLOW; LEUKOCYTE ESTERASE,URINE 3+ (NEGATIVE); NITRITE,URINE NEGATIVE (NEGATIVE)
[2017-09-22 16:40] LABS: AMORPHOUS PRESENT /hpf (NONE-1+); BACTERIA 3+ /hpf (NONE SEEN); RBC,URINE 50-182 /hpf (0-3); WBC,URINE 50-182 /hpf (0-3)
[2017-09-22] MEDS ORDERED: cefTRIAXone 1 GM VIAL IM ONE (17:33)
[2017-09-22] MEDS ORDERED: CEFTRIAXONE IM 350 MG/ML SYRINGE IM ONE (18:00)
[2017-09-22 18:27] VITALS: BP 124/75; PULSE 88; TEMP 98.4
== END 2017-09-22 18:41 | disposition home or self-care (01) ==
DX: N30.01 Acute cystitis with hematuria (principal); B96.89 Other specified bacterial agents as the cause of diseases classified elsewhere; I10 Essential (primary) hypertension
CPT/HCPCS: 96372; 99284; J0696

== ENCOUNTER 2017-12-10 17:36 | Inpatient (IN) | payer OTHER ==
[2017-12-10] MEDS ORDERED: PROMETHAZINE HCL 25 MG/ML INJ IVP ONE (18:08)
[2017-12-10] MEDS ORDERED: ONDANSETRON 4 MG/2 ML VIAL IVP ONE (18:08)
[2017-12-10] MEDS ORDERED: NS 1,000 ML IV ONE (18:08)
--- NOTE | 2017-12-10 18:08 | EDPHY ---
General - History Smoking Status: Never smoked Time Seen by Provider: 12/10/17 17:55 Narrative: CHIEF COMPLAINT: Nausea vomiting HISTORY OF PRESENT ILLNESS: Patient complains of nausea vomiting. This started abruptly last night around 4 -5:00 p.m.. She had too numerous to count episodes of green bilious emesis. No blood. The vomiting has trended downward over night into mostly "dry heaves now." She has discomfort with vomiting but no generalized abdominal pain. No trauma or injury. No diarrhea constipation. No bloody stools. No fever. She does have complex abdominal history including left renal transplant in 2007. She has taken 1 dose of Zofran at home with no improvement. No recent travel. No other associated complaints or modifying factors. REVIEW OF SYSTEMS: Ten systems reviewed and are negative unless otherwise noted in the HPI PCP: Dr. Giles SPECIALISTS: Dr. Sanderson, nephrology Dr. Mike, Cardiology PAST MEDICAL HISTORY: Chronic kidney disease status post left renal transplant, gestational diabetes, chronic back pain, C difficile infection, anxiety or Parkinson White status post ablation, GERD, hypertension, non-Hodgkin lymphoma in remission since 2001 PAST SURGICAL HISTORY: Left renal transplant. No history of cholecystectomy or appendectomy. SOCIAL HISTORY: Never smoker. Lives here independently with her spouse. FAMILY HISTORY: Noncontributory. EXAMINATION General Appearance: Alert, no distress. frail appearing Head: normocephalic, atraumatic Eyes: Pupils equal and round, no conjunctival pallor or injection ENT, Mouth: Mucous membranes mildly dry. Airway is widely patent. No petechiae or edema. Neck: Normal inspection, supple, non-tender. No meningeal signs. Respiratory: Lungs are clear to auscultation. No wheezing rhonchi or crackles Cardiovascular: Regular rate and rhythm. Harsh systolic murmur. Gastrointestinal: Abdomen is soft. Mild tenderness in the epigastrium. There is atrophy of the abdominal wall musculature. No guarding. No rigidity. No distention. No CVA tenderness. Back: non-tender, no bony abnormalities Neurological: A&O, nonfocal, normal gait Skin: Warm and dry, no rash no petechiae or purpura Extremities: Nontender, no pedal edema Psychiatric: Mood and affect normal DIFFERENTIAL DIAGNOSES: Including but not limited to gastritis, enteritis, colitis, pancreatitis, cholecystitis, cholelithiasis, dehydration MDM: 6:05 p.m. Acute nausea vomiting over the past 24 hr without any bloody emesis, bloody stools, constipation or diarrhea. Her vital signs are within normal limits. She is afebrile. She is in no acute distress. I have ordered laboratory studies, IV fluid and IV antiemetics. I will discuss with Dr. Tolentino for assistance as well. 6:25 p.m. Case discussed with Dr. Tolentino. We reviewed the patient's history and current examination vitals. He will evaluate the patient. 6:35 p.m. CBC is unremarkable. Chemistry does reveal a low glucose of 47. Creatinine is abnormal but chronically stable. We will administer D50 to correct the hypoglycemia she remains awake and alert conversing appropriately. 6:50 p.m. Patient has been evaluated by Dr. Tolentino. He agrees that she appears dehydrated and will need to be admitted to the hospital for observation and IV fluid resuscitation. 7:00 p.m. Case discussed with the hospitalist Dr. Duffy. He will admit the patient to his service. Patient is admitted in stable condition. SUPERVISION: Patient was evaluated and examined in conjunction with my secondary supervising physician as documented. We have both examined the patient. (Emigdio Scott) Medical Decision Making: I also saw the patient at 6:45 p.m.. I reviewed the history nausea vomiting and crampy abdominal pain. Apparently no recent travel or bad food exposure. Her abdomen does not show any focal tenderness on exam. Patient's labs were reviewed and we see the chronic renal failure labs. Her blood sugar was low at 48 patient still quite nauseated so she is given a half an amp of D50W. She and I discussed treatment plan including recommendation for admission. She expresses understanding and agreement. Again the patient has risk factors of kidney transplant on immunosuppressant medication. (Garrick Tolentino) - Objective Vital Signs: Initial Vital Signs Temperature (C) 99.1 F 12/10/17 17:45 Heart Rate 84 12/10/17 17:45 Respiratory Rate 18 12/10/17 17:45 Blood Pressure 126/69 H 12/10/17 17:45 O2 Sat (%) 95 12/10/17 17:45 O2 Delivery Mode Room Air Allergies/Adverse Reactions: erythromycin lactobionate [From Erythrocin] Allergy (Severe, Verified 12/10/17 17:44) Anaphylaxis metoclopramide HCl [From Reglan] Allergy (Severe, Verified 12/10/17 17:44) "went crazy" NSAIDS (Non-Steroidal Anti-Inflamma [Nsaids] Allergy (Severe, Verified 12/10/17 17:44) Kidney transplant meperidine HCl [From Demerol] Allergy (Intermediate, Verified 12/10/17 17:44) Hypotension meropenem [Meropenem] Allergy (Intermediate, Verified 12/10/17 17:44) Hypersensitivity in legs Sulfa (Sulfonamide Antibiotics) Allergy (Intermediate, Verified 12/10/17 17:44) Hives ceftazidime Allergy (Mild, Verified 12/10/17 17:44) Rash ciprofloxacin [From Cipro] Allergy (Mild, Verified 12/10/17 17:44) Rash doxycycline Allergy (Verified 12/10/17 17:44) gabapentin [From Neurontin] Allergy (Verified 12/10/17 17:44) Other-Enter Comments Home Medications: Medication Instructions Recorded Calcitriol [Calcitriol (*)] 0.25 mcg PO MOWEFR 05/25/17 LORazepam [Ativan (*)] 1 mg PO TID PRN 05/25/17 Levothyroxine [Synthroid 75 mcg 75 mcg PO SUMOTUWETHFR@06 05/25/17 (*)] Pantoprazole Sodium [Protonix 40mg 40 mg PO DAILY 05/25/17 (*)] azaTHIOprine [Imuran 50 mg (*)] 100 mg PO HS 05/25/17 oxyCODONE HCL [OXYCODONE HCL] 20 - 40 mg PO Q6H PRN 05/25/17 Furosemide [Lasix 40 MG (*)] 40 mg PO DAILY 06/06/17 Ondansetron HCl [Zofran] 8 mg PO DAILY PRN 06/06/17 Sodium Bicarbonate [Na Bicarb] 1,300 mg PO BID 06/06/17 Ferrous Sulfate [Ferrous Sulf 325 325 mg PO DAILY #30 tab 06/10/17 MG (*)] Astagraf 1mg Tab 4 tab PO DAILY 12/10/17 morphINE SR [Ms Contin/Oramorph 15 15 mg PO TID 12/10/17 mg (*)] predniSONE 5 mg PO DAILY 12/10/17 Laboratory Results: Laboratory Results 12/10/17 17:57 12/10/17 17:57 18 12/10/17 17:57 17:57 WBC 6.64 10^3/uL 10^3/uL (3.80-9.50) RBC 3.28 10^6/uL L 10^6/uL (4.18-5.33) Hgb 10.9 g/dL L g/dL (12.6-16.3) Hct 33.3 % L % (38.0-47.0) MCV 101.5 fL H fL (81.5-99.8) MCH 33.2 pg pg (27.9-34.1) MCHC 32.7 g/dL g/dL (32.4-36.7) RDW 15.1 % % (11.5-15.2) Plt Count 257 10^3/uL 10^3/uL (150-400) MPV 9.6 fL fL (8.7-11.7) Neut % (Auto) 69.7 % % (39.3-74.2) Lymph % (Auto) 17.8 % % (15.0-45.0) Hood % (Auto) 9.0 % % (4.5-13.0) Eos % (Auto) 2.7 % % (0.6-7.6) Baso % (Auto) 0.6 % % (0.3-1.7) Nucleat RBC Rel Count 0.0 % % (0.0-0.2) Absolute Neuts (auto) 4.63 10^3/uL 10^3/uL (1.70-6.50) Absolute Lymphs (auto) 1.18 10^3/uL 10^3/uL (1.00-3.00) Absolute Monos (auto) 0.60 10^3/uL 10^3/uL (0.30-0.80) Absolute Eos (auto) 0.18 10^3/uL 10^3/uL (0.03-0.40) Absolute Basos (auto) 0.04 10^3/uL 10^3/uL (0.02-0.10) Absolute Nucleated RBC 0.00 10^3/uL 10^3/uL (0-0.01) Immature Gran % 0.2 % % (0.0-1.1) Immature Gran # 0.01 10^3/uL 10^3/uL (0.00-0.10) Sodium 146 mEq/L H mEq/L (135-145) Potassium 4.8 mEq/L mEq/L (3.5-5.2) Chloride 103 mEq/L mEq/L (97-110) Carbon Dioxide 25 mEq/l mEq/l (22-31) Anion Gap 18 mEq/L H mEq/L (8-16) BUN 59 mg/dL H mg/dL (7-23) Creatinine 3.2 mg/dL H mg/dL (0.6-1.0) Estimated GFR 16 Glucose 47 mg/dL L mg/dL (70-100) Calcium 9.7 mg/dL mg/dL (8.5-10.4) Total Bilirubin 0.6 mg/dL mg/dL (0.1-1.4) Conjugated Bilirubin 0.4 mg/dL mg/dL (0.0-0.5) Unconjugated Bilirubin 0.2 mg/dL mg/dL (0.0-1.1) AST 29 IU/L IU/L (14-46) ALT 32 IU/L IU/L (9-52) Alkaline Phosphatase 70 IU/L IU/L (38-126) Total Protein 7.9 g/dL g/dL (6.3-8.2) Albumin 4.7 g/dL g/dL (3.5-5.0) Lipase 108 IU/L IU/L (23-300) Medications Given: Heparin Sodium (Porcine) (Heparin Sc Injection) 5,000 unit SC Q8 ROBE Stop: 06/08/18 21:59 Last Admin: 12/10/17 21:45 Dose: 5,000 unit Discontinued Medications Dextrose (Dextrose 50% Syringe) 12.5 gm IVP EDNOW ONE Stop: 12/10/17 18:47 Last Admin: 12/10/17 18:51 Dose: 12.5 gm Sodium Chloride (Ns) 1,000 mls @ 0 mls/hr IV EDNOW ONE; Wide Open PRN Reason: Protocol Stop: 12/10/17 18:09 Last Admin: 12/10/17 18:36 Dose: 1,000 mls Potassium Chloride/Dextrose/Sod Cl (D5w 1/2 Ns W/ 20 Kcl/L) 1,000 mls @ 100 mls /hr IV CONT ROBE Stop: 06/08/18 20:29 Last Admin: 12/10/17 20:33 Dose: 1,000 mls Ondansetron HCl (Zofran) 4 mg IVP EDNOW ONE Stop: 12/10/17 18:09 Last Admin: 12/10/17 18:37 Dose: 4 mg Promethazine HCl (Phenergan) 12.5 mg IVP ONCE ONE Stop: 12/10/17 18:09 Last Admin: 12/10/17 18:37 Dose: 12.5 mg Departure - Departure Disposition: [facility] Inpatient Acute Clinical Impression: Volume depletion, gastrointestinal loss, Hypoglycemia, Immunosuppression Condition: Good
[2017-12-10 18:16] LABS: PLATELET COUNT 257 10^3/uL (150-400)
[2017-12-10] MEDS ORDERED: D50W 25 GM/50 ML SYR IVP ONE (18:46)
[2017-12-10] MEDS ORDERED: PROMETHAZINE HCL 25 MG/ML INJ IVP PRN (20:18)
[2017-12-10] MEDS ORDERED: HYDROCODONE/APAP 5/325 TAB PO PRN (20:18)
[2017-12-10] MEDS ORDERED: ACETAMINOPHEN 325 MG TAB PO PRN (20:18)
[2017-12-10] MEDS ORDERED: D5W 1/2 NS W/ 20 KCl/L 1,000 ML IV SCH (20:30)
[2017-12-10] MEDS: HEPARIN 5,000 UNIT/0.5 ML SYR SC SCH (21:45)
[2017-12-10] MEDS ORDERED: NON-FORMULARY NEW DRUG (Oxycodone Hcl [Oxycodone Hcl] 20 MG) PO PRN (22:15)
--- NOTE | 2017-12-10 23:46 | GHP ---
[f rep st] HISTORY AND PHYSICAL DATE OF ADMISSION: 12/10/2017 CHIEF COMPLAINT: Nausea and vomiting. HISTORY OF PRESENT ILLNESS: The patient is a 47-year-old female with a past medical history of chron ic kidney disease, status post renal transplant, who presented to the [facility] Room on 12/10/2017 with a complaint of 48 hours of nausea and vomiting. She did not have any b lood in the emesis, mainly stated that it seemed to be bilious-colored fluid. She states some mild m idline pain. Otherwise, she had not had any abdominal pains over the prior days to weeks. History i s somewhat limited as she is quite fatigued and tired at this time of the evening time, wanting mostl y to sleep. PAST MEDICAL HISTORY: 1. Chronic kidney disease, status post renal transplant. 2. Gmuvo-Xqyywynog-Wbebs, status post ablation. 3. Hypertension. 4. Non-Hodgkin's lymphoma diagnosed in 2001, treated with radiation and chemotherapy. 5. History of C diff colitis. 6. Gastroesophageal reflux disease. 7. Anxiety. PAST SURGICAL HISTORY: Left renal transplant. MEDICATIONS: This medication list is taken from her ambulatory orders. 1. Astagraf 1 mg tablet, 4 tablets daily. 2. Azathioprine 100 mg nightly. 3. Calcitriol 0.25 mcg daily. 4. Ferrous sulfate 325 mg daily. 5. Lasix 40 mg daily. 6. Levothyroxine 75 mcg daily. 7. Lorazepam 1 tablet 3 times a day as needed. 8. Morphine SR 15 mg 3 times a day. 9. Zofran 8 mg daily as needed. 10. Oxycodone 20 to 40 mg daily as needed. 11. Protonix 40 mg daily. 12. Prednisone 5 mg daily. 13. Sodium bicarbonate 1300 mg twice a day. ALLERGIES: 1. Gabapentin. 2. Doxycycline. 3. Ciprofloxacin. 4. Ceftazidime. 5. Sulfa drugs. 6. Meropenem. 7. Meperidine. 8. NSAIDs. 9. Reglan. 10. Erythromycin. BODY AFTER ALLERGIES: FAMILY HISTORY: Unknown. SOCIAL HISTORY: Patient is a nonsmoker. She is currently . Full code status. REVIEW OF SYSTEMS: CONSTITUTIONAL: No complaints of any fevers or chills. ENT: No recent upper re spiratory illnesses. CARDIOVASCULAR: No complaints of chest pains or palpitations. RESPIRATORY: N o complaints of shortness of breath or productive cough. GI: Positive for nausea, vomiting, nonbloo dy emesis, midline abdominal pain. No diarrhea. No bloody stools. : No report of any difficulty with urination. NEUROLOGIC: No headaches or focal weakness. HEMATOLOGIC: No history of any deep vein thrombosis or pulmonary embolism. PSYCHIATRIC: No history of depression noted, but anxiety is listed. ENDOCRINE: No history of any diabetes, but she does appear to be on levothyroxine for hypot hyroidism. SKIN: No new skin rashes. MUSCULOSKELETAL: No focal joint pains. PHYSICAL EXAM: VITAL SIGNS: Temperature 36.4, blood pressure 100/61, heart rate 60, respirations 17 , satting 95% on room air. GENERAL: Patient appears tired and fatigued. She is arousable and will answer simple questions but not conversant. HEENT: Extraocular movements intact. No scleral icteru s is noted. Mucous membranes dry. NECK: Supple. No thyroid enlargement noted. CHEST: Clear. No rmal respiratory effort. HEART: Regular. No murmurs appreciated. ABDOMEN: Nondistended. Bowel s ounds sound slightly hyperactive. She has nodular-like masses on palpation of the lower abdomen. No definite tenderness elicited with palpation of her abdomen. : No Davis catheter in place. EXTRE MITIES: No significant pitting edema. MUSCULOSKELETAL: No calf pain. NEUROLOGIC: Cranial nerves 2 through 12 appear intact. Strength 5/5 in extremities. LABS: White blood cell count 6, hemoglobin 10, platelets 257. Sodium 146, potassium 4.8, chloride 1 03, bicarb 25, BUN 59, creatinine 3.2, glucose 47, AST 29, ALT 32, alk phos 70, lipase 108. ASSESSMENT AND PLAN: 1. Nausea and vomiting, uncertain etiology. On exam, though, she does have what feel like lymph nod es in her lower abdomen. I recommend Phenergan as needed for now as Zofran was not helpful at home. Will check an abdominal x-ray this evening and an abdominal ultrasound tomorrow morning for addition al investigation. Otherwise, continue with IV fluids and supportive measures. 2. Chronic kidney disease, status post renal transplant. Her creatinine seems to be at its baseline . It appears to run in the 3 to 4 range. Continue with current immunosuppressive agents. 3. Abdominal pain. Will continue with home pain regimen. I have ordered a PCR panel if she develop s diarrhea. I have discussed with her nurse this evening. 4. Hypothyroidism. Continue levothyroxine. 5. Esophageal reflux. Continue pantoprazole. 6. Chronic pain. Continue home pain regimen. 7. Deep venous thrombosis prophylaxis. Heparin. DISPOSITION: I anticipate she will be here for over 2 midnights, probably 3 to 5 days, so I will adm it her under inpatient status. /[id number]/MODL
[2017-12-11 05:36] LABS: PLATELET COUNT 189 10^3/uL (150-400)
[2017-12-11] MEDS: LEVOTHYROXINE 75 MCG TAB PO SCH (06:26)
[2017-12-11] MEDS: HEPARIN 5,000 UNIT/0.5 ML SYR SC SCH ×3 (06:26→21:36)
[2017-12-11] MEDS ORDERED: POLYETHYLENE GLYCOL 3350 17 GM PKT PO PRN ×2 (08:41→18:33)
[2017-12-11] MEDS ORDERED: FUROSEMIDE 40 MG TAB PO SCH (09:00)
[2017-12-11] MEDS ORDERED: ASTAGRAF 1 MG PO SCH (09:00)
[2017-12-11] MEDS: FERROUS SULFATE 325 MG TAB PO SCH (10:21)
[2017-12-11] MEDS: SODIUM BICARBONATE 650 MG TAB PO SCH ×2 (10:29→21:32)
[2017-12-11] MEDS: PANTOPRAZOLE SODIUM 40 MG TAB PO SCH (10:30)
[2017-12-11] MEDS: SENNOSIDES/DOCUSATE SODIUM TAB PO SCH ×2 (10:31→21:32)
[2017-12-11] MEDS: predniSONE 5 MG TAB PO SCH (10:31)
[2017-12-11] MEDS: morphINE SR 15 MG TAB PO SCH ×3 (10:31→21:32)
[2017-12-11] MEDS: TACROLIMUS 1 MG CAP PO SCH ×2 (11:54→21:32)
--- NOTE | 2017-12-11 14:29 | ASMTCASEMG ---
Living Arrangements What is your living Answers: With Spouse arrangement? Who do you live with? Type Of Residence What kind of residence do Answers: House you live in? Discharge Plan Comments Coordination Status Comments Notes: CM spoke w/ JUANITA David regarding d/c POC. Pt is a 47 y/o female admitted for volume depletion and hypoglycemia. Pt will most likely d/c independent when medically stable. No therapies ordered at this time. CM available for changes. Plan: Independent Date Signed: 12/11/2017 02:28 PM Electronically Signed By:KIARA Marie
[2017-12-11] MEDS: oxyCODONE IR 5 MG TAB PO PRN (15:30)
[2017-12-11] MEDS: D5W NS 1,000 ML IV SCH (16:21)
[2017-12-11] MEDS ORDERED: BISACODYL 5 MG EC TAB PO ONE (18:33)
[2017-12-11] MEDS ORDERED: BISACODYL 5 MG EC TAB PO PRN (18:33)
--- NOTE | 2017-12-11 18:40 | HOSPPROG ---
Hospitalist Progress Note Assessment/Plan: Assessment: 47-year-old female presents with acute on chronic abdominal pain, acute on chronic intractable nausea and vomiting in the setting of chronic kidney disease stage 4 Plan: 1. Abdominal pain, nausea, vomiting. Acute on chronic, intractable, resulting in inability to safely tolerate oral intake, and high risk patient who has chronic kidney disease stage 4 and is at risk for worsening renal failure -the patient has an acute worsening of her chronic pain syndrome, and this may be exacerbated by constipation noted on abdominal x-ray, personally interpreted -the patient was encouraged to utilize available laxatives this morning, and despite utilizing them, she has not had a bowel movement at this time, we will increase the available laxatives and administer some oral bisacodyl at this time -her nausea has been intermittent today, has responded to Phenergan, will continue supportive care -continue IV fluids for supportive care -patient has yet to safely advance her diet, continue to encourage -counseled patient regarding the plan above 2. Chronic pain and anxiety with continuous opiate and benzodiazepine dependency. Patient was continued on her home opiates and benzodiazepines without any evidence of missing her medications -will continue to follow up with Dr. Giles -will continue her on a bowel regimen 3. Chronic kidney disease stage 4. Patient has a history of renal transplant, she is currently on immunosuppressive medications, her baseline creatinine is between 4 and 5 -patient is high risk for worsening renal failure, in the setting of above, will continue on IV fluids -given the patient does not have her long-acting Prograf, will continue short- acting -I have discussed this with pharmacy, will dose 2 mg twice daily -will monitor renal function and electrolytes closely -hold on consulting with Nephrology at this time, but if worsening tomorrow, will get consultation -recommend the patient follow up with Dr. Nacho Sanderson outpatient setting 4. Chronic immunosuppression. Secondary to medications for kidney transplant, continue Diet. Low potassium, advance as tolerates Code. Full Disposition. Anticipated discharge is uncertain, upgraded to inpatient admission status reasonable medical necessity including anticipated length stay is greater than 48 hr for for intractable abdominal pain, nausea vomiting, resulting in poor oral intake, in the setting of high risk comorbid chronic kidney disease stage 4 with ongoing IV fluids required comma ongoing supportive care. Subjective: ongoing nausea, lethargy Objective: Vital Signs Temp Pulse Resp BP Pulse Ox 37.0 C 57 L 16 106/67 95 12/11/17 16:00 12/11/17 16:00 12/11/17 16:00 12/11/17 16:00 12/11/17 16:00 Laboratory Results 12/11/17 05:15 12/11/17 05:15 12/10/17 12/11/17 12/12/17 05:59 05:59 05:59 Intake Total 1000 929 Output Total 0 Balance 1000 929 - Time Spent With Patient Time Spent with Patient: greater than 35 minutes Time Spent with Patient: Greater than 35 minutes spent on this patients care, greater than 50% of time spent counseling, educating, and coordinating care regarding the above mentioned plan. - Physical Exam Constitutional: chronically ill appearing, uncomfortable Cardiovascular: regular rate and rhythym, no murmur, rub, or gallop Respiratory: no respiratory distress, no rales or rhonchi, clear to auscultation Gastrointestinal: tenderness (mild to mod depth palpation throughout), No normoactive bowel sounds (hypoactive bowel sounds), No guarding, No distension Neurologic: AAOx3 Psychiatric: not anxious, flat affect, No agitated ICD10 Worksheet Patient Problems: Problems Problem Status Onset Swelling of both lower extremities Acute Congestive heart failure Acute Chronic renal failure Acute Anemia Acute Clostridium difficile infection Acute Volume depletion, gastrointestinal loss Acute Hypoglycemia Acute Immunosuppression Acute VRE (vancomycin-resistant Enterococci) Acute ~03/01/17 Diarrhea Acute Hypothyroidism Active Chronic pain syndrome Active Renal impairment Active Hypokalemia Active Anticoagulant therapy Active biliary gastric reflux Active Syncope due to orthostatic hypotension Acute Dehydration Acute Renal failure (ARF), acute on chronic Acute History of kidney transplant Chronic Tachycardia Acute Nausea Acute Nausea & vomiting Acute C. difficile diarrhea Acute ~05/30/17 Sepsis Acute Pyelonephritis Acute Abdominal pain Acute Superficial thrombophlebitis Acute Urinary tract infection Acute
[2017-12-11] MEDS: PROMETHAZINE HCL 25 MG/ML INJ IVP PRN (19:40)
[2017-12-11] MEDS: azaTHIOprine 50 MG TAB PO SCH (21:32)
[2017-12-11] MEDS: CALCITRIOL 0.25 MCG CAP PO SCH (21:32)
[2017-12-12] MEDS: D5W NS 1,000 ML IV SCH ×2 (02:46→15:19)
[2017-12-12] MEDS: LEVOTHYROXINE 75 MCG TAB PO SCH (05:05)
[2017-12-12] MEDS: HEPARIN 5,000 UNIT/0.5 ML SYR SC SCH ×3 (05:05→20:41)
[2017-12-12] MEDS: oxyCODONE IR 5 MG TAB PO PRN ×2 (05:17→15:22)
[2017-12-12] MEDS: PROMETHAZINE HCL 25 MG/ML INJ IVP PRN ×3 (07:48→20:36)
[2017-12-12] MEDS: BISACODYL 10 MG SUPP PR PRN (07:51)
[2017-12-12] MEDS: SENNOSIDES/DOCUSATE SODIUM TAB PO SCH ×2 (07:53→20:41)
[2017-12-12] MEDS: SODIUM BICARBONATE 650 MG TAB PO SCH ×2 (07:53→20:41)
[2017-12-12] MEDS: predniSONE 5 MG TAB PO SCH (07:54)
[2017-12-12] MEDS: morphINE SR 15 MG TAB PO SCH ×3 (07:54→20:40)
[2017-12-12] MEDS: PANTOPRAZOLE SODIUM 40 MG TAB PO SCH (07:54)
[2017-12-12] MEDS: FERROUS SULFATE 325 MG TAB PO SCH ×2 (07:54→08:55)
[2017-12-12] MEDS: TACROLIMUS 1 MG CAP PO SCH ×2 (08:00→20:40)
--- NOTE | 2017-12-12 08:20 | PDMN ---
Medical Necessity Medical necessity: los> 2mn for N/V of uncertain etiology; admit for further imaging, IVF, and supportive measures; comorbid CDK s/p transplant, on immunosuppresives, chronic pain, htn, Igor-Parkinson white, hx lymphoma and c diff; per order and H&P 12/10/17
[2017-12-12] MEDS: LACTULOSE 20 GM/30 ML UDCUP PO PRN (13:37)
--- NOTE | 2017-12-12 19:29 | HOSPPROG ---
Hospitalist Progress Note Assessment/Plan: Assessment: 47-year-old female presents with acute on chronic abdominal pain, acute on chronic intractable nausea and vomiting in the setting of chronic kidney disease stage 4 Plan: 1. Abdominal pain, nausea, vomiting. Acute on chronic, likely 2/2 constipation and uncontrolled chronic sx at home -improving today, but patient reports that she is currently worse than baseline -encouraged patient to use PRN phenergan/zofran prior to meals 2. Chronic pain and anxiety with continuous opiate and benzodiazepine dependency. Patient was continued on her home opiates and benzodiazepines without any evidence of missing her medications -will continue to follow up with Dr. Giles -will continue her on a bowel regimen 3. Chronic kidney disease stage 4. Patient has a history of renal transplant, she is currently on immunosuppressive medications, her baseline creatinine is between 4 and 5 -patient is high risk for worsening renal failure, in the setting of above -given the patient does not have her long-acting Prograf, will continue short- acting -I have discussed this with pharmacy, will dose 2 mg twice daily -will monitor renal function and electrolytes closely -hold on consulting with Nephrology at this time, but if worsening tomorrow, will get consultation -recommend the patient follow up with Dr. Nacho Sanderson outpatient setting 4. Chronic immunosuppression. Secondary to medications for kidney transplant, continue 5. Constipation. Ongoing, pervasive, contributing to the chief complaint, no BM today despite aggressive PO bowel regimen and suppository -give enemas and gauge effect, if no response, give PO lactulose Diet. Low potassium, advance as tolerates Code. Full Disposition. Anticipated discharge 12/13, pending BMs and patient feeling symptomatically improved. Subjective: feels blocked up, ongoing nausea w/ PO Objective: Vital Signs Temp Pulse Resp BP Pulse Ox 37.2 C 71 18 125/69 H 96 12/12/17 14:59 12/12/17 14:59 12/12/17 14:59 12/12/17 14:59 12/12/17 14:59 Laboratory Results 12/12/17 08:25 12/12/17 08:25 12/11/17 12/12/17 12/13/17 05:59 05:59 05:59 Intake Total 929 900 Balance 929 900 - Pending Discharge Pending Discharge Within 24 Hours: Yes Pending Discharge Date: 12/13/17 Pending Discharge Time: 11:00 - Physical Exam Constitutional: no apparent distress, not in pain, chronically ill appearing, uncomfortable Cardiovascular: systolic murmur (II/ at all valves), No irregularly irregular , No tachycardia, No edema Respiratory: no respiratory distress, no rales or rhonchi, clear to auscultation Gastrointestinal: No normoactive bowel sounds (hypoactive bowel sounds), No tenderness, No guarding, No distension Neurologic: AAOx3, sensation intact bilaterally, No weakness Psychiatric: not encephalopathic, anxious, flat affect, No agitated ICD10 Worksheet Patient Problems: Problems Problem Status Onset Swelling of both lower extremities Acute Congestive heart failure Acute Chronic renal failure Acute Anemia Acute Clostridium difficile infection Acute Volume depletion, gastrointestinal loss Acute Hypoglycemia Acute Immunosuppression Acute VRE (vancomycin-resistant Enterococci) Acute ~03/01/17 Diarrhea Acute Hypothyroidism Active Chronic pain syndrome Active Renal impairment Active Hypokalemia Active Anticoagulant therapy Active biliary gastric reflux Active Syncope due to orthostatic hypotension Acute Dehydration Acute Renal failure (ARF), acute on chronic Acute History of kidney transplant Chronic Tachycardia Acute Nausea Acute Nausea & vomiting Acute C. difficile diarrhea Acute ~05/30/17 Sepsis Acute Pyelonephritis Acute Abdominal pain Acute Superficial thrombophlebitis Acute Urinary tract infection Acute
[2017-12-12] MEDS: azaTHIOprine 50 MG TAB PO SCH (20:41)
--- NOTE | 2017-12-12 20:46 | GCON ---
[f rep st] CONSULTATION REASON FOR CONSULTATION: Opinion regarding kidney transplant and acute kidney injury. 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 She has had multiple abdominal surgeri es in the past for reimplantation of her ureters, etc. She had her right kidney removed in the late , her left kidney removed at the time of her live related transplant from her sister in 2007. This patient was in the usual state of health until several days prior to admission when she began ronquillo ving nausea, vomiting, and abdominal discomfort. She was unable to keep much of anything down. She was very constipated. She came to the emergency department. Serum creatinine was elevated, at 3.2. She was admitted, a bowel regimen was initiated, and she was given IV fluids. Subsequently, her ser um creatinine has decreased down to 2.8, which is closer to her baseline. She currently feels better, but still has some nausea and anorexia. She had not been having fevers, chills, cough, sputum, hemoptysis, hematemesis, epistaxis, blurry vision, double vision, headache, or thopnea, paroxysmal nocturnal dyspnea, palpitations, syncope, rash, arthritis, arthralgias, myalgias, or use of nonsteroidal anti-inflammatory drugs. PAST MEDICAL HISTORY: Significant for: 1. Chronic kidney disease stage 4. 2. Status post living-related six-antigen match transplant in 2007. 3. History of Clostridium difficile in the past. 4. Chronic pain. 5. Chronic immunosuppression. 6. Hypothyroidism. 7. Gastroesophageal reflux disease. CURRENT MEDICATIONS: Include: 1. Tylenol. 2. Imuran 100 mg daily. 3. Calcitriol 0.25 mcg Monday, Monday, and Monday. 4. D5 normal saline at 100 cc an hour. 5. Iron sulfate 325 mg a day. 6. Heparin 5000 units subcutaneously every 8 hours. 7. Synthroid 75 mcg daily. 8. Ativan. 9. Morphine. 10. Protonix 40 mg daily. 11. Prednisone 5 mg daily. 12. Tacrolimus 2 mg every 12 hours. 13. Sodium bicarbonate 1.3 g twice daily. FAMILY HISTORY: Negative for renal failure. SOCIAL HISTORY: Does not use tobacco, alcohol, IV or recreational drugs. REVIEW OF SYSTEMS: A complete 12-point review of systems was performed, with pertinent positives and negatives as per the previous sections. PHYSICAL EXAMINATION: VITAL SIGNS: Blood pressure 109/67, pulse 77, respirations 18, temperature is 36.9 degrees. Urine output: None charted. She had about 1.9 L in. GENERAL: She is awake, alert, cooperative, in [id number] amount of distress due to her abdominal discomfort. HEENT: Pupils are reactive to light. Extraocular movements are intact. Mucous membranes are somewhat dry. NECK: No lymphadenopathy, thyromegaly, JVD or bruit. HEART: Regular. No rub. No S3. LUNGS: No rales , rhonchi, or wheezes. ABDOMEN: Flat. Bowel sounds are positive. Soft, nontender, nondistended. She has a kidney transplant in her left lower quadrant. It is nontender, and no bruit. EXTREMITIES: No cyanosis, clubbing, or edema. NEUROLOGIC: No asterixis. SKIN: No unusual rashes or lesions. LYMPH: No palpable lymphadenopathy or lymphedema. MUSCULOSKELETAL: No effusions or tenderness. LABORATORY: WBC 4.2, hemoglobin 9.4, hematocrit 28.5, platelet count 156,000. Serum sodium is 146, potassium 4.1, chloride 113, CO2 22, BUN 36, creatinine 2.8, down from 3.0 yesterday, 3.2 the day zaynab or. Lipase 108, glucose 65, AST 23, albumin 3.3, and a total protein of 6.2. IMPRESSION: 1. 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 2. Constipation, causing nausea, vomiting, and abdominal discomfort. 3. Chronic immunosuppression on Imuran, prednisone, and tacrolimus. 4. Status post living-related kidney transplant. 5. 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 RECOMMENDATIONS: 1. Continue her immunosuppression. 2. Continue IV fluids. 3. Continue her bowel regimen to see if we can make her constipation better. 4. I have counseled her that she needs to give Dr. Sanderson a call when she gets out of the [facility], so he can follow up with her, and we can get her Astragraf, as she does better with that than tacr olimus. Thank you for allowing me to participate in the care of your patient, Barbara Alex. If there are an y questions, please do not hesitate to contact us. We will be following along with you. /[id number]/MODL
[2017-12-13] MEDS: HEPARIN 5,000 UNIT/0.5 ML SYR SC SCH ×3 (05:42→21:17)
[2017-12-13] MEDS: LEVOTHYROXINE 75 MCG TAB PO SCH (05:42)
[2017-12-13] MEDS: PROMETHAZINE HCL 25 MG/ML INJ IVP PRN (05:46)
[2017-12-13 05:53] LABS: PLATELET COUNT 164 10^3/uL (150-400)
--- NOTE | 2017-12-13 08:21 | SOAPPROG ---
SOAP Progress Note Assessment/Plan: Assessment: #MEETA on CKD4 in setting of living related transplant 2007 (6 antigen match) -baseline Cr ~mid 2 range, Dr. Sanderosn, underlying ESRD from reflux -Cr peaked 3.2, now down to 2.4 with IVF -continue prograf 2mg po bid, prednisone 5mg po daily, imuran 100 mg -taking good po- ok to hold fluids if able to hydrate on her own,otherwise restart #constipation- no response to bowel regimen so far -abd exam benign -will discuss with hospitalist -please avoid fleets enemas as high phos load for advanced CKD #met acidosis -continue po bicarb, stable at 20 today #secondary hyperparathyroidism -continue calcitriol Taya Andrade MD [facility] [phone] pager 12/13/17 10:22 Subjective: Still no BM. Ate all of breakfast, no vomiting. +abd pain. No fevers. Cr down to 2.4. Objective: Vital Signs Temp Pulse Resp BP Pulse Ox 36.8 C 75 16 128/79 H 97 12/13/17 07:18 12/13/17 07:18 12/13/17 07:18 12/13/17 07:18 12/13/17 07:18 Laboratory Results 12/13/17 05:20 12/13/17 05:20 12/12/17 12/13/17 12/14/17 05:59 05:59 05:59 Intake Total 929 900 Balance 929 900 Physical Exam - Physical Exam General Appearance: alert, no apparent distress EENT: other (mmm) Neck: supple Respiratory: lungs clear Cardiac/Chest: regular rate, rhythm Abdomen: soft, other (mild tenderness, not distended, no rebound/guarding) Skin: warm/dry Extremities: other (no edema) Neuro/Psych: alert, oriented x 3 ICD10 Worksheet Patient Problems: Problems Problem Status Onset Hypoglycemia Acute Immunosuppression Acute Volume depletion, gastrointestinal loss Acute Anticoagulant therapy Active Chronic pain syndrome Active Hypokalemia Active Hypothyroidism Active Renal impairment Active biliary gastric reflux Active Abdominal pain Acute Anemia Acute C. difficile diarrhea Acute ~05/30/17 Chronic renal failure Acute Clostridium difficile infection Acute Congestive heart failure Acute Dehydration Acute Diarrhea Acute Nausea Acute Nausea & vomiting Acute Pyelonephritis Acute Renal failure (ARF), acute on chronic Acute Sepsis Acute Superficial thrombophlebitis Acute Swelling of both lower extremities Acute Syncope due to orthostatic hypotension Acute Tachycardia Acute Urinary tract infection Acute VRE (vancomycin-resistant Enterococci) Acute ~03/01/17 History of kidney transplant Chronic
[2017-12-13] MEDS: morphINE SR 15 MG TAB PO SCH ×3 (09:34→21:17)
[2017-12-13] MEDS: SENNOSIDES/DOCUSATE SODIUM TAB PO SCH ×2 (09:35→21:16)
[2017-12-13] MEDS: FERROUS SULFATE 325 MG TAB PO SCH (09:35)
[2017-12-13] MEDS: predniSONE 5 MG TAB PO SCH (09:35)
[2017-12-13] MEDS: PANTOPRAZOLE SODIUM 40 MG TAB PO SCH (09:36)
[2017-12-13] MEDS: TACROLIMUS 1 MG CAP PO SCH ×2 (09:36→21:17)
[2017-12-13] MEDS: SODIUM BICARBONATE 650 MG TAB PO SCH ×2 (09:36→21:16)
[2017-12-13] MEDS: oxyCODONE IR 5 MG TAB PO PRN (09:47)
[2017-12-13] MEDS: LORazepam 1 MG TAB PO PRN (09:47)
[2017-12-13] MEDS: LACTULOSE 20 GM/30 ML UDCUP PO PRN (09:49)
[2017-12-13] MEDS: PROMETHAZINE HCL 25 MG TAB PO PRN (14:00)
--- NOTE | 2017-12-13 16:08 | ASMTCMCOM ---
CM Note CM Note Notes: Plan remains the same, anticipate pt will dc home w/support of when medically stable. CM available for any changes. DC Plan: Independent Date Signed: 12/13/2017 04:07 PM Electronically Signed By:Kenisha Michelle RN
[2017-12-13] MEDS ORDERED: METHYLNALTREXONE BROMIDE 12 MG/0.6 ML INJ SC ONE (16:37)
--- NOTE | 2017-12-13 19:18 | HOSPPROG ---
Hospitalist Progress Note Assessment/Plan: DIAGNOSES: -abdominal pain, suspect this is primarily due to constipation from chronic narcotics and chronic motility issues -acute renal failure on chronic renal failure stage 4 with history of renal transplant -ongoing use of immune suppression for her transplant -chronic pain syndrome with chronic daily prescribed narcotic use -acute metabolic acidosis related to her renal failure is improving -secondary hyperparathyroidism At a long talk with the patient about her symptoms and management. Fortunately her renal failure is improving here with treatment so far which is primarily from hydration I believe. Will need to continue her immune suppression and follow this very closely here. In terms of her pain in her bowel function issues I will try some methyl naltrexone to see if that helps. If that is useful here she may be able to use that or similar medication at home to help control her symptoms intermittently as needed. I would leave this to Dr. Giles to determine if that would be appropriate for her it in ongoing fashion. If this does not work may need to try other measures including other laxatives or enemas. Certainly reducing her narcotic use over time would be ideal and very helpful however whether this is a reality for her is hard to tell and she will need to work with Dr. Giles on that. 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: Exam: alert oriented skin warm dry color ok resps not labored lungs clear BSs heart regular abd soft nondistended bowel sounds present; mild tenderness right mid abdomen but nothing palpable there are no guarding or rebound limbs warm, no edema iv site ok I reviewed her chemistry and CBC from today Objective: Vital Signs Temp Pulse Resp BP Pulse Ox 36.7 C 77 18 118/74 96 12/13/17 16:00 12/13/17 16:00 12/13/17 16:00 12/13/17 16:00 12/13/17 16:00 Laboratory Results 12/13/17 05:20 12/13/17 05:20 12/12/17 12/13/17 12/14/17 06:59 06:59 06:59 Intake Total 929 900 Balance 929 900 - Time Spent With Patient Time Spent with Patient: greater than 35 minutes Time Spent with Patient: Greater than 35 minutes spent on this patients care, greater than 50% of time spent counseling, educating, and coordinating care regarding the above mentioned plan. ICD10 Worksheet Patient Problems: Problems Problem Status Onset Hypoglycemia Acute Immunosuppression Acute Volume depletion, gastrointestinal loss Acute Anticoagulant therapy Active Chronic pain syndrome Active Hypokalemia Active Hypothyroidism Active Renal impairment Active biliary gastric reflux Active Abdominal pain Acute Anemia Acute C. difficile diarrhea Acute ~05/30/17 Chronic renal failure Acute Clostridium difficile infection Acute Congestive heart failure Acute Dehydration Acute Diarrhea Acute Nausea Acute Nausea & vomiting Acute Pyelonephritis Acute Renal failure (ARF), acute on chronic Acute Sepsis Acute Superficial thrombophlebitis Acute Swelling of both lower extremities Acute Syncope due to orthostatic hypotension Acute Tachycardia Acute Urinary tract infection Acute VRE (vancomycin-resistant Enterococci) Acute ~03/01/17 History of kidney transplant Chronic
[2017-12-13] MEDS: azaTHIOprine 50 MG TAB PO SCH (21:16)
[2017-12-14] MEDS: CALCITRIOL 0.25 MCG CAP PO SCH (00:07)
[2017-12-14] MEDS: LEVOTHYROXINE 75 MCG TAB PO SCH (05:46)
[2017-12-14] MEDS: HEPARIN 5,000 UNIT/0.5 ML SYR SC SCH ×3 (05:46→21:14)
[2017-12-14] MEDS: PROMETHAZINE HCL 25 MG/ML INJ IVP PRN ×3 (05:52→20:15)
[2017-12-14] MEDS: oxyCODONE IR 5 MG TAB PO PRN ×2 (05:53→11:40)
[2017-12-14] MEDS: SENNOSIDES/DOCUSATE SODIUM TAB PO SCH ×2 (08:46→20:18)
[2017-12-14] MEDS: LACTULOSE 20 GM/30 ML UDCUP PO PRN (08:47)
[2017-12-14] MEDS: morphINE SR 15 MG TAB PO SCH ×3 (08:49→21:14)
[2017-12-14] MEDS: TACROLIMUS 1 MG CAP PO SCH ×2 (08:50→20:19)
[2017-12-14] MEDS: SODIUM BICARBONATE 650 MG TAB PO SCH ×2 (08:51→20:19)
[2017-12-14] MEDS: predniSONE 5 MG TAB PO SCH (08:51)
[2017-12-14] MEDS: PANTOPRAZOLE SODIUM 40 MG TAB PO SCH (08:51)
[2017-12-14] MEDS: FERROUS SULFATE 325 MG TAB PO SCH (08:51)
--- NOTE | 2017-12-14 09:59 | SOAPPROG ---
SOAP Progress Note Assessment/Plan: Assessment/Plan: MEETA on CKD 4: Cr down from 3.2 to 2.3, which is at her baseline. - Avoid hypotension and nephrotoxins, particularly fleet enemas. - Will place on low K diet as K is 5.0. - Will continue to monitor. h/o renal transplant: continue home IS regimen. Metabolic acidosis: at goal with bicarb tabs. Subjective: No acute events overnight. Pt states that she still has not had a BM, has some mild nausea with eating. She has no other complaints. Objective: Vital Signs Temp Pulse Resp BP Pulse Ox 36.6 C 76 16 125/77 H 97 12/14/17 08:00 12/14/17 08:00 12/14/17 08:00 12/14/17 08:00 12/14/17 08:00 Laboratory Results 12/13/17 05:20 12/14/17 04:50 12/13/17 12/14/17 12/15/17 05:59 05:59 05:59 Intake Total 900 Balance 900 General: alert and oriented, no acute distress Eyes: EOMI, PERRL OP: clear CV: RRR Resp: nonlabored respirations on RA Abd: Soft, mildly distended Ext: no edema BLE Neuro: CN II-XII Grossly intact, no asterixis Psych: cooperative ICD10 Worksheet Patient Problems: Problems Problem Status Onset Hypoglycemia Acute Immunosuppression Acute Volume depletion, gastrointestinal loss Acute Anticoagulant therapy Active Chronic pain syndrome Active Hypokalemia Active Hypothyroidism Active Renal impairment Active biliary gastric reflux Active Abdominal pain Acute Anemia Acute C. difficile diarrhea Acute ~05/30/17 Chronic renal failure Acute Clostridium difficile infection Acute Congestive heart failure Acute Dehydration Acute Diarrhea Acute Nausea Acute Nausea & vomiting Acute Pyelonephritis Acute Renal failure (ARF), acute on chronic Acute Sepsis Acute Superficial thrombophlebitis Acute Swelling of both lower extremities Acute Syncope due to orthostatic hypotension Acute Tachycardia Acute Urinary tract infection Acute VRE (vancomycin-resistant Enterococci) Acute ~03/01/17 History of kidney transplant Chronic
[2017-12-14] MEDS: BISACODYL 10 MG SUPP PR PRN (11:46)
--- NOTE | 2017-12-14 14:25 | HOSPPROG ---
Hospitalist Progress Note Assessment/Plan: DIAGNOSES: -abdominal pain, suspect this is primarily due to constipation from chronic narcotics and chronic motility issues * I think she actually is probably passing more stool when she is telling us about. She does still appear to have 1 large impacted ball of stool in the rectum. Will want to attempt to that some soapsuds enemas here but may need to consider disimpaction which she is currently reluctant to consider * No sign of hypothyroidism -new onset macrocytosis with currently stable chronic anemia of renal disease * No evidence of B12 folate deficiency, cause uncertain -acute renal failure on chronic renal failure stage 4 with history of renal transplant * Resolved and appears probably at her baseline -ongoing use of immune suppression for her transplant -chronic pain syndrome with chronic daily prescribed narcotic use * Currently using her usual prescribed home narcotic doses -acute metabolic acidosis related to her renal failure is improving -secondary hyperparathyroidism PLANS: Soap suds enemas tried today and will try a 2nd 1 if necessary Follow renal function closely Continue immune suppression SUBJECTIVE: Complains of some ongoing left-sided abdominal discomfort, lower. 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 On her initial x- ray at admission she had diffuse large amounts of stool throughout her colon. At this time she has no stool evident in the ascending transverse or descending colon but there appears to likely be a large ball of stool in the rectal area. No signs of obstruction Objective: Vital Signs Temp Pulse Resp BP Pulse Ox 36.6 C 76 16 125/77 H 97 12/14/17 08:00 12/14/17 08:00 12/14/17 08:00 12/14/17 08:00 12/14/17 08:00 Laboratory Results 12/13/17 05:20 12/14/17 04:50 12/13/17 12/14/17 12/15/17 06:59 06:59 06:59 Intake Total 900 Balance 900 ICD10 Worksheet Patient Problems: Problems Problem Status Onset Hypoglycemia Acute Immunosuppression Acute Volume depletion, gastrointestinal loss Acute Anticoagulant therapy Active Chronic pain syndrome Active Hypokalemia Active Hypothyroidism Active Renal impairment Active biliary gastric reflux Active Abdominal pain Acute Anemia Acute C. difficile diarrhea Acute ~05/30/17 Chronic renal failure Acute Clostridium difficile infection Acute Congestive heart failure Acute Dehydration Acute Diarrhea Acute Nausea Acute Nausea & vomiting Acute Pyelonephritis Acute Renal failure (ARF), acute on chronic Acute Sepsis Acute Superficial thrombophlebitis Acute Swelling of both lower extremities Acute Syncope due to orthostatic hypotension Acute Tachycardia Acute Urinary tract infection Acute VRE (vancomycin-resistant Enterococci) Acute ~03/01/17 History of kidney transplant Chronic
[2017-12-14] MEDS ORDERED: PROMETHAZINE HCL 25 MG SUPPR PR PRN (16:10)
[2017-12-14] MEDS ORDERED: PEG 3350/NA SULF,BICARB,CL/KCL (GAVILYTE-G) 4000 ML BTL PO ONE (16:11)
[2017-12-14] MEDS ORDERED: ONDANSETRON DISINTEGRATING 4 MG TAB PO PRN (16:14)
[2017-12-14] MEDS: azaTHIOprine 50 MG TAB PO SCH (20:19)
[2017-12-15] MEDS: HEPARIN 5,000 UNIT/0.5 ML SYR SC SCH ×3 (05:14→21:07)
[2017-12-15] MEDS: LEVOTHYROXINE 75 MCG TAB PO SCH (05:14)
[2017-12-15] MEDS: SODIUM BICARBONATE 650 MG TAB PO SCH ×2 (07:39→21:07)
[2017-12-15] MEDS: LACTULOSE 20 GM/30 ML UDCUP PO PRN (07:39)
[2017-12-15] MEDS: TACROLIMUS 1 MG CAP PO SCH ×2 (07:39→21:07)
[2017-12-15] MEDS: SENNOSIDES/DOCUSATE SODIUM TAB PO SCH ×2 (07:39→21:07)
[2017-12-15] MEDS: FERROUS SULFATE 325 MG TAB PO SCH (07:40)
[2017-12-15] MEDS: PANTOPRAZOLE SODIUM 40 MG TAB PO SCH (07:40)
[2017-12-15] MEDS: predniSONE 5 MG TAB PO SCH (07:40)
[2017-12-15] MEDS: morphINE SR 15 MG TAB PO SCH ×3 (08:41→21:07)
[2017-12-15] MEDS: oxyCODONE IR 5 MG TAB PO PRN (10:51)
[2017-12-15] MEDS: PROMETHAZINE HCL 25 MG TAB PO PRN (10:52)
--- NOTE | 2017-12-15 14:28 | SOAPPROG ---
SOAP Progress Note Assessment/Plan: Assessment/Plan: MEETA on CKD 4: Cr down from 3.2 to 2.3, which is at her baseline. - Avoid hypotension and nephrotoxins, particularly fleet enemas. - Will continue low K diet. - Will continue to monitor. h/o renal transplant: continue home IS regimen. Metabolic acidosis: at goal with bicarb tabs. Subjective: No acute events overnight. Pt notes she has had two small BMs but still quite backed up. Objective: Vital Signs Temp Pulse Resp BP Pulse Ox 36.8 C 73 16 118/71 96 12/15/17 08:00 12/15/17 08:00 12/15/17 08:00 12/15/17 08:00 12/15/17 08:00 Laboratory Results 12/13/17 05:20 12/15/17 05:50 12/14/17 12/15/17 12/16/17 05:59 05:59 05:59 Intake Total 550 Balance 550 General: alert and oriented, no acute distress Eyes: EOMI, PERRL OP: Clear CV: RRR Resp: nonlabored respirations on RA Abd: Soft, NT/ND Ext: no edema BLE neuro: CN II-XII grossly intact Psych: cooperative, appropriate mood and affect ICD10 Worksheet Patient Problems: Problems Problem Status Onset Hypoglycemia Acute Immunosuppression Acute Volume depletion, gastrointestinal loss Acute Anticoagulant therapy Active Chronic pain syndrome Active Hypokalemia Active Hypothyroidism Active Renal impairment Active biliary gastric reflux Active Abdominal pain Acute Anemia Acute C. difficile diarrhea Acute ~05/30/17 Chronic renal failure Acute Clostridium difficile infection Acute Congestive heart failure Acute Dehydration Acute Diarrhea Acute Nausea Acute Nausea & vomiting Acute Pyelonephritis Acute Renal failure (ARF), acute on chronic Acute Sepsis Acute Superficial thrombophlebitis Acute Swelling of both lower extremities Acute Syncope due to orthostatic hypotension Acute Tachycardia Acute Urinary tract infection Acute VRE (vancomycin-resistant Enterococci) Acute ~03/01/17 History of kidney transplant Chronic
--- NOTE | 2017-12-15 18:31 | HOSPPROG ---
Hospitalist Progress Note Assessment/Plan: DIAGNOSES: -abdominal pain, suspect this is primarily due to constipation from chronic narcotics and chronic motility issues * I think she actually is probably passing more stool when she is telling us about. She does still appear to have 1 large impacted ball of stool in the rectum. Will want to attempt to that some soapsuds enemas here but may need to consider disimpaction which she is currently reluctant to consider * No sign of hypothyroidism -new onset macrocytosis with currently stable chronic anemia of renal disease * No evidence of B12 folate deficiency, cause uncertain -acute renal failure on chronic renal failure stage 4 with history of renal transplant * Resolved and appears probably at her baseline -ongoing use of immune suppression for her transplant -chronic pain syndrome with chronic daily prescribed narcotic use * Currently using her usual prescribed home narcotic doses -acute metabolic acidosis related to her renal failure is improving -secondary hyperparathyroidism PLANS: Soap suds enemas tried today and will try a 2nd 1 if necessary Follow renal function closely Continue immune suppression SUBJECTIVE: Complains of some ongoing left-sided abdominal discomfort, lower. 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 On her initial x- ray at admission she had diffuse large amounts of stool throughout her colon. At this time she has no stool evident in the ascending transverse or descending colon but there appears to likely be a large ball of stool in the rectal area. No signs of obstruction DIAGNOSES: -abdominal pain, suspect this is primarily due to constipation from chronic narcotics and chronic motility issues * I think she actually is probably passing more stool when she is telling us about. She does still appear to have 1 large impacted ball of stool in the rectum. Will want to attempt to that some soapsuds enemas here but may need to consider disimpaction which she is currently reluctant to consider * No sign of hypothyroidism -new onset macrocytosis with currently stable chronic anemia of renal disease * No evidence of B12 folate deficiency, cause uncertain -acute renal failure on chronic renal failure stage 4 with history of renal transplant * Resolved and appears probably at her baseline -ongoing use of immune suppression for her transplant -chronic pain syndrome with chronic daily prescribed narcotic use * Currently using her usual prescribed home narcotic doses -acute metabolic acidosis related to her renal failure is improving -secondary hyperparathyroidism PLANS: Soap suds enemas tried today and will try a 2nd 1 if necessary Follow renal function closely Continue immune suppression SUBJECTIVE: Complains of some ongoing left-sided abdominal discomfort, lower. 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 On her initial x- ray at admission she had diffuse large amounts of stool throughout her colon. At this time she has no stool evident in the ascending transverse or descending colon but there appears to likely be a large ball of stool in the rectal area. No signs of obstruction Objective: Vital Signs Temp Pulse Resp BP Pulse Ox 37.0 C 81 16 111/67 96 12/15/17 15:33 12/15/17 15:33 12/15/17 15:33 12/15/17 15:33 12/15/17 15:33 Laboratory Results 12/13/17 05:20 12/15/17 05:50 12/14/17 12/15/17 12/16/17 06:59 06:59 06:59 Intake Total 550 550 Balance 550 550 ICD10 Worksheet Patient Problems: Problems Problem Status Onset Hypoglycemia Acute Immunosuppression Acute Volume depletion, gastrointestinal loss Acute Anticoagulant therapy Active Chronic pain syndrome Active Hypokalemia Active Hypothyroidism Active Renal impairment Active biliary gastric reflux Active Abdominal pain Acute Anemia Acute C. difficile diarrhea Acute ~05/30/17 Chronic renal failure Acute Clostridium difficile infection Acute Congestive heart failure Acute Dehydration Acute Diarrhea Acute Nausea Acute Nausea & vomiting Acute Pyelonephritis Acute Renal failure (ARF), acute on chronic Acute Sepsis Acute Superficial thrombophlebitis Acute Swelling of both lower extremities Acute Syncope due to orthostatic hypotension Acute Tachycardia Acute Urinary tract infection Acute VRE (vancomycin-resistant Enterococci) Acute ~03/01/17 History of kidney transplant Chronic
[2017-12-15] MEDS: azaTHIOprine 50 MG TAB PO SCH (21:07)
[2017-12-15] MEDS: CALCITRIOL 0.25 MCG CAP PO SCH (22:07)
[2017-12-16] MEDS: LORazepam 1 MG TAB PO PRN (00:24)
[2017-12-16] MEDS: oxyCODONE IR 5 MG TAB PO PRN ×2 (00:25→18:30)
[2017-12-16] MEDS: HEPARIN 5,000 UNIT/0.5 ML SYR SC SCH ×3 (05:45→21:04)
[2017-12-16] MEDS: PROMETHAZINE HCL 25 MG TAB PO PRN ×3 (05:45→18:29)
[2017-12-16] MEDS: PANTOPRAZOLE SODIUM 40 MG TAB PO SCH (09:50)
[2017-12-16] MEDS: morphINE SR 15 MG TAB PO SCH ×3 (09:50→21:04)
[2017-12-16] MEDS: SENNOSIDES/DOCUSATE SODIUM TAB PO SCH ×2 (10:44→21:04)
[2017-12-16] MEDS: SODIUM BICARBONATE 650 MG TAB PO SCH ×2 (10:45→21:04)
[2017-12-16] MEDS: FERROUS SULFATE 325 MG TAB PO SCH (10:45)
[2017-12-16] MEDS: predniSONE 5 MG TAB PO SCH (10:46)
[2017-12-16] MEDS: TACROLIMUS 1 MG CAP PO SCH ×2 (10:46→21:04)
[2017-12-16] MEDS: BISACODYL 10 MG SUPP PR PRN (11:40)
--- NOTE | 2017-12-16 16:37 | ASMTCMCOM ---
CM Note CM Note Notes: Pt continues to be constipated, otherwise independent. Anticipate she will dc home w/ when medically stable. CM available for any changes. Dc Plan: Independent Date Signed: 12/16/2017 04:36 PM Electronically Signed By:Kenisha Michelle RN
--- NOTE | 2017-12-16 18:44 | SOAPPROG ---
SOAP Progress Note Assessment/Plan: Assessment: 1. renal transplant: creat stable and probably a bit below her typical recent b/ l. Cont pred/aza/prograf. 2. arf: mild, resolved. 3. met acidosis: cont chronic po bicarb. 4. abd pain: improving with bm today. Plan: 12/16/17 18:42 Subjective: Had bm earlier today and beginning to feel better. Still requesting opioids frequently per director of staff development. Objective: Vital Signs Temp Pulse Resp BP Pulse Ox 37.0 C 82 16 110/72 96 12/16/17 16:00 12/16/17 16:00 12/16/17 16:00 12/16/17 16:00 12/16/17 16:00 Laboratory Results 12/13/17 05:20 12/16/17 05:22 12/15/17 12/16/17 12/17/17 05:59 05:59 05:59 Intake Total 550 550 Balance 550 550 Physical Exam - Physical Exam General Appearance: no apparent distress Respiratory: lungs clear Cardiac/Chest: regular rate, rhythm, systolic murmur Extremities: swelling (none) ICD10 Worksheet Patient Problems: Problems Problem Status Onset Hypoglycemia Acute Immunosuppression Acute Volume depletion, gastrointestinal loss Acute Anticoagulant therapy Active Chronic pain syndrome Active Hypokalemia Active Hypothyroidism Active Renal impairment Active biliary gastric reflux Active Abdominal pain Acute Anemia Acute C. difficile diarrhea Acute ~05/30/17 Chronic renal failure Acute Clostridium difficile infection Acute Congestive heart failure Acute Dehydration Acute Diarrhea Acute Nausea Acute Nausea & vomiting Acute Pyelonephritis Acute Renal failure (ARF), acute on chronic Acute Sepsis Acute Superficial thrombophlebitis Acute Swelling of both lower extremities Acute Syncope due to orthostatic hypotension Acute Tachycardia Acute Urinary tract infection Acute VRE (vancomycin-resistant Enterococci) Acute ~03/01/17 History of kidney transplant Chronic
--- NOTE | 2017-12-16 19:30 | HOSPPROG ---
Hospitalist Progress Note Assessment/Plan: DIAGNOSES: -abdominal pain, suspect this is primarily due to constipation from chronic narcotics and chronic motility issues * I think she actually is probably passing more stool when she is telling us about. She does still appear to have 1 large impacted ball of stool in the rectum. Review with her options of further enemas or disimpaction and she is not willing to have us attempt disimpaction at this time but does complain of some ongoing pain * No sign of hypothyroidism -new onset macrocytosis with currently stable chronic anemia of renal disease * No evidence of B12 folate deficiency, cause uncertain -acute renal failure on chronic renal failure stage 4 with history of renal transplant * Resolved and appears probably at her baseline -ongoing use of immune suppression for her transplant -chronic pain syndrome with chronic daily prescribed narcotic use * Currently using her usual prescribed home narcotic doses -acute metabolic acidosis related to her renal failure is improving -secondary hyperparathyroidism PLANS: Will give another soapsuds enema today Follow renal function closely Continue immune suppression Most likely discharged home tomorrow SUBJECTIVE: Complains of some ongoing left-sided abdominal discomfort, lower. 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: Exam: alert oriented skin warm dry color ok resps not labored lungs clear BSs heart regular abd soft nondistended bowel sounds present; no tenderness iv site ok Laboratory data: Her chemistry panel remains stable overall appears at baseline renal function B12 and folate levels are normal, unclear why she has macrocytosis now Objective: Vital Signs Temp Pulse Resp BP Pulse Ox 37.0 C 82 16 110/72 96 12/16/17 16:00 12/16/17 16:00 12/16/17 16:00 12/16/17 16:00 12/16/17 16:00 Laboratory Results 12/13/17 05:20 12/16/17 05:22 12/15/17 12/16/17 12/17/17 06:59 06:59 06:59 Intake Total 550 550 Balance 550 550 ICD10 Worksheet Patient Problems: Problems Problem Status Onset Hypoglycemia Acute Immunosuppression Acute Volume depletion, gastrointestinal loss Acute Anticoagulant therapy Active Chronic pain syndrome Active Hypokalemia Active Hypothyroidism Active Renal impairment Active biliary gastric reflux Active Abdominal pain Acute Anemia Acute C. difficile diarrhea Acute ~05/30/17 Chronic renal failure Acute Clostridium difficile infection Acute Congestive heart failure Acute Dehydration Acute Diarrhea Acute Nausea Acute Nausea & vomiting Acute Pyelonephritis Acute Renal failure (ARF), acute on chronic Acute Sepsis Acute Superficial thrombophlebitis Acute Swelling of both lower extremities Acute Syncope due to orthostatic hypotension Acute Tachycardia Acute Urinary tract infection Acute VRE (vancomycin-resistant Enterococci) Acute ~03/01/17 History of kidney transplant Chronic
[2017-12-16] MEDS: azaTHIOprine 50 MG TAB PO SCH (21:04)
[2017-12-17] MEDS: HEPARIN 5,000 UNIT/0.5 ML SYR SC SCH ×2 (05:48→14:21)
[2017-12-17] MEDS: PROMETHAZINE HCL 25 MG TAB PO PRN ×2 (05:49→12:30)
[2017-12-17] MEDS: oxyCODONE IR 5 MG TAB PO PRN ×2 (05:49→12:31)
[2017-12-17] MEDS: LEVOTHYROXINE 75 MCG TAB PO SCH (05:49)
[2017-12-17] MEDS: SODIUM BICARBONATE 650 MG TAB PO SCH (09:57)
[2017-12-17] MEDS: FERROUS SULFATE 325 MG TAB PO SCH (09:58)
[2017-12-17] MEDS: predniSONE 5 MG TAB PO SCH (09:58)
[2017-12-17] MEDS: PANTOPRAZOLE SODIUM 40 MG TAB PO SCH (09:58)
[2017-12-17] MEDS: SENNOSIDES/DOCUSATE SODIUM TAB PO SCH (09:59)
[2017-12-17] MEDS: TACROLIMUS 1 MG CAP PO SCH (09:59)
[2017-12-17] MEDS: morphINE SR 15 MG TAB PO SCH ×2 (10:00→15:27)
[2017-12-17 15:41] VITALS: BP 120/69; PULSE 92; RESP 16; TEMP 98.6; O2SAT 96
--- NOTE | 2017-12-17 15:46 | PDDCSUM ---
Discharge Summary Discharge Summary: DISCHARGE DIAGNOSES: -abdominal pain appears due to obstipation/constipation -acute dehydration due to nausea vomiting abdominal Pain -acute renal on chronic failure due to dehydration in the setting of chronic transplant, resolved with hydration -acute metabolic acidosis from dehydration and renal failure -new onset of macrocytosis without worsening of her chronic anemia, normal B12 levels here in the hospital -chronic pain syndrome with chronic prescribed daily narcotic use, stable -secondary hyperparathyroidism for renal disease -ongoing immune suppression for her renal transplant -hepatic steatosis incidentally noted on an abdominal ultrasound CONSULTANTS: Nephrology physician team PROCEDURES: Abdominal ultrasound HOSPITAL COURSE SUMMARY: This patient who has been to this hospital many times comes in at this time with diffuse abdominal pain but primarily left-sided abdominal pain that was crampy, she was having some soft and loose or watery stools that appear to have been probably coming around a large stool plug in the rectum and she was quite constipated. The patient had nausea vomiting at home and she came to the hospital had some acute renal failure in the setting of a chronic kidney transplant. There was mild metabolic acidosis. The patient was hydrated aggressively and her renal failure did resolve infection got to her best creatinine and BUN that she has had in several months. She was continued on her immune suppression here. Initially she was treated with laxatives and rectal suppositories which did not help her very well with her obstipation. A Colyte prep led to a fairly large amount of liquid stool that emptied out most of her colon based on examination and x-ray but there was still a large solid appearing bolus of stool in the rectum. We discussed the option of disimpaction and she declined that at this time. We tried a dose of methyl naltrexone which did not seem very productive, I believe probably because of the nature of the obstipation though she might respond better to that type of medicine in the setting where she is not obstipated. We used some warm soap water enemas for a couple of days in these did lead to some significant improvement and we got some of the rectal stool out. It is believed there is probably still some rectal stool and she may need some more enemas or glycerin suppositories over time. However her abdominal pain is largely resolved and she is eating and drinking without difficulty. Keeping medicines down well. At this point she is stable for discharge to home. She has a chronic history of daily nausea and asks about options for that. Given her renal disease and failure of Zofran to help her as well as her constipation issues there are not many good medication options. I did review glycerin suppositories as an option. Also emphasized however non medicinal approaches such as exercise, adequate hydration, acupuncture, acupressure, Tea and herbal preparations. I suggested she also talked with Dr. Giles who knows her well about any options he may recommend. PENDING TEST RESULTS: None MEDICATION CHANGES: None FOLLOW-UP PLAN: She is an appoint with Dr. Glies in 8 days She will continue follow-up with her nephrology and transplant teams Greater than 35 minutes bedside and care coordination time today
--- NOTE | 2017-12-17 15:54 | ASMTLACE ---
LACE Length of stay for Answers: 7-13 days current admission Acuity / Level of Answers: Yes Care: Did the patient have an inpatient admission? Comorbidities - select Answers: Any tumor (including all that apply lymphoma or leukemia) Dementia Opioid dependence / Chronic pain Other Notes: CKD, GERD, HTN # of Emergency department Answers: 3-4 visits in the last 6 months Social determinants Answers: Mental health diagnosis (anxiety, depression, pers onality disorders, etc.) Score: 24 Date Signed: 12/17/2017 03:53 PM Electronically Signed By:Benita Noel RN
--- NOTE | 2017-12-17 16:05 | ASMTCMCOM ---
CM Note CM Note Notes: Chart reviewed. Medically cleared for discharge to home . No needs identified for C. CM available should needs arise. Date Signed: 12/17/2017 04:04 PM Electronically Signed By:Benita Noel RN
== END 2017-12-17 16:15 | disposition home or self-care (01) | DRG 392 ==
LOC: INTOOBSV 19:03 → OBSVTOIN 19:03 → F3E 19:59 → OBSVTOIN 20:20
PROVIDERS: ADMIT Internal Medicine; ATTEND Internal Medicine
DX: K59.00 Constipation, unspecified (principal); E86.0 Dehydration; R11.2 Nausea with vomiting, unspecified; N17.9 Acute kidney failure, unspecified; N18.4 Chronic kidney disease, stage 4 (severe); Z94.0 Kidney transplant status; E87.2 Acidosis; N25.81 Secondary hyperparathyroidism of renal origin; D75.89 Other specified diseases of blood and blood-forming organs; G89.29 Other chronic pain; K76.0 Fatty (change of) liver, not elsewhere classified; K21.9 Gastro-esophageal reflux disease without esophagitis; I12.9 Hypertensive chronic kidney disease with stage 1 through stage 4 chronic kidney disease, or unspecified chronic kidney disease; E03.9 Hypothyroidism, unspecified; F41.9 Anxiety disorder, unspecified; F11.20 Opioid dependence, uncomplicated; F13.20 Sedative, hypnotic or anxiolytic dependence, uncomplicated; D63.1 Anemia in chronic kidney disease; Z85.72 Personal history of non-Hodgkin lymphomas; Z79.52 Long term (current) use of systemic steroids
CPT/HCPCS: 82607-90; 83921-90; 96374; 97116-GP; 97161-GP; G8978-GP-CH; G8979-GP-CH; G8980-GP-CH; J1644; J2212; J2405; J2550; J7500; J7507; J7512

== ENCOUNTER 2018-01-02 09:42 | Inpatient (IN) | payer OTHER ==
--- NOTE | 2018-01-02 10:01 | EDPHY ---
General Time Seen by Provider: 01/02/18 09:57 Narrative: CHIEF COMPLAINT: Nausea vomiting, constipation HISTORY OF PRESENT ILLNESS: Patient complains of 3 days history of nausea vomiting. She has had difficulty keeping any solids down and minimal liquids. She has also had abdominal distension, constipation and pain throughout. She feels is related to constipation. She denies any rectal fullness or inability to pass stool through the anus. She feels the stool is higher up. No fever chills. No chest pain or shortness of breath. She has been unable to take her chronic pain medications over the past 3 days and reports significant pain from this as well. She has taken senna, Colace and MiraLax. She is not allowed to take magnesium citrate due to chronic kidney disease. No other associated complaints or modifying factors. REVIEW OF SYSTEMS: Ten systems reviewed and are negative unless otherwise noted in the HPI PCP: Dr. Ramesh Duffy SPECIALISTS: Dr. Sanderson, nephrology Dr. Mike, cardiology PAST MEDICAL HISTORY: Postmenopausal. Chronic kidney disease status post liver transplant, gestational diabetes, chronic back pain, C difficile colitis, anxiety, GERD, [place], hypertension, non-Hodgkin's lymphoma in remission since 2001 PAST SURGICAL HISTORY: Renal transplant, cardiac ablation, SOCIAL HISTORY: Never smoker. No drug or alcohol use. Lives independently with her spouse locally FAMILY HISTORY: Noncontributory EXAMINATION General Appearance: Alert, no distress Head: normocephalic, atraumatic Eyes: Pupils equal and round, no conjunctival pallor or injection ENT, Mouth: Mucous membranes moist Neck: Normal inspection, supple, non-tender Respiratory: Lungs are clear to auscultation. No wheezing, rhonchi or crackles Cardiovascular: Regular rate and rhythm. No murmur Gastrointestinal: Abdomen is soft. Mild distention. No tympany. No rigidity. Tender in all 4 quadrants out of proportion to exam. No CVA tenderness. Back: non-tender, no bony abnormalities Neurological: A&O, nonfocal, normal gait Skin: Warm and dry, no rash no petechiae or purpura Extremities: Nontender, no pedal edema Psychiatric: Mood and affect normal DIFFERENTIAL DIAGNOSES: Including but not limited to constipation, obstipation, colitis, diverticulitis , gastroenteritis MDM: 10:05 a.m. Abdominal pain with feeling of constipation and bloating as stated by the patient. She does have bowel sounds in all quadrants but she is tender in all quadrants. She does not have a feeling of rectal fullness or does not describe fecal impaction. She is heavily opioid dependent due to chronic back pain and does have frequent episodes of constipation. Her vital signs are within normal limits. I have ordered CT scan abdomen pelvis to delineate, laboratory studies 11:10 a.m. Notified by radiologist. There is significant stool but no other obvious finding noted. There may be incidental note of some mild loosening of her hardware, felt to be non emergent. 12:10 p.m. Patient re-evaluated. I discussed fecal disimpaction and enemas and she agrees to proceed. I will order 1 dose pain medication prior to this. Additionally, her creatinine has changed by greater than 50% from recent, thus she does meet criteria for acute kidney injury on top of chronic kidney disease. I discussed with Dr. Narayan and he agrees. We are concerned that the patient will need admission the hospital for close monitoring and hydration. 12:45 p.m. Case discussed with hospitalist Sharon Grewal. Patient will be admitted to Dr. Wall. She is admitted stable condition. PROCEDURE: Fecal disimpaction Indication: Fecal impaction Consent: Verbal Description: Patient placed in the left lateral decubitus. Using extensive PPE , and with a female RN c4 planner present (Brandy). I performed digital rectal exam. There was moderate stool in the rectal vault. I was able to remove this by hand, approximately 30 cc. There was some mild blood attached to the stool that was read. No dried blood or dark stools. No melena. Tolerated well. Unable to evacuate any further. SUPERVISION: Patient was independently examined, but I discussed the case with my secondary supervising physician . Patient was evaluated and examined in conjunction with my secondary supervising physician as documented. We have both examined the patient. - Diagnostics Imaging Results: Imaging Impressions Abdomen/Pelvis CT 01/02/18 10:14 Impression: 1. Marked constipation. No evidence of bowel obstruction or perforation. 2. Improved pelvic caliectasis of left iliopsoas renal transplant since December 2016. 3. Loosening of posterior fusion screws at L4 and L5. Attention: This CT examination is specifically designed to evaluate patients who are clinically suspected of having acute obstructive uropathy. This examination does not use radiographic contrast, and as such, provides only a limited evaluation of the abdomen, pelvis and retroperitoneum. If there is further clinical suspicion for pathological conditions other than obstructive uropathy, a complete CT evaluation of the abdomen and pelvis utilizing intravenous, oral, and rectal contrast should be considered. Findings discussed with Emergency Department physician, Emigdio Scott on , 10:59 AM. - History Smoking Status: Never smoked - Objective Vital Signs: Initial Vital Signs Temperature (C) 98.2 F 01/02/18 09:48 Heart Rate 86 01/02/18 09:48 Respiratory Rate 17 01/02/18 09:48 Blood Pressure 115/83 H 01/02/18 09:48 O2 Sat (%) 97 01/02/18 09:48 O2 Delivery Mode Room Air Allergies/Adverse Reactions: erythromycin lactobionate [From Erythrocin] Allergy (Severe, Verified 01/02/18 09:47) Anaphylaxis metoclopramide HCl [From Reglan] Allergy (Severe, Verified 01/02/18 09:47) "went crazy" NSAIDS (Non-Steroidal Anti-Inflamma [Nsaids] Allergy (Severe, Verified 01/02/18 09:47) Kidney transplant meperidine HCl [From Demerol] Allergy (Intermediate, Verified 01/02/18 09:47) Hypotension meropenem [Meropenem] Allergy (Intermediate, Verified 01/02/18 09:47) Hypersensitivity in legs Sulfa (Sulfonamide Antibiotics) Allergy (Intermediate, Verified 01/02/18 09:47) Hives ceftazidime Allergy (Mild, Verified 01/02/18 09:47) Rash ciprofloxacin [From Cipro] Allergy (Mild, Verified 01/02/18 09:47) Rash doxycycline Allergy (Verified 01/02/18 09:47) gabapentin [From Neurontin] Allergy (Verified 01/02/18 09:47) Other-Enter Comments Home Medications: Medication Instructions Recorded Calcitriol [Calcitriol (*)] 0.25 mcg PO MOWEFR 05/25/17 LORazepam [Ativan (*)] 1 mg PO TID PRN 05/25/17 Levothyroxine [Synthroid 75 mcg 75 mcg PO DAILY06 05/25/17 (*)] Pantoprazole Sodium [Protonix 40mg 40 mg PO DAILY 05/25/17 (*)] azaTHIOprine [Imuran 50 mg (*)] 100 mg PO HS 05/25/17 oxyCODONE HCL [OXYCODONE HCL] 20 - 40 mg PO Q6H PRN 05/25/17 Ondansetron HCl [Zofran] 8 mg PO DAILY PRN 06/06/17 Sodium Bicarbonate [Na Bicarb] 1,300 mg PO BID 06/06/17 Ferrous Sulfate [Ferrous Sulf 325 325 mg PO DAILY #30 tab 06/10/17 MG (*)] Astagraf 1mg Tab 4 tab PO DAILY 12/10/17 morphINE SR [Ms Contin/Oramorph 15 15 mg PO TID 12/10/17 mg (*)] predniSONE 5 mg PO DAILY 12/10/17 Promethazine HCl [Phenergan 25mg 12.5 - 25 mg PO Q6HRS PRN #40 tab 12/11/17 (*)] Polyethylene Glycol 3350 [Miralax 17 gm PO BID PRN pkt 12/17/17 17 gm (*)] FLUoxetine [Prozac 10 MG (*)] 10 mg PO DAILY 01/02/18 Furosemide [Lasix 20 MG (*)] 20 mg PO DAILY 01/02/18 OLANZapine [ZyPREXA 2.5 mg (*)] 5 mg PO HS 01/02/18 buPROPion SR [Wellbutrin 150mg SR 150 mg PO DAILY 01/02/18 (*)] Laboratory Results: Laboratory Results 01/02/18 10:24 01/02/18 10:24 01/02/18 01/02/18 01/02/18 10:24 10:24 10:24 WBC 4.77 10^3/uL 10^3/uL (3.80-9.50) RBC 3.42 10^6/uL L 10^6/uL (4.18-5.33) Hgb 11.3 g/dL L g/dL (12.6-16.3) Hct 34.5 % L % (38.0-47.0) MCV 100.9 fL H fL (81.5-99.8) MCH 33.0 pg pg (27.9-34.1) MCHC 32.8 g/dL g/dL (32.4-36.7) RDW 13.7 % % (11.5-15.2) Plt Count 270 10^3/uL 10^3/uL (150-400) MPV 9.9 fL fL (8.7-11.7) Neut % (Auto) 59.6 % % (39.3-74.2) Lymph % (Auto) 22.6 % % (15.0-45.0) [place] % (Auto) 9.9 % % (4.5-13.0) Eos % (Auto) 6.9 % % (0.6-7.6) Baso % (Auto) 0.8 % % (0.3-1.7) Nucleat RBC Rel Count 0.0 % % (0.0-0.2) Absolute Neuts (auto) 2.84 10^3/uL 10^3/uL (1.70-6.50) Absolute Lymphs (auto) 1.08 10^3/uL 10^3/uL (1.00-3.00) Absolute Monos (auto) 0.47 10^3/uL 10^3/uL (0.30-0.80) Absolute Eos (auto) 0.33 10^3/uL 10^3/uL (0.03-0.40) Absolute Basos (auto) 0.04 10^3/uL 10^3/uL (0.02-0.10) Absolute Nucleated RBC 0.00 10^3/uL 10^3/uL (0-0.01) Immature Gran % 0.2 % % (0.0-1.1) Immature Gran # 0.01 10^3/uL 10^3/uL (0.00-0.10) Sodium 143 mEq/L mEq/L (135-145) Potassium 4.4 mEq/L mEq/L (3.5-5.2) Chloride 102 mEq/L mEq/L (97-110) Carbon Dioxide 25 mEq/l mEq/l (22-31) Anion Gap 16 mEq/L mEq/L (8-16) BUN 43 mg/dL H mg/dL (7-23) Creatinine 3.6 mg/dL H mg/dL (0.6-1.0) Estimated GFR 14 Glucose 76 mg/dL mg/dL (70-100) Calcium 9.6 mg/dL mg/dL (8.5-10.4) Total Bilirubin 0.8 mg/dL mg/dL (0.1-1.4) Conjugated Bilirubin 0.6 mg/dL H mg/dL (0.0-0.5) Unconjugated Bilirubin 0.2 mg/dL mg/dL (0.0-1.1) AST 34 IU/L IU/L (14-46) ALT 33 IU/L IU/L (9-52) Alkaline Phosphatase 67 IU/L IU/L (38-126) Total Protein 8.0 g/dL g/dL (6.3-8.2) Albumin 4.7 g/dL g/dL (3.5-5.0) Lipase 71 IU/L IU/L (23-300) TSH 1.500 uIU/mL uIU/mL (0.465-4.680) Medications Given: Discontinued Medications Fentanyl (Sublimaze) 100 mcg IVP EDNOW ONE Stop: 01/02/18 12:23 Last Admin: 01/02/18 13:00 Dose: 100 mcg Sodium Chloride (Ns) 1,000 mls @ 0 mls/hr IV EDNOW ONE; Wide Open PRN Reason: Protocol Stop: 01/02/18 10:15 Last Admin: 01/02/18 10:50 Dose: 1,000 mls Sodium Chloride (Ns) 1,000 mls @ 0 mls/hr IV EDNOW ONE; Wide Open PRN Reason: Protocol Stop: 01/02/18 12:25 Last Admin: 01/02/18 13:00 Dose: 1,000 mls Morphine Sulfate (Morphine) 6 mg IVP EDNOW ONE Stop: 01/02/18 10:15 Last Admin: 01/02/18 10:41 Dose: Not Given Morphine Sulfate (Morphine) 6 mg IVP ONCE ONE Stop: 01/02/18 10:46 Last Admin: 01/02/18 10:50 Dose: 6 mg Ondansetron HCl (Zofran) 4 mg IVP EDNOW ONE Stop: 01/02/18 10:57 Last Admin: 01/02/18 11:04 Dose: 4 mg Promethazine HCl (Phenergan) 6.25 mg IVP ONCE ONE Stop: 01/02/18 14:37 Last Admin: 01/02/18 14:42 Dose: 6.25 mg Departure - Departure Disposition: [facility] Inpatient Acute Clinical Impression: Acute on chronic kidney failure Qualifiers: Acute renal failure type: unspecified Chronic kidney disease stage: stage 3 ( moderate) Qualified Code(s): N17.9 - Acute kidney failure, unspecified; N18.3 - Chronic kidney disease, stage 3 (moderate); N18.3 - Chronic kidney disease, stage 3 (moderate) Constipation Qualifiers: Constipation type: drug induced constipation Qualified Code(s): K59.03 - Drug induced constipation Condition: Fair
[2018-01-02] MEDS ORDERED: NS 1,000 ML IV ONE ×2 (10:14→12:24)
[2018-01-02 10:53] LABS: PLATELET COUNT 270 10^3/uL (150-400)
[2018-01-02] MEDS ORDERED: ONDANSETRON 4 MG/2 ML VIAL IVP ONE (10:56)
[2018-01-02] MEDS ORDERED: fentaNYL 100 MCG/2 ML INJ IVP ONE (12:22)
[2018-01-02] MEDS ORDERED: fentaNYL 100 MCG/2 ML INJ ONE (12:22)
[2018-01-02] MEDS ORDERED: ONDANSETRON DISINTEGRATING 4 MG TAB PO PRN (14:25)
[2018-01-02] MEDS ORDERED: ACETAMINOPHEN 325 MG TAB PO PRN (14:25)
[2018-01-02] MEDS ORDERED: BISACODYL 10 MG SUPP PR PRN (14:28)
[2018-01-02] MEDS ORDERED: NON-FORMULARY NEW DRUG (Ondansetron Hcl [Zofran] 8 MG) PO PRN (14:29)
[2018-01-02] MEDS ORDERED: PROMETHAZINE HCL 25 MG/ML INJ IVP ONE (14:36)
[2018-01-02] MEDS ORDERED: PROMETHAZINE HCL 25 MG/ML INJ ONE (14:38)
--- NOTE | 2018-01-02 15:05 | GHP ---
[f rep st] HISTORY AND PHYSICAL DATE OF ADMISSION: 01/02/2018 CHIEF COMPLAINT: Nausea and vomiting. HISTORY OF PRESENT ILLNESS: A 47-year-old female with a history of a renal transplant and chronic co nstipation presents with nausea and vomiting. She was admitted to this hospital about a month ago wi th very similar complaints. She ended up staying in the hospital for about a week. She underwent mu ltiple rounds of laxatives, eventually with good result. She tells me she has not had a bowel movement for 4 days. She has had some nausea and vomiting, has not kept much down for the past 2 days. Vomiting has been nonbloody, somewhat bilious. She has slig htly worse abdominal discomfort than normal. She has been taking her immunosuppressants. In the emergency department, she was disimpacted by Emigdio Scott. He was able to get out 3 hard stoo l balls. She then underwent a soapsuds enema with liquid stool. PAST MEDICAL/SURGICAL HISTORY: 1. Renal failure, status post transplant, now with chronic kidney disease, baseline creatinine about 2.5. 2. Wdfqp-Ycmhepgrr-Vloxx, status post ablation. 3. Hypertension. 4. Non-Hodgkin's lymphoma diagnosed in 2001, status post XRT and chemotherapy. 5. History of Clostridium difficile colitis. 6. GERD. 7. Anxiety. MEDICATIONS: Please see medication reconciliation. ALLERGIES: Erythromycin, Reglan, NSAIDs, meperidine, meropenem, sulfa, ceftazidime, gabapentin, cipr ofloxacin, doxycycline. SOCIAL HISTORY: She is a nonsmoker. She is . FAMILY HISTORY: Reviewed and noncontributory. REVIEW OF SYSTEMS: Ten-point review of systems is conducted and is negative, except per HPI. PHYSICAL EXAM: VITAL SIGNS: Blood pressure 113/80, heart rate 80, respiration rate 16, saturating 9 4% on room air. Temperature is 36.9. GENERAL: The patient is a pleasant female who looks somewhat uncomfortable, lying on her side in bed. HEENT: Normocephalic, atraumatic. CARDIOVASCULAR: Regula r rate and rhythm. No murmurs, rubs, or gallops. PULMONARY: Lungs clear to auscultation bilaterall y. ABDOMEN: Exam is soft; however, she is quite tender to palpation. When I palpate, she retches a little bit. SKIN: No rash. : No Davis. NEUROLOGIC: Exam shows her to be alert and oriented x 3. She is moving all extremities. PSYCHIATRIC: Exam shows a normal mood and affect. LABS: Hemoglobin is 11.3. Creatinine is 3.6. Otherwise, labs are somewhat unremarkable. DATA: 1. I reviewed her chart, including her previous hospitalization. 2. I discussed this with Emigdio Scott in the emergency department. 3. I personally reviewed and interpreted her abdomen and pelvis CT scan. It shows marked constipati on. Radiologist reports that she probably has some loosening of her screws at L4-L5. IMPRESSION AND PLAN: 1. Nausea/vomiting: This is due to constipation. We will treat her with as-needed antiemetics for now. 2. Constipation: She has been disimpacted. Will attempt more typical bowel protocol. Last hospita lization, she had GoLYTELY prep, multiple enemas, no response to methylnaltrexone. Will follow close ly, check an abdominal x-ray tomorrow morning. Would consider involving GI if she needs disimpaction in the OR. 3. Acute on chronic kidney disease, status post renal transplant: Suspect that this is prerenal. I will gently hydrate her overnight. Check urine sodium and creatinine. Check a bladder scan. Will continue her immunosuppressants. Renal will see her. If she continues to be intolerant of p.o., jake l likely need intravenous steroids. 4. Chronic pain, on continuous narcotics: Likely the underlying cause of her recurrent admissions d ue to constipation. Will continue these for now. 5. Anemia: This is stable. 6. Venous thromboembolism risk is moderate to high. Will give her heparin. /[id number]/MODL
[2018-01-02] MEDS: morphINE SR 15 MG TAB PO SCH ×2 (15:57→15:58)
[2018-01-02] MEDS: ONDANSETRON 4 MG/2 ML VIAL IVP PRN (22:01)
[2018-01-02] MEDS: PROMETHAZINE HCL 25 MG/ML INJ IVP PRN (22:49)
[2018-01-02] MEDS: HEPARIN 5,000 UNIT/0.5 ML SYR SC SCH (22:50)
[2018-01-03] MEDS: morphINE SR 15 MG TAB PO SCH ×4 (00:51→22:29)
[2018-01-03] MEDS: azaTHIOprine 50 MG TAB PO SCH ×2 (00:51→20:46)
[2018-01-03] MEDS: SENNOSIDES/DOCUSATE SODIUM TAB PO SCH ×3 (00:51→22:12)
[2018-01-03] MEDS: OLANZapine 2.5 MG TAB PO SCH ×2 (00:51→22:12)
[2018-01-03] MEDS: SODIUM BICARBONATE 650 MG TAB PO SCH ×3 (00:51→22:12)
[2018-01-03] MEDS: TACROLIMUS 1 MG CAP PO SCH ×3 (00:51→20:47)
[2018-01-03 04:33] LABS: PLATELET COUNT 210 10^3/uL (150-400)
[2018-01-03] MEDS: HEPARIN 5,000 UNIT/0.5 ML SYR SC SCH ×3 (06:32→20:47)
[2018-01-03] MEDS: LEVOTHYROXINE 75 MCG TAB PO SCH (06:32)
--- NOTE | 2018-01-03 09:20 | HOSPPROG ---
Hospitalist Progress Note Assessment/Plan: DIAGNOSES: -acute dehydration due to nausea vomiting caused by constipation -acute on chronic renal failure due to the above -severe constipation leading to nausea vomiting, constipation largely due to her chronic narcotics -this episode exactly the same is which she had approximately 2 and half to 3 weeks ago, and is part of a chronic scenario for her -anemia of chronic renal disease -pyuria of uncertain clinical significance at this time without symptoms, will review this with Nephrology -history of renal transplant with her baseline creatinine approximately 2.5 or more in the last half year -history of C diff colitis -history of non-Hodgkin's lymphoma -history of Ibgyg-Jjexjjttw-Wihcb PLANS: -continue IV hydration and follow renal function closely -due to her nausea vomiting will need to use enemas and laxatives to try constipation at this time; as mentioned by Dr. Gipson yesterday I have previously tried Relistor for her without help on 1 prior occasion, but would not entirely rule out that it may be helpful along with other therapies at this time -will start with Gastrografin enema and Dulcolax suppository today, along with soapsuds enema as necessary SUBJECTIVE: Ongoing abdominal pain and nausea, no bowel movements here No other acute symptoms OBJECTIVE Vitals reviewed: Stable without fever Exam: alert oriented skin warm dry color ok resps not labored lungs clear BSs heart regular abd soft nondistended mildly diffusely tender, bowel sounds present limbs warm, no edema iv site ok Laboratory data: Creatinine down to 3.3, sodium up a bit today and mildly hyperchloremic due to her isotonic saline Hemoglobin is down a bit at 9.9 today but this is her chronic baseline Objective: Vital Signs Temp Pulse Resp BP Pulse Ox 36.7 C 68 16 101/64 92 01/03/18 06:37 01/03/18 06:37 01/03/18 06:37 01/03/18 06:37 01/03/18 06:37 Laboratory Results 01/03/18 04:26 01/03/18 04:26 01/02/18 01/03/18 01/04/18 06:59 06:59 06:59 Intake Total 3145 Output Total 1200 Balance 1945 ICD10 Worksheet Patient Problems: Problems Problem Status Onset Acute on chronic kidney failure Acute Constipation Acute Anticoagulant therapy Active Chronic pain syndrome Active Hypokalemia Active Hypothyroidism Active Renal impairment Active biliary gastric reflux Active Abdominal pain Acute Anemia Acute C. difficile diarrhea Acute ~05/30/17 Chronic renal failure Acute Clostridium difficile infection Acute Congestive heart failure Acute Dehydration Acute Diarrhea Acute Hypoglycemia Acute Immunosuppression Acute Nausea Acute Nausea & vomiting Acute Pyelonephritis Acute Renal failure (ARF), acute on chronic Acute Sepsis Acute Superficial thrombophlebitis Acute Swelling of both lower extremities Acute Syncope due to orthostatic hypotension Acute Tachycardia Acute Urinary tract infection Acute VRE (vancomycin-resistant Enterococci) Acute ~03/01/17 Volume depletion, gastrointestinal loss Acute History of kidney transplant Chronic
[2018-01-03] MEDS ORDERED: GASTROVIEW 30 ML UNIT PR ONE (09:27)
[2018-01-03] MEDS: NS 1,000 ML IV SCH (09:57)
--- NOTE | 2018-01-03 10:01 | PDMN ---
Medical Necessity Medical necessity: est los>2mn for recurrent chronic constipation with N/V, poor oral intake, no BM for 4 days, MEETA on CKD, and increased abdominal pain; admit for anitemetics, bowel protocol, IVF, and possible GI consult & IV steroids; comorbid CKD s/p transplant on immunosuppresants, anemia, chronic pain on narcotics, contributing to constipation; per order and H&P
[2018-01-03] MEDS: PANTOPRAZOLE SODIUM 40 MG TAB PO SCH (10:04)
[2018-01-03] MEDS: predniSONE 5 MG TAB PO SCH (10:04)
[2018-01-03] MEDS: FERROUS SULFATE 325 MG TAB PO SCH (10:06)
[2018-01-03] MEDS: buPROPion SR 150 MG TAB PO SCH (10:06)
[2018-01-03] MEDS: FLUoxetine 10 MG CAP PO SCH (10:06)
[2018-01-03] MEDS: METHYLNALTREXONE BROMIDE 12 MG/0.6 ML INJ SC ONE ×2 (10:07→13:18)
[2018-01-03] MEDS: PROMETHAZINE HCL 25 MG/ML INJ IVP PRN ×2 (10:20→20:45)
[2018-01-03] MEDS: CALCITRIOL 0.25 MCG CAP PO SCH (13:57)
--- NOTE | 2018-01-03 15:29 | ASMTCMCOM ---
CM Note CM Note Notes: Patient admitted for constipation; she was disimpacted in the ED and is feeling better. She also has a history of a kidney transpland and is followed by Dr Sanderson as an outpatient. Patient lives with her and should discharge home independently. CM available if needs arise. Date Signed: 01/03/2018 03:29 PM Electronically Signed By:Madiha Cheung RN
--- NOTE | 2018-01-03 17:08 | GCON ---
[f rep st] CONSULTATION DATE OF CONSULTATION: 01/03/2018 REASON FOR CONSULTATION: Opinion regarding acute kidney injury in a patient with known chronic kidne y disease. HISTORY OF PRESENT ILLNESS: The patient is a very pleasant 47-year-old female with end-stage kidney failure due to chronic reflux due to incomplete bladder emptying. The patient is status post live-re lated transplant from her sister. The patient has chronic pain syndrome for which she takes narcotic s. Unfortunately, her narcotics tend to lead to significant constipation, which is what happened rec ently. She had nausea, vomiting, and was not keeping down food or her medications including her immu nosuppression for 2-3 days. She presented to the emergency department last night, was given antiemet ics and IV fluids. Her serum creatinine on admission was 3.6, six hours later down to 3.3. Her base line serum creatinine earlier this month on 12/17/2017 was 2.4. She currently is feeling a little bi t better. She is keeping down liquids as well as thickened liquids, puddings, etc. She has not had fevers, chills. She did have nausea, vomiting, and abdominal discomfort with constipation. No melen a, hematochezia, diarrhea, blurred vision, double vision, headache, orthopnea, paroxysmal nocturnal d yspnea, palpitations, syncope, diminished urine output, gross hematuria or dysuria. She says her uri ne has been a little bit cloudy. PAST MEDICAL HISTORY: Significant for: 1. End-stage kidney failure due to reflux from a neurogenic bladder. 2. Status post live-related transplant (6 antigen match) from her sister. 3. Recurrent urinary tract infections. 4. Urinary retention. 5. History of non Hodgkin lymphoma status post radiation therapy and CHOP. 6. Chronic pain. 7. History of Clostridium difficile on several occasions. 8. History of hypertension. 9. History of cerebellar stroke. 10. Chronic constipation due to narcotics. 11. History of cardiac arrhythmia ablation. CURRENT MEDICATIONS: Include: 1. Imuran 100 mg a day. 2. Wellbutrin 150 mg daily. 3. Calcitriol 0.25 mcg Monday, Monday, and Monday. 4. Iron sulfate 325 mg daily. 5. Prozac 10 mg daily. 6. Lactulose. 7. Synthroid 75 mcg daily. 8. Zyprexa 5 mg at bedtime. 9. Prednisone 5 mg daily. 10. Protonix 40 mg daily. 11. Sodium bicarbonate 1300 mg twice daily. 12. Prograf 2 mg every 12 hours. 13. Normal saline 100 cc an hour. 14. Morphine and oxycodone. FAMILY HISTORY: Her mother had dysrhythmia with Xuhuw-Uchtmbxyo-Sccsy. Her sister was a kidney dono r for her. SOCIAL HISTORY: She does not use tobacco, alcohol, IV or recreational drugs. ALLERGIES: To erythromycin, Reglan, nonsteroidal anti-inflammatory drugs, meropenem, Demerol, sulfa, gabapentin, Fortaz, Cipro and doxycycline. REVIEW OF SYSTEMS: A complete 12-point review of systems was performed with pertinent positives and negatives as per the previous sections. PHYSICAL EXAMINATION: VITAL SIGNS: Blood pressure 109/69, pulse 71, respirations 16, temperature 36 .6 degrees. Urine output 1.2 L so far today. GENERALLY: She is awake and alert. She is in some di stress due to some nausea. HEENT: Pupils are reactive to light. Extraocular movements are intact. Mucous membranes are somewhat dry. NECK: No lymphadenopathy or thyromegaly. HEART: Regular. No rub. No S3. LUNGS: No rhonchi or wheezes. ABDOMEN: Bowel sounds are positive. Mildly tender. N ondistended. Her allograft is in her left lower quadrant. EXTREMITIES: No edema, cyanosis, or club kelli. NEUROLOGIC: No asterixis. SKIN: No unusual rashes or lesions. LYMPH: No palpable lymphade nopathy or lymphedema. MUSCULOSKELETAL: No effusions or tenderness. LABORATORY: Serum sodium is 147, potassium 4.3, chloride 113, CO2 21, BUN 36, creatinine 3.3, glucos e 73. Serum creatinine last night on admission was 3.6. WBC 4.3, hemoglobin 9.9, hematocrit 32, romie telet count 210,000. Urine sodium of 88, urine creatinine of 34. Urinalysis specific gravity 1.008, pH 8, negative protein, positive blood, +3 leukocyte esterase, +1 bacteria, cultures underway. She is not currently on any antibiotics. IMPRESSION: 1. End-stage kidney failure due to chronic reflux from incomplete bladder emptying. 2. Status post live-related (6 antigen match) transplant from her sister. 3. Chronic pain syndrome. 4. Recurrent urinary tract infections. 5. Constipation due to narcotic use. 6. Nausea and vomiting. 7. Volume depletion. RECOMMENDATIONS: 1. Continue her IV fluids as is. 2. Continue her immunosuppression. 3. Pain control. We may need to try something other than narcotics for her. She has not used canna bis in the past. We did discuss potentially getting her medical marijuana card to see if we can prev ent this nausea, vomiting, and constipation. Thank you for allowing me to participate in the care of your patient. If there is any questions, ple ase do not hesitate to contact me. I will be following along with you. /[id number]/MODL
[2018-01-04] MEDS: PROMETHAZINE HCL 25 MG/ML INJ IVP PRN ×3 (05:40→23:30)
[2018-01-04] MEDS: HEPARIN 5,000 UNIT/0.5 ML SYR SC SCH ×3 (05:40→20:50)
[2018-01-04] MEDS: LEVOTHYROXINE 75 MCG TAB PO SCH (05:41)
--- NOTE | 2018-01-04 08:00 | SOAPPROG ---
SOAP Progress Note Assessment/Plan: Assessment: MEETA due to volume depletion from anorexia nausea and vomiting: UOP good, creat continues to improve kidney transplant, able to keep down immunosuppression constipation, still not much stool output, likely due to narcotics chronic pain/narcotic use: discussed medical MJ abd pain persists: still very constipated cloudy urine, culture sent Plan: continue IVF try to avoid opioids continue bowel regimen continue current immunosuppression await urine culture results 01/04/18 07:56 Subjective: still with abd pain, but somewhat better nausea better today no cp sob or vomiting PO intake better, keeping down meds and pudding remains somewhat lethargic Objective: Vital Signs Temp Pulse Resp BP Pulse Ox 36.7 C 70 12 112/71 93 01/04/18 07:49 01/04/18 07:49 01/04/18 07:49 01/04/18 07:49 01/04/18 07:49 Laboratory Results 01/03/18 04:26 01/04/18 04:26 01/03/18 01/04/18 01/05/18 05:59 05:59 05:59 Intake Total 3145 1175 Output Total 1200 1250 Balance 1945 -75 Physical Exam - Physical Exam General Appearance: alert, thin Respiratory: No rhonchi, No wheezing, No pleural rub Cardiac/Chest: regular rate, rhythm, No edema, No friction rub Abdomen: other (bs+, mild tender on right, nd) Skin: warm/dry Extremities: No swelling Neuro/Psych: alert, oriented x 3 (seems dysthymic) ICD10 Worksheet Patient Problems: Problems Problem Status Onset Acute on chronic kidney failure Acute Constipation Acute Anticoagulant therapy Active Chronic pain syndrome Active Hypokalemia Active Hypothyroidism Active Renal impairment Active biliary gastric reflux Active Abdominal pain Acute Anemia Acute C. difficile diarrhea Acute ~05/30/17 Chronic renal failure Acute Clostridium difficile infection Acute Congestive heart failure Acute Dehydration Acute Diarrhea Acute Hypoglycemia Acute Immunosuppression Acute Nausea Acute Nausea & vomiting Acute Pyelonephritis Acute Renal failure (ARF), acute on chronic Acute Sepsis Acute Superficial thrombophlebitis Acute Swelling of both lower extremities Acute Syncope due to orthostatic hypotension Acute Tachycardia Acute Urinary tract infection Acute VRE (vancomycin-resistant Enterococci) Acute ~03/01/17 Volume depletion, gastrointestinal loss Acute History of kidney transplant Chronic
[2018-01-04] MEDS: FLUoxetine 10 MG CAP PO SCH (08:16)
[2018-01-04] MEDS: FERROUS SULFATE 325 MG TAB PO SCH (08:16)
[2018-01-04] MEDS: BISACODYL 10 MG SUPP PR SCH ×2 (08:16→11:54)
[2018-01-04] MEDS: buPROPion SR 150 MG TAB PO SCH (08:16)
[2018-01-04] MEDS: PANTOPRAZOLE SODIUM 40 MG TAB PO SCH (08:17)
[2018-01-04] MEDS: morphINE SR 15 MG TAB PO SCH ×3 (08:17→23:55)
[2018-01-04] MEDS: SENNOSIDES/DOCUSATE SODIUM TAB PO SCH ×2 (08:17→23:55)
[2018-01-04] MEDS: SODIUM BICARBONATE 650 MG TAB PO SCH ×2 (08:17→23:55)
[2018-01-04] MEDS: TACROLIMUS 1 MG CAP PO SCH ×2 (08:20→23:42)
[2018-01-04] MEDS: predniSONE 5 MG TAB PO SCH (08:21)
[2018-01-04] MEDS: LACTULOSE 20 GM/30 ML UDCUP PO PRN ×2 (11:53→17:49)
[2018-01-04] MEDS: NS 1,000 ML IV SCH ×2 (14:05→23:05)
[2018-01-04] MEDS ORDERED: LACTULOSE 20 GM/30 ML UDCUP PO PRN (15:18)
--- NOTE | 2018-01-04 15:18 | HOSPPROG ---
Hospitalist Progress Note Assessment/Plan: #MEETA: due to dehydration. Improved #h/o renal transplant: pred, Tacrolimus, Imuran #Hypernatremia: improving #Severe constipation: aggressive bowel regimen. Had small BM this afternoon with Lactulose -chronic pain meds contributing #h/o WPW #h/o Non-Hodgkins #Chronic pain: spoke to her about other options since causing constipation #Diet: as tolerated #DVT ppx: [facility] Cont inpatient admission for severe constipation, requiring aggressive bowel regimen Subjective: RLQ abd pain Objective: Vital Signs Temp Pulse Resp BP Pulse Ox 36.7 C 70 12 112/71 93 01/04/18 07:49 01/04/18 07:49 01/04/18 07:49 01/04/18 07:49 01/04/18 07:49 Laboratory Results 01/03/18 04:26 01/04/18 04:26 01/03/18 01/04/18 01/05/18 05:59 05:59 05:59 Intake Total 3145 1175 Output Total 1200 1250 1200 Balance 1945 75 1200 - Physical Exam Constitutional: chronically ill appearing, other (thin, pale) Ears, Nose, Mouth, Throat: moist mucous membranes Cardiovascular: regular rate and rhythym Respiratory: no respiratory distress Gastrointestinal: normoactive bowel sounds, other (mild RLQ TTP, no rebound or guarding, +BS throughout) Genitourinary: no bladder fullness Skin: warm Musculoskeletal: full muscle strength Neurologic: CN II-XII Intact Psychiatric: flat affect ICD10 Worksheet Patient Problems: Problems Problem Status Onset Acute on chronic kidney failure Acute Constipation Acute Anticoagulant therapy Active Chronic pain syndrome Active Hypokalemia Active Hypothyroidism Active Renal impairment Active biliary gastric reflux Active Abdominal pain Acute Anemia Acute C. difficile diarrhea Acute ~05/30/17 Chronic renal failure Acute Clostridium difficile infection Acute Congestive heart failure Acute Dehydration Acute Diarrhea Acute Hypoglycemia Acute Immunosuppression Acute Nausea Acute Nausea & vomiting Acute Pyelonephritis Acute Renal failure (ARF), acute on chronic Acute Sepsis Acute Superficial thrombophlebitis Acute Swelling of both lower extremities Acute Syncope due to orthostatic hypotension Acute Tachycardia Acute Urinary tract infection Acute VRE (vancomycin-resistant Enterococci) Acute ~03/01/17 Volume depletion, gastrointestinal loss Acute History of kidney transplant Chronic
[2018-01-04] MEDS: oxyCODONE IR 5 MG TAB PO PRN (18:36)
[2018-01-04] MEDS: ONDANSETRON 4 MG/2 ML VIAL IVP PRN (23:05)
[2018-01-04] MEDS: azaTHIOprine 50 MG TAB PO SCH (23:42)
[2018-01-04] MEDS: OLANZapine 2.5 MG TAB PO SCH (23:55)
[2018-01-05] MEDS: HEPARIN 5,000 UNIT/0.5 ML SYR SC SCH ×3 (05:31→22:25)
[2018-01-05] MEDS: LACTULOSE 20 GM/30 ML UDCUP PO PRN (05:31)
[2018-01-05] MEDS: LEVOTHYROXINE 75 MCG TAB PO SCH (05:31)
[2018-01-05] MEDS: morphINE SR 15 MG TAB PO SCH ×3 (08:40→22:25)
[2018-01-05] MEDS: oxyCODONE IR 5 MG TAB PO PRN (08:40)
[2018-01-05] MEDS: PROMETHAZINE HCL 25 MG TAB PO PRN (08:55)
--- NOTE | 2018-01-05 09:01 | HOSPPROG ---
Hospitalist Progress Note Assessment/Plan: #MEETA: due to dehydration. Improved #h/o renal transplant: pred, Tacrolimus, Imuran #Pyuria: culture with Enterococcus. Has h/o VRE in 10/01 and may be just colonized since afebrile and no TTP over transplanted kidney. Discussed case with Dr. Henry who agrees with plan to observe. If clinically declines, then obtain new UA #Hypernatremia: improving #Severe constipation: not responding to bowel regimen. Will try Go-lytely today. Had long discussion about pain meds. Will start with decreasing oxycodone dose first. Does Consider other agents, but does not seem to have a neuropathic component #h/o WPW #h/o Non-Hodgkins #Chronic pain with opioid dependency: due to back pain related to 3 prior surgeries. Spoke to her about other options since causing constipation and will start to reduce oxycodone dosage first #Depression: prozac #Diet: as tolerated #DVT ppx: [facility] Cont inpatient admission for severe constipation, requiring aggressive bowel regimen Subjective: wants to go down on pain meds. Small BM yesterday. Tolerated breakfast this morning Objective: Vital Signs Temp Pulse Resp BP Pulse Ox 36.9 C 89 16 105/78 92 01/05/18 08:33 01/05/18 08:33 01/05/18 08:33 01/05/18 08:33 01/05/18 08:33 Laboratory Results 01/03/18 04:26 01/05/18 04:36 01/04/18 01/05/18 01/06/18 05:59 05:59 05:59 Intake Total 1175 2980 Output Total 1250 1200 1000 Balance -75 1780 -1000 - Physical Exam Constitutional: cachectic Eyes: PERRL Ears, Nose, Mouth, Throat: moist mucous membranes Cardiovascular: regular rate and rhythym, no murmur, rub, or gallop Respiratory: no respiratory distress, no rales or rhonchi Gastrointestinal: normoactive bowel sounds, distension (over RLQ, none over LLQ) Genitourinary: no bladder fullness Skin: warm Musculoskeletal: full muscle strength Neurologic: AAOx3 Psychiatric: depressed, flat affect ICD10 Worksheet Patient Problems: Problems Problem Status Onset Acute on chronic kidney failure Acute Constipation Acute Anticoagulant therapy Active Chronic pain syndrome Active Hypokalemia Active Hypothyroidism Active Renal impairment Active biliary gastric reflux Active Abdominal pain Acute Anemia Acute C. difficile diarrhea Acute ~05/30/17 Chronic renal failure Acute Clostridium difficile infection Acute Congestive heart failure Acute Dehydration Acute Diarrhea Acute Hypoglycemia Acute Immunosuppression Acute Nausea Acute Nausea & vomiting Acute Pyelonephritis Acute Renal failure (ARF), acute on chronic Acute Sepsis Acute Superficial thrombophlebitis Acute Swelling of both lower extremities Acute Syncope due to orthostatic hypotension Acute Tachycardia Acute Urinary tract infection Acute VRE (vancomycin-resistant Enterococci) Acute ~03/01/17 Volume depletion, gastrointestinal loss Acute History of kidney transplant Chronic
[2018-01-05] MEDS: SODIUM BICARBONATE 650 MG TAB PO SCH ×2 (09:35→22:15)
[2018-01-05] MEDS: FLUoxetine 10 MG CAP PO SCH (09:35)
[2018-01-05] MEDS: TACROLIMUS 1 MG CAP PO SCH ×2 (09:36→22:16)
[2018-01-05] MEDS: buPROPion SR 150 MG TAB PO SCH (09:37)
[2018-01-05] MEDS: PANTOPRAZOLE SODIUM 40 MG TAB PO SCH (09:37)
[2018-01-05] MEDS: predniSONE 5 MG TAB PO SCH (09:37)
[2018-01-05] MEDS: FERROUS SULFATE 325 MG TAB PO SCH (09:39)
[2018-01-05] MEDS: BISACODYL 10 MG SUPP PR SCH (09:40)
[2018-01-05] MEDS: SENNOSIDES/DOCUSATE SODIUM TAB PO SCH ×2 (09:40→22:17)
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
[2018-01-05] MEDS ORDERED: PEG 3350/NA SULF,BICARB,CL/KCL (GAVILYTE-G) 4000 ML BTL PO ONE (11:16)
[2018-01-05] MEDS ORDERED: VANCOMYCIN 750 MG in D5W 150 ML IV SCH (12:30)
--- NOTE | 2018-01-05 12:40 | SOAPPROG ---
SOAP Progress Note Assessment/Plan: Assessment/Plan: 47 y/o F with a known h/o ESRD s/p renal txp who presented with MEETA 2/2 to pre-renal azotemia improving with fluids. ESRD s/p renal txp -[facility] 10 years ago, 6 Ag match -Cr down to 2.7mg/dL today, was 2.4 on 12/17/17 -keep MAP>65, continue fluids for now -continue azathioprine, pred, and tac -will send tac trough tonight for 1900 -monitor UO UTI -h/o VRE in 2017 -prelim cx results >100k enterococcus -most likely need dapto instead of vanc as d/w pharmacy -need ID consult for approval, hospitalist paged Constipation -on bowel regimen with one BM today -considering golytely per primary team -would minimize opiate use Acidosis -improved, on bicarb supplement for goal >20 HTN/vol -BP's low -keep MAP>65 Hypernatremia -continue NS as hypotonic -encourage po intake of H20 01/05/18 13:25 Subjective: Patient had one small BM today. Has been refusing IS meds but took her Tac this AM. Also was refusing fluids. Appears depressed. Objective: Vital Signs Temp Pulse Resp BP Pulse Ox 36.9 C 89 16 105/78 92 01/05/18 08:33 01/05/18 08:33 01/05/18 08:33 01/05/18 08:33 01/05/18 08:33 Laboratory Results 01/03/18 04:26 01/05/18 04:36 01/04/18 01/05/18 01/06/18 05:59 05:59 05:59 Intake Total 1175 2980 Output Total 1250 1200 1000 Balance -75 1780 -1000 Physical Exam - Physical Exam General Appearance: WD/WN, alert, mild distress EENT: PERRL/EOMI, normal ENT inspection, pharynx normal Neck: non-tender, full range of motion, supple Respiratory: chest non-tender, lungs clear, normal breath sounds Cardiac/Chest: normal peripheral pulses, regular rate, rhythm Abdomen: normal bowel sounds, non-tender, soft Skin: normal color, warm/dry Extremities: normal range of motion, non-tender Neuro/Psych: no motor/sensory deficits, alert, oriented x 3, depressed affect ICD10 Worksheet Patient Problems: Problems Problem Status Onset Acute on chronic kidney failure Acute Constipation Acute Anticoagulant therapy Active Chronic pain syndrome Active Hypokalemia Active Hypothyroidism Active Renal impairment Active biliary gastric reflux Active Abdominal pain Acute Anemia Acute C. difficile diarrhea Acute ~05/30/17 Chronic renal failure Acute Clostridium difficile infection Acute Congestive heart failure Acute Dehydration Acute Diarrhea Acute Hypoglycemia Acute Immunosuppression Acute Nausea Acute Nausea & vomiting Acute Pyelonephritis Acute Renal failure (ARF), acute on chronic Acute Sepsis Acute Superficial thrombophlebitis Acute Swelling of both lower extremities Acute Syncope due to orthostatic hypotension Acute Tachycardia Acute Urinary tract infection Acute VRE (vancomycin-resistant Enterococci) Acute ~03/01/17 Volume depletion, gastrointestinal loss Acute History of kidney transplant Chronic
[2018-01-05] MEDS: PROMETHAZINE HCL 25 MG/ML INJ IVP PRN (14:15)
[2018-01-05] MEDS: CALCITRIOL 0.25 MCG CAP PO SCH (18:35)
[2018-01-05] MEDS: azaTHIOprine 50 MG TAB PO SCH (22:15)
[2018-01-05] MEDS: OLANZapine 2.5 MG TAB PO SCH (22:15)
[2018-01-06] MEDS: NS 1,000 ML IV SCH ×2 (01:46→11:19)
[2018-01-06] MEDS: HEPARIN 5,000 UNIT/0.5 ML SYR SC SCH ×3 (05:28→21:58)
[2018-01-06] MEDS: LEVOTHYROXINE 75 MCG TAB PO SCH (05:29)
[2018-01-06] MEDS: oxyCODONE IR 5 MG TAB PO PRN ×2 (05:35→15:28)
[2018-01-06] MEDS: BISACODYL 10 MG SUPP PR SCH (08:20)
[2018-01-06] MEDS: FERROUS SULFATE 325 MG TAB PO SCH (09:37)
[2018-01-06] MEDS: predniSONE 5 MG TAB PO SCH (09:38)
[2018-01-06] MEDS: PANTOPRAZOLE SODIUM 40 MG TAB PO SCH (09:38)
[2018-01-06] MEDS: TACROLIMUS 1 MG CAP PO SCH ×2 (09:38→21:01)
[2018-01-06] MEDS: SODIUM BICARBONATE 650 MG TAB PO SCH ×2 (09:38→20:12)
[2018-01-06] MEDS: buPROPion SR 150 MG TAB PO SCH (09:38)
[2018-01-06] MEDS: morphINE SR 15 MG TAB PO SCH ×2 (09:38→20:12)
[2018-01-06] MEDS: FLUoxetine 10 MG CAP PO SCH (09:38)
[2018-01-06] MEDS: SENNOSIDES/DOCUSATE SODIUM TAB PO SCH ×3 (09:39→20:12)
--- NOTE | 2018-01-06 10:13 | SOAPPROG ---
SOAP Progress Note Assessment/Plan: Assessment/Plan: 47 y/o F with a known h/o ESRD s/p renal txp who presented with MEETA 2/2 to pre-renal azotemia improving with fluids. ESRD s/p renal txp -[facility] 10 years ago, 6 Ag match -Cr down to 2.4mg/dL today, was 2.4 on 12/17/17 -keep MAP>65 -continue azathioprine, pred, and tac -tac trough pending goal 5-8 -may attempt to stop fluids and monitor Cr if taking po in order to move towards discharge UTI -h/o VRE in 2017 -prelim cx results >100k enterococcus -d/w ID per hospitalist and most likely colonization, patient is asymptomatic will hold tx for now Constipation -on bowel regimen -considering golytely per primary team -would minimize opiate use Acidosis -improved, on bicarb supplement for goal >20 HTN/vol -BP's low -keep MAP>65 Hypernatremia -continue NS as hypotonic -encourage po intake of H20 01/06/18 10:10 Subjective: Patient up walking around. No events overnight. Objective: Vital Signs Temp Pulse Resp BP Pulse Ox 36.6 C 81 16 131/80 H 94 01/06/18 08:13 01/06/18 08:13 01/06/18 08:13 01/06/18 08:13 01/06/18 08:13 Laboratory Results 01/03/18 04:26 01/06/18 04:00 01/05/18 01/06/18 01/07/18 05:59 05:59 05:59 Intake Total 2980 5359 Output Total 1200 3050 Balance 1780 2309 Physical Exam - Physical Exam General Appearance: WD/WN, alert, no apparent distress EENT: PERRL/EOMI, normal ENT inspection, TMs normal Neck: non-tender, full range of motion, supple Respiratory: chest non-tender, lungs clear, normal breath sounds Cardiac/Chest: normal peripheral pulses, regular rate, rhythm Abdomen: normal bowel sounds, non-tender, soft Skin: normal color, warm/dry Extremities: normal range of motion, non-tender Neuro/Psych: no motor/sensory deficits, alert, depressed affect ICD10 Worksheet Patient Problems: Problems Problem Status Onset Acute on chronic kidney failure Acute Constipation Acute Anticoagulant therapy Active Chronic pain syndrome Active Hypokalemia Active Hypothyroidism Active Renal impairment Active biliary gastric reflux Active Abdominal pain Acute Anemia Acute C. difficile diarrhea Acute ~05/30/17 Chronic renal failure Acute Clostridium difficile infection Acute Congestive heart failure Acute Dehydration Acute Diarrhea Acute Hypoglycemia Acute Immunosuppression Acute Nausea Acute Nausea & vomiting Acute Pyelonephritis Acute Renal failure (ARF), acute on chronic Acute Sepsis Acute Superficial thrombophlebitis Acute Swelling of both lower extremities Acute Syncope due to orthostatic hypotension Acute Tachycardia Acute Urinary tract infection Acute VRE (vancomycin-resistant Enterococci) Acute ~03/01/17 Volume depletion, gastrointestinal loss Acute History of kidney transplant Chronic
[2018-01-06] MEDS: PROMETHAZINE HCL 25 MG TAB PO PRN (11:18)
--- NOTE | 2018-01-06 13:10 | HOSPPROG ---
Hospitalist Progress Note Assessment/Plan: #MEETA: due to dehydration. Improved #h/o renal transplant: pred, Tacrolimus, Imuran #Dysuria: new today. Culture with Enterococcus 01/03, but was having no symptoms. h/o VRE in 10/01 and may be just colonized since afebrile and no TTP. Discussed case with Dr. Henry who agreed to observe. Repeat UA today with new dysuria. #RUQ pain: min on exam. AXR, LFTs #Hypernatremia: improving #Severe constipation: -some response to Golytely. Opioids are etiology. Reduce MS contin dose #h/o WPW #h/o Non-Hodgkins #Chronic pain with opioid dependency: due to back pain related to 3 prior surgeries. -decrease MS contin to BID, reduced oxycodone dose #Depression: prozac #Diet: as tolerated #DVT ppx: [facility] Cont inpatient admission for severe constipation, requiring aggressive bowel regimen Subjective: Had diarrhea with golytely. "Gallbladder attack" RUQ pain with walking. Mild dysuria today Objective: Vital Signs Temp Pulse Resp BP Pulse Ox 36.6 C 81 16 131/80 H 94 01/06/18 08:13 01/06/18 08:13 01/06/18 08:13 01/06/18 08:13 01/06/18 08:13 Laboratory Results 01/03/18 04:26 01/06/18 04:00 01/05/18 01/06/18 01/07/18 05:59 05:59 05:59 Intake Total 2980 5359 Output Total 1200 3050 Balance 1780 2309 - Physical Exam Constitutional: no apparent distress, chronically ill appearing Eyes: PERRL Ears, Nose, Mouth, Throat: moist mucous membranes Cardiovascular: regular rate and rhythym Gastrointestinal: normoactive bowel sounds, tenderness (RLQ TTP, no LLQ) Genitourinary: No flores in urethra Skin: warm Musculoskeletal: full muscle strength Neurologic: AAOx3, CN II-XII Intact Psychiatric: flat affect ICD10 Worksheet Patient Problems: Problems Problem Status Onset Acute on chronic kidney failure Acute Constipation Acute Anticoagulant therapy Active Chronic pain syndrome Active Hypokalemia Active Hypothyroidism Active Renal impairment Active biliary gastric reflux Active Abdominal pain Acute Anemia Acute C. difficile diarrhea Acute ~05/30/17 Chronic renal failure Acute Clostridium difficile infection Acute Congestive heart failure Acute Dehydration Acute Diarrhea Acute Hypoglycemia Acute Immunosuppression Acute Nausea Acute Nausea & vomiting Acute Pyelonephritis Acute Renal failure (ARF), acute on chronic Acute Sepsis Acute Superficial thrombophlebitis Acute Swelling of both lower extremities Acute Syncope due to orthostatic hypotension Acute Tachycardia Acute Urinary tract infection Acute VRE (vancomycin-resistant Enterococci) Acute ~03/01/17 Volume depletion, gastrointestinal loss Acute History of kidney transplant Chronic
[2018-01-06] MEDS: LACTULOSE 20 GM/30 ML UDCUP PO PRN (14:00)
[2018-01-06] MEDS: POLYETHYLENE GLYCOL 3350 17 GM PKT PO PRN (17:31)
[2018-01-06] MEDS ORDERED: DAPTOMYCIN IV SCH ×3 (19:00)
[2018-01-06] MEDS ORDERED: NS IV SCH ×3 (19:00)
[2018-01-06] MEDS: OLANZapine 2.5 MG TAB PO SCH (20:12)
[2018-01-06] MEDS: azaTHIOprine 50 MG TAB PO SCH (21:01)
[2018-01-06] MEDS: PROMETHAZINE HCL 25 MG/ML INJ IVP PRN (21:57)
[2018-01-07] MEDS: HEPARIN 5,000 UNIT/0.5 ML SYR SC SCH ×3 (05:29→21:47)
[2018-01-07] MEDS: LEVOTHYROXINE 75 MCG TAB PO SCH (05:29)
[2018-01-07] MEDS: PROMETHAZINE HCL 25 MG/ML INJ IVP PRN (07:05)
[2018-01-07] MEDS: PANTOPRAZOLE SODIUM 40 MG TAB PO SCH (08:26)
[2018-01-07] MEDS: TACROLIMUS 1 MG CAP PO SCH ×2 (08:26→21:45)
[2018-01-07] MEDS: predniSONE 5 MG TAB PO SCH (08:26)
[2018-01-07] MEDS: FERROUS SULFATE 325 MG TAB PO SCH (08:30)
--- NOTE | 2018-01-07 08:50 | HOSPPROG ---
Hospitalist Progress Note Assessment/Plan: #MEETA: resolved. due to dehydration. Resolved #h/o renal transplant: pred, Tacrolimus, Imuran #VRE UTI: could be colonization with h/o VRE, but new dysuria. Appreciate Dr. Henry's evaluation. Renally-dose daptomycin. Culture pending #RUQ pain: due to constipation. LFTs normal, AXR shows improved constipation #Hypernatremia: improving #Severe constipation: -min response to Golytely. Opioids are etiology. Reduce MS contin dose -Lactulose TID, saline enema. If not effective, will try Relistor again (not effective 01/03) #h/o WPW #h/o Non-Hodgkins #Chronic pain with opioid dependency: due to back pain related to 3 prior surgeries. -decrease MS contin to BID, reduced oxycodone dose #Depression: on very low dose, will talk with her about increasing #Diet: as tolerated #DVT ppx: [facility] Cont inpatient admission for severe constipation, requiring aggressive bowel regimen Subjective: no BM, having gas. Pain tolerable Objective: Vital Signs Temp Pulse Resp BP Pulse Ox 36.9 C 79 16 127/82 H 92 01/07/18 08:00 01/07/18 08:00 01/07/18 08:00 01/07/18 08:00 01/07/18 08:00 Microbiology 01/03/18 18:30 Urine Culture - Final Urine,Clean Catch Enterococcus Faecium Gram Neg Rods 3 Or More Types Two [place] Types Laboratory Results 01/03/18 04:26 01/07/18 04:07 01/06/18 01/07/18 01/08/18 05:59 05:59 05:59 Intake Total 5359 1700 Output Total 3050 3300 Balance 2309 -1600 - Physical Exam Constitutional: chronically ill appearing Eyes: PERRL Ears, Nose, Mouth, Throat: moist mucous membranes, hearing normal Cardiovascular: regular rate and rhythym, no murmur, rub, or gallop Respiratory: no respiratory distress, no rales or rhonchi Gastrointestinal: normoactive bowel sounds, soft, non-tender abdomen, tenderness (mild RLQ TTP. None over LLQ. ) Genitourinary: no bladder fullness, other (no CVA TTP) Skin: warm Musculoskeletal: full muscle strength Neurologic: AAOx3, CN II-XII Intact Psychiatric: depressed, flat affect ICD10 Worksheet Patient Problems: Problems Problem Status Onset Acute on chronic kidney failure Acute Constipation Acute Anticoagulant therapy Active Chronic pain syndrome Active Hypokalemia Active Hypothyroidism Active Renal impairment Active biliary gastric reflux Active Abdominal pain Acute Anemia Acute C. difficile diarrhea Acute ~05/30/17 Chronic renal failure Acute Clostridium difficile infection Acute Congestive heart failure Acute Dehydration Acute Diarrhea Acute Hypoglycemia Acute Immunosuppression Acute Nausea Acute Nausea & vomiting Acute Pyelonephritis Acute Renal failure (ARF), acute on chronic Acute Sepsis Acute Superficial thrombophlebitis Acute Swelling of both lower extremities Acute Syncope due to orthostatic hypotension Acute Tachycardia Acute Urinary tract infection Acute VRE (vancomycin-resistant Enterococci) Acute ~03/01/17 Volume depletion, gastrointestinal loss Acute History of kidney transplant Chronic
[2018-01-07] MEDS ORDERED: POLYETHYLENE GLYCOL 3350 17 GM PKT PO SCH (09:00)
[2018-01-07] MEDS: buPROPion SR 150 MG TAB PO SCH (10:20)
[2018-01-07] MEDS: SENNOSIDES/DOCUSATE SODIUM TAB PO SCH ×2 (10:20→21:50)
[2018-01-07] MEDS: FLUoxetine 10 MG CAP PO SCH (10:21)
[2018-01-07] MEDS: morphINE SR 15 MG TAB PO SCH ×2 (10:21→21:46)
[2018-01-07] MEDS: SODIUM BICARBONATE 650 MG TAB PO SCH ×2 (10:21→21:44)
[2018-01-07] MEDS: POLYETHYLENE GLYCOL 3350 17 GM PKT PO SCH ×2 (10:21→22:09)
[2018-01-07] MEDS: BISACODYL 10 MG SUPP PR SCH (10:21)
--- NOTE | 2018-01-07 11:58 | SOAPPROG ---
SOAP Progress Note Assessment/Plan: Assessment/Plan: 47 y/o F with a known h/o ESRD s/p renal txp who presented with MEETA 2/2 to pre-renal azotemia improving with fluids. ESRD s/p renal txp -[facility]D 10 years ago, 6 Ag match -Cr down to 2.3mg/dL today, was 2.4 on 12/17/17 -keep MAP>65 -continue azathioprine, pred, and tac -tac trough pending goal 5-8 -may attempt to stop fluids and monitor Cr if taking po in order to move towards discharge UTI -h/o VRE in 2017 -prelim cx results >100k enterococcus -d/w ID per hospitalist and most likely colonization, patient is asymptomatic will hold tx for now Constipation -on bowel regimen, still issues -would minimize opiate use Acidosis -improved, on bicarb supplement for goal >20 HTN/vol -BP's low -keep MAP>65 Hypernatremia -stopped IVF, may use D5 at 30cc/hr if needed -encourage po intake of H20 01/07/18 11:56 Subjective: Patient still having constipation. Not sure how much she is drinking H20. Objective: Vital Signs Temp Pulse Resp BP Pulse Ox 36.9 C 79 16 127/82 H 92 01/07/18 08:00 01/07/18 08:00 01/07/18 08:00 01/07/18 08:00 01/07/18 08:00 Microbiology 01/03/18 18:30 Urine Culture - Final Urine,Clean Catch Enterococcus Faecium Gram Neg Rods 3 Or More Types Two [place] Types Laboratory Results 01/03/18 04:26 01/07/18 04:07 01/06/18 01/07/18 01/08/18 05:59 05:59 05:59 Intake Total 5359 1700 Output Total 3050 3300 Balance 2309 -1600 Physical Exam - Physical Exam General Appearance: WD/WN, alert, mild distress EENT: PERRL/EOMI, TMs normal Neck: non-tender, full range of motion, supple Respiratory: chest non-tender, lungs clear, normal breath sounds Cardiac/Chest: normal peripheral pulses, regular rate, rhythm Abdomen: normal bowel sounds, non-tender, soft Skin: normal color, warm/dry Extremities: normal range of motion, non-tender Neuro/Psych: no motor/sensory deficits, alert, depressed affect ICD10 Worksheet Patient Problems: Problems Problem Status Onset Acute on chronic kidney failure Acute Constipation Acute Anticoagulant therapy Active Chronic pain syndrome Active Hypokalemia Active Hypothyroidism Active Renal impairment Active biliary gastric reflux Active Abdominal pain Acute Anemia Acute C. difficile diarrhea Acute ~05/30/17 Chronic renal failure Acute Clostridium difficile infection Acute Congestive heart failure Acute Dehydration Acute Diarrhea Acute Hypoglycemia Acute Immunosuppression Acute Nausea Acute Nausea & vomiting Acute Pyelonephritis Acute Renal failure (ARF), acute on chronic Acute Sepsis Acute Superficial thrombophlebitis Acute Swelling of both lower extremities Acute Syncope due to orthostatic hypotension Acute Tachycardia Acute Urinary tract infection Acute VRE (vancomycin-resistant Enterococci) Acute ~03/01/17 Volume depletion, gastrointestinal loss Acute History of kidney transplant Chronic
[2018-01-07] MEDS: oxyCODONE IR 5 MG TAB PO PRN ×2 (13:13→22:05)
--- NOTE | 2018-01-07 13:28 | PCMIDPN ---
Assessment/Plan: # Possible UTI with underlying renal transplant, past culture with VRE. --contact precautions --await repeat urine culture if VRE is grown again will ask for susceptibility to daptomycin and linezolid --daptomycin 6mg makes per kg Q 48 based on creatinine clearance of 26 Medications Daptomycin 330 mg IV Q 48, # 2 Micro 01/03 urine culture 100,000 VRE, Gram-negative rods 3 other types Subjective: 47-year-old woman known to the Infectious Disease service with underlying past renal transplant and chronic renal insufficiency on prednisone 5 mg, Prograf 2 mg twice daily and Imuran 100 mg daily who was admitted to the hospital 2017 for nausea vomiting and chronic constipation complicated by acute on chronic renal failure. Patient has received hydration and renal function has returned to baseline creatinine of 2.3. Patient is currently undergoing workup for 2nd renal transplant. She still has not had a bowel movement since admission. On admission she underwent urinalysis and urine culture as a part of her workup patient denied dysuria, urinary frequency or pain over her transplant at admit. Yesterday she developed early dysuria and urinalysis showed persist pyuria. Primary pathogen from urine culture on admission was VRE. Daptomycin IV was recommended and patient received 1st dose. Today she reports she continued early dysuria. Denies fevers, chills, night sweats Review of systems: Patient is very depressed and tearful regarding her father' s 1 year ago. She has lost 50 lb since I last saw her. Objective: Vital Signs Temp Pulse Resp BP Pulse Ox 36.9 C 79 16 127/82 H 92 01/07/18 08:00 01/07/18 08:00 01/07/18 08:00 01/07/18 08:00 01/07/18 08:00 Microbiology 01/03/18 18:30 Urine Culture - Final Urine,Clean Catch Enterococcus Faecium Gram Neg Rods 3 Or More Types Two [place] Types Laboratory Results 01/03/18 04:26 01/07/18 04:07 01/06/18 01/07/18 01/08/18 05:59 05:59 05:59 Intake Total 5359 1700 Output Total 3050 3300 Balance 2309 -1600 - Physical Exam General Appearance: alert, no apparent distress, thin, other (Tearful) EENT: pale conjunctiva, other (Good dentition, moist mucous membranes), No scleral icterus Respiratory: No accessory muscle use Extremities: No pedal edema Abdomen: normal bowel sounds, non-tender, soft, other (No tenderness over her transplant on the left side) Skin: warm/dry, pallor, No diaphoresis, No rash Neuro/Psych: oriented x 3, depressed affect - Line/s PIV Lines: other (Left forearm), No drainage, No erythema - Time Spent With Patient Time Spent with Patient: greater than 35 minutes (Care coordinated with Dr. Joann Cerda. Reviewed microbiologic results and planned antibiotic therapy including side effects of daptomycin with the patient .) Time Spent with Patient: Greater than 35 minutes spent on this patients care, greater than 50% of time spent counseling, educating, and coordinating care regarding the above mentioned plan. ICD10 Worksheet Patient Problems: Problems Problem Status Onset Acute on chronic kidney failure Acute Constipation Acute Anticoagulant therapy Active Chronic pain syndrome Active Hypokalemia Active Hypothyroidism Active Renal impairment Active biliary gastric reflux Active Abdominal pain Acute Anemia Acute C. difficile diarrhea Acute ~05/30/17 Chronic renal failure Acute Clostridium difficile infection Acute Congestive heart failure Acute Dehydration Acute Diarrhea Acute Hypoglycemia Acute Immunosuppression Acute Nausea Acute Nausea & vomiting Acute Pyelonephritis Acute Renal failure (ARF), acute on chronic Acute Sepsis Acute Superficial thrombophlebitis Acute Swelling of both lower extremities Acute Syncope due to orthostatic hypotension Acute Tachycardia Acute Urinary tract infection Acute VRE (vancomycin-resistant Enterococci) Acute ~03/01/17 Volume depletion, gastrointestinal loss Acute History of kidney transplant Chronic
[2018-01-07] MEDS ORDERED: PEG 3350/NA SULF,BICARB,CL/KCL (GAVILYTE-G) 4000 ML BTL PO ONE ×2 (13:37→16:00)
[2018-01-07] MEDS: LACTULOSE 20 GM/30 ML UDCUP PO PRN (14:24)
[2018-01-07] MEDS ORDERED: NS IV SCH (19:00)
[2018-01-07] MEDS ORDERED: DAPTOMYCIN IV SCH (19:00)
[2018-01-07] MEDS ORDERED: D5W 1,000 ML IV SCH (19:30)
[2018-01-07] MEDS: OLANZapine 2.5 MG TAB PO SCH (21:44)
[2018-01-07] MEDS: azaTHIOprine 50 MG TAB PO SCH (21:46)
[2018-01-07] MEDS: POLYETHYLENE GLYCOL 3350 17 GM PKT PO PRN (21:47)
[2018-01-07] MEDS: PROMETHAZINE HCL 25 MG TAB PO PRN (22:05)
[2018-01-07] MEDS ORDERED: HYDROmorphONE/DILAUDID 2 MG/ML INJ IVP ONE (23:33)
[2018-01-07] MEDS: LORazepam 1 MG TAB PO PRN (23:50)
[2018-01-08] MEDS: LEVOTHYROXINE 75 MCG TAB PO SCH (06:13)
[2018-01-08] MEDS: HEPARIN 5,000 UNIT/0.5 ML SYR SC SCH ×3 (06:13→21:11)
--- NOTE | 2018-01-08 08:16 | HOSPPROG ---
Hospitalist Progress Note Assessment/Plan: #MEETA: resolved. due to dehydration. Resolved #h/o renal transplant: pred, Tacrolimus, Imuran #VRE UTI: could be colonization with h/o VRE, but new dysuria. Appreciate Dr. Henry's evaluation. Renally-dose daptomycin. Culture pending #RUQ pain: due to constipation. LFTs normal, AXR shows improved constipation #Hypernatremia: improving #Severe constipation: -min response to Golytely. Opioids are etiology. Reduce MS contin dose -Lactulose TID, saline enema. If not effective, will try Relistor again (not effective 01/03) #h/o WPW #h/o Non-Hodgkins #Chronic pain with opioid dependency: due to back pain related to 3 prior surgeries. -decrease MS contin to BID, reduced oxycodone dose #Depression: on very low dose, will talk with her about increasing #Diet: as tolerated #DVT ppx: [facility] Cont inpatient admission for severe constipation, requiring aggressive bowel regimen Subjective: had small BM yesterday Objective: Vital Signs Temp Pulse Resp BP Pulse Ox 36.7 C 74 16 116/71 94 01/08/18 05:55 01/08/18 05:55 01/08/18 05:55 01/08/18 05:55 01/08/18 05:55 Laboratory Results 01/03/18 04:26 01/08/18 04:12 01/07/18 01/08/18 01/09/18 05:59 05:59 05:59 Intake Total 1700 3850 Output Total 3300 Balance -1600 3850 - Physical Exam Constitutional: chronically ill appearing Eyes: PERRL Ears, Nose, Mouth, Throat: moist mucous membranes Cardiovascular: regular rate and rhythym Respiratory: no respiratory distress Gastrointestinal: normoactive bowel sounds, tenderness (RLQ TTP, +BS) Skin: warm Musculoskeletal: full muscle strength Neurologic: AAOx3 Psychiatric: depressed, flat affect ICD10 Worksheet Patient Problems: Problems Problem Status Onset Acute on chronic kidney failure Acute Constipation Acute Anticoagulant therapy Active Chronic pain syndrome Active Hypokalemia Active Hypothyroidism Active Renal impairment Active biliary gastric reflux Active Abdominal pain Acute Anemia Acute C. difficile diarrhea Acute ~05/30/17 Chronic renal failure Acute Clostridium difficile infection Acute Congestive heart failure Acute Dehydration Acute Diarrhea Acute Hypoglycemia Acute Immunosuppression Acute Nausea Acute Nausea & vomiting Acute Pyelonephritis Acute Renal failure (ARF), acute on chronic Acute Sepsis Acute Superficial thrombophlebitis Acute Swelling of both lower extremities Acute Syncope due to orthostatic hypotension Acute Tachycardia Acute Urinary tract infection Acute VRE (vancomycin-resistant Enterococci) Acute ~03/01/17 Volume depletion, gastrointestinal loss Acute History of kidney transplant Chronic
[2018-01-08] MEDS: oxyCODONE IR 5 MG TAB PO PRN ×2 (08:57→17:24)
[2018-01-08] MEDS: PROMETHAZINE HCL 25 MG TAB PO PRN ×2 (08:57→18:29)
[2018-01-08] MEDS: SODIUM BICARBONATE 650 MG TAB PO SCH ×2 (09:52→21:10)
[2018-01-08] MEDS: FLUoxetine 10 MG CAP PO SCH (09:52)
[2018-01-08] MEDS: predniSONE 5 MG TAB PO SCH (09:52)
[2018-01-08] MEDS: POLYETHYLENE GLYCOL 3350 17 GM PKT PO SCH ×2 (09:52→21:10)
[2018-01-08] MEDS: buPROPion SR 150 MG TAB PO SCH (09:52)
[2018-01-08] MEDS: FERROUS SULFATE 325 MG TAB PO SCH (09:52)
[2018-01-08] MEDS: TACROLIMUS 1 MG CAP PO SCH ×2 (09:52→21:10)
[2018-01-08] MEDS: PANTOPRAZOLE SODIUM 40 MG TAB PO SCH (09:53)
[2018-01-08] MEDS: SENNOSIDES/DOCUSATE SODIUM TAB PO SCH ×2 (09:53→21:10)
[2018-01-08] MEDS: morphINE SR 15 MG TAB PO SCH ×2 (09:53→21:11)
[2018-01-08] MEDS: BISACODYL 10 MG SUPP PR SCH (09:59)
--- NOTE | 2018-01-08 10:29 | PCMIDPN ---
Assessment/Plan: Assessment: Possible UTI secondary to vancomycin-resistant Enterococcus. Most recent urine culture shows approximately 60,000 CFUs of Enterococcus. Patient started daptomycin yesterday. She is on Q 48 hr dosing secondary to renal insufficiency. Symptoms are stable. No improvement over past 24 hr. Will check BK virus viremia levels in case this may be a contributing factor to pyuria and microscopic hematuria. Positive results from the blood PCR showing viral levels over for log units will likely be indicative of disease and may encourage anti-inflammatory reduction. Meanwhile continue monotherapy with daptomycin. Plan: 1. Continue IV daptomycin Q 48 hr. 2. Follow clinical course and symptoms. 3. Check BK virus quantitative PCR from blood. 01/08/18 10:26 Subjective: Patient relates that she had 3-4 bowel movements last night. Having liquid stools currently. This does not seem to be relieving of her feeling of fullness and discomfort in her abdomen and lower pelvis. No fevers or chills. Urine continues to be cloudy. Some dysuria at the beginning of her urinary stream which alleviates quickly. Objective: Daptomycin # 2 Vital Signs Temp Pulse Resp BP Pulse Ox 36.7 C 86 16 122/80 H 95 01/08/18 08:00 01/08/18 08:00 01/08/18 08:00 01/08/18 08:00 01/08/18 08:00 Laboratory Results 01/03/18 04:26 01/08/18 04:12 01/07/18 01/08/18 01/09/18 05:59 05:59 05:59 Intake Total 1700 3850 Output Total 3300 Balance -1600 3850 - Physical Exam General Appearance: WD/WN, alert, no apparent distress, non-toxic Cardiac/Chest: regular rate, rhythm, No tachycardia Skin: normal color, warm/dry, No rash Neuro/Psych: alert, normal mood/affect, oriented x 3 ICD10 Worksheet Patient Problems: Problems Problem Status Onset Acute on chronic kidney failure Acute Constipation Acute Anticoagulant therapy Active Chronic pain syndrome Active Hypokalemia Active Hypothyroidism Active Renal impairment Active biliary gastric reflux Active Abdominal pain Acute Anemia Acute C. difficile diarrhea Acute ~05/30/17 Chronic renal failure Acute Clostridium difficile infection Acute Congestive heart failure Acute Dehydration Acute Diarrhea Acute Hypoglycemia Acute Immunosuppression Acute Nausea Acute Nausea & vomiting Acute Pyelonephritis Acute Renal failure (ARF), acute on chronic Acute Sepsis Acute Superficial thrombophlebitis Acute Swelling of both lower extremities Acute Syncope due to orthostatic hypotension Acute Tachycardia Acute Urinary tract infection Acute VRE (vancomycin-resistant Enterococci) Acute ~03/01/17 Volume depletion, gastrointestinal loss Acute History of kidney transplant Chronic
--- NOTE | 2018-01-08 10:53 | SOAPPROG ---
SOAP Progress Note Assessment/Plan: Assessment/Plan: MEETA on CKD 4: Cr improved with IVFs back down to 2.4, which is close to recent baseline. - No need for HD. - Avoid hypotension and nephrotoxins. - Will continue to monitor. h/o renal transplant: Will continue current IS regimen. UTI: pt with h/o VRE, urine culture again growing enterococcus. - Pt on daptomycin. - ID following, appreciate their assistance. - Agree with checking BK virus. - Will recheck UA and urine culture as pt reports change in urine today. Hypernatremia: improving with D5W at 30ml/hr, encourage PO fluid intake, will continue to monitor. Metabolic acidosis: at goal with sodium bicarb tabs, will continue to monitor. Subjective: No acute events overnight. Pt reports that she feels her urine looks more cloudy today. She still has some dysuria but not as bad. Objective: Vital Signs Temp Pulse Resp BP Pulse Ox 36.7 C 86 16 122/80 H 95 01/08/18 08:00 01/08/18 08:00 01/08/18 08:00 01/08/18 08:00 01/08/18 08:00 Laboratory Results 01/03/18 04:26 01/08/18 04:12 01/07/18 01/08/18 01/09/18 05:59 05:59 05:59 Intake Total 1700 3850 Output Total 3300 Balance -1600 3850 General: alert and oriented, no acute distress OP: Clear CV: RRR Resp: nonlabored respirations on RA Abd: Soft, ND Ext: no edema BLE Neuro; CN II-XII grossly intact, no asterixis Psych: slightly blunted affect, cooperative ICD10 Worksheet Patient Problems: Problems Problem Status Onset Acute on chronic kidney failure Acute Constipation Acute Anticoagulant therapy Active Chronic pain syndrome Active Hypokalemia Active Hypothyroidism Active Renal impairment Active biliary gastric reflux Active Abdominal pain Acute Anemia Acute C. difficile diarrhea Acute ~05/30/17 Chronic renal failure Acute Clostridium difficile infection Acute Congestive heart failure Acute Dehydration Acute Diarrhea Acute Hypoglycemia Acute Immunosuppression Acute Nausea Acute Nausea & vomiting Acute Pyelonephritis Acute Renal failure (ARF), acute on chronic Acute Sepsis Acute Superficial thrombophlebitis Acute Swelling of both lower extremities Acute Syncope due to orthostatic hypotension Acute Tachycardia Acute Urinary tract infection Acute VRE (vancomycin-resistant Enterococci) Acute ~03/01/17 Volume depletion, gastrointestinal loss Acute History of kidney transplant Chronic
--- NOTE | 2018-01-08 12:00 | HOSPPROG ---
Hospitalist Progress Note Assessment/Plan: #MEETA: resolved. due to dehydration. Resolved #h/o renal transplant: pred, Tacrolimus, Imuran. ID checking BK virus #VRE UTI: Renally-dose daptomycin. Culture pending #RUQ pain: improved today; likely from constipation. LFTs normal, AXR shows improved constipation #Hypernatremia: resolved with D5 #Severe constipation: had several liquid stools -min response to Golytely. Opioids are etiology. Reduced MS contin to BID and decreased PRN oxycodone -Lactulose TID, saline enema. If not effective, will try Relistor again (not effective 01/03) #h/o WPW #h/o Non-Hodgkins #Chronic pain with opioid dependency: due to back pain related to 3 prior surgeries. -decrease MS contin to BID, reduced oxycodone dose #Depression: being managed by PCP. He has decreased her dose Prozac. She is on Wellbutrin, Olanzapine. Rec referral to psychiatrist outpatient #Social: I spoke with on phone who is concerned about her mental health. He wants a meeting with her PCP and Dr. Sanderson. I explained treatment plan, pain management, and DC plan #Diet: as tolerated #DVT ppx: [facility] Cont inpatient admission for severe constipation, requiring aggressive bowel regimen Time spent on visit: 45 min bedside with patient, d/w Dr. Burgos and with patient's . Subjective: having loose stools. Right abd pain improved Objective: Vital Signs Temp Pulse Resp BP Pulse Ox 36.7 C 86 16 122/80 H 95 01/08/18 08:00 01/08/18 08:00 01/08/18 08:00 01/08/18 08:00 01/08/18 08:00 Laboratory Results 01/03/18 04:26 01/08/18 04:12 01/07/18 01/08/18 01/09/18 05:59 05:59 05:59 Intake Total 1700 3850 Output Total 3300 900 Balance -1600 3850 -900 - Time Spent With Patient Time Spent with Patient: greater than 35 minutes Time Spent with Patient: Greater than 35 minutes spent on this patients care, greater than 50% of time spent counseling, educating, and coordinating care regarding the above mentioned plan. - Physical Exam Constitutional: other (brighter today) Eyes: PERRL Ears, Nose, Mouth, Throat: moist mucous membranes Cardiovascular: regular rate and rhythym Respiratory: no respiratory distress Gastrointestinal: normoactive bowel sounds, other (less right-sided pain. No LLQ pain) Genitourinary: no bladder fullness Skin: warm Musculoskeletal: full muscle strength Neurologic: AAOx3, CN II-XII Intact Psychiatric: depressed, flat affect ICD10 Worksheet Patient Problems: Problems Problem Status Onset Acute on chronic kidney failure Acute Constipation Acute Anticoagulant therapy Active Chronic pain syndrome Active Hypokalemia Active Hypothyroidism Active Renal impairment Active biliary gastric reflux Active Abdominal pain Acute Anemia Acute C. difficile diarrhea Acute ~05/30/17 Chronic renal failure Acute Clostridium difficile infection Acute Congestive heart failure Acute Dehydration Acute Diarrhea Acute Hypoglycemia Acute Immunosuppression Acute Nausea Acute Nausea & vomiting Acute Pyelonephritis Acute Renal failure (ARF), acute on chronic Acute Sepsis Acute Superficial thrombophlebitis Acute Swelling of both lower extremities Acute Syncope due to orthostatic hypotension Acute Tachycardia Acute Urinary tract infection Acute VRE (vancomycin-resistant Enterococci) Acute ~03/01/17 Volume depletion, gastrointestinal loss Acute History of kidney transplant Chronic
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
[2018-01-08] MEDS: CALCITRIOL 0.25 MCG CAP PO SCH (15:05)
[2018-01-08] MEDS: NS IV SCH (18:18)
[2018-01-08] MEDS: DAPTOMYCIN IV SCH (18:18)
[2018-01-08] MEDS: OLANZapine 2.5 MG TAB PO SCH (21:10)
[2018-01-08] MEDS: azaTHIOprine 50 MG TAB PO SCH (21:10)
[2018-01-09] MEDS: oxyCODONE IR 5 MG TAB PO PRN ×4 (01:03→21:11)
[2018-01-09] MEDS: HEPARIN 5,000 UNIT/0.5 ML SYR SC SCH ×3 (06:08→20:48)
[2018-01-09] MEDS: LEVOTHYROXINE 75 MCG TAB PO SCH (06:09)
[2018-01-09] MEDS: LORazepam 1 MG TAB PO PRN (06:12)
[2018-01-09] MEDS: TACROLIMUS 1 MG CAP PO SCH ×2 (10:05→20:51)
[2018-01-09] MEDS: buPROPion SR 150 MG TAB PO SCH (10:05)
[2018-01-09] MEDS: SODIUM BICARBONATE 650 MG TAB PO SCH ×2 (10:05→20:50)
[2018-01-09] MEDS: SENNOSIDES/DOCUSATE SODIUM TAB PO SCH ×2 (10:05→20:50)
[2018-01-09] MEDS: FERROUS SULFATE 325 MG TAB PO SCH (10:06)
[2018-01-09] MEDS: PANTOPRAZOLE SODIUM 40 MG TAB PO SCH (10:06)
[2018-01-09] MEDS: predniSONE 5 MG TAB PO SCH (10:06)
[2018-01-09] MEDS: morphINE SR 15 MG TAB PO SCH ×2 (10:06→20:52)
[2018-01-09] MEDS: FLUoxetine 10 MG CAP PO SCH (10:06)
[2018-01-09] MEDS: POLYETHYLENE GLYCOL 3350 17 GM PKT PO SCH ×2 (10:07→20:54)
[2018-01-09] MEDS: BISACODYL 10 MG SUPP PR SCH (10:07)
[2018-01-09] MEDS: PROMETHAZINE HCL 25 MG TAB PO PRN (10:22)
--- NOTE | 2018-01-09 10:40 | SOAPPROG ---
SOAP Progress Note Assessment/Plan: Assessment: Barbara is well know to me. She has not followed with us since her fistula was placed last year. I have been keeping track of her progress via Dr. Benítez. I've reviewed records of this hospitalization. She appears improved. We discussed the importance of avoiding constipation in the setting of narcotics. She also has issues of severe depression, and is likely self treating with narcotics. For now, her renal function is stable and improved. I've encouraged her to call our office and schedule follow up. We can also help her complete her pre transplant testing to be relisted. Plan: 01/09/18 10:37 Subjective: Depressed affect Objective: Vital Signs Temp Pulse Resp BP Pulse Ox 36.6 C 95 18 128/84 H 95 01/09/18 09:59 01/09/18 09:59 01/09/18 09:59 01/09/18 09:59 01/09/18 09:59 Laboratory Results 01/03/18 04:26 01/09/18 04:20 01/08/18 01/09/18 01/10/18 05:59 05:59 05:59 Intake Total 3850 1090 Output Total 1999 Balance 3850 -910 Physical Exam - Physical Exam General Appearance: no apparent distress Respiratory: lungs clear Cardiac/Chest: regular rate, rhythm Extremities: normal inspection Neuro/Psych: depressed affect ICD10 Worksheet Patient Problems: Problems Problem Status Onset Acute on chronic kidney failure Acute Constipation Acute Anticoagulant therapy Active Chronic pain syndrome Active Hypokalemia Active Hypothyroidism Active Renal impairment Active biliary gastric reflux Active Abdominal pain Acute Anemia Acute C. difficile diarrhea Acute ~05/30/17 Chronic renal failure Acute Clostridium difficile infection Acute Congestive heart failure Acute Dehydration Acute Diarrhea Acute Hypoglycemia Acute Immunosuppression Acute Nausea Acute Nausea & vomiting Acute Pyelonephritis Acute Renal failure (ARF), acute on chronic Acute Sepsis Acute Superficial thrombophlebitis Acute Swelling of both lower extremities Acute Syncope due to orthostatic hypotension Acute Tachycardia Acute Urinary tract infection Acute VRE (vancomycin-resistant Enterococci) Acute ~03/01/17 Volume depletion, gastrointestinal loss Acute History of kidney transplant Chronic
[2018-01-09] MEDS ORDERED: HYDROmorphONE/DILAUDID 1 MG/ML INJ IVP PRN (11:50)
[2018-01-09] MEDS ORDERED: BISACODYL 5 MG EC TAB PO ONE (11:50)
[2018-01-09] MEDS: POLYETHYLENE GLYCOL 3350 17 GM PKT PO PRN ×2 (12:02→16:14)
[2018-01-09] MEDS: BISACODYL 5 MG EC TAB PO PRN ×2 (12:02→16:14)
[2018-01-09] MEDS ORDERED: PEG 3350/NA SULF,BICARB,CL/KCL (GAVILYTE-G) 4000 ML BTL PO ONE ×2 (18:20→20:45)
--- NOTE | 2018-01-09 18:28 | HOSPPROG ---
Hospitalist Progress Note Assessment/Plan: Assessment: 47-year-old female presents with acute on chronic abdominal pain in the setting of AK and CKD, VRE urinary tract infection Plan: #MEETA on CKD Stage III: resolved, 2/2 hypovolemia - d/w Dr. Sanderson, he reports that renal status has reached stability, monitoring Cr #h/o renal transplant: pred, Tacrolimus, Imuran. ID checking BK virus #VRE UTI: Renally-dose daptomycin, duration of therapy to be d/w ID #Acute on chronic abd pain: 2/2 chronic functional pain and exacerbated by constipation from pain Rx - ongoing today, but has not moved bowels #Hypernatremia: resolved with D5 #Severe constipation: responded to golytely, but anticipate she has ongoing stool - counseled patient regarding bowel strategies today including miralax+ bisacodyl repetitively until movement accomplished - encouraged patient to ambulate, and she has been doing so all day w/o BM - give golytely again now, and gauge effect #h/o WPW #h/o Non-Hodgkins #Chronic pain with continuous opioid dependency: due to back pain related to 3 prior surgeries. -decreased MS contin to BID, reduced oxycodone dose #Depression: being managed by PCP. He has decreased her dose Prozac. She is on Wellbutrin, Olanzapine. Rec referral to psychiatrist outpatient - Dr. Sanderson aware of patient's current mood Diet. Renal PPx. High risk, hep SC Code. Full Dispo. ADD 01/10, pending BM Subjective: ongoing abd bloating sensation, no BM today Objective: Vital Signs Temp Pulse Resp BP Pulse Ox 37.2 C 94 16 119/71 94 01/09/18 17:55 01/09/18 17:55 01/09/18 17:55 01/09/18 17:55 01/09/18 17:55 Laboratory Results 01/03/18 04:26 01/09/18 04:20 01/08/18 01/09/18 01/10/18 05:59 05:59 05:59 Intake Total 3850 1090 Output Total 1999 Balance 3850 -910 - Time Spent With Patient Time Spent with Patient: greater than 35 minutes Time Spent with Patient: Greater than 35 minutes spent on this patients care, greater than 50% of time spent counseling, educating, and coordinating care regarding the above mentioned plan. - Pending Discharge Pending Discharge Within 24 Hours: Yes Pending Discharge Date: 01/10/18 Pending Discharge Time: 11:00 - Physical Exam Constitutional: no apparent distress, chronically ill appearing, uncomfortable Cardiovascular: regular rate and rhythym, no murmur, rub, or gallop Respiratory: no respiratory distress, no rales or rhonchi, clear to auscultation Gastrointestinal: normoactive bowel sounds, tenderness (mild), distension (mild) , No guarding Neurologic: AAOx3 Psychiatric: not anxious, thought process linear, flat affect, No agitated ICD10 Worksheet Patient Problems: Problems Problem Status Onset Swelling of both lower extremities Acute Congestive heart failure Acute Chronic renal failure Acute Anemia Acute Clostridium difficile infection Acute Volume depletion, gastrointestinal loss Acute Hypoglycemia Acute Immunosuppression Acute Acute on chronic kidney failure Acute Constipation Acute VRE (vancomycin-resistant Enterococci) Acute ~03/01/17 Diarrhea Acute Hypothyroidism Active Chronic pain syndrome Active Renal impairment Active Hypokalemia Active Anticoagulant therapy Active biliary gastric reflux Active Syncope due to orthostatic hypotension Acute Dehydration Acute Renal failure (ARF), acute on chronic Acute History of kidney transplant Chronic Tachycardia Acute Nausea Acute Nausea & vomiting Acute C. difficile diarrhea Acute ~05/30/17 Sepsis Acute Pyelonephritis Acute Abdominal pain Acute Superficial thrombophlebitis Acute Urinary tract infection Acute
--- NOTE | 2018-01-09 19:14 | PCMIDPN ---
Assessment/Plan: # Possible UTI with underlying renal transplant, past culture with VRE. Dysuria almost gone. --contact precautions --repeat urine culture shows lower levels VRE --daptomycin 6mg makes per kg Q 48 based on creatinine clearance of 26 --plan 7 days therapy --also evaluating for BK virus Medications Daptomycin 330 mg IV Q 48, # 4/7 Micro 01/03 urine culture 100,000 VRE, Gram-negative rods 3 other types 01/06 UCx 50K VRE Subjective: just a small amt dysuria remains still has not had BM Objective: Vital Signs Temp Pulse Resp BP Pulse Ox 37.2 C 94 16 119/71 94 01/09/18 17:55 01/09/18 17:55 01/09/18 17:55 01/09/18 17:55 01/09/18 17:55 Laboratory Results 01/03/18 04:26 01/09/18 04:20 01/08/18 01/09/18 01/10/18 05:59 05:59 05:59 Intake Total 3850 1090 1200 Output Total 2000 Balance 3850 -910 1200 - Physical Exam General Appearance: no apparent distress, thin EENT: pale conjunctiva Respiratory: No accessory muscle use Extremities: No pedal edema Abdomen: soft, distended, No tender (over L renal transplant site) Pelvic Exam: No flores Neuro/Psych: alert, oriented x 3 - Line/s PIV Lines: other (L forearm), No drainage, No erythema - Time Spent With Patient Time Spent with Patient: greater than 25 minutes Time Spent with Patient: Greater than 25 minutes spent on this patients care, greater than 50% of time spent counseling, educating, and coordinating care regarding the above mentioned plan. ICD10 Worksheet Patient Problems: Problems Problem Status Onset Acute on chronic kidney failure Acute Constipation Acute Anticoagulant therapy Active Chronic pain syndrome Active Hypokalemia Active Hypothyroidism Active Renal impairment Active biliary gastric reflux Active Abdominal pain Acute Anemia Acute C. difficile diarrhea Acute ~05/30/17 Chronic renal failure Acute Clostridium difficile infection Acute Congestive heart failure Acute Dehydration Acute Diarrhea Acute Hypoglycemia Acute Immunosuppression Acute Nausea Acute Nausea & vomiting Acute Pyelonephritis Acute Renal failure (ARF), acute on chronic Acute Sepsis Acute Superficial thrombophlebitis Acute Swelling of both lower extremities Acute Syncope due to orthostatic hypotension Acute Tachycardia Acute Urinary tract infection Acute VRE (vancomycin-resistant Enterococci) Acute ~05/17/17 Volume depletion, gastrointestinal loss Acute History of kidney transplant Chronic
[2018-01-09] MEDS: azaTHIOprine 50 MG TAB PO SCH (20:50)
[2018-01-09] MEDS: OLANZapine 2.5 MG TAB PO SCH (20:51)
[2018-01-09] MEDS: PROMETHAZINE HCL 25 MG/ML INJ IVP PRN (22:49)
[2018-01-09] MEDS: HYDROmorphONE/DILAUDID 2 MG/ML INJ IVP PRN (22:50)
[2018-01-10] MEDS: HEPARIN 5,000 UNIT/0.5 ML SYR SC SCH ×3 (06:06→21:56)
[2018-01-10] MEDS: LEVOTHYROXINE 75 MCG TAB PO SCH (06:06)
[2018-01-10] MEDS: PROMETHAZINE HCL 25 MG/ML INJ IVP PRN (07:40)
[2018-01-10] MEDS: HYDROmorphONE/DILAUDID 2 MG/ML INJ IVP PRN ×2 (07:41→23:42)
--- NOTE | 2018-01-10 09:45 | PCMIDPN ---
Assessment/Plan: Assessment: Possible UTI secondary to vancomycin-resistant Enterococcus. Most recent urine culture shows approximately 60,000 CFUs of Enterococcus. Patient is now day 5/ of daptomycin. She is on Q 48 hr dosing secondary to renal insufficiency. Symptoms are now improved. Still awaiting results of BK virus PCR studies. Meanwhile continue monotherapy with daptomycin. Plan: 1. Continue IV daptomycin Q 48 hr. 2. Follow clinical course and symptoms. 01/08/18 10:26 01/10/18 09:42 Subjective: Patient is resting comfortably in her hospital bed. She states that she had a small to moderate bowel movement this morning but still feels constipated. This was with the help of GoLYTELY. She states that her early dysuria in the urine stream has resolved. No fevers or chills. Tolerating daptomycin without symptoms of rash or muscle pain. Objective: Daptomycin # 5 Vital Signs Temp Pulse Resp BP Pulse Ox 36.8 C 78 16 121/77 H 93 01/10/18 08:00 01/10/18 08:00 01/10/18 08:00 01/10/18 08:00 01/10/18 08:00 Microbiology 01/06/18 18:46 Urine Culture - Final Urine,Clean Catch Enterococcus Faecium One [place] Type Laboratory Results 01/03/18 04:26 01/10/18 04:17 01/09/18 01/10/18 01/11/18 05:59 05:59 05:59 Intake Total 1090 4200 Output Total 2000 1350 Balance -910 2850 - Physical Exam General Appearance: WD/WN, alert, no apparent distress, non-toxic Respiratory: lungs clear, normal breath sounds, No respiratory distress Cardiac/Chest: regular rate, rhythm, systolic murmur, No tachycardia Skin: normal color, warm/dry, No rash Neuro/Psych: alert, normal mood/affect, oriented x 3 ICD10 Worksheet Patient Problems: Problems Problem Status Onset Acute on chronic kidney failure Acute Constipation Acute Anticoagulant therapy Active Chronic pain syndrome Active Hypokalemia Active Hypothyroidism Active Renal impairment Active biliary gastric reflux Active Abdominal pain Acute Anemia Acute C. difficile diarrhea Acute ~05/30/17 Chronic renal failure Acute Clostridium difficile infection Acute Congestive heart failure Acute Dehydration Acute Diarrhea Acute Hypoglycemia Acute Immunosuppression Acute Nausea Acute Nausea & vomiting Acute Pyelonephritis Acute Renal failure (ARF), acute on chronic Acute Sepsis Acute Superficial thrombophlebitis Acute Swelling of both lower extremities Acute Syncope due to orthostatic hypotension Acute Tachycardia Acute Urinary tract infection Acute VRE (vancomycin-resistant Enterococci) Acute ~03/01/17 Volume depletion, gastrointestinal loss Acute History of kidney transplant Chronic
[2018-01-10] MEDS: NS IV SCH (09:53)
[2018-01-10] MEDS: DAPTOMYCIN IV SCH (09:53)
[2018-01-10] MEDS: POLYETHYLENE GLYCOL 3350 17 GM PKT PO SCH ×2 (09:54→21:54)
[2018-01-10] MEDS: BISACODYL 10 MG SUPP PR SCH (09:54)
[2018-01-10] MEDS: SODIUM BICARBONATE 650 MG TAB PO SCH ×2 (09:54→21:56)
[2018-01-10] MEDS: buPROPion SR 150 MG TAB PO SCH (09:55)
[2018-01-10] MEDS: SENNOSIDES/DOCUSATE SODIUM TAB PO SCH ×2 (09:55→21:56)
[2018-01-10] MEDS: FLUoxetine 10 MG CAP PO SCH (09:55)
[2018-01-10] MEDS: TACROLIMUS 1 MG CAP PO SCH ×2 (09:55→21:56)
[2018-01-10] MEDS: predniSONE 5 MG TAB PO SCH (09:55)
[2018-01-10] MEDS: morphINE SR 15 MG TAB PO SCH ×2 (09:56→21:56)
[2018-01-10] MEDS: PANTOPRAZOLE SODIUM 40 MG TAB PO SCH (09:56)
[2018-01-10] MEDS: FERROUS SULFATE 325 MG TAB PO SCH (10:35)
[2018-01-10] MEDS: DICYCLOMINE 20 MG TAB PO PRN (12:37)
[2018-01-10] MEDS: BISACODYL 5 MG EC TAB PO PRN ×2 (12:37→16:37)
[2018-01-10] MEDS: CALCITRIOL 0.25 MCG CAP PO SCH (14:38)
--- NOTE | 2018-01-10 15:09 | HOSPPROG ---
Hospitalist Progress Note Assessment/Plan: Assessment: 47-year-old female presents with acute on chronic abdominal pain in the setting of AK and CKD, VRE urinary tract infection Plan: #MEETA on CKD Stage III: resolved, 2/2 hypovolemia - renal status has reached stability, monitoring Cr #h/o renal transplant: pred, Tacrolimus, Imuran. ID checking BK virus #VRE UTI: Renally-dose daptomycin, d/w Dr. Burgos, recommends final dose on at infusion ctr #Acute on chronic abd pain: 2/2 chronic functional pain and exacerbated by constipation from pain Rx - ongoing today, minimal stool output - counseled patient that her abd pain is a chronic issue which may experience some improvements w/ better constipation mgmt, addition of an anti-spasmodic, and less opiate dependency, and she is working on reducing her PRN usage of oxy IR (only using approx twice daily) - start bentyl #Hypernatremia: resolved with D5 #Severe constipation: responded to golytely, but she feels uncomfortable discharging w/o one day of more regulated BMs - counseled patient regarding bowel strategies today including miralax+ bisacodyl repetitively until movement accomplished and encouraged golytely at home PRN #h/o WPW #h/o Non-Hodgkins #Chronic pain with continuous opioid dependency: due to back pain related to 3 prior surgeries. -decreased MS contin to BID, reduced oxycodone dose #Depression: being managed by PCP. He has decreased her dose Prozac. She is on Wellbutrin, Olanzapine. Rec referral to psychiatrist outpatient - Dr. Sanderson aware of patient's current mood Diet. Renal PPx. High risk, hep SC Code. Full Dispo. ADD 01/11, pending BMs and better pain mgmt Subjective: ongoing abd "bloating" and small BM Objective: Vital Signs Temp Pulse Resp BP Pulse Ox 36.8 C 91 16 116/70 93 01/10/18 12:28 01/10/18 12:28 01/10/18 12:28 01/10/18 12:28 01/10/18 12:28 Microbiology 01/08/18 13:26 Urine Culture - Final Urine,Clean Catch [employer] Types Gram Neg Ricco Lactose [employer]ner 01/06/18 18:46 Urine Culture - Final Urine,Clean Catch Enterococcus Faecium One [employer] Type Laboratory Results 01/03/18 04:26 01/10/18 04:17 01/09/18 01/10/18 01/11/18 05:59 05:59 05:59 Intake Total 1090 4200 Output Total 1999 1350 Balance -910 2850 - Time Spent With Patient Time Spent with Patient: greater than 35 minutes Time Spent with Patient: Greater than 35 minutes spent on this patients care, greater than 50% of time spent counseling, educating, and coordinating care regarding the above mentioned plan. - Physical Exam Constitutional: no apparent distress, not in pain, chronically ill appearing, uncomfortable Respiratory: no respiratory distress, no rales or rhonchi, clear to auscultation Gastrointestinal: tenderness (mild), distension (mild), No normoactive bowel sounds (hyperactive bowel sounds) Neurologic: AAOx3 Psychiatric: anxious, flat affect, No agitated ICD10 Worksheet Patient Problems: Problems Problem Status Onset Swelling of both lower extremities Acute Congestive heart failure Acute Chronic renal failure Acute Anemia Acute Clostridium difficile infection Acute Volume depletion, gastrointestinal loss Acute Hypoglycemia Acute Immunosuppression Acute Acute on chronic kidney failure Acute Constipation Acute VRE (vancomycin-resistant Enterococci) Acute ~03/01/17 Diarrhea Acute Hypothyroidism Active Chronic pain syndrome Active Renal impairment Active Hypokalemia Active Anticoagulant therapy Active biliary gastric reflux Active Syncope due to orthostatic hypotension Acute Dehydration Acute Renal failure (ARF), acute on chronic Acute History of kidney transplant Chronic Tachycardia Acute Nausea Acute Nausea & vomiting Acute C. difficile diarrhea Acute ~05/30/17 Sepsis Acute Pyelonephritis Acute Abdominal pain Acute Superficial thrombophlebitis Acute Urinary tract infection Acute
[2018-01-10] MEDS: oxyCODONE IR 5 MG TAB PO PRN ×2 (16:37→22:45)
[2018-01-10] MEDS: POLYETHYLENE GLYCOL 3350 17 GM PKT PO PRN (16:39)
[2018-01-10] MEDS: LORazepam 1 MG TAB PO PRN (18:18)
[2018-01-10] MEDS: azaTHIOprine 50 MG TAB PO SCH (21:55)
[2018-01-10] MEDS: OLANZapine 2.5 MG TAB PO SCH (21:56)
[2018-01-10] MEDS: PROMETHAZINE HCL 25 MG TAB PO PRN (23:48)
[2018-01-11] MEDS: HEPARIN 5,000 UNIT/0.5 ML SYR SC SCH ×3 (05:39→21:43)
[2018-01-11] MEDS: LEVOTHYROXINE 75 MCG TAB PO SCH (05:40)
[2018-01-11] MEDS: oxyCODONE IR 5 MG TAB PO PRN ×3 (07:00→21:42)
[2018-01-11] MEDS: HYDROmorphONE/DILAUDID 2 MG/ML INJ IVP PRN (08:44)
[2018-01-11] MEDS: PROMETHAZINE HCL 25 MG TAB PO PRN (08:45)
[2018-01-11] MEDS: FERROUS SULFATE 325 MG TAB PO SCH (08:55)
[2018-01-11] MEDS: SODIUM BICARBONATE 650 MG TAB PO SCH ×2 (09:58→21:42)
[2018-01-11] MEDS: TACROLIMUS 1 MG CAP PO SCH ×2 (09:58→21:42)
[2018-01-11] MEDS: FLUoxetine 10 MG CAP PO SCH (09:58)
[2018-01-11] MEDS: BISACODYL 10 MG SUPP PR SCH (09:58)
[2018-01-11] MEDS: POLYETHYLENE GLYCOL 3350 17 GM PKT PO SCH ×2 (09:59→21:40)
[2018-01-11] MEDS: predniSONE 5 MG TAB PO SCH (09:59)
[2018-01-11] MEDS: morphINE SR 15 MG TAB PO SCH ×2 (09:59→21:43)
[2018-01-11] MEDS: buPROPion SR 150 MG TAB PO SCH (09:59)
[2018-01-11] MEDS: SENNOSIDES/DOCUSATE SODIUM TAB PO SCH ×2 (09:59→21:43)
[2018-01-11] MEDS: PANTOPRAZOLE SODIUM 40 MG TAB PO SCH (09:59)
[2018-01-11] MEDS ORDERED: PEG 3350/NA SULF,BICARB,CL/KCL (GAVILYTE-G) 4000 ML BTL PO ONE (10:49)
[2018-01-11] MEDS: PROMETHAZINE HCL 25 MG/ML INJ IVP PRN (11:09)
--- NOTE | 2018-01-11 11:47 | PCMIDPN ---
Assessment/Plan: # Possible UTI with underlying renal transplant on ongoing immune suppression, past culture with VRE. Current enterococcus vancomycin-S. Dysuria has resolved --contact precautions --BK virus negative --last dose daptomycin Dec adjusted --call ID for additional questions Medications Daptomycin 330 mg IV Q 48, # 6/7 Micro 01/03 urine culture 100,000 Amp R enterococcus, susceptible to vancomycin, Gram- negative rods 3 other types 01/06 UCx 50K Amp R enterococcus, susceptible to vancomycin 09/2017 UCx: VRE Subjective: 1 BM yesterday still w abdominal distension Objective: Vital Signs Temp Pulse Resp BP Pulse Ox 36.8 C 88 16 110/70 94 01/11/18 08:00 01/11/18 08:00 01/11/18 08:00 01/11/18 08:00 01/11/18 08:00 Microbiology 01/08/18 13:26 Urine Culture - Final Urine,Clean Catch Four [place] Types Gram Neg Ricco Lactose [employer] Manager 01/06/18 18:46 Urine Culture - Final Urine,Clean Catch Enterococcus Faecium One [place] Type Laboratory Results 01/03/18 04:26 01/11/18 03:57 01/10/18 01/11/18 01/12/18 05:59 05:59 05:59 Intake Total 4200 450 Output Total 1350 950 Balance 2850 -500 - Physical Exam General Appearance: alert, no apparent distress, thin Respiratory: No accessory muscle use, No crackles Cardiac/Chest: regular rate, rhythm, systolic murmur Extremities: No pedal edema Abdomen: distended (slight), No rebound, No tender Pelvic Exam: No flores Skin: pallor, No rash Neuro/Psych: alert, oriented x 3, depressed affect - Time Spent With Patient Time Spent with Patient: greater than 25 minutes Time Spent with Patient: Greater than 25 minutes spent on this patients care, greater than 50% of time spent counseling, educating, and coordinating care regarding the above mentioned plan. ICD10 Worksheet Patient Problems: Problems Problem Status Onset Acute on chronic kidney failure Acute Constipation Acute Anticoagulant therapy Active Chronic pain syndrome Active Hypokalemia Active Hypothyroidism Active Renal impairment Active biliary gastric reflux Active Abdominal pain Acute Anemia Acute C. difficile diarrhea Acute ~05/30/17 Chronic renal failure Acute Clostridium difficile infection Acute Congestive heart failure Acute Dehydration Acute Diarrhea Acute Hypoglycemia Acute Immunosuppression Acute Nausea Acute Nausea & vomiting Acute Pyelonephritis Acute Renal failure (ARF), acute on chronic Acute Sepsis Acute Superficial thrombophlebitis Acute Swelling of both lower extremities Acute Syncope due to orthostatic hypotension Acute Tachycardia Acute Urinary tract infection Acute VRE (vancomycin-resistant Enterococci) Acute ~03/01/17 Volume depletion, gastrointestinal loss Acute History of kidney transplant Chronic
[2018-01-11] MEDS: POLYETHYLENE GLYCOL 3350 17 GM PKT PO PRN (13:51)
--- NOTE | 2018-01-11 14:13 | ASMTCMCOM ---
CM Note CM Note Notes: Per RN and CM report, continue to plan for indpendent d/c when ready. Date Signed: 01/11/2018 02:12 PM Electronically Signed By:Karuna Peralta LCSW
--- NOTE | 2018-01-11 18:13 | HOSPPROG ---
Hospitalist Progress Note Assessment/Plan: Assessment: 47-year-old female presents with acute on chronic abdominal pain in the setting of MEETA on CKD, VRE urinary tract infection, and severe opiate- induced ileus/constipation Plan: #MEETA on CKD Stage III: resolved, 2/2 hypovolemia - renal status has reached stability, monitoring Cr, 2.6 #h/o renal transplant: pred, Tacrolimus, Imuran. ID checking BK virus #VRE UTI: Renally-dose daptomycin, final dose on 01/12 #Acute on chronic abd pain: 2/2 chronic functional pain and exacerbated by constipation from pain Rx - ongoing today, minimal stool output - she is working on reducing her PRN usage of oxy IR (only using approx twice daily) - started bentyl #Hypernatremia: resolved with D5 #Severe constipation and opiate-induced ileus: acute worsening, new prob, further w/u indicated. no BM o/n on miralax+bisacodyl approach, at risk of worsening given hx of not clearing w/ traditional mgmt strategies -01/02 CT w/ constipation, 01/06 repeat xray w/ improvement in constipation but loops remain dilated (personally interpreted) -get abd-xray to r/o SBO -d/w Dr. Rosas, he reports that patient had colonoscopy in 2010 which was normal and would not recommend f/u until 2020, recommends gastrograffin enema #h/o WPW #h/o Non-Hodgkins #Chronic pain with continuous opioid dependency: due to back pain related to 3 prior surgeries. -decreased MS contin to BID, reduced oxycodone dose #Depression: being managed by PCP. He has decreased her dose Prozac. She is on Wellbutrin, Olanzapine. Rec referral to psychiatrist outpatient - Dr. Sanderson aware of patient's current mood Diet. Renal PPx. High risk, hep SC Code. Full Dispo. ADD 01/12, pending BMs and better pain mgmt Subjective: no BMs yesterday or today, ambulating regularly Objective: Vital Signs Temp Pulse Resp BP Pulse Ox 36.8 C 88 17 118/72 94 01/11/18 15:55 01/11/18 15:55 01/11/18 15:55 01/11/18 15:55 01/11/18 15:55 Microbiology 01/08/18 13:26 Urine Culture - Final Urine,Clean Catch Four [place] Types Gram Neg Ricco Lactose Ore Miner Laboratory Results 01/03/18 04:26 01/11/18 03:57 01/10/18 01/11/18 01/12/18 05:59 05:59 05:59 Intake Total 4200 450 Output Total 0314 770 2142 Balance 2850 -500 -1900 - Pending Discharge Pending Discharge Within 24 Hours: Yes Pending Discharge Date: 01/12/18 Pending Discharge Time: 11:00 - Physical Exam Constitutional: no apparent distress, chronically ill appearing, uncomfortable, No not in pain (mild) Cardiovascular: regular rate and rhythym, no murmur, rub, or gallop, No edema Respiratory: no respiratory distress, no rales or rhonchi, clear to auscultation Gastrointestinal: normoactive bowel sounds, tenderness (mild), distension (mild) , No guarding Neurologic: AAOx3, No facial droop Psychiatric: not anxious, not encephalopathic, thought process linear, flat affect, No agitated ICD10 Worksheet Patient Problems: Problems Problem Status Onset Swelling of both lower extremities Acute Congestive heart failure Acute Chronic renal failure Acute Anemia Acute Clostridium difficile infection Acute Volume depletion, gastrointestinal loss Acute Hypoglycemia Acute Immunosuppression Acute Acute on chronic kidney failure Acute Constipation Acute VRE (vancomycin-resistant Enterococci) Acute ~03/01/17 Diarrhea Acute Hypothyroidism Active Chronic pain syndrome Active Renal impairment Active Hypokalemia Active Anticoagulant therapy Active biliary gastric reflux Active Syncope due to orthostatic hypotension Acute Dehydration Acute Renal failure (ARF), acute on chronic Acute History of kidney transplant Chronic Tachycardia Acute Nausea Acute Nausea & vomiting Acute C. difficile diarrhea Acute ~05/30/17 Sepsis Acute Pyelonephritis Acute Abdominal pain Acute Superficial thrombophlebitis Acute Urinary tract infection Acute
[2018-01-11] MEDS: DICYCLOMINE 20 MG TAB PO PRN (19:57)
[2018-01-11] MEDS: OLANZapine 2.5 MG TAB PO SCH (21:42)
[2018-01-11] MEDS: azaTHIOprine 50 MG TAB PO SCH (21:43)
[2018-01-12] MEDS: HYDROmorphONE/DILAUDID 2 MG/ML INJ IVP PRN ×3 (00:25→16:18)
[2018-01-12] MEDS: PROMETHAZINE HCL 25 MG TAB PO PRN ×2 (01:51→12:25)
[2018-01-12 04:53] LABS: PLATELET COUNT 180 10^3/uL (150-400)
[2018-01-12] MEDS: LEVOTHYROXINE 75 MCG TAB PO SCH (05:56)
[2018-01-12] MEDS: HEPARIN 5,000 UNIT/0.5 ML SYR SC SCH ×2 (05:56→13:23)
[2018-01-12] MEDS: oxyCODONE IR 5 MG TAB PO PRN ×2 (06:03→13:19)
[2018-01-12] MEDS: DICYCLOMINE 20 MG TAB PO PRN (09:08)
[2018-01-12] MEDS: DAPTOMYCIN IV SCH (09:09)
[2018-01-12] MEDS: NS IV SCH (09:09)
[2018-01-12] MEDS: POLYETHYLENE GLYCOL 3350 17 GM PKT PO SCH (09:17)
[2018-01-12] MEDS: SODIUM BICARBONATE 650 MG TAB PO SCH (09:18)
[2018-01-12] MEDS: SENNOSIDES/DOCUSATE SODIUM TAB PO SCH (09:19)
[2018-01-12] MEDS: morphINE SR 15 MG TAB PO SCH (09:19)
[2018-01-12] MEDS: predniSONE 5 MG TAB PO SCH (09:20)
[2018-01-12] MEDS: buPROPion SR 150 MG TAB PO SCH (09:20)
[2018-01-12] MEDS: FLUoxetine 10 MG CAP PO SCH (09:20)
[2018-01-12] MEDS: TACROLIMUS 1 MG CAP PO SCH (09:20)
[2018-01-12] MEDS: PANTOPRAZOLE SODIUM 40 MG TAB PO SCH (09:21)
[2018-01-12] MEDS: BISACODYL 10 MG SUPP PR SCH (09:22)
[2018-01-12] MEDS: FERROUS SULFATE 325 MG TAB PO SCH (09:23)
[2018-01-12 09:56] VITALS: TEMP 98.4; O2SAT 94
--- NOTE | 2018-01-12 13:59 | CPEKG ---
Heart Rate: 95 RR Interval: 632 P-R Interval: 144 QRSD Interval: 94 QT Interval: 384 QTC Interval: 483 P [place]: 55 QRS [place]: -46 T Wave [place]: 56 EKG Severity - ABNORMAL ECG - EKG Impression: SINUS RHYTHM EKG Impression: LAD, CONSIDER LEFT ANTERIOR FASCICULAR BLOCK EKG Impression: BORDERLINE R WAVE PROGRESSION, ANTERIOR LEADS Electronically Signed By: Paulo Moraes 13-Jan-2018 09:16:57
[2018-01-12] MEDS: CALCITRIOL 0.25 MCG CAP PO SCH (15:14)
[2018-01-12] MEDS ORDERED: PEG 3350/NA SULF,BICARB,CL/KCL (GAVILYTE-G) 4000 ML BTL PO ONE (15:50)
[2018-01-12] MEDS ORDERED: CALCIUM CARBONATE 500 MG CHEWABLE TAB PO PRN (15:50)
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
--- NOTE | 2018-01-12 16:56 | PDDCSUM ---
Discharge Summary Discharge Summary: DISCHARGE SUMMARY FOLLOW-UP ITEMS: 1. Reassess outpatient bowel regiment with PCP 2. Reassess outpatient pain management and wean opiates if tolerates DATE OF ADMISSION: 01/02/18 DATE OF DISCHARGE: 01/12/2018 DISCHARGE DIAGNOSES: 1. Acute kidney injury on chronic kidney disease stage 3 2. History of renal transplant with chronic immunosuppression 3. VRE urinary tract infection 4. Acute on chronic abdominal pain 5. Chronic pain with continuous opiate dependency 6. Severe constipation and opiate induced ileus 7. Acute hypernatremia 8. Chronic depression 9. Anemia of chronic kidney disease CONSULTATIONS: Infectious Disease, Nephrology PROCEDURES / IMAGING: CT of the abdomen demonstrating significant constipation but no other abnormalities, follow-up x-ray on 01/11 demonstrating no obstruction, some bowel distention V/Q scan demonstrating no perfusion defects, indicating pulmonary embolism likelihood low CHIEF COMPLAINT: Acute abdominal pain and constipation SUBJECTIVE: Patient is feeling well at time discharge, she has some ongoing left side chest and neck discomfort, some ongoing abdominal discomfort, but none of it is severe PHYSICAL EXAM ON DISCHARGE: Systolic blood pressure 120, heart rate 70, afebrile overnight, 1 bowel movement overnight, chronically ill-appearing, lungs are clear to auscultation bilaterally, heart rhythm is regular, with regular rate, bowel sounds are hyperactive, abdomen is soft, mildly distended, minimally tender, no lower extremity edema, right upper extremity fistula with palpable thrill LABS ON DISCHARGE: Hemoglobin 9, potassium 5, creatinine 2.6, BUN 53 HOSPITAL COURSE BY PROBLEM: 1. Acute kidney injury on chronic kidney disease stage 3. Patient presented with a creatinine of 3.6 with a baseline creatinine around 2.5, most likely secondary to poor oral intake in the setting of abdominal pain and constipation. There were also concerns that her oral intake of solids and liquids may be somewhat low secondary to worsening of chronic depression. During her hospitalization, the patient was encouraged to maintain good oral intake, she did receive some IV fluids, and her renal function returned to baseline. She was seen in consultation by her primary orthotic/prosthetic clinician, and her kidney function was deemed to be at baseline at discharge. She has right upper extremity fistula in case she requires outpatient dialysis, and the patient is going to the proper outpatient channels to receive consideration for possible renal transplant in the future. Her main challenge is follow-up at the nephrology office, and we have encouraged the patient to do so. 2. History of renal transplant with chronic immunosuppression. Patient was continued on her home medications including prednisone, tacrolimus, Imuran. Bk virus PCR was negative. 3. VRE urinary tract infection. Patient was seen in consultation by Infectious Disease, she was placed on antibiotics and completed a course of daptomycin, renally dosed, last dose on 01/12. 4. Acute on chronic abdominal pain. Patient has a complex history of chronic abdominal pain in the setting of continuous opiate dependency and opiate use disorder as well as severe constipation secondary to her opiate use. I discussed patient's home situation with her primary care provider, and it is reported to me that the patient's home medications are monitored by her to avoid overuse, but the patient is not always adherent to her home bowel regiment. During this hospitalization, we provided the patient with sustained release pain medication, as needed oral pain medication, and some IV breakthrough pain medication. We worked aggressively on bowel management, and after providing the patient with GoLYTELY preparations 4 L every 48 hr, the patient was able to have a bowel movement every other day. On the off days, the patient would utilize oral MiraLax and bisacodyl. The patient was reversed enemas. I discussed her situation with Dr. Surya Rosas on from [facility], and he recommended proceeding with the strategies. No additional workup was indicated. Her abdominal imaging demonstrated constipation on presentation, and her serial abdominal x-rays demonstrated some ongoing bowel distention but no obstruction. On the day of discharge, she has had a bowel movement within the preceding 24 hr. She is being discharged home with a 4 L jug of GoLYTELY and hand, as well as a prescription for GoLYTELY as needed as well as MiraLax and oral bisacodyl. I recommend that she continue to work with her primary care provider to maintain normal bowel movements and that her family continue to support her in this endeavor. 5. Acute hyponatremia. Resolved with D5. 6. Chronic depression. Mental health has played a substantial role in the patient's history of illness, and the patient's has consistently reached out to her primary care clinic to express his ongoing concerns. At the present time, the patient does not appear to be a danger to herself or gravely disabled, and inpatient Behavioral Health hospitalization would not be appropriate. That being said, I recommend that she continue working with outpatient mental health resources as best she is able. Her primary care office will continue to work with the patient's towards this. I verbally communicated w/ her PCP (Dr. Giles) on the date of discharge to review the plan above. 7. Acute chest pain. Most likely secondary to gastroesophageal reflux disease in the setting of constipation. She was ruled out for myocardial ischemia with a negative troponin, normal EKG, and ruled out for pulmonary embolism with a negative perfusion portion of the V/Q scan. I recommended that she utilize as needed times at home, and continue her oral pantoprazole. DISCHARGE MEDICATIONS: Please see official discharge medication reconciliation sheet in chart , continue home medications with the addition of GoLYTELY prep every 48 hr as needed to produce a bowel movement, MiraLax and bisacodyl orally every other day. DISCHARGE INSTRUCTIONS: Please use the above bowel regiment aggressively to produce a bowel movement every other day, please schedule follow-up with [facility] as well as her primary care provider office. TIME SPENT: Greater than 30 minutes were spent on direct patient care, as well as discharge planning and preparation.
[2018-01-12 17:28] VITALS: BP 125/85; PULSE 96; RESP 16
== END 2018-01-12 19:41 | disposition home or self-care (01) | DRG 683 ==
LOC: F1N 15:04
PROVIDERS: ADMIT Internal Medicine; ATTEND Internal Medicine
PROC: 0DCP7ZZ Extirpation of Matter from Rectum, Via Natural or Artificial Opening (ICD-10-PCS; principal; 2018-01-02)
DX: N17.9 Acute kidney failure, unspecified (principal); N39.0 Urinary tract infection, site not specified; Z94.0 Kidney transplant status; F11.20 Opioid dependence, uncomplicated; K56.7 Ileus, unspecified; E87.0 Hyperosmolality and hypernatremia; I12.9 Hypertensive chronic kidney disease with stage 1 through stage 4 chronic kidney disease, or unspecified chronic kidney disease; N18.3 Chronic kidney disease, stage 3 (moderate); E86.0 Dehydration; G89.29 Other chronic pain; K59.09 Other constipation; F32.9 Major depressive disorder, single episode, unspecified; D63.1 Anemia in chronic kidney disease; K21.9 Gastro-esophageal reflux disease without esophagitis; B95.2 Enterococcus as the cause of diseases classified elsewhere; Z85.72 Personal history of non-Hodgkin lymphomas; Z79.52 Long term (current) use of systemic steroids
CPT/HCPCS: 80197-90; 96374; A9540; A9558; J0878; J1170; J1644; J2212; J2270; J2405; J2550; J3010; J3370; J7500; J7507; J7512

== ENCOUNTER 2018-01-16 08:41 | Inpatient (IN) | payer OTHER ==
--- NOTE | 2018-01-16 09:40 | EDPHY ---
General Time Seen by Provider: 01/16/18 09:33 Narrative: CHIEF COMPLAINT: Nausea vomiting HISTORY OF PRESENT ILLNESS: Patient presents with complaints of 2 days of nausea and vomiting. She was discharged home from the hospital late Monday. She felt well Monday night and Monday. On Monday, she began feeling nauseated and vomiting again. She has had too numerous to count episodes of vomiting on Monday and this morning. No bloody emesis. No fever. No bloody stools. She has persistent constipation with minimal bowel movement. She has no chest pain or shortness of breath at this time. She has no flank pain. No dysuria. No other associated complaints or modifying factors. REVIEW OF SYSTEMS: Ten systems reviewed and are negative unless otherwise noted in the HPI PCP: Dr. Duffy SPECIALISTS: Dr. Sanderson, nephrology Dr. Mike, cardiology PAST MEDICAL HISTORY: Chronic kidney disease status post renal transplant, gestational diabetes, postmenopausal, C difficile colitis, anxiety, GERD, chronic back pain, WPW, hypertension, non-Hodgkin's lymphoma remission 2001 PAST SURGICAL HISTORY: Renal transplant, cardiac ablation SOCIAL HISTORY: Never smoker. No drug use. No alcohol use. Lives independently with her spouse. FAMILY HISTORY: Noncontributory EXAMINATION General Appearance: Alert, no distress Head: normocephalic, atraumatic Eyes: Pupils equal and round, no conjunctival pallor or injection ENT, Mouth: Mucous membranes dry. Airway patent Neck: Normal inspection, supple, non-tender Respiratory: Lungs are clear to auscultation Cardiovascular: Regular rate and rhythm. No murmur. Gastrointestinal: Abdomen is soft and nontender. No tympany rigidity. No guarding. Bowel sounds are decreased but symmetric in all 4 quadrants. Back: non-tender, no bony abnormalities Neurological: GCS 15. A&O, nonfocal, normal gait Skin: Warm and dry, no rash. No petechiae or purpura Extremities: Nontender, no pedal edema Psychiatric: Mood and affect normal DIFFERENTIAL DIAGNOSES: Including but not limited to dehydration, gastritis, nausea vomiting, acute kidney injury, chronic kidney disease, solitary kidney MDM: 9:40 a.m. Nausea and vomiting over the past 36 hr with intolerance of any liquid or solid intake by mouth. She has ongoing abdominal pain that she feels is chronic but no improved since Monday. She has no bloody emesis. No paradoxical diarrhea. Vital signs are within normal limits and she appears to be in no acute distress. She does not meet SIRS criteria. She is not actively vomiting while I am in the room. I have evaluated this patient twice in the past and them aware of her renal transplant status with chronic kidney disease. Thus I have ordered IV placement, laboratory studies. The patient will likely need IV fluid resuscitation. I have also ordered an abdominal x-ray to evaluate for the possibility of bowel obstruction. This was ruled out during her previous admission to this hospital. 11:00 a.m. Patient re-evaluated. Laboratory studies pending IV fluids infusing. 12:00 p.m. Patient's creatinine has increased 50% again, qualifying is an acute kidney injury. This is on top of her chronic kidney disease with a solitary left kidney, status post renal transplant 2007 of she is not tolerating p.o. Intake. I discussed this with Dr. Molina and we are in agree with patient admission hospital for IV fluid resuscitation and monitoring of her creatinine. I have paged the hospitalist. 12:15 p.m. Case discussed with hospitalist Sharon Grewal. Patient be admitted to the hospital. She is admitted to Dr. Tatum. She is admitted in stable condition. SUPERVISION: Patient was independently examined, but I discussed the case with my secondary supervising physician . Patient was evaluated and examined in conjunction with my secondary supervising physician as documented. We have both examined the patient. - Diagnostics Imaging Results: Imaging Impressions Abdomen X-Ray 01/16/18 09:48 Impression: Mild to moderate constipation. Stable postsurgical changes of thoracolumbar spine as above. - History Smoking Status: Never smoked - Objective Vital Signs: Initial Vital Signs Temperature (C) 97.5 F 01/16/18 08:46 Heart Rate 86 01/16/18 08:46 Respiratory Rate 16 01/16/18 08:46 Blood Pressure 121/74 H 01/16/18 08:46 O2 Sat (%) 94 01/16/18 08:46 O2 Delivery Mode Room Air Allergies/Adverse Reactions: erythromycin lactobionate [From Erythrocin] Allergy (Severe, Verified 01/16/18 08:44) Anaphylaxis metoclopramide HCl [From Reglan] Allergy (Severe, Verified 01/16/18 08:44) "went crazy" NSAIDS (Non-Steroidal Anti-Inflamma [Nsaids] Allergy (Severe, Verified 01/16/18 08:44) Kidney transplant meperidine HCl [From Demerol] Allergy (Intermediate, Verified 01/16/18 08:44) Hypotension meropenem [Meropenem] Allergy (Intermediate, Verified 01/16/18 08:44) Hypersensitivity in legs Sulfa (Sulfonamide Antibiotics) Allergy (Intermediate, Verified 01/16/18 08:44) Hives ceftazidime Allergy (Mild, Verified 01/16/18 08:44) Rash ciprofloxacin [From Cipro] Allergy (Mild, Verified 01/16/18 08:44) Rash doxycycline Allergy (Verified 01/16/18 08:44) gabapentin [From Neurontin] Allergy (Verified 01/16/18 08:44) Other-Enter Comments Home Medications: Medication Instructions Recorded Calcitriol [Calcitriol (*)] 0.25 mcg PO MOWEFR 05/25/17 LORazepam [Ativan (*)] 1 mg PO TID PRN 05/25/17 Levothyroxine [Synthroid 75 mcg 75 mcg PO DAILY06 05/25/17 (*)] Pantoprazole Sodium [Protonix 40mg 40 mg PO DAILY 05/25/17 (*)] azaTHIOprine [Imuran 50 mg (*)] 100 mg PO HS 05/25/17 oxyCODONE HCL [OXYCODONE HCL] 20 - 40 mg PO Q6H PRN 05/25/17 Ondansetron HCl [Zofran] 8 mg PO DAILY PRN 06/06/17 Sodium Bicarbonate [Na Bicarb] 1,300 mg PO BID 06/06/17 Astagraf 1mg Tab 4 tab PO DAILY 12/10/17 morphINE SR [Ms Contin/Oramorph 15 15 mg PO TID 12/10/17 mg (*)] predniSONE 5 mg PO DAILY 12/10/17 Promethazine HCl [Phenergan 25mg 12.5 - 25 mg PO Q6HRS PRN #40 tab 12/11/17 (*)] FLUoxetine [Prozac 10 MG (*)] 10 mg PO DAILY 01/02/18 OLANZapine [ZyPREXA 2.5 mg (*)] 5 mg PO HS 01/02/18 buPROPion SR [Wellbutrin 150mg SR 150 mg PO DAILY 01/02/18 (*)] Bisacodyl [Bisacodyl (*)] 5 mg PO PRN PRN #60 tab 01/12/18 Calcium Carbonate [Tums 500MG (*)] 500 mg PO TID PRN #90 tab.chew 01/12/18 Dicyclomine [Bentyl 20 MG (*)] 20 mg PO QID PRN #60 tab 01/12/18 Polyethylene Glycol 3350 [Miralax 17 gm PO Q4 PRN #60 pkt 01/12/18 17 gm (*)] Sennosides/Docusate Sodium 2 tab PO BID #120 tab 01/12/18 [Senokot-S] Laboratory Results: Laboratory Results 01/16/18 10:40 01/16/18 10:40 01/16/18 01/16/18 01/16/18 10:40 10:40 10:40 WBC 5.29 10^3/uL 10^3/uL (3.80-9.50) RBC 3.39 10^6/uL L 10^6/uL (4.18-5.33) Hgb 11.0 g/dL L g/dL (12.6-16.3) Hct 34.1 % L % (38.0-47.0) MCV 100.6 fL H fL (81.5-99.8) MCH 32.4 pg pg (27.9-34.1) MCHC 32.3 g/dL L g/dL (32.4-36.7) RDW 14.3 % % (11.5-15.2) Plt Count 248 10^3/uL 10^3/uL (150-400) MPV 9.6 fL fL (8.7-11.7) Neut % (Auto) 63.8 % % (39.3-74.2) Lymph % (Auto) 17.0 % % (15.0-45.0) Citrus % (Auto) 11.5 % % (4.5-13.0) Eos % (Auto) 6.4 % % (0.6-7.6) Baso % (Auto) 0.9 % % (0.3-1.7) Nucleat RBC Rel Count 0.0 % % (0.0-0.2) Absolute Neuts (auto) 3.37 10^3/uL 10^3/uL (1.70-6.50) Absolute Lymphs (auto) 0.90 10^3/uL L 10^3/uL (1.00-3.00) Absolute Monos (auto) 0.61 10^3/uL 10^3/uL (0.30-0.80) Absolute Eos (auto) 0.34 10^3/uL 10^3/uL (0.03-0.40) Absolute Basos (auto) 0.05 10^3/uL 10^3/uL (0.02-0.10) Absolute Nucleated RBC 0.00 10^3/uL 10^3/uL (0-0.01) Immature Gran % 0.4 % % (0.0-1.1) Immature Gran # 0.02 10^3/uL 10^3/uL (0.00-0.10) Sodium 142 mEq/L mEq/L (135-145) Potassium 4.3 mEq/L mEq/L (3.5-5.2) Chloride 104 mEq/L mEq/L (97-110) Carbon Dioxide 25 mEq/l mEq/l (22-31) Anion Gap 13 mEq/L mEq/L (8-16) BUN 54 mg/dL H mg/dL (7-23) Creatinine 3.6 mg/dL H mg/dL (0.6-1.0) Estimated GFR 14 Glucose 72 mg/dL mg/dL (70-100) Calcium 9.7 mg/dL mg/dL (8.5-10.4) Total Bilirubin 0.5 mg/dL mg/dL (0.1-1.4) Conjugated Bilirubin 0.4 mg/dL mg/dL (0.0-0.5) Unconjugated Bilirubin 0.1 mg/dL mg/dL (0.0-1.1) AST 33 IU/L IU/L (14-46) ALT 42 IU/L IU/L (9-52) Alkaline Phosphatase 62 IU/L IU/L (38-126) Total Protein 7.3 g/dL g/dL (6.3-8.2) Albumin 4.4 g/dL g/dL (3.5-5.0) Lipase 39 IU/L IU/L (23-300) Beta HCG, Qual NEGATIVE Medications Given: Heparin Sodium (Porcine) (Heparin Sc Injection) 5,000 unit SC Q8 ROBE Stop: 07/15/18 13:59 Last Admin: 01/16/18 15:20 Dose: 5,000 unit Sodium Chloride (Ns) 1,000 mls @ 100 mls/hr IV CONT ROBE Stop: 07/15/18 12:59 Last Admin: 01/16/18 15:20 Dose: 1,000 mls Ondansetron HCl (Zofran) 4 mg IVP Q4HRS PRN PRN Reason: Nausea/Vomiting, Can't Take PO Stop: 07/15/18 12:55 Last Admin: 01/16/18 15:20 Dose: 4 mg Discontinued Medications Diphenhydramine HCl (Benadryl Injection) 25 mg IVP EDNOW ONE Stop: 01/16/18 09:47 Last Admin: 01/16/18 10:53 Dose: 25 mg Sodium Chloride (Ns) 1,000 mls @ 0 mls/hr IV EDNOW ONE; Wide Open PRN Reason: Protocol Stop: 01/16/18 09:47 Last Admin: 01/16/18 10:54 Dose: 1,000 mls Ondansetron HCl (Zofran) 4 mg IVP EDNOW ONE Stop: 01/16/18 09:47 Last Admin: 01/16/18 10:53 Dose: 4 mg Promethazine HCl (Phenergan) 12.5 mg IVP ONCE ONE Stop: 01/16/18 11:02 Last Admin: 01/16/18 11:03 Dose: 12.5 mg Departure - Departure Disposition: [facility] Acute Clinical Impression: Acute kidney injury, Dehydration, Renal transplant recipient Condition: Good
[2018-01-16] MEDS ORDERED: ONDANSETRON 4 MG/2 ML VIAL IVP ONE (09:46)
[2018-01-16] MEDS ORDERED: NS 1,000 ML IV ONE (09:46)
[2018-01-16 10:52] LABS: PLATELET COUNT 248 10^3/uL (150-400)
[2018-01-16] MEDS ORDERED: PROMETHAZINE HCL 25 MG/ML INJ IVP ONE (11:01)
[2018-01-16] MEDS ORDERED: ACETAMINOPHEN 325 MG TAB PO PRN (12:56)
[2018-01-16] MEDS ORDERED: ONDANSETRON 4 MG/2 ML VIAL IVP PRN (12:56)
[2018-01-16] MEDS ORDERED: ONDANSETRON DISINTEGRATING 4 MG TAB PO PRN (12:56)
--- NOTE | 2018-01-16 14:33 | ASMTCMCOM ---
CM Note CM Note Notes: Chart reviewed. Patient just discharged 01/12/18. She was discharged to home independent, She has had multiple admissions to this facility. She is readmitted via emergency department for dehydration and MEETA. She is and has 1 child. She is in contact precautions. Needs to be determined at this time. CM to follow. Date Signed: 01/16/2018 02:33 PM Electronically Signed By:Benita Noel RN
[2018-01-16] MEDS: HEPARIN 5,000 UNIT/0.5 ML SYR SC SCH ×2 (15:20→22:26)
[2018-01-16] MEDS: NS 1,000 ML IV SCH (15:20)
[2018-01-16] MEDS ORDERED: NALOXONE HCL 0.4 MG/ML INJ IVP PRN (16:56)
--- NOTE | 2018-01-16 17:57 | HOSPPROG ---
Hospitalist Progress Note Assessment/Plan: CC: HISTORY: ROS: A comprehensive 10 system review revealed no other significant findings PAST MEDICAL HISTORY: FAMILY MEDICAL HISTORY: SOCIAL HISTORY: MEDICATIONS: The patients list has been reconciled by our clinical pharmacist in the EMR. I have reviewed the list and ordered appropriate medicines. PHYSICAL EXAMINATION: Vital Signs: E Merchant: Examination: General: alert, oriented, good mentation, relaxed Skin: warm, dry, good color, no rash HEENT: normal Neck: no mass or jvd Resps: relaxed Lungs: clear breath sounds Heart: regular, no murmur Abdomen: soft, nondistended, nontender, +BS, no mass Upper Extremities: normal Lower Extremities: no edema, warm No Bleeding or bruising Neurologic: normal speech/language, normal punch box tender, no focal weakness IV site: looks normal LABORATORY DATA: RADIOLOGY STUDIES: 12 LEAD EKG: ASSESSMENT: PLANS: I have reviewed the patient's case in detail with . I have reviewed the patient's past medical records as part of this assessment, including Objective: Vital Signs Temp Pulse Resp BP Pulse Ox 36.8 C 81 18 118/74 94 01/16/18 14:25 01/16/18 14:25 01/16/18 14:25 01/16/18 14:25 01/16/18 14:25 01/15/18 01/16/18 01/17/18 06:59 06:59 06:59 Intake Total 1000 Balance 1000 ICD10 Worksheet Patient Problems: Problems Problem Status Onset Acute kidney injury Acute Dehydration Acute Renal transplant recipient Acute Anticoagulant therapy Active Chronic pain syndrome Active Hypokalemia Active Hypothyroidism Active Renal impairment Active biliary gastric reflux Active Abdominal pain Acute Acute on chronic kidney failure Acute Anemia Acute C. difficile diarrhea Acute ~05/30/17 Chronic renal failure Acute Clostridium difficile infection Acute Congestive heart failure Acute Constipation Acute Diarrhea Acute Hypoglycemia Acute Immunosuppression Acute Nausea Acute Nausea & vomiting Acute Pyelonephritis Acute Renal failure (ARF), acute on chronic Acute Sepsis Acute Superficial thrombophlebitis Acute Swelling of both lower extremities Acute Syncope due to orthostatic hypotension Acute Tachycardia Acute Urinary tract infection Acute VRE (vancomycin-resistant Enterococci) Acute ~03/01/17 Volume depletion, gastrointestinal loss Acute History of kidney transplant Chronic
--- NOTE | 2018-01-16 17:57 | PDGENHP ---
History and Physical History and Physical: CC: Abdominal pain nausea vomiting HISTORY: This is the 3rd hospital admission for this patient in just a few short weeks for the exact same reasons, though she has had many other hospital admissions here for similar and other unrelated issues. She comes in at this time with abdominal pain nausea vomiting and constipation in the setting of ongoing high-dose narcotic use as well as acute on chronic renal failure with a history of kidney transplant. Essentially she gets quite constipated and is unable to manage this at home ends up getting to the point where she gets nauseous and vomiting, is unable to take her pain medicines, keep herself I hydrated, or take her anti-rejection medicines. She tries as best she can but ends up coming in here for management of her symptoms. Her last 2 visits involved using quite a bit of enemas and various laxatives including GoLYTELY, relative store, Gastrografin, as well as numerous others. It is very difficult to get her bowels evacuated. She left here on January 12 after staying for 10 days, and had a similarly prolonged hospital stay in late November. This episode like the previous episodes did not involve any fever, bleeding, or symptoms her issues other than as described above. When she left here it was prescribed to her to use Colyte every other day as needed, MiraLax every other day and bisacodyl. She tells me that which she has been doing is using milk of magnesia, bisacodyl, twice daily MiraLax, but did not use any Colyte. Her last bowel movement she says was 5 days ago which would have been the day before she left the hospital. ROS: A comprehensive 10 system review revealed no other significant findings PAST MEDICAL HISTORY: Chronic back pain from spine surgeries Chronic abdominal pain multifactorial Chronic prescribed narcotic use in high doses Renal failure with renal transplant * Her current baseline renal function is somewhere around 2.5-2.8 creatinine, and she has had with each of the acute episodes described above renal failure with creatinines up to about 3 and half and then gets back down into the mid to high 2s before going home Chronic constipation Ftcwa-Bkrtbvshn-Clbgz syndrome status post ablation Hypertension Non-Hodgkin's lymphoma treated in 2001 with chemotherapy and radiation History of C difficile colitis Esophageal reflux disease Chronic anxiety disorder Depression FAMILY MEDICAL HISTORY: No specific relevant illnesses that she recalls SOCIAL HISTORY: The patient is lives with her . She does not use tobacco or alcohol She does not use street drugs She sees Dr. Darius Giles for primary care MEDICATIONS: The patients list has been reconciled by our clinical pharmacist in the EMR. I have reviewed the list and ordered appropriate medicines. PHYSICAL EXAMINATION: Vital Signs: Normal without fever Nanny/Household Manager: Examination: General: alert, oriented, looks tired and fatigued Skin: warm, dry, good color, no rash or jaundice HEENT: normal Neck: no mass or jvd Resps: relaxed Lungs: clear breath sounds Heart: regular, no murmur Abdomen: soft, nondistended, with mild diffuse tenderness no guarding or rebound , +BS, there is palpable stool that is hard across the transverse colon Upper Extremities: normal Lower Extremities: no edema, warm No Bleeding or bruising Neurologic: normal speech/language, normal surgery consultant, no focal weakness IV site: looks normal LABORATORY DATA: Her creatinine is back up to 3.6; normal electrolytes and liver panel Hemoglobin is at 11; with the recent episode she has been coming in dehydrated with hemoglobins of 10 and half for 11 which decreases with hydration to approximately 9 which is her baseline, normal white blood cell count today RADIOLOGY STUDIES: I reviewed images from abdominal x-rays done in the ER today, which show constipation but no other specific changes ASSESSMENT: -ongoing trouble with constipation which she is not managing well at home in the setting of using high-dose prescribed daily narcotic -recurrence nausea vomiting leading to dehydration and inability to take in her oral medicines -recurrent acute on chronic renal failure due to above -her other medical issues all appear stable at this time At this point the patient clearly needs to be rehydrated urgently and will need to be treated aggressively for nausea and get her constipation treated aggressively. The last 2 visits here have been approximately a week and a half to get her back to the point where we can get her home again. A lot of this has to do with her inability to take in fluids very well. Also has to do with difficulty getting her bowels evacuated. We can accomplish this again I feel certain however there is some significant issues here. 1 is that there has not been a good plan that has worked in terms of what she does at home. Notably at this time she was not taking medications as prescribed for manage her constipation and it is unclear to me at this point why the discharge discharge instructions for medication were not what she did at home. Notably she was using milk of magnesia which she should definitely not use with her renal function and she and I have had conversations about this before. Also the GoLYTELY did seem to be effective for her here during last hospital stay and she did not use that at home. More over having these episodes of acute renal failure as frequently as she is is going to eventually lead to failure of her renal graft either from the injury itself or from not being able to take her anti-rejection medicines adequately at home. Is not clear to me what the best step for will be in terms of her home management. Getting her off of narcotics or at least on significantly reduced doses would seem to be helpful but whether not she is able to do this with her primary care physician is uncertain. It is not something she seems really very motivated to try and do when I talked to her. We have tried relative store here and it has not been very helpful so that I do not think any of the similar oral medicines to use at home would be beneficial. The most aggressive thing I can think of would be to consider a partial colectomy and see if that helped improve her gut function to the point where she did not have this much trouble. Here in the hospital 1 of our challenges is that she has ongoing nausea during her entire hospital stay. She says that Zofran does not really do much for her symptoms, she has had bad side effects with Reglan, and all of the other usual anti nausea medicines can be constipating. We could consider trying some Haldol here and see if that works. Either way is going to be beneficial to be as aggressive as we can and treat her nausea with though that she can orally hydrate, take oral laxatives, take her anti-rejection medicines, and try to get some food in which she has not been getting a lot of lately. PLANS: -IV hydration -for now use a INTERIOR DESIGN ASSISTANT for pain medicine as she is saying she can't keep anything down -aggressive nausea medicine as were able with non constipating medicines when possible -will start with some will enemas and see if we can get her bowels going that way until we can get things in orally in which case Colyte so far has been the most helpful thing recently -continue stool softeners as able -follow renal function closely -will do our best to get her anti-rejection medicines in I have reviewed the patient's past medical records as part of this assessment, including multiple hospital admissions
[2018-01-16] MEDS: morphINE PCA 30 MG/30 ML PCA IV PRN (18:08)
[2018-01-16] MEDS: predniSONE 5 MG TAB PO SCH (19:37)
[2018-01-16] MEDS: SENNOSIDES/DOCUSATE SODIUM TAB PO SCH (22:26)
[2018-01-16] MEDS: SODIUM BICARBONATE 650 MG TAB PO SCH (22:26)
[2018-01-16] MEDS: azaTHIOprine 50 MG TAB PO SCH (22:27)
[2018-01-16] MEDS: TACROLIMUS 1 MG CAP PO SCH (22:27)
[2018-01-16] MEDS: OLANZapine 5 MG TAB PO SCH (22:27)
[2018-01-17] MEDS: ONDANSETRON 4 MG/2 ML VIAL IVP SCH ×4 (00:27→18:13)
[2018-01-17] MEDS: NS 1,000 ML IV SCH ×3 (00:32→18:12)
[2018-01-17] MEDS ORDERED: LORazepam 2 MG/ML INJ IVP ONE (02:22)
[2018-01-17] MEDS: HEPARIN 5,000 UNIT/0.5 ML SYR SC SCH ×3 (05:53→20:51)
[2018-01-17] MEDS: LEVOTHYROXINE 75 MCG TAB PO SCH (05:53)
[2018-01-17] MEDS: predniSONE 5 MG TAB PO SCH (08:00)
[2018-01-17] MEDS: CALCITRIOL 0.25 MCG CAP PO SCH (08:02)
[2018-01-17] MEDS: buPROPion SR 150 MG TAB PO SCH (08:02)
[2018-01-17] MEDS: PANTOPRAZOLE SODIUM 40 MG TAB PO SCH (08:02)
[2018-01-17] MEDS: SODIUM BICARBONATE 650 MG TAB PO SCH ×2 (08:02→20:50)
[2018-01-17] MEDS: TACROLIMUS 1 MG CAP PO SCH ×2 (08:02→20:51)
[2018-01-17] MEDS: FLUoxetine 10 MG CAP PO SCH (08:02)
[2018-01-17] MEDS: SENNOSIDES/DOCUSATE SODIUM TAB PO SCH ×2 (08:02→20:51)
[2018-01-17] MEDS ORDERED: GASTROVIEW 30 ML UNIT PR ONE (09:05)
--- NOTE | 2018-01-17 09:49 | PDMN ---
Medical Necessity Medical necessity: est los>2mn for ongoing constipation in setting of high dose narcotic use, with dehydration r/t recurrent N/V, inability to take oral meds, and recurrent acute on chronic renal failure; admit for IV hydration, COPYHOLDER for pain control, enemas until able to tolerate Colyte, follow renal function; comorbidities include chronic pain, renal failure s/p transplant, htn, hx lymphoma; per order and H&P 01/16/18
[2018-01-17] MEDS: morphINE PCA 30 MG/30 ML PCA IV PRN ×2 (10:12→18:38)
--- NOTE | 2018-01-17 12:12 | ASMTCMCOM ---
CM Note CM Note Notes: The healthcare account manager from Dr Giles's office called and wants to set up a care coordination conference with Dr Giles, the hospitalist, ED director of casework department, 1N director of casework department and her. CM to work on coordinating a meeting with all parties. Date Signed: 01/17/2018 12:12 PM Electronically Signed By:Carla Villeda LCSW
--- NOTE | 2018-01-17 15:24 | HOSPPROG ---
Hospitalist Progress Note Assessment/Plan: DIAGNOSES: -recurrent episode of constipation, ongoing trouble with constipation which she is not managing well at home in the setting of using high-dose prescribed daily narcotic -recurrence nausea vomiting leading to dehydration and inability to take in her oral medicines -recurrent acute on chronic renal failure due to above -chronic pain syndrome with chronic prescribed daily narcotic use and dependency -severe protein calorie malnutrition documented weight loss and cachexia How long discussion is in today with the patient about her issues. Unfortunately thinks he is at very high risk of progressive renal failure between the repeated bouts of acute disease of this kidney as well as the repeated bouts of missing her anti-rejection medicine. I feel that this situation with her GI illness will potentially hasten her return to hemodialysis. Clearly some other way of managing her scenario will need to be arrived at. Will review again with Gastroenterology PLANS: -have reviewed her case today with Dr. Marcelo Quintana. As she is improving at this moment with creatinine that is not necessary to have the nephrology team see her but they are aware that she is having these issues. -still no bowel movement here after enemas, now that she swallowing some fluids will try some oral laxative as well -continue IV hydration follow renal function closely -will add more antiemetic medicine -follow electrolytes closely -will try to contact Dr. 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, my review: Exam: alert oriented looks very tired and weak skin warm dry color ok resps not labored lungs clear BSs heart regular abd soft nondistended mildly tender tender, bowel sounds present; the stool that was palpable across the transverse colon is not palpable today and appears to have moved on to the more distal bile limbs warm, no edema iv site ok Laboratory data reviewed: Creatinine slightly decreased at 3.3 today electrolytes okay Objective: Vital Signs Temp Pulse Resp BP Pulse Ox 36.9 C 86 16 120/77 95 01/17/18 14:08 01/17/18 14:08 01/17/18 14:08 01/17/18 14:08 01/17/18 14:08 Laboratory Results 01/17/18 04:03 01/16/18 01/17/18 01/18/18 06:59 06:59 06:59 Intake Total 2490 Output Total 750 400 Balance 1740 -400 - Time Spent With Patient Time Spent with Patient: greater than 35 minutes Time Spent with Patient: Greater than 35 minutes spent on this patients care, greater than 50% of time spent counseling, educating, and coordinating care regarding the above mentioned plan. ICD10 Worksheet Patient Problems: Problems Problem Status Onset Acute kidney injury Acute Dehydration Acute Renal transplant recipient Acute Anticoagulant therapy Active Chronic pain syndrome Active Hypokalemia Active Hypothyroidism Active Renal impairment Active biliary gastric reflux Active Abdominal pain Acute Acute on chronic kidney failure Acute Anemia Acute C. difficile diarrhea Acute ~05/30/17 Chronic renal failure Acute Clostridium difficile infection Acute Congestive heart failure Acute Constipation Acute Diarrhea Acute Hypoglycemia Acute Immunosuppression Acute Nausea Acute Nausea & vomiting Acute Pyelonephritis Acute Renal failure (ARF), acute on chronic Acute Sepsis Acute Superficial thrombophlebitis Acute Swelling of both lower extremities Acute Syncope due to orthostatic hypotension Acute Tachycardia Acute Urinary tract infection Acute VRE (vancomycin-resistant Enterococci) Acute ~03/01/17 Volume depletion, gastrointestinal loss Acute History of kidney transplant Chronic
[2018-01-17] MEDS: HALOPERIDOL LACT 5 MG/ML INJ IVP PRN ×2 (15:35→20:52)
[2018-01-17] MEDS: POLYETHYLENE GLYCOL 3350 17 GM PKT PO SCH ×2 (15:39→20:51)
[2018-01-17] MEDS: azaTHIOprine 50 MG TAB PO SCH (20:49)
[2018-01-17] MEDS: OLANZapine 5 MG TAB PO SCH (20:50)
[2018-01-18] MEDS: ONDANSETRON 4 MG/2 ML VIAL IVP SCH ×3 (00:39→11:48)
[2018-01-18] MEDS: LEVOTHYROXINE 75 MCG TAB PO SCH (05:14)
[2018-01-18] MEDS: HEPARIN 5,000 UNIT/0.5 ML SYR SC SCH ×3 (05:14→22:07)
[2018-01-18] MEDS: buPROPion SR 150 MG TAB PO SCH (08:08)
[2018-01-18] MEDS: TACROLIMUS 1 MG CAP PO SCH ×2 (08:08→20:15)
[2018-01-18] MEDS: SENNOSIDES/DOCUSATE SODIUM TAB PO SCH ×2 (08:08→20:14)
[2018-01-18] MEDS: FLUoxetine 10 MG CAP PO SCH (08:08)
[2018-01-18] MEDS: SODIUM BICARBONATE 650 MG TAB PO SCH ×2 (08:08→20:15)
[2018-01-18] MEDS: predniSONE 5 MG TAB PO SCH (08:08)
[2018-01-18] MEDS: PANTOPRAZOLE SODIUM 40 MG TAB PO SCH (08:08)
[2018-01-18] MEDS: POLYETHYLENE GLYCOL 3350 17 GM PKT PO SCH ×2 (08:11→20:14)
--- NOTE | 2018-01-18 10:27 | ASMTCMCOM ---
CM Note CM Note Notes: A care coordination conference has been set up for tomorrow at 1:30. Dr Giles, Dr Tatum, Janell Rn Research at [facility] CM and this CM will be present. A call-in phone number will be provided by case mgmt consulting practice manager. Date Signed: 01/18/2018 10:26 AM Electronically Signed By:Carla Villeda LCSW
[2018-01-18] MEDS: morphINE PCA 30 MG/30 ML PCA IV PRN (10:48)
[2018-01-18] MEDS: NS 1,000 ML IV SCH (11:48)
[2018-01-18] MEDS ORDERED: BISACODYL 10 MG SUPP PR ONE (15:04)
[2018-01-18] MEDS ORDERED: METHYLNALTREXONE BROMIDE 12 MG/0.6 ML INJ SC ONE (15:04)
[2018-01-18] MEDS ORDERED: PEG 3350/NA SULF,BICARB,CL/KCL (GAVILYTE-G) 4000 ML BTL PO ONE ×2 (15:05→17:30)
--- NOTE | 2018-01-18 15:12 | HOSPPROG ---
Hospitalist Progress Note Assessment/Plan: DIAGNOSES: -recurrent episode of constipation, ongoing trouble with constipation which she is not managing well at home in the setting of using high-dose prescribed daily narcotic -recurrence nausea vomiting leading to dehydration and inability to take in her oral medicines -recurrent acute on chronic renal failure due to above -chronic pain syndrome with chronic prescribed daily narcotic use and dependency -severe protein calorie malnutrition documented weight loss and cachexia At this time he has slow improvement in her renal function. She is not back at her recent baseline yet. She is eating better and feeling better but we are still not able to get bowel movements going at this point. At this point we should be moving back towards getting her back on her oral medications for her pain control. Again the main acute issues are very slow to resolve as they have been during the recent hospital episodes with the same problem list. More concerning to me is the long-term picture where she keeps coming back to the hospital repeatedly , unable to stay awake for more than a few days at a time, and clearly putting her kidney transplant at very high risk for rapid progression toward failure with return to dialysis PLANS: -continue efforts at bowel of actuation, today will try relative store, GoLYTELY , ongoing MiraLax, and Dulcolax -will begin trying to transition to all oral fluid and pain medicines at this point -continue antiemetics -follow renal function and electrolytes closely -we have arranged for a phone conference with myself, Dr. 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, my review: Exam: alert oriented looks notably more energetic uncomfortable today skin warm dry color ok no jaundice resps not labored lungs clear BSs heart regular abd soft nondistended mildly tender tender, bowel sounds present limbs warm, no edema iv site appears in treated with some edema in her wrist but there is no sign of infection or phlebitis Laboratory data reviewed: Creatinine slightly unchanged at 3.3 today though BUN has decreased quite remarkably today Electrolytes normal Objective: Vital Signs Temp Pulse Resp BP Pulse Ox 36.4 C 90 18 114/71 96 01/18/18 10:20 01/18/18 14:00 01/18/18 14:00 01/18/18 14:00 01/18/18 14:00 Laboratory Results 01/18/18 04:43 01/17/18 01/18/18 01/19/18 06:59 06:59 06:59 Intake Total 2490 3254.8 Output Total 750 2200 Balance 1740 1054.8 - Time Spent With Patient Time Spent with Patient: greater than 35 minutes Time Spent with Patient: Greater than 35 minutes spent on this patients care, greater than 50% of time spent counseling, educating, and coordinating care regarding the above mentioned plan. ICD10 Worksheet Patient Problems: Problems Problem Status Onset Acute kidney injury Acute Dehydration Acute Renal transplant recipient Acute Anticoagulant therapy Active Chronic pain syndrome Active Hypokalemia Active Hypothyroidism Active Renal impairment Active biliary gastric reflux Active Abdominal pain Acute Acute on chronic kidney failure Acute Anemia Acute C. difficile diarrhea Acute ~05/30/17 Chronic renal failure Acute Clostridium difficile infection Acute Congestive heart failure Acute Constipation Acute Diarrhea Acute Hypoglycemia Acute Immunosuppression Acute Nausea Acute Nausea & vomiting Acute Pyelonephritis Acute Renal failure (ARF), acute on chronic Acute Sepsis Acute Superficial thrombophlebitis Acute Swelling of both lower extremities Acute Syncope due to orthostatic hypotension Acute Tachycardia Acute Urinary tract infection Acute VRE (vancomycin-resistant Enterococci) Acute ~03/01/17 Volume depletion, gastrointestinal loss Acute History of kidney transplant Chronic
[2018-01-18] MEDS ORDERED: BISACODYL 5 MG EC TAB PO PRN (17:14)
[2018-01-18] MEDS ORDERED: OXYCODONE HCL 40 MG PO PRN (17:14)
[2018-01-18] MEDS: morphINE SR 15 MG TAB PO SCH ×2 (17:54→22:07)
[2018-01-18] MEDS: oxyCODONE IR 5 MG TAB PO PRN (17:54)
[2018-01-18] MEDS: ONDANSETRON DISINTEGRATING 4 MG TAB PO SCH (17:55)
[2018-01-18] MEDS: OLANZapine 5 MG TAB PO SCH (20:13)
[2018-01-18] MEDS: azaTHIOprine 50 MG TAB PO SCH (20:15)
[2018-01-19] MEDS: oxyCODONE IR 5 MG TAB PO PRN ×4 (00:05→21:29)
[2018-01-19 05:01] LABS: PLATELET COUNT 220 10^3/uL (150-400)
[2018-01-19] MEDS: ONDANSETRON DISINTEGRATING 4 MG TAB PO SCH ×4 (05:26→19:26)
[2018-01-19] MEDS: LEVOTHYROXINE 75 MCG TAB PO SCH (05:26)
[2018-01-19] MEDS: HEPARIN 5,000 UNIT/0.5 ML SYR SC SCH ×3 (05:28→21:33)
[2018-01-19] MEDS: POLYETHYLENE GLYCOL 3350 17 GM PKT PO SCH ×2 (08:30→21:26)
[2018-01-19] MEDS: SENNOSIDES/DOCUSATE SODIUM TAB PO SCH ×2 (08:30→21:29)
[2018-01-19] MEDS: TACROLIMUS 1 MG CAP PO SCH ×2 (08:30→21:30)
[2018-01-19] MEDS: predniSONE 5 MG TAB PO SCH (08:30)
[2018-01-19] MEDS: buPROPion SR 150 MG TAB PO SCH (08:30)
[2018-01-19] MEDS: FLUoxetine 10 MG CAP PO SCH (08:31)
[2018-01-19] MEDS: morphINE SR 15 MG TAB PO SCH ×3 (08:31→21:29)
[2018-01-19] MEDS: PANTOPRAZOLE SODIUM 40 MG TAB PO SCH (08:31)
[2018-01-19] MEDS: SODIUM BICARBONATE 650 MG TAB PO SCH ×2 (08:31→21:30)
[2018-01-19] MEDS: CALCITRIOL 0.25 MCG CAP PO SCH (08:37)
--- NOTE | 2018-01-19 15:45 | ASMTCMCOM ---
CM Note CM Note Notes: Care coordination conference today with Dr Giles, his office primary care sales representative Janell, their behavioral health person Veronika, [employer], Elena Jacobs ED immigration case manager and this CM. The goals of the consult were to see if pts non-compliance with her meds could be addressed. Concern is that pt did not follow DC instructions upon her DC on 01/12, which likely led to her current admission. Torres expressed concerns that pts Jovany, has indicated he is thinking of leaving if things dont improve. Per Dr Giles, Jovany would like family therapy and pt has admitted in presence of Dr Giles that she is afraid to do it. Per chart, pt has indicated problem with in the past. Dr Giles stated that he asked pt numerous times if she feels safe in the home and she has always stated she does. After back and forth discussion of possible options, it was determined that pt would benefit from a referral to [facility] RN. Palliative agency to manage symptoms and provide psychosocial support was also suggested (HC not an option b/c pt would not agree to be homebound.) At end of mtg, CM met with pt to discuss possibility of help in the home. Pt admitted that she is having difficulty at home. However, when offered help through a palliative agency or HC, pt stated her would never approve it because he does not like strangers in their home plus their place is messy. Pt refused CMs offer to discuss this with but was encouraged to do so herself. She was told that most agencies are not concerned about state of home and having an RN visit her could be an effective solution. CM will continue to follow pt and encourage agency help in the home. Date Signed: 01/19/2018 03:44 PM Electronically Signed By:Carla Villeda LCSW
--- NOTE | 2018-01-19 18:41 | HOSPPROG ---
Hospitalist Progress Note Assessment/Plan: DIAGNOSES: -recurrent episode of constipation, ongoing trouble with constipation which she is not managing well at home in the setting of using high-dose prescribed daily narcotic -recurrence nausea vomiting leading to dehydration and inability to take in her oral medicines -recurrent acute on chronic renal failure due to above -chronic pain syndrome with chronic prescribed daily narcotic use and dependency -severe protein calorie malnutrition documented weight loss and cachexia -chronic anemia of renal disease with baseline hemoglobin 9, is currently at her baseline PLANS: -continue efforts at bowel evacuation, today will try more GoLYTELY, ongoing MiraLax, and Dulcolax -continue on all of her oral medicines from home including pain medicines, IV fluids and IV medicines have been discontinued -continue antiemetics -follow renal function and electrolytes closely -later today I will be participating in a care conference with her primary care physician nurse case management and other clinical staff from her outpatient setting to review strategies for managing her troubles in the outpatient setting 2 different visits with patient over the course of the day today SUBJECTIVE: Some improvement in pain today, and she is back on her usual home pain medicines off the IV medicine Continues to eat well, some intermittent nausea as usual but getting good relief from medication Small bowel movement yesterday but not clearly fully evacuated yet, tolerating the laxatives and enemas well so far Has been up walking quite a bit today OBJECTIVE Vitals reviewed: Stable without fever Exam: alert oriented does not appear to be uncomfortable skin warm dry color ok no jaundice resps not labored lungs clear BSs heart regular abd soft nondistended mildly tender tender, bowel sounds present limbs warm, no edema Laboratory data reviewed: Creatinine improved to 2.8 which is at her baseline, BUN down to 32, electrolytes good Hemoglobin is decreased to 8.9 with hydration and this is actually at her baseline Abdominal x-ray done today I have reviewed the images: Most of the stool that had been in her colon appears to have moved into the low sigmoid and rectum at this point Objective: Vital Signs Temp Pulse Resp BP Pulse Ox 36.8 C 95 16 119/74 91 L 01/19/18 15:41 01/19/18 15:41 01/19/18 15:41 01/19/18 15:41 01/19/18 15:41 Laboratory Results 01/19/18 04:09 01/19/18 04:09 01/18/18 01/19/1818 06:59 06:59 06:59 Intake Total 3254.8 1500 Output Total 2200 1100 Balance 1054.8 400 - Time Spent With Patient Time Spent with Patient: greater than 35 minutes Time Spent with Patient: Greater than 35 minutes spent on this patients care, greater than 50% of time spent counseling, educating, and coordinating care regarding the above mentioned plan. ICD10 Worksheet Patient Problems: Problems Problem Status Onset Acute kidney injury Acute Dehydration Acute Renal transplant recipient Acute Anticoagulant therapy Active Chronic pain syndrome Active Hypokalemia Active Hypothyroidism Active Renal impairment Active biliary gastric reflux Active Abdominal pain Acute Acute on chronic kidney failure Acute Anemia Acute C. difficile diarrhea Acute ~05/30/17 Chronic renal failure Acute Clostridium difficile infection Acute Congestive heart failure Acute Constipation Acute Diarrhea Acute Hypoglycemia Acute Immunosuppression Acute Nausea Acute Nausea & vomiting Acute Pyelonephritis Acute Renal failure (ARF), acute on chronic Acute Sepsis Acute Superficial thrombophlebitis Acute Swelling of both lower extremities Acute Syncope due to orthostatic hypotension Acute Tachycardia Acute Urinary tract infection Acute VRE (vancomycin-resistant Enterococci) Acute ~03/01/17 Volume depletion, gastrointestinal loss Acute History of kidney transplant Chronic
--- NOTE | 2018-01-19 19:38 | HOSPPROG ---
Hospitalist Progress Note Assessment/Plan: I participated in care conference for this day which also included Dr. Darius Giles her primary care physician, case mgr from the hospital, case mgr from the ER, lining caser from her clinic. Total of 4 40 min spent in this care conference today and this was in addition to the other medical care I provided as documented in my previous note. This patient has numerous hospitalizations but most prominently 3 hospitalizations within a very short period of time all for the exact same diagnosis, namely uncontrolled constipation probably aggravated greatly by her narcotics that leads to nausea decreased intake of fluids, decreased intake of her usual oral medicine, dehydration and acute renal failure. She responds readily to usual measures here in the hospital but goes home and very shortly thereafter has the exact same problems again. Notably she does not appear to be following her prescribed regimen for doing with her constipation at home. She also according to her has not been taking for self in other ways the way which she has been instructed or would typically be expected. The patient clearly is having a lot of trouble at home per the including severe relationship problems that they are having, and he is considering leaving the relationship. She is clearly having fear issues when we talk to her as well as symptoms of depression. And she does appear to me to have episodes suggestive of PTSD and Dr. Giles agrees with this. At this point it is clear that these repeated episodes are going to put her renal transplant risk for failure leading to her going on dialysis which she has never done before. Notably the patient states that she was told by Dr. Sanderson in the past that she had a high chance of needing dialysis and that she should get herself on a transplant list. The patient at that time had creatinines as high as 4 but we been able to get her creatinine down to 2.5 2.6 as we treat her recent episodes of acute illness. On reviewing her current creatinine and it seems clear that she should be able to keep her transplant going is long she protects it. However the patient admits that she is so undone by having been told that she should get on transplant list that her mental health issues have spiral out of control and her interfering greatly with her ability to care for herself. However she has been told repeatedly by healthcare providers and her that she needs to seek mental health care and counseling as well as marriage counseling for her psychological and relationship issues, and she has not been able to get herself to do that. She tells me that she is too scared of these encounters to engage in them so far. At this point it seems that the only place we can go to try to get any improvement in her situation is to actually push her to engagement in mental health care and relationship counseling. We did talk about a number of options at the meeting today and at this point are going to start with a consult with Kenisha Taylor. It is unclear since she lives so remotely and has so many fear issues and engagement issues how we will get her started on therapy or where that will occur. She may need inpatient therapy. Objective: Vital Signs Temp Pulse Resp BP Pulse Ox 36.8 C 95 16 119/74 91 L 01/19/18 15:41 01/19/18 15:41 01/19/18 15:41 01/19/18 15:41 01/19/18 15:41 Laboratory Results 01/19/18 04:09 01/19/18 04:09 01/18/18 01/19/18 01/20/18 06:59 06:59 06:59 Intake Total 3254.8 1500 1500 Output Total 2200 1100 Balance 1054.8 400 1500 ICD10 Worksheet Patient Problems: Problems Problem Status Onset Acute kidney injury Acute Dehydration Acute Renal transplant recipient Acute Anticoagulant therapy Active Chronic pain syndrome Active Hypokalemia Active Hypothyroidism Active Renal impairment Active biliary gastric reflux Active Abdominal pain Acute Acute on chronic kidney failure Acute Anemia Acute C. difficile diarrhea Acute ~05/30/17 Chronic renal failure Acute Clostridium difficile infection Acute Congestive heart failure Acute Constipation Acute Diarrhea Acute Hypoglycemia Acute Immunosuppression Acute Nausea Acute Nausea & vomiting Acute Pyelonephritis Acute Renal failure (ARF), acute on chronic Acute Sepsis Acute Superficial thrombophlebitis Acute Swelling of both lower extremities Acute Syncope due to orthostatic hypotension Acute Tachycardia Acute Urinary tract infection Acute VRE (vancomycin-resistant Enterococci) Acute ~03/01/17 Volume depletion, gastrointestinal loss Acute History of kidney transplant Chronic
[2018-01-19] MEDS: azaTHIOprine 50 MG TAB PO SCH (21:30)
[2018-01-19] MEDS: OLANZapine 5 MG TAB PO SCH (21:30)
[2018-01-20] MEDS: ONDANSETRON DISINTEGRATING 4 MG TAB PO SCH ×5 (00:59→23:51)
[2018-01-20] MEDS: oxyCODONE IR 5 MG TAB PO PRN ×4 (03:52→23:50)
[2018-01-20] MEDS: LEVOTHYROXINE 75 MCG TAB PO SCH (05:52)
[2018-01-20] MEDS: HEPARIN 5,000 UNIT/0.5 ML SYR SC SCH ×3 (05:52→21:15)
[2018-01-20] MEDS: TACROLIMUS 1 MG CAP PO SCH ×2 (09:46→21:10)
[2018-01-20] MEDS: POLYETHYLENE GLYCOL 3350 17 GM PKT PO SCH (09:46)
[2018-01-20] MEDS: SENNOSIDES/DOCUSATE SODIUM TAB PO SCH ×2 (09:46→21:15)
[2018-01-20] MEDS: SODIUM BICARBONATE 650 MG TAB PO SCH ×2 (09:47→21:14)
[2018-01-20] MEDS: predniSONE 5 MG TAB PO SCH (09:47)
[2018-01-20] MEDS: PANTOPRAZOLE SODIUM 40 MG TAB PO SCH (09:47)
[2018-01-20] MEDS: morphINE SR 15 MG TAB PO SCH ×3 (09:47→21:15)
[2018-01-20] MEDS: FLUoxetine 10 MG CAP PO SCH (09:47)
[2018-01-20] MEDS: buPROPion SR 150 MG TAB PO SCH (09:47)
[2018-01-20] MEDS ORDERED: PEG 3350/NA SULF,BICARB,CL/KCL (GAVILYTE-G) 4000 ML BTL PO ONE (10:07)
--- NOTE | 2018-01-20 15:17 | HOSPPROG ---
Hospitalist Progress Note Assessment/Plan: # MEETA on CKD status post renal transplant- creatinine 3.6 -> 3.0 this a.m. status post fluid resuscitation Oxygen saturations 96% on room air - continue home transplant medication - oral intake adequate can DC IV fluids - follow daily renal function panel # chronic severe constipation- abdominal x-ray (personally reviewed and interpreted) improving constipation - continue GoLYTELY # nausea vomiting- appears improved based on patient report continue bowel regimen and home meds # chronic pain with continuous narcotic dependence- continue current regiment # severe protein calorie malnutrition- BMI 18- patient's overall failure to thrive intimately linked with her emotional instability and the lack of stability in her home # depression- also exacerbated by instability of her living situation - psychiatry consulted for recommendation as directly affecting her medical health # prophylaxis heparin # Diet renal # disposition greater than 2 midnights- needs psychiatric assistance for safe disposition home I have discussed the case with Dr. Tatum- he has requested Psychiatry involvement for evaluation of depression and safe disposition Subjective: Persistent abdominal discomfort Objective: Vital Signs Temp Pulse Resp BP Pulse Ox 36.6 C 86 14 118/80 96 01/20/18 07:35 01/20/18 07:35 01/20/18 07:35 01/20/18 07:35 01/20/18 07:35 Laboratory Results 01/19/18 04:09 01/20/18 04:32 01/19/18 01/20/18 01/21/18 05:59 05:59 05:59 Intake Total 1500 3180 Output Total 1100 Balance 400 3180 - Physical Exam Constitutional: chronically ill appearing Eyes: anicteric sclera Ears, Nose, Mouth, Throat: moist mucous membranes Cardiovascular: regular rate and rhythym Respiratory: no respiratory distress Gastrointestinal: normoactive bowel sounds, No distension Genitourinary: no bladder fullness Skin: warm Musculoskeletal: No asymmetric calves Neurologic: AAOx3 Psychiatric: interacting appropriately Lymph, Heme, Immunologic: no cervical LAD ICD10 Worksheet Patient Problems: Problems Problem Status Onset Acute kidney injury Acute Dehydration Acute Renal transplant recipient Acute Anticoagulant therapy Active Chronic pain syndrome Active Hypokalemia Active Hypothyroidism Active Renal impairment Active biliary gastric reflux Active Abdominal pain Acute Acute on chronic kidney failure Acute Anemia Acute C. difficile diarrhea Acute ~05/30/17 Chronic renal failure Acute Clostridium difficile infection Acute Congestive heart failure Acute Constipation Acute Diarrhea Acute Hypoglycemia Acute Immunosuppression Acute Nausea Acute Nausea & vomiting Acute Pyelonephritis Acute Renal failure (ARF), acute on chronic Acute Sepsis Acute Superficial thrombophlebitis Acute Swelling of both lower extremities Acute Syncope due to orthostatic hypotension Acute Tachycardia Acute Urinary tract infection Acute VRE (vancomycin-resistant Enterococci) Acute ~03/01/17 Volume depletion, gastrointestinal loss Acute History of kidney transplant Chronic
[2018-01-20] MEDS: OLANZapine 5 MG TAB PO SCH (21:14)
[2018-01-20] MEDS: azaTHIOprine 50 MG TAB PO SCH (21:16)
[2018-01-21] MEDS: oxyCODONE IR 5 MG TAB PO PRN ×2 (06:00→21:37)
[2018-01-21] MEDS: HEPARIN 5,000 UNIT/0.5 ML SYR SC SCH ×3 (06:01→21:36)
[2018-01-21] MEDS: ONDANSETRON DISINTEGRATING 4 MG TAB PO SCH (06:02)
[2018-01-21] MEDS: LEVOTHYROXINE 75 MCG TAB PO SCH (06:04)
[2018-01-21] MEDS: SODIUM BICARBONATE 650 MG TAB PO SCH ×2 (10:04→21:35)
[2018-01-21] MEDS: buPROPion SR 150 MG TAB PO SCH (10:05)
[2018-01-21] MEDS: FLUoxetine 10 MG CAP PO SCH (10:05)
[2018-01-21] MEDS: PANTOPRAZOLE SODIUM 40 MG TAB PO SCH (10:05)
[2018-01-21] MEDS: predniSONE 5 MG TAB PO SCH (10:05)
[2018-01-21] MEDS: TACROLIMUS 1 MG CAP PO SCH ×2 (10:05→21:36)
[2018-01-21] MEDS: morphINE SR 15 MG TAB PO SCH ×3 (10:05→21:36)
[2018-01-21] MEDS: SENNOSIDES/DOCUSATE SODIUM TAB PO SCH ×2 (10:06→21:35)
[2018-01-21] MEDS ORDERED: ONDANSETRON DISINTEGRATING 4 MG TAB PO PRN (10:47)
[2018-01-21] MEDS: POLYETHYLENE GLYCOL 3350 17 GM PKT PO SCH (12:35)
--- NOTE | 2018-01-21 14:51 | HOSPPROG ---
Hospitalist Progress Note Assessment/Plan: # MEETA on CKD status post renal transplant- creatinine 3.6 -> 2.8 this a.m. status post fluid resuscitation Oxygen saturations 96% on room air - continue home transplant medication - oral intake adequate can DC IV fluids - follow daily renal function panel # chronic severe constipation- has been stooling loosely all evening abdominal x-ray (personally reviewed and interpreted) improving constipation - dc GoLYTELY - continue daily colace and miralax # nausea vomiting- appears improved based on patient report continue bowel regimen and home meds # chronic pain with continuous narcotic dependence- continue current regiment # severe protein calorie malnutrition- BMI 18- patient's overall failure to thrive intimately linked with her emotional instability and the lack of stability in her home # depression- also exacerbated by instability of her living situation - psychiatry consulted for recommendation as directly affecting her medical health # prophylaxis heparin # Diet renal # disposition greater than 2 midnights- needs psychiatric assistance for safe disposition home I have discussed the case with Dr. Tatum- he has requested Psychiatry involvement for evaluation of depression and safe disposition Subjective: pt very tearful about home situation Objective: Vital Signs Temp Pulse Resp BP Pulse Ox 36.4 C 94 16 119/66 93 01/21/18 08:00 01/21/18 08:00 01/21/18 08:00 01/21/18 08:00 01/21/18 08:00 Laboratory Results 01/19/18 04:09 01/21/18 04:51 01/20/18 01/21/18 01/22/18 05:59 05:59 05:59 Intake Total 3180 6250 Output Total 4350 Balance 3180 1900 - Physical Exam Constitutional: chronically ill appearing Eyes: anicteric sclera Ears, Nose, Mouth, Throat: moist mucous membranes Cardiovascular: regular rate and rhythym Respiratory: no respiratory distress, no rales or rhonchi Gastrointestinal: normoactive bowel sounds Genitourinary: no bladder fullness Skin: warm Musculoskeletal: No asymmetric calves Neurologic: AAOx3 Psychiatric: interacting appropriately Lymph, Heme, Immunologic: no cervical LAD ICD10 Worksheet Patient Problems: Problems Problem Status Onset Acute kidney injury Acute Dehydration Acute Renal transplant recipient Acute Anticoagulant therapy Active Chronic pain syndrome Active Hypokalemia Active Hypothyroidism Active Renal impairment Active biliary gastric reflux Active Abdominal pain Acute Acute on chronic kidney failure Acute Anemia Acute C. difficile diarrhea Acute ~05/30/17 Chronic renal failure Acute Clostridium difficile infection Acute Congestive heart failure Acute Constipation Acute Diarrhea Acute Hypoglycemia Acute Immunosuppression Acute Nausea Acute Nausea & vomiting Acute Pyelonephritis Acute Renal failure (ARF), acute on chronic Acute Sepsis Acute Superficial thrombophlebitis Acute Swelling of both lower extremities Acute Syncope due to orthostatic hypotension Acute Tachycardia Acute Urinary tract infection Acute VRE (vancomycin-resistant Enterococci) Acute ~03/01/17 Volume depletion, gastrointestinal loss Acute History of kidney transplant Chronic
[2018-01-21] MEDS: OLANZapine 5 MG TAB PO SCH (21:35)
[2018-01-21] MEDS: azaTHIOprine 50 MG TAB PO SCH (21:35)
[2018-01-22] MEDS ORDERED: SIMETHICONE 80 MG TAB CHEW PO PRN (00:45)
[2018-01-22] MEDS: HEPARIN 5,000 UNIT/0.5 ML SYR SC SCH ×2 (05:17→17:19)
[2018-01-22] MEDS: LEVOTHYROXINE 75 MCG TAB PO SCH (05:18)
[2018-01-22] MEDS: oxyCODONE IR 5 MG TAB PO PRN ×2 (06:35→17:17)
[2018-01-22 09:47] VITALS: BP 124/73
[2018-01-22] MEDS: morphINE SR 15 MG TAB PO SCH ×2 (10:03→17:17)
[2018-01-22] MEDS: SENNOSIDES/DOCUSATE SODIUM TAB PO SCH (10:03)
[2018-01-22] MEDS: buPROPion SR 150 MG TAB PO SCH (10:03)
[2018-01-22] MEDS: SODIUM BICARBONATE 650 MG TAB PO SCH (10:03)
[2018-01-22] MEDS: PANTOPRAZOLE SODIUM 40 MG TAB PO SCH (10:03)
[2018-01-22] MEDS: FLUoxetine 10 MG CAP PO SCH (10:04)
[2018-01-22] MEDS: predniSONE 5 MG TAB PO SCH (10:04)
[2018-01-22] MEDS: TACROLIMUS 1 MG CAP PO SCH (10:18)
[2018-01-22] MEDS: POLYETHYLENE GLYCOL 3350 17 GM PKT PO SCH (10:18)
[2018-01-22] MEDS: CALCITRIOL 0.25 MCG CAP PO SCH (10:18)
--- NOTE | 2018-01-22 17:32 | GDS ---
[f rep st] DISCHARGE SUMMARY DISCHARGE DIAGNOSES: Include: 1. Chronic kidney disease, status post renal transplant. Creatinine at baseline 2.9. 2. Chronic constipation. 3. Chronic pain with continuous narcotic dependence. 4. Severe protein-calorie malnutrition. 5. Depression. HISTORY OF PRESENT ILLNESS: This is a 47-year-old female who presents on 01/16/2018, with complaints of abdominal pain, nausea and vomiting. For details of patient's initial presentation, please see t he history and physical dated 01/16/2018. HOSPITAL COURSE: By issue: 1. Acute on chronic severe constipation. Patient presented with abdominal pain, nausea, vomiting. X-ray imaging showed mild to moderate constipation. She was admitted and initiated on consistent GoL YTELY until she is passing watery stools. The patient will be discharged on Colace and MiraLAX daily with recommendations to use GoLYTELY if she has not passed a stool in greater than 24 hours. Recomm endations around good activity, oral fluid intake and nutritional intake have also been provided. 2. Acute kidney injury on chronic kidney disease. Patient presented with a creatinine of 3.6. She was admitted, received IV fluid resuscitation and had improvement in her renal function back to her b aseline 2.9. She has been consistently continued on her home medications and will be discharged on t he same medications. She will follow up with her outpatient test center manager, Dr. Sanderson. 3. Depression. This is a major contributor to her medical ill-health. We did have our psychiatric provider evaluate the patient during her stay and provide resources in coordination with her PCP, Dr. Giles, for neurocognitive and neuropsychiatric evaluations. 4. Goals of care: This patient has had uncountable re-hospitalizations at [facility] in the last 6 years, over 40. It is clear that her home situation is unsettling and not effectively supporting her medical health. I have been in discussion with Dr. Giles, the outpatient primary c are provider, as well as with the patient's who was quite agitated and frustrated, and expres sing fear due to his 's medical illness. We have recommended through our psychiatric provider th at the family seek both Couples and Family Counseling post disposition for hopeful stabilization of t he emotional well-being of this family in this home. MEDICATIONS AT THE TIME OF TRANSFER: Please reference the med rec printed on 01/22/2018. FOLLOWUP APPOINTMENTS: Include: 1. With Dr. Giles in the next 1-2 weeks for post disposition followup. 2. With the recommended psychiatric provider for neurocognitive and neuropsych testing, as well as f amily counseling. I spent greater than 30 minutes in the planning and coordination of this discharge. /[id number]/MODL
--- NOTE | 2018-01-22 17:58 | ASMTCMCOM ---
CM Note CM Note Notes: Spoke with MD & CM Cotton Presser regarding pt concerns with spouse & home situation. Spoke with Kenisha Taylor regarding pt consult; pt provided with resources. Dc order received. Spoke with RN; reports pt does not have a ride home. Met with pt to discuss; pt states she has not been able to reach her . Offered pt taxi voucher; pt concerned she will be locked out once she arrives at home. Discussed pt waiting at a neighbors house if she is locked out or calling the Police/Fire Dept to assist in getting her in her home; also recommended pt hide a spare tejeda outside her home. Pt agreeable. Taxi voucher provided. Pt denies need for HHC/Pallative. Dc plan Home with resources Date Signed: 01/22/2018 05:57 PM Electronically Signed By:Portia Jennings RN
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
== END 2018-01-22 18:00 | disposition home or self-care (01) | DRG 682 ==
LOC: F1N 14:00
PROVIDERS: ADMIT Internal Medicine; ATTEND Internal Medicine
DX: N17.9 Acute kidney failure, unspecified (principal); I12.9 Hypertensive chronic kidney disease with stage 1 through stage 4 chronic kidney disease, or unspecified chronic kidney disease; N18.9 Chronic kidney disease, unspecified; Z94.0 Kidney transplant status; E43 Unspecified severe protein-calorie malnutrition; Z68.1 Body mass index [BMI] 19.9 or less, adult; K59.03 Drug induced constipation; T40.605A Adverse effect of unspecified narcotics, initial encounter; G89.29 Other chronic pain; F11.20 Opioid dependence, uncomplicated; F32.9 Major depressive disorder, single episode, unspecified; K21.9 Gastro-esophageal reflux disease without esophagitis; I45.6 Pre-excitation syndrome; Z85.72 Personal history of non-Hodgkin lymphomas
CPT/HCPCS: 96374; J1200; J1630; J1644; J2212; J2270; J2405; J2550; J7500; J7507; J7512